=== PATIENT | female | born 1975 | race Caucasian/White ===

== ENCOUNTER 2021-06-15 07:27 | Outpatient (REF) | payer OTHER, SELFPAY ==
[2021-06-15 08:16] LABS: MANUAL DIFF FLAG NO
[2021-06-15 08:27] LABS: Basophils Absolute Auto 0.1 X10*3/uL (0.0-0.2); Basophils Percent Auto 0.6 % (0-2); Eosinophils Absolute Auto 0.2 X10*3/uL (0.0-0.4); Eosinophils Percent Auto 2.9 % (0-4); Hematocrit 38.5 % (37-47); Hemoglobin 12.9 g/dl (12.0-16.0); Imm Gran Abs Auto 0.02 X10*3/uL (0.00-0.03); Imm Gran Pct Auto 0.3 % (0.0-0.4); Lymphocytes Absolute Auto 2.4 X10*3/uL (1.2-4.9); Lymphocytes Percent Auto 30.6 % (20-40); Mean Corpuscular HGB Conc 33.5 g/dl (31.0-35.0); Mean Corpuscular Hemoglobin 29.7 pg (27.0-33.0); Mean Corpuscular Volume 88.7 fL (80-98); Mean Platelet Volume 10.9 fL (9.4-12.3); Monocytes Absolute Auto 0.7 X10*3/uL (0.1-1.2); Monocytes Percent Auto 9.2 % (2-11); Neutrophils Absolute Auto 4.3 X10*3/uL (2.0-8.3); Neutrophils Percent Auto 56.4 % (45-73); Platelet Count 218 X10*3/uL (160-400); Red Blood Count 4.34 X10*6/uL (4.20-5.50); White Blood Count 7.7 X10*3/uL (4.8-10.8)
[2021-06-15 08:37] LABS: Lithium 0.62 mmol/L (0.60-1.20)
[2021-06-15 08:49] LABS: Valproate 59.8 mcg/mL (50.0-100.0)
[2021-06-15 08:53] LABS: Alanine Aminotransferase 28 U/L (0-31); Albumin Level 4.4 g/dL (3.5-5.0); Alkaline Phosphatase 44 U/L (39-117); Anion Gap 12 (12-20); Aspartate Amino Transferase 18 U/L (5-31); Bilirubin Total 0.2 mg/dL (0.0-1.0); Blood Urea Nitrogen 10 mg/dL (9-16); Calcium 9.7 mg/dL (8.4-10.2); Carbon Dioxide 24 mmol/L (22-29); Chloride 108 mmol/L (96-108); Estimated Glomerular Filt Rate > 60; Glucose Random 95 mg/dL (60-115); Potassium 4.1 mmol/L (3.3-5.1); Sodium 140 mmol/L (135-145); Total Protein 6.7 g/dL (6.5-8.0)
[2021-06-15 09:03] LABS: Thyroid Stimulating Hormone 1.34 uIU/mL (0.32-4.0)
== END 2021-06-15 07:28 | disposition home or self-care (01) ==
LOC: HO.LAB 07:27
PROVIDERS: PCP Internal Medicine; Visit Provider Clinical Nurse Specialist Psychiatric/Mental Health, Adult
DX: Z79.899 Other long term (current) drug therapy (principal)
CPT/HCPCS: 36415; 80053; 80164; 80178; 84443; 85025

== ENCOUNTER 2021-12-21 08:43 | Outpatient (REF) | payer OTHER, SELFPAY ==
[2021-12-21 09:23] LABS: MANUAL DIFF FLAG NO
[2021-12-21 09:35] LABS: Basophils Percent Auto 0.5 % (0-2); Eosinophils Absolute Auto 0.2 X10*3/uL (0.0-0.4); Eosinophils Percent Auto 2.7 % (0-4); Hematocrit 38.8 % (37.0-47.0); Hemoglobin 12.5 g/dl (12.0-16.0); Imm Gran Abs Auto 0.07 X10*3/uL (0.00-0.03); Imm Gran Pct Auto 0.8 % (0.0-0.4); Lymphocytes Absolute Auto 2.7 X10*3/uL (1.2-4.9); Lymphocytes Percent Auto 30.5 % (20-40); Mean Corpuscular HGB Conc 32.2 g/dl (31.0-35.0); Mean Corpuscular Hemoglobin 28.9 pg (27.0-33.0); Mean Corpuscular Volume 89.6 fL (80.0-98.0); Mean Platelet Volume 10.3 fL (9.4-12.3); Monocytes Absolute Auto 0.7 X10*3/uL (0.1-1.2); Monocytes Percent Auto 8.1 % (2-11); Neutrophils Absolute Auto 5.1 x10*3/uL (2.0-8.3); Neutrophils Percent Auto 57.4 % (45-73); Platelet Count 243 X10*3/uL (160-400); Red Blood Count 4.33 X10*6/uL (4.20-5.50); Red Cell Distribution Width 12.1 % (11.0-16.0); White Blood Count 8.8 X10*3/uL (4.8-10.8)
[2021-12-21 09:46] LABS: Lithium 0.42 mmol/L (0.60-1.20)
[2021-12-21 09:56] LABS: Valproate 48.9 mcg/mL (50.0-100.0)
[2021-12-21 10:03] LABS: Alanine Aminotransferase 27 U/L (0-31); Albumin Level 4.3 g/dL (3.5-5.0); Alkaline Phosphatase 51 U/L (39-117); Anion Gap 14 (12-20); Aspartate Amino Transferase 17 U/L (5-31); Bilirubin Total 0.2 mg/dL (0.0-1.0); Blood Urea Nitrogen 8 mg/dL (9-16); Calcium 9.5 mg/dL (8.4-10.2); Carbon Dioxide 20 mmol/L (22-29); Chloride 110 mmol/L (96-108); Estimated Glomerular Filt Rate > 60; Glucose Random 98 mg/dL (60-115); Potassium 4.4 mmol/L (3.3-5.1); Sodium 140 mmol/L (135-145); Total Protein 6.8 g/dL (6.5-8.0)
== END 2021-12-21 08:44 | disposition home or self-care (01) ==
LOC: HO.LAB 08:43
PROVIDERS: PCP Internal Medicine; Visit Provider Clinical Nurse Specialist Psychiatric/Mental Health, Adult
DX: Z79.899 Other long term (current) drug therapy (principal)
CPT/HCPCS: 36415; 80053; 80164; 80178; 85025

== ENCOUNTER 2022-01-16 06:24 | Outpatient (REF) | payer OTHER, SELFPAY ==
[2022-01-16 07:56] LABS: Valproate 56.2 mcg/mL (50.0-100.0)
== END 2022-01-16 06:25 | disposition home or self-care (01) ==
LOC: HO.LAB 06:24
PROVIDERS: PCP Internal Medicine; Visit Provider Clinical Nurse Specialist Psychiatric/Mental Health, Adult
DX: Z79.899 Other long term (current) drug therapy (principal)
CPT/HCPCS: 36415; 80164

== ENCOUNTER 2022-08-29 08:22 | Outpatient (REF) | payer OTHER, SELFPAY ==
[2022-08-29 08:35] LABS: MANUAL DIFF FLAG NO
[2022-08-29 08:52] LABS: Basophils Absolute Auto 0.1 X10*3/uL (0.0-0.2); Basophils Percent Auto 0.7 % (0-2); Eosinophils Absolute Auto 0.2 X10*3/uL (0.0-0.4); Eosinophils Percent Auto 2.3 % (0-4); Hematocrit 38.8 % (37.0-47.0); Hemoglobin 12.9 g/dl (12.0-16.0); Imm Gran Abs Auto 0.02 X10*3/uL (0.00-0.03); Imm Gran Pct Auto 0.2 % (0.0-0.4); Lymphocytes Absolute Auto 2.7 X10*3/uL (1.2-4.9); Lymphocytes Percent Auto 32.9 % (20-40); Mean Corpuscular HGB Conc 33.2 g/dl (31.0-35.0); Mean Corpuscular Hemoglobin 29.2 pg (27.0-33.0); Mean Corpuscular Volume 87.8 fL (80.0-98.0); Mean Platelet Volume 10.3 fL (9.4-12.3); Monocytes Absolute Auto 0.8 X10*3/uL (0.1-1.2); Monocytes Percent Auto 9.8 % (2-11); Neutrophils Absolute Auto 4.4 x10*3/uL (2.0-8.3); Neutrophils Percent Auto 54.1 % (45-73); Platelet Count 238 X10*3/uL (160-400); Red Blood Count 4.42 X10*6/uL (4.20-5.50); Red Cell Distribution Width 11.9 % (11.0-16.0); White Blood Count 8.2 X10*3/uL (4.8-10.8)
[2022-08-29 09:20] LABS: Alanine Aminotransferase 18 U/L (0-31); Albumin Level 4.5 g/dL (3.5-5.0); Alkaline Phosphatase 49 U/L (39-117); Anion Gap 15 (12-20); Aspartate Amino Transferase 14 U/L (5-31); Bilirubin Total 0.4 mg/dL (0.0-1.0); Blood Urea Nitrogen 10 mg/dL (9-16); Calcium 9.7 mg/dL (8.4-10.2); Carbon Dioxide 22 mmol/L (22-29); Chloride 107 mmol/L (96-108); Estimated Glomerular Filt Rate > 60; Glucose Random 96 mg/dL (60-115); Potassium 4.3 mmol/L (3.3-5.1); Sodium 140 mmol/L (135-145); Total Protein 6.9 g/dL (6.5-8.0)
[2022-08-29 09:21] LABS: Valproate 67.7 mcg/mL (50.0-100.0)
== END 2022-08-29 08:23 | disposition home or self-care (01) ==
LOC: HO.LAB 08:22
PROVIDERS: PCP Internal Medicine; Visit Provider Clinical Nurse Specialist Psychiatric/Mental Health, Adult
DX: Z79.899 Other long term (current) drug therapy (principal)
CPT/HCPCS: 36415; 80053; 80164; 85025

== ENCOUNTER 2022-11-13 14:18 | Outpatient (REF) | payer OTHER, SELFPAY ==
--- NOTE | ~2022-11-13 | US_ITS ---
EXAMINATION: US SOFT TISSUE HEAD/NECK CLINICAL INFORMATION: Localized swelling, mass and lump, neck. Patient reports right submandibular lump which has since resolved at the time of examination. Patient is currently on antibiotics. COMPARISON: None TECHNIQUE: Linear transducer grayscale and color Doppler examination of the right submandibular area. FINDINGS: Multiple mildly prominent lymph nodes are seen in the right submandibular region, measuring 1.9 x 1.4 x 3.0 cm, 1.5 x 0.7 x 1.0 cm, and 1.1 x 0.6 x 1.0 cm. All are normal in morphology with fatty hilum visualized. These are likely reactive. US/US soft tiss head and/or neck IMPRESSION: Multiple mildly prominent lymph nodes are seen in the right submandibular region, likely reactive. Recommend short interval follow-up to assess for resolution.
== END 2022-11-13 14:19 | disposition home or self-care (01) ==
LOC: HO.HMGCX 14:18
PROVIDERS: PCP Internal Medicine; Visit Provider Nurse Practitioner Family
DX: R22.1 Localized swelling, mass and lump, neck (principal)
CPT/HCPCS: 76536

== ENCOUNTER 2024-01-29 15:19 | Emergency (ER) | payer OTHER, SELFPAY ==
--- NOTE | ~2024-01-29 | XR_ITS ---
EXAMINATION: XR HAND, RIGHT CLINICAL INFORMATION: Pain. Injury. COMPARISON: None available. TECHNIQUE: PA, lateral, and oblique views of the right hand. FINDINGS: Bone alignment is normal. No fracture or dislocation. Normal joint spaces. Soft tissue swelling adjacent to the fifth MCP joint. XR/XR hand RT min 3V IMPRESSION: No fracture or dislocation. Soft tissue swelling adjacent to the fifth MCP joint.
[2024-01-29 15:22] VITALS: BP 132/92; PULSE 64; O2SAT 99
--- NOTE | 2024-01-29 15:22 | ED.GENADULT ---
HPI - General Adult General Chief complaint: Extremity Injury, Upper Stated complaint: [facility], punched a wall Time Seen by Provider: 01/29/24 15:22 Source: patient and EMS Mode of arrival: EMS Limitations: no limitations History of Present Illness HPI narrative: Patient is a 48 year old assigned female at with a history of self harm, and suicidal ideation presenting to the emergency department today with right hand pain after striking a wall. Patient states that 4 days ago, she voluntarily signed in to [facility] for self-harm behavior and suicidal ideation. Patient states that the [facility] staff is rude, leaves her in her room, takes away her lunch if she doesn't eat it right away, and she doesn't feel like she is getting proper treatment there. Patient states that she is so frustrated with the care that she punched a wall today. Patient states that before punching the wall, she asked multiple times to be transferred to the psychiatric unit here. Patient denies any dizziness, lightheadedness, abdominal pain, nausea, vomiting, fever, chills, blurry vision, double vision, loss of vision, chest pain, difficulty breathing, shortness of breath, back pain, night sweats, pain with urination, increased urinary frequency, increased urinary urgency, blood in her urine or stool, syncope or a near syncopal episode, bowel incontinence, bladder incontinence, bowel retention, bladder retention, or any other complaints at this time. Relieving factors: none Exacerbating factors: none Associated symptoms: denies other symptoms Treatments prior to arrival: none Related Data Home Medications ?Medication ?Instructions ?Recorded ?Confirmed aripiprazole 10 mg tablet 10 mg PO QAM 11/06/22 11/06/22 dextroamphetamine-amphetamine 10 1 tab PO BID 11/06/22 11/06/22 mg tablet dextroamphetamine-amphetamine 15 1 tab PO BID 11/06/22 11/06/22 mg tablet lithium carbonate 300 mg 600 mg PO BEDTIME 11/06/22 11/06/22 tablet,extended release lorazepam 1 mg tablet 1 mg PO BID PRN anxiety 11/06/22 11/06/22 quetiapine 100 mg tablet 100 mg PO BEDTIME 11/06/22 11/06/22 Previous Rx's ?Medication ?Instructions ?Recorded cephalexin 500 mg capsule 500 mg PO Q12H 10 days #20 caps 11/06/22 Allergies Allergy/AdvReac Type Severity Reaction Status Date / Time lamotrigine [From LAMICTAL] Allergy Severe RASH Verified 01/29/24 16:05 acetaminophen [From PERCOCET] Allergy Mild NAUSEA Verified 01/29/24 16:05 oxycodone [From PERCOCET] Allergy Mild NAUSEA Verified 01/29/24 16:05 Review of Systems Constitutional: Constitutional: Reports no additional constitutional complaints, Denies chills, Denies fever(s) and Denies night sweats Eyes: Eyes: Reports no additional eye complaints, Denies blurry vision, Denies change in vision, Denies diplopia, Denies eye discharge, Denies loss of vision and Denies eye pain ENT: Denies dizziness Cardiovascular: Cardiovascular: Reports no additional cardiovascular complaints, Denies chest pain, Denies lightheadedness, Denies Loss of Consciousness and Denies dyspnea Respiratory: Respiratory: Reports no additional respiratory complaints and Denies dyspnea Gastrointestinal: Gastrointestinal: Reports no additional gastrointestinal complaints, Denies abdominal pain, Denies melena, Denies hematochezia, Denies change in bowel habits and Denies change in stool character Genitourinary: Genitourinary: Denies hematuria, Denies urinary frequency, Denies dysuria, Denies urinary incontinence, Denies urinary hesitancy and Denies urinary urgency Musculoskeletal: Musculoskeletal: Reports no additional musculoskeletal complaints, Denies numbness and Denies tingling Comments: right hand pain Neurologic: Denies dizziness, Denies loss of vision, Denies numbness and Denies tingling Psychiatric: Psychiatric: Denies homicidal ideation and Reports suicidal ideation Endocrine: Endocrine: Reports no additional endocrine complaints Hematologic/Lymphatic: Hematologic/Lymphatic: Reports no additional hematologic/lymphatic complaints Allergic/Immunologic: Allergic/Immunologic: Reports no additional allergic/immunologic complaints [facility] Past Medical History Attestation statement: The following information was validated with the patient. Source: old records reviewed and nursing notes reviewed Social History Social History Advance Directives: No Advance Directives Information Provided: Yes Do you have a plan to hurt others: Clear Physical Exam ED Vital Signs: Vital Signs - 24 hr 01/29/24 18:17 01/29/24 19:49 Temperature 98.4 F 98.4 F Pulse Rate 72 72 Respiratory Rate 16 16 Blood Pressure 150/85 H 150/85 H Pulse Oximetry 98 98 Oxygen Delivery Method Room Air Room Air BMI result Body Mass Index 29.4 Const General: cooperative, no acute distress, alert and awake Nutritional Appearance: well nourished Orientation/consciousness: patient oriented x3 Limitations: no limitations HENMT Head: Yes normal to inspection and Yes atraumatic Ears: hearing grossly normal bilaterally and external ears normal General nose exam: Normal external nose present, no nasal discharge noted and no epistaxis Face and sinus: Yes normal facial exam, No abrasion and No laceration Mouth: Normal oral and palatal mucosa present, no drooling and no muffled voice Eyes General: appearance normal, both eyes and all related structures Periorbital: periorbital findings normal Eyelids: Yes eyelids normal Conjunctivae: conjunctivae normal Pupils: Equal, round and reactive pupils present EOM: EOMs intact bilaterally Neck Neck: Yes normal visual inspection, Yes full ROM and Yes no lymphadenopathy Chest Chest palpation & inspection: normal inspection of the chest Resp Effort & Inspection: normal respiratory effort and able to speak in complete sentences GI Inspection: Yes normal to inspection Neuro General: patient oriented x3 and moves all extremities Cranial nerves: Yes Equal, round and reactive pupils present Cognition (Neuro): normal cognition Motor exam (neuro): 5/5 motor strength present throughout Sensory Exam: Normal double simultaneous stimulation for sensation Coordination: [id number] test normal Extrem Other: minimal swelling to the dorsal aspect of the right hand General: Yes full ROM and Yes capillary refill normal Psych Appearance: grossly normal Mental Status: mental status grossly normal Affect: normal affect Attitude: cooperative Thought process: Normal thought process present Thought content: Normal thought content present Insight: Good insight present (Psych) Medical Decision Making Medical Decision Making MDM Narrative: Patient is a 48 year old assigned female at with a history of self-harm and suicidal ideation presenting to the emergency department today with right hand pain. Patient's physical exam was as noted in the physical exam portion of this note. Patient's right hand x-ray showed no acute process. I explained my physical exam findings as well as all test results to the patient. I answered all questions asked by the patient. Myself and the CARE team attempted to arrange a transfer of the patient's inpatient psychiatric care from [facility] to [facility] however, [facility] declined, stating they would like the patient to return. The patient stated repeatedly that she did not want to return there. I explained to the patient that due to her section 21, we had to return her to [facility]. I stressed the importance of the patient taking her medication as prescribed. I stressed the importance of the patient following up with her primary care provider. I stressed the importance of the patient returning to the emergency department immediately if her symptoms were to worsen or if [he/she/they] were to develop any dizziness, shortness of breath, difficulty breathing, chest pain, blurry vision, loss of vision, nausea, vomiting, abdominal pain, fever, chills, back pain, or any other complaints. Patient verbalized agreement and understanding with this treatment plan and transfer back to [facility]. Differential Diagnosis Differential Diagnoses: The differential diagnosis associated with the presentation includes Right hand pain Right hand contusion Right hand fracture Suicidal ideation Admission/Observation Consideration of admission/observation: Escalation of care including admission/observation considered Patient would have been admitted to the hospital had her work up had any findings where hospital admission was appropriate and her clinical presentation warranted hospital admission. Independent Interpretation I performed an independent interpretation of an: Plain X-Ray Interpretation: My interpretation is in agreement with the radiologist's impression of this imaging study. EXAMINATION: XR HAND, RIGHT CLINICAL INFORMATION: Pain. Injury. COMPARISON: None available. TECHNIQUE: PA, lateral, and oblique views of the right hand. FINDINGS: Bone alignment is normal. No fracture or dislocation. Normal joint spaces. Soft tissue swelling adjacent to the fifth MCP joint. XR/XR hand RT min 3V IMPRESSION: No fracture or dislocation. Soft tissue swelling adjacent to the fifth MCP joint. Dictated By: Syeda Vazquez MD Signed By: Electronically signed by Syeda Vazquez MD 01/29/24 [id number] Independent Historian Clinical information obtained from an independent historian. History obtained from or confirmed by: EMS (EMS provided additional history and confirmed the history provided by the patient) Critical Care Time Critical Care Time Critical Care Time: Yes Total Critical Care Time: 88 Attestation: I spent 88 minutes of Critical Care Time with this patient. This does not include time spent on separately reported billable procedures. Discharge Plan Discharge Clinical Impression: Contusion of hand Patient Disposition: Home, Self-Care Instructions: Contusion in Adults (ED) Additional Instructions: Follow up with your primary care provider. Return to the emergency department immediately if your symptoms worsen or if you develop any dizziness, shortness of breath, difficulty breathing, chest pain, blurry vision, loss of vision, nausea, vomiting, abdominal pain, fever, chills, back pain, or any other complaints. Prescriptions: No Action lorazepam 1 mg tablet 1 mg PO BID PRN (Reason: anxiety) quetiapine 100 mg tablet 100 mg PO BEDTIME lithium carbonate 300 mg tablet extended release 600 mg PO BEDTIME aripiprazole 10 mg tablet 10 mg PO QAM dextroamphetamine-amphetamine 15 mg tablet 1 tab PO BID dextroamphetamine-amphetamine 10 mg tablet 1 tab PO BID cephalexin 500 mg capsule 500 mg PO Q12H 10 Days Qty: 20 0RF Referrals: Clarissa Matias MD [Primary Care Provider] - Interventions: ED Discharge Assessment Last Done: 01/29/24 19:49 Discharge Date/Time: 01/29/24 19:50 Print Language: Danish
[2024-01-29 16:03] VITALS: BMI 29.4
--- NOTE | 2024-01-29 16:15 | MHC.EDTECH ---
PATIENT WAS BIBA FROM [facility] ,PATIENT WAS RECEIVING ASSOCIATE INTO 0([facility] ) ALL PATIENT BELONINGS ARE LOCKED UP IN POD LOCKER # 11,PATIENT OBSERVOR AT BED SIDE .
--- NOTE | 2024-01-29 17:46 | PC.NURSE ---
Patient to be transported back to [facility] at 7:30pm via ems
[2024-01-29 18:17] VITALS: BP 150/85; PULSE 72; RESP 16; TEMP 36.9; O2SAT 98
--- NOTE | 2024-01-29 19:20 | PC.NURSE ---
this rn assumed report of pt, pt resting in stretcherno acute distress noted. 1:1 sitter at bedside. attempted to give report to [facility], unable to give report at this time.
--- NOTE | 2024-01-29 19:46 | PC.NURSE ---
ems at bedside for transport to [facility].
[2024-01-29 19:49] VITALS: BP 150/85; PULSE 72; RESP 16; TEMP 36.9; O2SAT 98
== END 2024-01-29 19:50 | disposition home or self-care (01) ==
PROVIDERS: Emergency Provider Student in an Organized Health Care Education/Training Program; PCP Internal Medicine
DX: S60.221A Contusion of right hand, initial encounter (principal); W22.09XA Striking against other stationary object, initial encounter; Y93.9 Activity, unspecified; Y92.199 Unspecified place in other specified residential institution as the place of occurrence of the external cause; Y99.9 Unspecified external cause status
CPT/HCPCS: 73130; 99283; 99284

== ENCOUNTER 2024-02-03 11:21 | Inpatient (IN) | payer OTHER, SELFPAY ==
--- NOTE | ~2024-02-03 | XR_ITS ---
EXAMINATION: XR HAND, RIGHT CLINICAL INFORMATION: Pain after punching a wall COMPARISON: 01/29/2024 TECHNIQUE: PA, lateral, and oblique views of the right hand. FINDINGS: No fracture, dislocation or destructive process. Dorsal soft tissue swelling noted. XR/XR hand RT 2V IMPRESSION: No fracture seen.
[2024-02-03 11:48] VITALS: BP 146/90; PULSE 93; RESP 19; TEMP 36.7; O2SAT 97; BMI 31.5
[2024-02-03 12:29] VITALS: RESP 14
--- NOTE | 2024-02-03 12:31 | ED_ITS ---
HPI - Psych General Chief Complaint: Psychiatric Symptoms Stated Complaint: Psych eval Time Seen by Provider: 02/03/24 12:10 Source: patient Mode of arrival: ambulatory Limitations: no limitations History of Present Illness HPI Narrative: 48-year-old female with history of bipolar disorder presented for evaluation depression, and suicidal thoughts. 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 Patient been thinking to hurt herself by cutting her arms had few superficial right and left arm laceration self induced yesterday, patient also punched the wall with her right hand complaining of right hand pain. Related Data Home Medications ?Medication ?Instructions ?Recorded ?Confirmed aripiprazole 10 mg tablet 10 mg PO QAM 11/06/22 11/06/22 dextroamphetamine-amphetamine 10 1 tab PO BID 11/06/22 11/06/22 mg tablet dextroamphetamine-amphetamine 15 1 tab PO BID 11/06/22 11/06/22 mg tablet lithium carbonate 300 mg 600 mg PO BEDTIME 11/06/22 11/06/22 tablet,extended release lorazepam 1 mg tablet 1 mg PO BID PRN anxiety 11/06/22 11/06/22 quetiapine 100 mg tablet 100 mg PO BEDTIME 11/06/22 11/06/22 Previous Rx's ?Medication ?Instructions ?Recorded cephalexin 500 mg capsule 500 mg PO Q12H 10 days #20 caps 11/06/22 Allergies Allergy/AdvReac Type Severity Reaction Status Date / Time lamotrigine [From LAMICTAL] Allergy Severe RASH Verified 02/03/24 11:49 acetaminophen [From PERCOCET] Allergy Mild NAUSEA Verified 02/03/24 11:49 oxycodone [From PERCOCET] Allergy Mild NAUSEA Verified 02/03/24 11:49 Review of Systems 2 Review of Systems: All other systems are reviewed and are negative Constitutional: Reports as per HPI and Reports no additional constitutional complaints Eyes: Reports as per HPI and Reports no additional eye complaints Reports system reviewed and no additional complaints, except as documented Cardiovascular: Reports as per HPI and Reports no additional cardiovascular complaints Respiratory: Reports as per HPI and Reports no additional respiratory complaints Gastrointestinal: Reports as per HPI and Reports no additional gastrointestinal complaints Genitourinary: Reports no additional female genitourinary complaints Musculoskeletal: Reports no additional musculoskeletal complaints Skin/Breast: Reports system reviewed and no additional complaints, except as docu Psychiatric: Reports no additional psychiatric complaints Endocrine: Reports no additional endocrine complaints Hematologic/Lymphatic: Reports no additional hematologic/lymphatic complaints Allergic/Immunologic: Reports no additional allergic/immunologic complaints Reports system reviewed and no additional complaints, except as documented and Reports Abnormal speech present [facility] Social History Social History Smoked in Last 30 Days: No Use of substances other than those prescribed or required for medical reasons: Yes Substance Use Type: Crack/Cocaine and Marijuana Substance Use Frequency: Occasionally Advance Directives: No Advance Directives Information Provided: No Do you have a plan to hurt others: No Plan Patient : No Physical Exam 2 Vital Signs: Vital Signs: Last Vital Signs Temp 98.1 F 02/03/24 11:48 Pulse 93 02/03/24 11:48 Resp 14 02/03/24 12:29 BP 146/90 H 02/03/24 11:48 Pulse Ox 97 02/03/24 11:48 O2 Del Method Nasal Cannula 02/03/24 11:48 BMI result Body Mass Index 31.5 Vital signs have been reviewed and appear to be correct. Blood pressure elevated. Heart rate normal. Respiratory rate normal. Temperature normal. Oxygen saturation normal. Appearance: Alert. Oriented X3. No acute distress. Head: Normal external exam. Normocephalic. Atraumatic. No Gold signs noted. No raccoon eyes noted Eyes: PERRLA. EOMI. Conjunctiva and sclera normal. Eyelids normal. ENT: TM's Normal. Pharynx normal. Uvula midline. Moist mucous membranes. No trismus noted. No drooling noted. No muffled voice noted. Neck: Normal inspection. Neck supple. FROM. No adenopathy. Thyroid Normal. No meningeal signs. No neck mass noted. CVS: Normal heart rate and rhythm. Heart sound normal. No murmurs noted. Pulses normal throughout. Respiratory: No respiratory distress. Painless inspiration. Breath sounds normal. No wheezes/rales/rhonchi noted. Chest nontender. No accessory muscle usage noted or decreased air movement noted. Abdomen: Soft and nontender. Bowel sounds normal in all 4 quadrants. No distention noted. No organomegaly noted. No visible injury noted. Back: No CVA tenderness. Full range of motion noted. Skin: Skin warm and dry. Normal skin color. Normal skin turgor. No rashes/lesions/lacerations noted. Extremities: No lower extremity edema. Extremities exhibit normal range of motion. Extremities nontender. Neuro: Oriented X 3. Cranial nerve exam: II-XII are grossly intact No motor deficit. No sensory deficit. Reflexes normal. Patient Orientation: Person, Place, Time and Situation, Tearful during the interview, okay hygiene and grooming. Fair eye contact, attentive, no tics or tremors. Level of Consciousness: Awake, Appropriate and Alert Patient Behavior: Appropriate, Guarded, Cooperative and Anxious Mood Description: Constricted, Blunted and Apprehensive Affect Description: Constricted, Blunted and Apprehensive Patient Cognition Impaired: No Ability to Follow Directions: Excellent Speech Pattern: Clear, Appropriate and Spontaneous Speech, nonpressured, spontaneous with regular rate and rhythm, normal volume and prosody. No dysarthria. Memory Description: Intact, Immediate Intact and Short Term Intact Hallucinations: None Delusions: Not Present Thought Process: Intact Thought Content: positive for Intact, positive for Logical, positive suicidal thoughts,denies Homicidal Ideation. Depressive Symptoms: Not present. Judgement and Insight: Limited but adequate. Course Reevaluation(s) Reevaluation #1: 48-year-old female here for evaluation of depression and SI, medically cleared, await for care team evaluation. Will start physician observation for final disposition by care team. Time: 13:32 Reevaluation #2: was called to the room because patient is agitated, throwing her glasses, slamming doors, digging in her arm wounds, keeps saying I want to get out of here kill myself and ended. Patient will be given Benadryl and Ativan orally patient agreed into oral medication. Time: 14:11 Medical Decision Making Differential Diagnosis Differential Diagnoses: The differential diagnosis associated with the presentation includes ( Medical clearance, right hand fracture, acute psychosis, risk of self induce harm, electrolyte derangement, UTI, severe anemia.) Admission/Observation Consideration of admission/observation: Escalation of care including admission/observation considered Lab Data MDM Lab Attestation statement: I reviewed the patient's lab results. 02/03/24 12:31 02/03/24 12:31 Labs: Lab Results 02/03/24 02/03/24 Range/Units 12:22 12:31 WBC 8.2 (4.8-10.8) X10*3/uL RBC 4.64 (4.20-5.50) X10*6/uL Hgb 13.6 (12.0-16.0) g/dl Hct 38.8 (37.0-47.0) % MCV 83.6 (80.0-98.0) fL MCH 29.3 (27.0-33.0) pg MCHC 35.1 H (31.0-35.0) g/dl RDW 12.0 (11.0-16.0) % Plt Count 271 (160-400) X10*3/uL MPV 10.4 (9.4-12.3) fL Immature Gran % (Auto) 0.1 (0.0-0.4) % Neut % (Auto) 60.1 (45-73) % Lymph % (Auto) 25.2 (20-40) % [place] % (Auto) 11.5 H (2-11) % Eos % (Auto) 2.7 (0-4) % Baso % (Auto) 0.4 (0-2) % Lymph # (Auto) 2.1 (1.2-4.9) X10*3/uL [place] # (Auto) 0.9 (0.1-1.2) X10*3/uL Eos # (Auto) 0.2 (0.0-0.4) X10*3/uL Baso # (Auto) 0.0 (0.0-0.2) X10*3/uL Abs Immat Gran (auto) 0.01 (0.00-0.03) X10*3/uL Absolute Neuts (auto) 4.9 (2.0-8.3) x10*3/uL Absolute Nucleated RBC 0.000 (0.0-0.012) X10*3/uL Nucleated RBC % (auto) 0.0 (0.0-0.2) /100WBC Sodium 134 L (135-145) mmol/L Potassium 3.9 (3.3-5.1) mmol/L Chloride 102 (96-108) mmol/L Carbon Dioxide 23 (22-29) mmol/L Anion Gap 13 (12-20) BUN 8 L (9-16) mg/dL Creatinine 0.88 (0.5-1.4) mg/dL Estim Creat Clear Calc 95.7 Estimated GFR > 60 Random Glucose 94 (60-115) mg/dL Calcium 10.4 H D (8.4-10.2) mg/dL Total Bilirubin 0.3 (0.0-1.0) mg/dL AST 27 (5-31) U/L ALT 32 H (0-31) U/L Alkaline Phosphatase 43 (39-117) U/L Total Protein 8.0 (6.5-8.0) g/dL Albumin 4.9 (3.5-5.0) g/dL Urine Color Yellow Urine Appearance Turbid Urine pH 6.5 (5.0-9.0) Ur Specific [place] 1.010 (1.005-1.025) Urine Protein Trace (Neg-Trace) mg/dL Urine Glucose (UA) Negative (Negative) mg/dL Urine Ketones Trace (Negative) mg/dL Urine Blood Negative (Negative) Urine Nitrite Negative (Negative) Ur Leukocyte Esterase Trace H (Negative) Urine RBC 0-2 (0-2) /HPF Urine WBC 6-10 H (0-5) /HPF Ur Squamous Epith Cells >20 (0-2) /HPF Urine Bacteria 4+ (None Seen) Hyaline Casts 0-2 (0-2) /LPF Urine Opiates Screen Not Detected (Not Detect) Ur Buprenorphine Scrn Not Detected (Not Detect) ng/mL Ur Oxycodone Screen Not Detected (Not Detect) ng/mL Urine Methadone Screen Not Detected (Not Detect) ng/mL Urine Fentanyl Screen Not Detected (Not Detect) Ur Barbiturates Screen Not Detected (Not Detect) Ur Phencyclidine Scrn Not Detected (Not Detect) Ur Amphetamines Screen POSITIVE H (Not Detect) U Benzodiazepines Scrn Not Detected (Not Detect) Urine Cocaine Screen Not Detected (Not Detect) U Marijuana (THC) Screen POSITIVE H (Not Detect) Ethyl Alcohol < 10 mg/dL Independent Interpretation I performed an independent interpretation of an: Plain X-Ray ( Right hand: No acute fracture or dislocation) Radiology Impression Discussion of test interpretation with radiology: I have reviewed the radiologist's reading. Discharge Plan Discharge Clinical Impression: Depression, Suicidal ideation, Contusion of hand, right, Superficial laceration of upper extremity Patient Disposition: Still a Patient Prescriptions: No Action lorazepam 1 mg tablet 1 mg PO BID PRN (Reason: anxiety) quetiapine 100 mg tablet 100 mg PO BEDTIME lithium carbonate 300 mg tablet extended release 600 mg PO BEDTIME aripiprazole 10 mg tablet 10 mg PO QAM dextroamphetamine-amphetamine 15 mg tablet 1 tab PO BID dextroamphetamine-amphetamine 10 mg tablet 1 tab PO BID cephalexin 500 mg capsule 500 mg PO Q12H 10 Days Qty: 20 0RF Interventions: [place]-Suicide Risk Severity Scale Last Done: 02/03/24 12:29 Print Language: Ukrainian
[2024-02-03 12:35] LABS: MANUAL DIFF FLAG NO
[2024-02-03 12:38] LABS: Basophils Percent Auto 0.4 % (0-2); Eosinophils Absolute Auto 0.2 X10*3/uL (0.0-0.4); Eosinophils Percent Auto 2.7 % (0-4); Hematocrit 38.8 % (37.0-47.0); Hemoglobin 13.6 g/dl (12.0-16.0); Imm Gran Abs Auto 0.01 X10*3/uL (0.00-0.03); Imm Gran Pct Auto 0.1 % (0.0-0.4); Lymphocytes Absolute Auto 2.1 X10*3/uL (1.2-4.9); Lymphocytes Percent Auto 25.2 % (20-40); Mean Corpuscular HGB Conc 35.1 g/dl (31.0-35.0); Mean Corpuscular Hemoglobin 29.3 pg (27.0-33.0); Mean Corpuscular Volume 83.6 fL (80.0-98.0); Mean Platelet Volume 10.4 fL (9.4-12.3); Monocytes Absolute Auto 0.9 X10*3/uL (0.1-1.2); Monocytes Percent Auto 11.5 % (2-11); Neutrophils Absolute Auto 4.9 x10*3/uL (2.0-8.3); Neutrophils Percent Auto 60.1 % (45-73); Platelet Count 271 X10*3/uL (160-400); Red Blood Count 4.64 X10*6/uL (4.20-5.50); White Blood Count 8.2 X10*3/uL (4.8-10.8)
[2024-02-03 12:41] LABS: Appearance Urine Turbid; Color Urine Yellow; Glucose Urine UA Negative (Negative); Leukocyte Esterase Urine Trace (Negative); Nitrite Urine Negative (Negative); PH 6.5 (5.0-9.0); UMIC TRIGGER UA YES; Urine Blood Negative (Negative); Urine Ketones Trace mg/dL (Negative); Urine Protein Trace mg/dL (Neg-Trace)
[2024-02-03 12:46] LABS: Amphetamine Screen Urine POSITIVE (Not Detect); Bacteria Urine 4+ (None Seen); Barbiturates, Urine Not Detected (Not Detect); Benzodiazepines Screen Urine Not Detected (Not Detect); Buprenorphine Scr Not Detected (Not Detect); Cannabinoid Screen Urine POSITIVE (Not Detect); Cocaine Screen Urine Not Detected (Not Detect); Fentanyl, urine Not Detected (Not Detect); Hyaline Casts Urine 0-2 /LPF (0-2); Methadone Screen, Urine Not Detected (Not Detect); Opiate Screen Urine Not Detected (Not Detect); Oxycodone Screen Urine Not Detected (Not Detect); Phencyclidine Screen Urine Not Detected (Not Detect); RBC Urine 0-2 /HPF (0-2); Squamous Epithelial Cell Urine >20 /HPF (0-2)
[2024-02-03 12:53] LABS: Alanine Aminotransferase 32 U/L (0-31); Albumin Level 4.9 g/dL (3.5-5.0); Alkaline Phosphatase 43 U/L (39-117); Anion Gap 13 (12-20); Aspartate Amino Transferase 27 U/L (5-31); Bilirubin Total 0.3 mg/dL (0.0-1.0); Blood Urea Nitrogen 8 mg/dL (9-16); Calcium 10.4 mg/dL (8.4-10.2); Carbon Dioxide 23 mmol/L (22-29); Chloride 102 mmol/L (96-108); Creatinine Clr Calc Pharmacy 95.7; Estimated Glomerular Filt Rate > 60; Ethanol < 10 mg/dL; Glucose Random 94 mg/dL (60-115); Potassium 3.9 mmol/L (3.3-5.1); Sodium 134 mmol/L (135-145)
--- NOTE | 2024-02-03 14:31 | MHC.EDTECH ---
Mother would like to be called by care team, if possible, to talk better about pt. says that the patient cant really advocate for herself.
--- NOTE | 2024-02-03 20:00 | PC.NURSE ---
patient readily and easily cooperated in completion of med rec w t/w patient appears in no distress.
[2024-02-03 20:47] VITALS: BP 143/99; PULSE 86; RESP 16; TEMP 36.1; O2SAT 98
[2024-02-03] MEDS: QUEtiapine Fumarate 100 MG TABLET PO (21:59)
[2024-02-03] MEDS: Lithium Carbonate ER 300 MG TABLET.ER 600 MG PO (22:00)
--- NOTE | 2024-02-03 22:05 | PC.NURSE ---
patient believe she is supposed to be on short acting depakote, not ER.
[2024-02-03] MEDS: LORazepam 1 MG TABLET PO (23:23)
[2024-02-03 23:31] VITALS: BP 137/90; PULSE 91; RESP 18; TEMP 36.8; O2SAT 97
--- NOTE | 2024-02-04 02:50 | PC.NURSE ---
patient came out to use restroom, expressively conveyed her dismay using some vulgarity and initially requests ativan 2nd dose and then declines after using restroom. adjourned to room after using loud expletives.
[2024-02-04] MEDS: OLANZapine ODT 10 MG TAB.RAPDIS TRANSLINGU (03:08)
--- NOTE | 2024-02-04 07:20 | PC.NURSE ---
PT IS SLEEPING RESP EVEN AND UNLABORED. WILL CONTINUE TO MONITOR.
--- NOTE | 2024-02-04 08:15 | PC.NURSE ---
PT'S MOTHER (FROILAN, ) CALLED. PT REFUSED THE CALL AT THIS TIME BECAUSE SHE STATES THAT SHE IS SLEEPING.
--- NOTE | 2024-02-04 08:17 | ECG_ITS ---
Test Reason : QRS PROLONGATION Blood Pressure : / mmHG Vent. Rate : 071 BPM Atrial Rate : 071 BPM P-R Int : 178 ms QRS Dur : 086 ms QT Int : 404 ms P-R-T Axes : 048 042 045 degrees QTc Int : 439 ms Normal sinus rhythm Nonspecific T wave abnormality Abnormal ECG No previous ECGs available Referred By: Erin Montilla Electronically Signed By:CIPRIANO ORDAZ
[2024-02-04] MEDS: Dextroamphetamine/Amphetamine XR 10 MG CAP.ER.24H 30 MG PO (09:33)
[2024-02-04 09:40] VITALS: BP 160/101; PULSE 86; TEMP 36.3; O2SAT 100
--- NOTE | 2024-02-04 09:49 | PC.NURSE ---
PT REFUSED HER DEPAKOTE MED STATING THAT SHE DOES NOT TAKE THE EXTENDED RELEASE, BUT TAKES THE IMMEDIATE RELEASE. WILL FOLLOW-UP WITH VERIFICATION OF RELEASE MED. PT WAS TEARFUL AND RETURNED TO HER ROOM.
--- NOTE | 2024-02-04 10:38 | PC.NURSE ---
PT SEEN BY CARE TEAM, AWARE OF PLAN OF PLAN OF CARE.
[2024-02-04 12:45] VITALS: BP 126/65; PULSE 86; RESP 16; TEMP 36.7; O2SAT 99
--- NOTE | 2024-02-04 13:00 | PC.NURSE ---
RN TO RN REPORT GIVEN. PT TO BE TRANSFERRED TO M5. PT AWARE OF PLAN OF CARE.
[2024-02-04 14:06] VITALS: BP 187/102; PULSE 111; RESP 16; TEMP 37.7; O2SAT 99
[2024-02-04 15:10] VITALS: BP 122/67
[2024-02-04] MEDS: cloNIDine HCL 0.1 MG TABLET PO (15:10)
--- NOTE | 2024-02-04 16:17 | PC.NURSE ---
approached pt in her room to recheck BP and was screamed at and told get out, I;m not doing anything or leaving my room until I get a sweatshirt. Pt was previosly instructed that the hooded sweatshirt she brought in was considered contraband and that a family or friend could drop one off to her if they agreed to. Pt rolled over and refused to continue conversation. Pt is currently resting in room, staring at the wall.
--- NOTE | 2024-02-04 17:34 | PC.NURSE ---
PT REFUSED TO PARTICIPATE IN SAFETY TOOL.
--- NOTE | 2024-02-04 17:35 | PC.ADMIT ---
Pt arrived to the unit on a CV @ 14;06. Pt is pleasant, calm, cooperative but guarded. Skin/safety check performed and revealed several self inflicted cuts to bilateral upper arms. Also noted, pt's right hand is swollen and bruised. Pt reports she punched a wall a few days ago . I had an xray and it's not broken Pt also had a BP reading of 187/102 (rechecked 3 times). Provider notified and one time dose of clonidine ordered. Pt reports living with a friend and the friends mother fir the past 10 years and was being asked to move out due to her worsening mental health a a precipitating facto to her increased depressed and SI. Pt reports worsening thoughts of SI and self harm over the past few days and self presented to the ED after showering her therapist self inflicted wounds to both upper arms. Pt reports she is med adherent but started a new medication (:Latuda) which she feels has also added to her increase thoughts of self harm and depression. pt has a hx of IPLOC, most recently last week at [facility]. Pt currently has therapist and med prescriber and participates in the [facility] program for stimulant abuse. Pt toxic screen positive for amphetamine and marijuana. PT placed on 15min checks for safety, oriented to unit and menus completed. Pt became irate and yelling after she was told by staff the hooded sweatshirts are not allowed and considered contraband. She then threatened to self harm by reopening the previosly inflicted wounds on her arms. Provider notified and pt placed on 5 min checks for safety,
[2024-02-04 21:20] VITALS: BP 108/62; PULSE 78; TEMP 36.8
[2024-02-04] MEDS: Lithium Carbonate ER 300 MG TABLET.ER 600 MG PO (21:25)
[2024-02-04] MEDS: QUEtiapine Fumarate 100 MG TABLET PO (21:26)
[2024-02-04] MEDS: Divalproex Sodium ER 250 MG TAB.ER.24H PO (21:26)
[2024-02-04] MEDS: Divalproex Sodium ER 500 MG TAB.ER.24H PO (21:26)
[2024-02-04] MEDS: LORazepam 1 MG TABLET PO (22:00)
[2024-02-04] MEDS: QUEtiapine Fumarate 50 MG TABLET PO (23:34)
[2024-02-05 08:00] VITALS: BP 128/66; PULSE 87; RESP 16; TEMP 37.4; O2SAT 97
[2024-02-05 10:01] LABS: Lithium 1.78 mmol/L (0.60-1.20)
[2024-02-05 10:02] LABS: Valproate 24.4 mcg/mL (50.0-100.0)
[2024-02-05 10:13] LABS: Alanine Aminotransferase 29 U/L (0-31); Albumin Level 4.7 g/dL (3.5-5.0); Alkaline Phosphatase 46 U/L (39-117); Anion Gap 12 (12-20); Aspartate Amino Transferase 22 U/L (5-31); Bilirubin Total 0.4 mg/dL (0.0-1.0); Blood Urea Nitrogen 7 mg/dL (9-16); Carbon Dioxide 26 mmol/L (22-29); Chloride 102 mmol/L (96-108); Cholesterol 131 mg/dL (<200); Creatinine Clr Calc Pharmacy 99.1; Estimated Glomerular Filt Rate > 60; Glucose Fasting 93 mg/dL (60-99); HDL Cholesterol 31 mg/dL (>40); LDL Cholesterol Calculated 82 mg/dL (<100); Potassium 3.4 mmol/L (3.3-5.1); Sodium 137 mmol/L (135-145); Total Protein 7.6 g/dL (6.5-8.0); Triglycerides 93 mg/dL (<150)
[2024-02-05 10:30] LABS: Thyroid Stimulating Hormone 1.45 uIU/mL (0.32-4.0)
[2024-02-05] MEDS: Dextroamphetamine/Amphetamine XR 10 MG CAP.ER.24H 30 MG PO (10:39)
[2024-02-05] MEDS: Divalproex Sodium ER 500 MG TAB.ER.24H PO ×2 (10:42→20:06)
[2024-02-05] MEDS: Divalproex Sodium ER 250 MG TAB.ER.24H PO ×2 (10:42→20:06)
--- NOTE | 2024-02-05 15:04 | P.HPPS_ITS ---
HPI Date of Service: 02/05/24 Chief Complaint: SI severe agitation Sources of Information: patient interviewed, chart reviewed and crisis/core team assessment reviewed HPI Subjective Notes: [place] Warning and Conditional Voluntary Healthcare Proxy: No Guardianship: No Medical Problems Affecting Mental Status: No Narrative: 48 yo female, hx of bipolar mood disorder sx, ADHD, since age 18, presents after discharge from [facility] for substance use tx for sx of increased depression. Reports an increase in mood sx since a med change 3-4 weeks ago, initiated Latuda. Since initiation reports increase in irritability, rages, crying, anger and no appetite or intake since Thursday. I cannot eat, I feel so full . Denies sx of constipation. Pt also reports an issue with cocaine, last used 3-4 weeks ago. She is in the [facility] program at [facility]. Past Psychiatric History: IP 5 total, the most recent 10 years ago and recent DC from [facility] for addictions treatment. OP [facility] Hx [address] [facility]. Therapist left after 10 years-pt cries, and she left me an email. Pt is in [facility] Program for stimulant abuse Diagnosed with mood disorder age 18- went to [place], BETO was pt's first sx of illness Medical Evaluation Reviewed: Yes [facility] Medical History (Updated 02/05/24 @ 17:[address], GOOD) Polysubstance use disorder Bipolar disorder Narrative: Pt is in the process of a workup to rule out M[place]amoya Disease. This was diagnosed by Dr. Duran 10 years ago during a seizure. She had been to [facility] with Dr. Sanchez who said he questioned this, however she is in process of an eval (missed appt recently due to hospitalization) Narrative: Cholecystectomy Fistula Social History: Born in [place]. Moved to [place] at age 12. One sister, 10 years younger. 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 No current relationship One son, born a girl, Alexandre, age 28 who lives in [place] with a room-mate Parents still live in [place]. Pt is able to live with them. Substance History: Cocaine Cannabis [id number] heavy a [place] on occasion In the summer, when pt attends festivals she uses mollies, mushrooms, acid Trauma History: Affirms Diagnostics Vital Signs (24Hr): Vital Signs - 24 hr 02/04/24 15:10 02/04/24 21:20 02/05/24 08:00 Temperature 98.2 F 99.4 F Pulse Rate 78 87 Respiratory Rate 16 Blood Pressure 122/67 108/62 128/66 Pulse Oximetry 97 Oxygen Delivery Method Room Air BMI result Body Mass Index 31.5 Labs 02/03/24 12:31 02/05/24 09:20 Labs: Laboratory Results - last 48 hr 02/05/24 09:20 Sodium 137 Potassium 3.4 Chloride 102 Carbon Dioxide 26 Anion Gap 12 BUN 7 L Creatinine 0.85 Estim Creat Clear Calc 99.1 Estimated GFR > 60 Fasting Glucose 93 Calcium 11.0 H Total Bilirubin 0.4 AST 22 ALT 29 Alkaline Phosphatase 46 Total Protein 7.6 Albumin 4.7 Triglycerides 93 Cholesterol 131 LDL Cholesterol, Calc 82 HDL Cholesterol 31 L TSH 1.45 Valproic Acid 24.4 L [place] 1.78 H* Imaging Radiology Impressions: ITS Impressions Hand X-Ray 02/03/24 13:13 IMPRESSION: No fracture seen. Meds/Allergies Meds Home Medications ?Medication ?Instructions ?Recorded ?Confirmed ?Type lithium carbonate 300 mg 600 mg PO BEDTIME 11/06/22 02/03/24 History tablet,extended release lorazepam 1 mg tablet 1 mg PO BID PRN anxiety 11/06/22 02/03/24 History quetiapine 100 mg tablet 100 mg PO BEDTIME 11/06/22 02/03/24 History cholecalciferol (vitamin D3) 1,250 1,250 mcg PO QWEEK 02/03/24 02/03/24 History mcg (50,000 unit) capsule dextroamphetamine-amphetamine ER 1 cap PO DAILY 02/03/24 02/03/24 History 20 mg 24hr capsule,extend release (Adderall XR) dextroamphetamine-amphetamine ER 1 cap PO QAM 02/03/24 02/03/24 History 30 mg 24hr capsule,extend release (Adderall XR) divalproex 250 mg tablet,extended 250 mg PO BID 02/03/24 02/03/24 History release 24 hr divalproex 500 mg tablet,extended 500 mg PO BID 02/03/24 02/03/24 History release 24 hr lurasidone 40 mg tablet 40 mg PO QPM 02/03/24 02/03/24 History Allergies Allergies Allergy/AdvReac Type Severity Reaction Status Date / Time lamotrigine [From LAMICTAL] Allergy Severe RASH Verified 02/03/24 11:49 acetaminophen [From PERCOCET] Allergy Mild NAUSEA Verified 02/03/24 11:49 oxycodone [From PERCOCET] Allergy Mild NAUSEA Verified 02/03/24 11:49 Mental Status Exam Mental Status Exam Patient Appearance: Fatigued Patient Orientation: Person, Place, Time and Situation Level of Consciousness: Alert Patient Behavior: Appropriate, Talkative, Cooperative and Good Eye Contact Mood Description: Labile Affect Description: Labile Ability to Follow Directions: Good Speech Pattern: Spontaneous Speech Memory Description: Intact Hallucinations: None Delusions: Not Present Perceptual Disturbances: Depersonalization and Derealization Thought Process: Rumination Thought Content: positive for Suicidal Ideation Depressive Symptoms: Increased Irritability, Changes in Appetite, Thoughts of /Suicide, Low Self Esteem, Loss of Energy and Difficulty Concentrating Judgement: Fair Assessment & Plan Assessment & Plan (1) Bipolar disorder: Status: Acute Code(s): F31.9 - Bipolar disorder, unspecified (2) Polysubstance use disorder: Status: Acute Code(s): F19.90 - Other psychoactive substance use, unspecified, uncomplicated Plan 48 yo female with bipolar disorder, ADHD, cocaine use disorder presents with increase mood sx for ~3-4 weeks-irritabilty, rage, lability, crying. She believes this to be from Latuda. Plan: Discontinue Latuda Hold [place] Repeat level 5/4 to consider re-start Continue remainder of the regime Olanzapine 10 mg bid Discussed Vraylar possibility Patient educated on: medication risk/benefits Informed Consent: understands Reason for continued inpatient stay Substantial Risk for: rapid decompensation Statement Statement: I have reviewed the history and physical and performed a pertinent examination on my patient. No changes have occurred unless specified. If the History and Physical was not performed prior to admission, the Hospitalist's service will be consulted for completing the admission physical. Time Spent With Patient Time: Total time managing care of this patient today ____ minutes.
[2024-02-05] MEDS: Dextroamphetamine/Amphetamine XR 10 MG CAP.ER.24H 20 MG PO (15:28)
[2024-02-05] MEDS: LORazepam 1 MG TABLET PO (16:06)
[2024-02-05 20:00] VITALS: BP 141/101; PULSE 93; RESP 16; TEMP 37; O2SAT 98
[2024-02-05] MEDS: QUEtiapine Fumarate 100 MG TABLET PO (20:06)
--- NOTE | 2024-02-05 20:08 | PC.NURSE ---
PT REFUSED BEDTIME SCHEDULED ZYPREXA. PT WAS UNAWARE OF THIS MEDICATION ADDITION. REQUESTING TO SPEAK TO THE PROVIDER.
[2024-02-06 07:50] LABS: Lithium 1.46 mmol/L (0.60-1.20)
[2024-02-06 08:00] VITALS: BP 129/79; PULSE 77; RESP 18; TEMP 36.5; O2SAT 99
[2024-02-06] MEDS: Dextroamphetamine/Amphetamine XR 10 MG CAP.ER.24H 30 MG PO (08:27)
[2024-02-06] MEDS: Divalproex Sodium ER 250 MG TAB.ER.24H PO ×2 (08:28→19:56)
[2024-02-06] MEDS: Divalproex Sodium ER 500 MG TAB.ER.24H PO ×2 (08:28→19:56)
[2024-02-06] MEDS: LORazepam 1 MG TABLET PO ×2 (08:28→15:00)
[2024-02-06] MEDS: OLANZapine 10 MG TABLET PO ×2 (08:28→19:56)
[2024-02-06] MEDS: Dextroamphetamine/Amphetamine XR 10 MG CAP.ER.24H 20 MG PO (15:26)
--- NOTE | 2024-02-06 15:30 | HO.PSYCHPN ---
Subjective Subjective Date of Service: 02/06/24 Reason For Visit: SI severe agitation Interim History: met with patient. Discussed with Nursing. [place] level today 1.46. Yesterday was 1.7. Patient reports overall feeling depressed. Is irritable. intermittent thoughts of suicide. No plans or intent. Reports feeling nauseous with very poor appetite. Also reports this may be correlating with lithium levels being elevated. Educated we will continue to track lithium level daily and hopefully physical symptoms will also improve as lithium level decreases Medication Compliance: Yes Attending Groups: No Review of Systems Acute medical concerns: No Review of Systems Review of Systems some nausea Mental Status Exam Mental Status Exam Patient Appearance: Fatigued Patient Orientation: Person, Place, Time and Situation Level of Consciousness: Alert Patient Behavior: Appropriate, Talkative, Cooperative and Good Eye Contact Mood Description: Labile Affect Description: Labile Ability to Follow Directions: Good Speech Pattern: Spontaneous Speech Memory Description: Intact Hallucinations: None Delusions: Not Present Thought Process: Rumination Thought Content: positive for Suicidal Ideation Depressive Symptoms: Increased Irritability, Changes in Appetite, Thoughts of /Suicide, Low Self Esteem, Loss of Energy and Difficulty Concentrating Judgement: Fair Diagnostics Vital Signs (24Hr): Vital Signs - 24 hr 02/05/24 20:00 02/06/24 08:00 Temperature 98.6 F 97.7 F Pulse Rate 93 77 Respiratory Rate 16 18 Blood Pressure 141/101 H 129/79 Pulse Oximetry 98 99 Oxygen Delivery Method Room Air Room Air BMI result Body Mass Index 31.5 Labs 02/03/24 12:31 02/05/24 09:20 Labs: Laboratory Results - last 48 hr 02/05/24 02/06/24 09:20 07:27 Sodium 137 Potassium 3.4 Chloride 102 Carbon Dioxide 26 Anion Gap 12 BUN 7 L Creatinine 0.85 Estim Creat Clear Calc 99.1 Estimated GFR > 60 Fasting Glucose 93 Calcium 11.0 H Total Bilirubin 0.4 AST 22 ALT 29 Alkaline Phosphatase 46 Total Protein 7.6 Albumin 4.7 Triglycerides 93 Cholesterol 131 LDL Cholesterol, Calc 82 HDL Cholesterol 31 L TSH 1.45 Valproic Acid 24.4 L [place] 1.78 H* 1.46 H Imaging Radiology Impressions: ITS Impressions Hand X-Ray 02/03/24 13:13 IMPRESSION: No fracture seen. Medications Medications Current Medications Al Hydroxide/Mg Hydroxide (Magnesium Hydrox/Alum Hydrox 30 Ml Oral.Susp) 30 ml PO Q6H PRN PRN Reason: Heartburn/Nausea Amphetamine/Dextroamphetamine (Dextroamphetamine/Amphetamine Xr 10 Mg Cap.Er.24h) 30 mg PO DAILY [facility] Last Admin: 02/06/24 08:27 Dose: 30 mg Amphetamine/Dextroamphetamine (Dextroamphetamine/Amphetamine Xr 10 Mg Cap.Er.24h) 20 mg PO 1400 [facility] Last Admin: 02/06/24 15:26 Dose: 20 mg Diphenhydramine HCl (Diphenhydramine Hcl 25 Mg Capsule) 50 mg PO DAILY PRN PRN Reason: self harm urges Divalproex Sodium (Divalproex Sodium Er 250 Mg Tab.Er.24h) 250 mg PO BID [facility] Last Admin: 02/06/24 08:28 Dose: 250 mg Divalproex Sodium (Divalproex Sodium Er 500 Mg Tab.Er.24h) 500 mg PO BID [facility] Last Admin: 02/06/24 08:28 Dose: 500 mg Fluticasone Propionate (Fluticasone Propionate Nasal 16 Gm [place]) 1 spray NOSTRIL-B BID [facility] Last Admin: 02/06/24 15:28 Dose: Not Given Hydroxyzine HCl (Hydroxyzine Hcl 25 Mg Tablet) 25 mg PO Q6H PRN PRN Reason: Anxiety Ibuprofen (Ibuprofen 600 Mg Tablet) 600 mg PO Q6H PRN PRN Reason: headaches [place] Carbonate ([place] Carbonate Er 300 Mg Tablet.Er) 600 mg PO BEDTIME [facility] Last Admin: 02/04/24 21:25 Dose: 600 mg Loratadine (Loratadine 10 Mg Tablet) 10 mg PO DAILY [facility] Last Admin: 02/06/24 15:28 Dose: Not Given Lorazepam (Lorazepam 1 Mg Tablet) 1 mg PO BID PRN PRN Reason: anxiety Last Admin: 02/06/24 15:00 Dose: 1 mg Magnesium Hydroxide (Milk Of Magnesia 30 Ml Oral.Susp) 30 ml PO DAILY PRN PRN Reason: Constipation Non-Formulary Medication (Cholecalciferol (Vitamin D3)) 1,250 mcg PO QWEEK [facility] Olanzapine (Olanzapine 10 Mg Tablet) 10 mg PO BID [facility] Last Admin: 02/06/24 08:28 Dose: 10 mg Quetiapine Fumarate (Quetiapine Fumarate 100 Mg Tablet) 100 mg PO BEDTIME [facility] Last Admin: 02/05/24 20:06 Dose: 100 mg Quetiapine Fumarate (Quetiapine Fumarate 50 Mg Tablet) 50 mg PO Q6H PRN PRN Reason: agitation Last Admin: 02/04/24 23:34 Dose: 50 mg Allergies Allergies Allergy/AdvReac Type Severity Reaction Status Date / Time lamotrigine [From LAMICTAL] Allergy Severe RASH Verified 02/03/24 11:49 acetaminophen [From PERCOCET] Allergy Mild NAUSEA Verified 02/03/24 11:49 oxycodone [From PERCOCET] Allergy Mild NAUSEA Verified 02/03/24 11:49 Assessment & Plan Assessment & Plan (1) Bipolar disorder: Status: Acute Code(s): F31.9 - Bipolar disorder, unspecified (2) Polysubstance use disorder: Status: Acute Code(s): F19.90 - Other psychoactive substance use, unspecified, uncomplicated Plan 48 yo female with bipolar disorder, ADHD, cocaine use disorder presents with increase mood sx for ~3-4 weeks-irritabilty, rage, lability, crying. She believes this to be from Latuda. Plan: Discontinue Latuda Hold [place] Repeat level 02/05 to consider re-start Continue remainder of the regime Olanzapine 10 mg bid Discussed Lucas possibility\ 02/06/2024: [place] level 1.46 today. Will continue to hold lithium. Will repeat lithium levels on 02/07/2024 and 02/08/2024. Reason for continued inpatient stay Substantial Risk for: harm to self and inability to function Time Spent With Patient Time: Total time managing care of this patient today ____ minutes.
[2024-02-06] MEDS: QUEtiapine Fumarate 100 MG TABLET PO (19:56)
[2024-02-06] MEDS: Magnesium Hydrox/Alum Hydrox 30 ML ORAL.SUSP PO (19:56)
[2024-02-06 20:00] VITALS: BP 141/107; PULSE 106; RESP 16; TEMP 36.8; O2SAT 99
[2024-02-06] MEDS: QUEtiapine Fumarate 50 MG TABLET PO (22:02)
[2024-02-07 07:04] LABS: Lithium 1.14 mmol/L (0.60-1.20)
[2024-02-07 08:00] VITALS: BP 141/97; PULSE 82; RESP 18; TEMP 37.1; O2SAT 98
[2024-02-07] MEDS: Divalproex Sodium ER 500 MG TAB.ER.24H PO ×2 (08:48→19:59)
[2024-02-07] MEDS: Dextroamphetamine/Amphetamine XR 10 MG CAP.ER.24H 30 MG PO (08:48)
[2024-02-07] MEDS: Divalproex Sodium ER 250 MG TAB.ER.24H PO ×2 (08:49→19:59)
[2024-02-07] MEDS: OLANZapine 10 MG TABLET PO ×2 (08:49→19:59)
--- NOTE | 2024-02-07 10:40 | HO.PSYCHPN ---
Subjective Subjective Date of Service: 02/07/24 Reason For Visit: SI severe agitation Interim History: Met with patient. Discussed with Nursing. [place] level today 1.14- will unhold lithium. Still feels depressed, irritable, tearful, labile. Intermittent thoughts of suicide. No plans or intent. Discussed olanzapine and rationale. Also discussed increasing prn dose of olanzapine. Review of Systems Review of Systems some nausea Mental Status Exam Mental Status Exam Patient Appearance: Fatigued Patient Orientation: Person, Place, Time and Situation Level of Consciousness: Alert Patient Behavior: Appropriate, Talkative, Cooperative and Good Eye Contact Mood Description: Depressed, Labile and Angry Affect Description: Labile Ability to Follow Directions: Good Speech Pattern: Spontaneous Speech Memory Description: Intact Diagnostics Vital Signs (24Hr): Vital Signs - 24 hr 02/06/24 20:00 02/07/24 08:00 Temperature 98.3 F 98.7 F Pulse Rate 106 H 82 Respiratory Rate 16 18 Blood Pressure 141/107 H 141/97 H Pulse Oximetry 99 98 Oxygen Delivery Method Room Air Room Air BMI result Body Mass Index 31.5 Labs 02/03/24 12:31 02/05/24 09:20 Labs: Laboratory Results - last 48 hr 02/06/24 02/07/24 07:27 06:51 [place] 1.46 H 1.14 Imaging Radiology Impressions: ITS Impressions Hand X-Ray 02/03/24 13:13 IMPRESSION: No fracture seen. Medications Medications Current Medications Al Hydroxide/Mg Hydroxide (Magnesium Hydrox/Alum Hydrox 30 Ml Oral.Susp) 30 ml PO Q6H PRN PRN Reason: Heartburn/Nausea Last Admin: 02/06/24 19:56 Dose: 30 ml Amphetamine/Dextroamphetamine (Dextroamphetamine/Amphetamine Xr 10 Mg Cap.Er.24h) 30 mg PO DAILY [facility] Last Admin: 02/07/24 08:48 Dose: 30 mg Amphetamine/Dextroamphetamine (Dextroamphetamine/Amphetamine Xr 10 Mg Cap.Er.24h) 20 mg PO 1400 [facility] Last Admin: 02/06/24 15:26 Dose: 20 mg Diphenhydramine HCl (Diphenhydramine Hcl 25 Mg Capsule) 50 mg PO DAILY PRN PRN Reason: self harm urges Divalproex Sodium (Divalproex Sodium Er 250 Mg Tab.Er.24h) 250 mg PO BID [facility] Last Admin: 02/07/24 08:49 Dose: 250 mg Divalproex Sodium (Divalproex Sodium Er 500 Mg Tab.Er.24h) 500 mg PO BID [facility] Last Admin: 02/07/24 08:48 Dose: 500 mg Hydroxyzine HCl (Hydroxyzine Hcl 25 Mg Tablet) 25 mg PO Q6H PRN PRN Reason: Anxiety Ibuprofen (Ibuprofen 600 Mg Tablet) 600 mg PO Q6H PRN PRN Reason: headaches [place] Carbonate ([place] Carbonate Er 300 Mg Tablet.Er) 600 mg PO BEDTIME [facility] Last Admin: 02/04/24 21:25 Dose: 600 mg Lorazepam (Lorazepam 1 Mg Tablet) 1 mg PO BID PRN PRN Reason: anxiety Last Admin: 02/06/24 15:00 Dose: 1 mg Magnesium Hydroxide (Milk Of Magnesia 30 Ml Oral.Susp) 30 ml PO DAILY PRN PRN Reason: Constipation Non-Formulary Medication (Cholecalciferol (Vitamin D3)) 1,250 mcg PO QWEEK [facility] Olanzapine (Olanzapine 10 Mg Tablet) 10 mg PO BID [facility] Last Admin: 02/07/24 08:49 Dose: 10 mg Quetiapine Fumarate (Quetiapine Fumarate 100 Mg Tablet) 100 mg PO BEDTIME [facility] Last Admin: 02/06/24 19:56 Dose: 100 mg Quetiapine Fumarate (Quetiapine Fumarate 50 Mg Tablet) 50 mg PO Q6H PRN PRN Reason: agitation Last Admin: 02/06/24 22:02 Dose: 50 mg Allergies Allergies Allergy/AdvReac Type Severity Reaction Status Date / Time lamotrigine [From LAMICTAL] Allergy Severe RASH Verified 02/03/24 11:49 acetaminophen [From PERCOCET] Allergy Mild NAUSEA Verified 02/03/24 11:49 oxycodone [From PERCOCET] Allergy Mild NAUSEA Verified 02/03/24 11:49 Assessment & Plan Assessment & Plan (1) Bipolar disorder: Status: Acute Code(s): F31.9 - Bipolar disorder, unspecified (2) Polysubstance use disorder: Status: Acute Code(s): F19.90 - Other psychoactive substance use, unspecified, uncomplicated Plan 48 yo female with bipolar disorder, ADHD, cocaine use disorder presents with increase mood sx for ~3-4 weeks-irritabilty, rage, lability, crying. She believes this to be from Latuda. Plan: Discontinue Latuda Hold [place] Repeat level 02/05 to consider re-start Continue remainder of the regime Olanzapine 10 mg bid Discussed Lucas possibility\ 02/06/2024: [place] level 1.46 today. Will continue to hold lithium. Will repeat lithium levels on 02/07/2024 and 02/08/2024. 02/06: lithium level 1.14- restart lithium 600 hs. Also increase prn olanzapine dosing Reason for continued inpatient stay Substantial Risk for: harm to self Time Spent With Patient Time: Total time managing care of this patient today ____ minutes.
[2024-02-07] MEDS: Acetaminophen 325 MG TABLET 650 MG PO ×2 (12:49→19:59)
[2024-02-07] MEDS: Dextroamphetamine/Amphetamine XR 10 MG CAP.ER.24H 20 MG PO (14:02)
[2024-02-07] MEDS: LORazepam 1 MG TABLET PO (16:20)
[2024-02-07] MEDS: Ibuprofen 600 MG TABLET PO (17:28)
[2024-02-07] MEDS: Lithium Carbonate ER 300 MG TABLET.ER 600 MG PO (19:58)
[2024-02-07] MEDS: QUEtiapine Fumarate 100 MG TABLET PO (19:59)
[2024-02-07 20:00] VITALS: BP 146/92; PULSE 94; RESP 20; TEMP 37.1; O2SAT 99
[2024-02-08 08:00] VITALS: RESP 18
[2024-02-08 08:35] LABS: Lithium 1.18 mmol/L (0.60-1.20)
[2024-02-08] MEDS: Dextroamphetamine/Amphetamine XR 10 MG CAP.ER.24H 30 MG PO (08:51)
[2024-02-08] MEDS: Divalproex Sodium ER 250 MG TAB.ER.24H PO (08:51)
[2024-02-08] MEDS: OLANZapine 10 MG TABLET PO (08:51)
[2024-02-08] MEDS: Divalproex Sodium ER 500 MG TAB.ER.24H PO (08:51)
[2024-02-08] MEDS: Acetaminophen 325 MG TABLET 650 MG PO (09:56)
--- NOTE | 2024-02-08 10:15 | P.PNPSI_ITS ---
Subjective Subjective Date of Service: 02/08/24 Reason For Visit: SI severe agitation Subjective Notes: Conditional Voluntary Healthcare Proxy: No Guardianship: No Medical Problems Affecting Mental Status: No Interim History: I cannot stop crying, raging. Reports R Hand pain from punching the wall x 2. No fracture. Discussed rest,ice,compression,elevation. Pt interested in compression. Cold compression dressing ordered bid. Review of medications, will increase Valproate, Olanzapine. Pt reminded by her mother that she has biologic medication resistance and usually does not respond well to dosing. Pt reports poor sleep, decrease in appetite, frustration, irritability. Medication Compliance: Yes Side effects from medications: No Attending Groups: Intermittent Review of Systems Acute medical concerns: No Medical Review of Systems: unchanged Review of Systems Review of Systems R Hand pain-no fracture, s/p punching the wall. Mental Status Exam Mental Status Exam Patient Appearance: Fatigued Patient Orientation: Person, Place, Time and Situation Level of Consciousness: Alert Patient Behavior: Appropriate, Talkative, Cooperative and Good Eye Contact Mood Description: Depressed, Labile and Angry Affect Description: Labile Ability to Follow Directions: Good Speech Pattern: Spontaneous Speech Memory Description: Intact Diagnostics Vital Signs (24Hr): Vital Signs - 24 hr 02/07/24 20:00 Temperature 98.8 F Pulse Rate 94 Respiratory Rate 20 Blood Pressure 146/92 H Pulse Oximetry 99 Oxygen Delivery Method Room Air BMI result Body Mass Index 31.5 Labs 02/03/24 12:31 02/05/24 09:20 Labs: Laboratory Results - last 48 hr 02/07/24 02/08/24 06:51 08:15 [place] 1.14 1.18 Imaging Radiology Impressions: ITS Impressions Hand X-Ray 02/03/24 13:13 IMPRESSION: No fracture seen. Medications Medications Current Medications Acetaminophen (Acetaminophen 325 Mg Tablet) 650 mg PO Q6H PRN PRN Reason: hand pain Last Admin: 02/08/24 09:56 Dose: 650 mg Al Hydroxide/Mg Hydroxide (Magnesium Hydrox/Alum Hydrox 30 Ml Oral.Susp) 30 ml PO Q6H PRN PRN Reason: Heartburn/Nausea Last Admin: 02/06/24 19:56 Dose: 30 ml Amphetamine/Dextroamphetamine (Dextroamphetamine/Amphetamine Xr 10 Mg Cap.Er.24h) 30 mg PO DAILY EDY Last Admin: 02/08/24 08:51 Dose: 30 mg Amphetamine/Dextroamphetamine (Dextroamphetamine/Amphetamine Xr 10 Mg Cap.Er.24h) 20 mg PO 1400 [facility] Last Admin: 02/07/24 14:02 Dose: 20 mg Diphenhydramine HCl (Diphenhydramine Hcl 25 Mg Capsule) 50 mg PO DAILY PRN PRN Reason: self harm urges Divalproex Sodium (Divalproex Sodium Er 250 Mg Tab.Er.24h) 250 mg PO BID [facility] Last Admin: 02/08/24 08:51 Dose: 250 mg Divalproex Sodium (Divalproex Sodium Er 500 Mg Tab.Er.24h) 500 mg PO BID [facility] Last Admin: 02/08/24 08:51 Dose: 500 mg Hydroxyzine HCl (Hydroxyzine Hcl 25 Mg Tablet) 25 mg PO Q6H PRN PRN Reason: Anxiety Ibuprofen (Ibuprofen 600 Mg Tablet) 600 mg PO Q6H PRN PRN Reason: headaches Last Admin: 02/07/24 17:28 Dose: 600 mg [place] Carbonate ([place] Carbonate Er 300 Mg Tablet.Er) 600 mg PO BEDTIME [facility] Last Admin: 02/07/24 19:58 Dose: 600 mg Lorazepam (Lorazepam 1 Mg Tablet) 1 mg PO BID PRN PRN Reason: anxiety Last Admin: 02/07/24 16:20 Dose: 1 mg Magnesium Hydroxide (Milk Of Magnesia 30 Ml Oral.Susp) 30 ml PO DAILY PRN PRN Reason: Constipation Non-Formulary Medication (Cholecalciferol (Vitamin D3)) 1,250 mcg PO QWEEK [facility] Olanzapine (Olanzapine 10 Mg Tablet) 10 mg PO BID [facility] Last Admin: 02/08/24 08:51 Dose: 10 mg Quetiapine Fumarate (Quetiapine Fumarate 100 Mg Tablet) 100 mg PO BEDTIME [facility] Last Admin: 02/07/24 19:59 Dose: 100 mg Quetiapine Fumarate (Quetiapine Fumarate 50 Mg Tablet) 50 mg PO Q6H PRN PRN Reason: agitation Last Admin: 02/06/24 22:02 Dose: 50 mg Allergies Allergies Allergy/AdvReac Type Severity Reaction Status Date / Time lamotrigine [From LAMICTAL] Allergy Severe RASH Verified 02/03/24 11:49 oxycodone [From PERCOCET] Allergy Mild NAUSEA Verified 02/03/24 11:49 Assessment & Plan Assessment & Plan (1) Bipolar disorder: Status: Acute Code(s): F31.9 - Bipolar disorder, unspecified (2) Polysubstance use disorder: Status: Acute Code(s): F19.90 - Other psychoactive substance use, unspecified, uncomplicated Plan 48 yo female with bipolar disorder, ADHD, cocaine use disorder presents with increase mood sx for ~3-4 weeks-irritabilty, rage, lability, crying. She believes this to be from Latuda. Plan: Discontinue Latuda Hold [place] Repeat level 02/05 to consider re-start Continue remainder of the regime Olanzapine 10 mg bid Discussed Lucas possibility\ 02/06/2024: [place] level 1.46 today. Will continue to hold lithium. Will repeat lithium levels on 02/07/2024 and 02/08/2024. 02/06: lithium level 1.14- restart lithium 600 hs. Also increase prn olanzapine dosing 02/08/24: Cold compression dressing for R Hand-pt experiencing pain. Increase Depakote to 1000 mg bid Increase Olanzapine to 15 mg bid Patient educated on: medication risk/benefits Informed Consent: understands and further education needed Reason for continued inpatient stay Substantial Risk for: rapid decompensation Time Spent With Patient Time: Total time managing care of this patient today ____ minutes.
[2024-02-08] MEDS: Dextroamphetamine/Amphetamine XR 10 MG CAP.ER.24H 20 MG PO (14:26)
[2024-02-08] MEDS: Ibuprofen 800 MG TABLET PO (18:05)
[2024-02-08 20:00] VITALS: BP 134/84; PULSE 90; TEMP 37.4
[2024-02-08] MEDS: OLANZapine 7.5 MG TABLET 15 MG PO (20:37)
[2024-02-08] MEDS: Divalproex Sodium ER 500 MG TAB.ER.24H 1000 MG PO (20:37)
[2024-02-08] MEDS: Lithium Carbonate ER 300 MG TABLET.ER 600 MG PO (20:38)
[2024-02-08] MEDS: QUEtiapine Fumarate 100 MG TABLET PO (20:38)
[2024-02-08] MEDS: QUEtiapine Fumarate 50 MG TABLET PO (21:44)
[2024-02-08] MEDS: LORazepam 1 MG TABLET PO (22:59)
[2024-02-09 08:00] VITALS: BP 137/78; PULSE 82; RESP 17; TEMP 36.8; O2SAT 98
[2024-02-09] MEDS: Divalproex Sodium ER 500 MG TAB.ER.24H 1000 MG PO ×2 (08:50→20:20)
[2024-02-09] MEDS: Dextroamphetamine/Amphetamine XR 10 MG CAP.ER.24H 30 MG PO (08:53)
[2024-02-09] MEDS: OLANZapine 7.5 MG TABLET 15 MG PO ×2 (08:54→20:20)
[2024-02-09] MEDS: Ibuprofen 800 MG TABLET PO ×2 (09:01→17:09)
--- NOTE | 2024-02-09 10:26 | P.PNPSI_ITS ---
Subjective Subjective Date of Service: 02/09/24 Reason For Visit: SI severe agitation Subjective Notes: Conditional Voluntary Healthcare Proxy: No Guardianship: No Medical Problems Affecting Mental Status: No Interim History: Team reports some mood improvement. Attempted to meet with Shanique bernard 2. She is in bed, irritable, upset that her compression sleeve did not arrive-occupational therapy was able to provide this for her. She is eating small amounts and per team is more visable today in the milieu. Medication Compliance: Yes Side effects from medications: No Attending Groups: No Review of Systems Acute medical concerns: No Pain, Edema Right Hand-encouraging rest, ice, compression, elevation. Compression sleeve given to pt by occupational therapy. Mental Status Exam Mental Status Exam Patient Appearance: Fatigued Patient Orientation: Person, Place, Time and Situation Level of Consciousness: Alert Patient Behavior: Appropriate, Talkative, Cooperative and Good Eye Contact Mood Description: Depressed, Labile and Angry Affect Description: Labile Ability to Follow Directions: Good Speech Pattern: Spontaneous Speech Memory Description: Intact Diagnostics Vital Signs (24Hr): Vital Signs - 24 hr 02/08/24 20:00 02/09/24 08:00 Temperature 99.3 F 98.3 F Pulse Rate 90 82 Respiratory Rate 17 Blood Pressure 134/84 137/78 Pulse Oximetry 98 Oxygen Delivery Method Room Air BMI result Body Mass Index 31.5 Labs 02/03/24 12:31 02/05/24 09:20 Labs: Laboratory Results - last 48 hr 02/08/24 08:15 [place] 1.18 Imaging Radiology Impressions: ITS Impressions Hand X-Ray 02/03/24 13:13 IMPRESSION: No fracture seen. Medications Medications Current Medications Acetaminophen (Acetaminophen 325 Mg Tablet) 650 mg PO Q6H PRN PRN Reason: hand pain Last Admin: 02/08/24 09:56 Dose: 650 mg Al Hydroxide/Mg Hydroxide (Magnesium Hydrox/Alum Hydrox 30 Ml Oral.Susp) 30 ml PO Q6H PRN PRN Reason: Heartburn/Nausea Last Admin: 02/06/24 19:56 Dose: 30 ml Amphetamine/Dextroamphetamine (Dextroamphetamine/Amphetamine Xr 10 Mg Cap.Er.24h) 30 mg PO DAILY EDY Last Admin: 02/09/24 08:53 Dose: 30 mg Amphetamine/Dextroamphetamine (Dextroamphetamine/Amphetamine Xr 10 Mg Cap.Er.24h) 20 mg PO 1400 [facility] Last Admin: 02/08/24 14:26 Dose: 20 mg Diphenhydramine HCl (Diphenhydramine Hcl 25 Mg Capsule) 50 mg PO DAILY PRN PRN Reason: self harm urges Divalproex Sodium (Divalproex Sodium Er 500 Mg Tab.Er.24h) 1,000 mg PO BID [facility] Last Admin: 02/09/24 08:50 Dose: 1,000 mg Hydroxyzine HCl (Hydroxyzine Hcl 25 Mg Tablet) 25 mg PO Q6H PRN PRN Reason: Anxiety Ibuprofen (Ibuprofen 800 Mg Tablet) 800 mg PO Q6H PRN PRN Reason: headaches, hand pain Last Admin: 02/09/24 09:01 Dose: 800 mg [place] Carbonate ([place] Carbonate Er 300 Mg Tablet.Er) 600 mg PO BEDTIME [facility] Last Admin: 02/08/24 20:38 Dose: 600 mg Lorazepam (Lorazepam 1 Mg Tablet) 1 mg PO BID PRN PRN Reason: anxiety Last Admin: 02/08/24 22:59 Dose: 1 mg Magnesium Hydroxide (Milk Of Magnesia 30 Ml Oral.Susp) 30 ml PO DAILY PRN PRN Reason: Constipation Non-Formulary Medication (Cholecalciferol (Vitamin D3)) 1,250 mcg PO QWEEK [facility] Olanzapine (Olanzapine 7.5 Mg Tablet) 15 mg PO BID [facility] Last Admin: 02/09/24 08:54 Dose: 15 mg Quetiapine Fumarate (Quetiapine Fumarate 100 Mg Tablet) 100 mg PO BEDTIME [facility] Last Admin: 02/08/24 20:38 Dose: 100 mg Quetiapine Fumarate (Quetiapine Fumarate 50 Mg Tablet) 50 mg PO Q6H PRN PRN Reason: agitation Last Admin: 02/08/24 21:44 Dose: 50 mg Allergies Allergies Allergy/AdvReac Type Severity Reaction Status Date / Time lamotrigine [From LAMICTAL] Allergy Severe RASH Verified 02/03/24 11:49 oxycodone [From PERCOCET] Allergy Mild NAUSEA Verified 02/03/24 11:49 Assessment & Plan Assessment & Plan (1) Bipolar disorder: Status: Acute Code(s): F31.9 - Bipolar disorder, unspecified (2) Polysubstance use disorder: Status: Acute Code(s): F19.90 - Other psychoactive substance use, unspecified, uncomplicated Plan 48 yo female with bipolar disorder, ADHD, cocaine use disorder presents with increase mood sx for ~3-4 weeks-irritabilty, rage, lability, crying. She believes this to be from Latuda. Plan: Discontinue Latuda Hold [place] Repeat level 02/05 to consider re-start Continue remainder of the regime Olanzapine 10 mg bid Discussed Lucas possibility\ 02/06/2024: [place] level 1.46 today. Will continue to hold lithium. Will repeat lithium levels on 02/07/2024 and 02/08/2024. 02/06: lithium level 1.14- restart lithium 600 hs. Also increase prn olanzapine dosing 02/08/24: Cold compression dressing for R Hand-pt experiencing pain. Increase Depakote to 1000 mg bid Increase Olanzapine to 15 mg bid 02/09/24: Continue current regime/plan. Reason for continued inpatient stay Substantial Risk for: rapid decompensation Time Spent With Patient Time: Total time managing care of this patient today ____ minutes.
[2024-02-09] MEDS: Dextroamphetamine/Amphetamine XR 10 MG CAP.ER.24H 20 MG PO (14:43)
[2024-02-09] MEDS: LORazepam 1 MG TABLET PO ×2 (17:09→20:20)
[2024-02-09] MEDS: hydrOXYzine HCL 25 MG TABLET PO (17:09)
[2024-02-09 20:00] VITALS: BP 142/74; PULSE 99; RESP 17; TEMP 36.6; O2SAT 97
[2024-02-09] MEDS: QUEtiapine Fumarate 100 MG TABLET PO (20:20)
[2024-02-09] MEDS: Lithium Carbonate ER 300 MG TABLET.ER 600 MG PO (20:20)
[2024-02-09] MEDS: Ergocalciferol (Vitamin D2) 1,250 MCG CAPSULE 1250 MCG PO (23:30)
[2024-02-10 08:00] VITALS: BP 141/94; PULSE 82; RESP 18; TEMP 36.5; O2SAT 99
[2024-02-10] MEDS: Ibuprofen 800 MG TABLET PO ×2 (08:18→14:47)
[2024-02-10] MEDS: OLANZapine 7.5 MG TABLET 15 MG PO ×2 (08:18→20:19)
[2024-02-10] MEDS: Divalproex Sodium ER 500 MG TAB.ER.24H 1000 MG PO ×2 (08:18→20:19)
[2024-02-10] MEDS: Dextroamphetamine/Amphetamine XR 10 MG CAP.ER.24H 30 MG PO (08:18)
[2024-02-10 12:23] LABS: Vitamin D 25-OH, D2 <4 ng/mL; Vitamin D 25-OH, D3 51 ng/mL; Vitamin D 25-OH, Total 51 ng/mL (30-100)
--- NOTE | 2024-02-10 13:02 | HO.PSYCHPN ---
Subjective Subjective Date of Service: 02/10/24 Reason For Visit: SI severe agitation Subjective Notes: Conditional Voluntary Healthcare Proxy: No Guardianship: No Medical Problems Affecting Mental Status: No Interim History: Reports some improvement in sx. Slept well, continues with periods of sadness, crying. Discussed grief work and losses prior to admission. Medication Compliance: Yes Side effects from medications: No Attending Groups: Yes (increasing daily) Review of Systems Acute medical concerns: No Medical Review of Systems: unchanged Review of Systems Review of Systems Yes all other systems are reviewed and are negative Mental Status Exam Mental Status Exam Patient Appearance: Fatigued Patient Orientation: Person, Place, Time and Situation Level of Consciousness: Alert Patient Behavior: Appropriate, Talkative, Cooperative and Good Eye Contact Mood Description: Depressed, Labile and Angry Affect Description: Labile Ability to Follow Directions: Good Speech Pattern: Spontaneous Speech Memory Description: Intact Diagnostics Vital Signs (24Hr): Vital Signs - 24 hr 02/09/24 20:00 02/10/24 08:00 Temperature 97.9 F 97.7 F Pulse Rate 99 82 Respiratory Rate 17 18 Blood Pressure 142/74 H 141/94 H Pulse Oximetry 97 99 Oxygen Delivery Method Room Air Room Air BMI result Body Mass Index 31.5 Labs 02/03/24 12:31 02/05/24 09:20 Labs: Laboratory Results - last 48 hr 02/05/24 09:20 25-OH Vitamin D Total 51 25-Hydroxy Vitamin D2 <4 25-Hydroxy Vitamin D3 51 Imaging Radiology Impressions: ITS Impressions Hand X-Ray 02/03/24 13:13 IMPRESSION: No fracture seen. Medications Medications Current Medications Acetaminophen (Acetaminophen 325 Mg Tablet) 650 mg PO Q6H PRN PRN Reason: hand pain Last Admin: 02/08/24 09:56 Dose: 650 mg Al Hydroxide/Mg Hydroxide (Magnesium Hydrox/Alum Hydrox 30 Ml Oral.Susp) 30 ml PO Q6H PRN PRN Reason: Heartburn/Nausea Last Admin: 02/06/24 19:56 Dose: 30 ml Amphetamine/Dextroamphetamine (Dextroamphetamine/Amphetamine Xr 10 Mg Cap.Er.24h) 30 mg PO DAILY EDY Last Admin: 02/10/24 08:18 Dose: 30 mg Amphetamine/Dextroamphetamine (Dextroamphetamine/Amphetamine Xr 10 Mg Cap.Er.24h) 20 mg PO 1400 [facility]Y Last Admin: 02/09/24 14:43 Dose: 20 mg Diphenhydramine HCl (Diphenhydramine Hcl 25 Mg Capsule) 50 mg PO DAILY PRN PRN Reason: self harm urges Divalproex Sodium (Divalproex Sodium Er 500 Mg Tab.Er.24h) 1,000 mg PO BID [facility]PL[facility] Last Admin: 02/10/24 08:18 Dose: 1,000 mg Ergocalciferol (Ergocalciferol (Vitamin D2) 1,250 Mcg Capsule) 1,250 mcg PO Q7D REPLACED BY [facility] Last Admin: 02/09/24 23:30 Dose: 1,250 mcg Hydroxyzine HCl (Hydroxyzine Hcl 25 Mg Tablet) 25 mg PO Q6H PRN PRN Reason: Anxiety Last Admin: 02/09/24 17:09 Dose: 25 mg Ibuprofen (Ibuprofen 800 Mg Tablet) 800 mg PO Q6H PRN PRN Reason: headaches, hand pain Last Admin: 02/10/24 08:18 Dose: 800 mg [place] Carbonate ([place] Carbonate Er 300 Mg Tablet.Er) 600 mg PO BEDTIME REPLACED BY [facility] Last Admin: 02/09/24 20:20 Dose: 600 mg Lorazepam (Lorazepam 1 Mg Tablet) 1 mg PO BID PRN PRN Reason: anxiety Last Admin: 02/09/24 20:20 Dose: 1 mg Magnesium Hydroxide (Milk Of Magnesia 30 Ml Oral.Susp) 30 ml PO DAILY PRN PRN Reason: Constipation Olanzapine (Olanzapine 7.5 Mg Tablet) 15 mg PO BID REPLACED BY [facility] Last Admin: 02/10/24 08:18 Dose: 15 mg Quetiapine Fumarate (Quetiapine Fumarate 100 Mg Tablet) 100 mg PO BEDTIME REPLACED BY [facility] Last Admin: 02/09/24 20:20 Dose: 100 mg Quetiapine Fumarate (Quetiapine Fumarate 50 Mg Tablet) 50 mg PO Q6H PRN PRN Reason: agitation Last Admin: 02/08/24 21:44 Dose: 50 mg Allergies Allergies Allergy/AdvReac Type Severity Reaction Status Date / Time lamotrigine [From LAMICTAL] Allergy Severe RASH Verified 02/03/24 11:49 oxycodone [From PERCOCET] Allergy Mild NAUSEA Verified 02/03/24 11:49 Assessment & Plan Assessment & Plan (1) Bipolar disorder: Status: Acute Code(s): F31.9 - Bipolar disorder, unspecified (2) Polysubstance use disorder: Status: Acute Code(s): F19.90 - Other psychoactive substance use, unspecified, uncomplicated Plan 48 yo female with bipolar disorder, ADHD, cocaine use disorder presents with increase mood sx for ~3-4 weeks-irritabilty, rage, lability, crying. She believes this to be from Latuda. Plan: Discontinue Latuda Hold [place] Repeat level 02/05 to consider re-start Continue remainder of the regime Olanzapine 10 mg bid Discussed Lucas possibility\ 02/06/2024: [place] level 1.46 today. Will continue to hold lithium. Will repeat lithium levels on 02/07/2024 and 02/08/2024. 02/06: lithium level 1.14- restart lithium 600 hs. Also increase prn olanzapine dosing 02/08/24: Cold compression dressing for R Hand-pt experiencing pain. Increase Depakote to 1000 mg bid Increase Olanzapine to 15 mg bid 02/09/24: Continue current regime/plan. 02/10/24: Continue current regime/plan. Patient educated on: medication risk/benefits and therapeutic strategies Informed Consent: understands Reason for continued inpatient stay Substantial Risk for: rapid decompensation Time Spent With Patient Time: Total time managing care of this patient today ____ minutes.
[2024-02-10] MEDS: Dextroamphetamine/Amphetamine XR 10 MG CAP.ER.24H 20 MG PO (14:07)
[2024-02-10] MEDS: LORazepam 1 MG TABLET PO (19:21)
[2024-02-10 20:00] VITALS: BP 137/98; PULSE 18; RESP 18; TEMP 36.6; O2SAT 99
[2024-02-10] MEDS: hydrOXYzine HCL 25 MG TABLET PO (20:19)
[2024-02-10] MEDS: QUEtiapine Fumarate 100 MG TABLET PO (20:20)
[2024-02-10] MEDS: Lithium Carbonate ER 300 MG TABLET.ER 600 MG PO (20:20)
[2024-02-11 07:00] VITALS: BMI 31.8
[2024-02-11 08:00] VITALS: BP 135/84; PULSE 86; RESP 16; TEMP 36.5; O2SAT 98
[2024-02-11] MEDS: Divalproex Sodium ER 500 MG TAB.ER.24H 1000 MG PO ×2 (08:06→20:16)
[2024-02-11] MEDS: OLANZapine 7.5 MG TABLET 15 MG PO ×2 (08:06→20:16)
[2024-02-11] MEDS: Dextroamphetamine/Amphetamine XR 10 MG CAP.ER.24H 30 MG PO (08:06)
[2024-02-11] MEDS: Ibuprofen 800 MG TABLET PO ×2 (08:11→13:53)
[2024-02-11] MEDS: Acetaminophen 325 MG TABLET 650 MG PO (11:51)
[2024-02-11] MEDS: Dextroamphetamine/Amphetamine XR 10 MG CAP.ER.24H 20 MG PO (13:53)
--- NOTE | 2024-02-11 18:16 | HO.PSYCHPN ---
Subjective Subjective Date of Service: 02/11/24 Reason For Visit: SI severe agitation Subjective Notes: Conditional Voluntary Healthcare Proxy: No Guardianship: No Medical Problems Affecting Mental Status: No Interim History: Today is good. Discussed one episode of lability last night-poor interaction with team. Is beginning to feel overmedicated. Discussed decreasing Seroquel from 100 to 75 mg HS I am trying to stay in groups, but I am crying a lot. Discussed losses [employer] and her grief where she cried and expressed her sadness and anger. Medication Compliance: Yes Side effects from medications: Yes (feeling overmedicated) Attending Groups: Intermittent Review of Systems Acute medical concerns: No Medical Review of Systems: unchanged Review of Systems Review of Systems Yes all other systems are reviewed and are negative Mental Status Exam Mental Status Exam Patient Appearance: Fatigued Patient Orientation: Person, Place, Time and Situation Level of Consciousness: Alert Patient Behavior: Appropriate, Talkative, Cooperative and Good Eye Contact Mood Description: Depressed, Labile and Angry Affect Description: Labile Ability to Follow Directions: Good Speech Pattern: Spontaneous Speech Memory Description: Intact Diagnostics Vital Signs (24Hr): Vital Signs - 24 hr 02/10/24 20:00 02/11/24 08:00 Temperature 97.9 F 97.7 F Pulse Rate 18 L 86 Respiratory Rate 18 16 Blood Pressure 137/98 H 135/84 Pulse Oximetry 99 98 Oxygen Delivery Method Room Air Room Air BMI result Body Mass Index 31.8 Labs 02/03/24 12:31 02/05/24 09:20 Labs: Laboratory Results - last 48 hr 02/05/24 09:20 25-OH Vitamin D Total 51 25-Hydroxy Vitamin D2 <4 25-Hydroxy Vitamin D3 51 Imaging Radiology Impressions: ITS Impressions Hand X-Ray 02/03/24 13:13 IMPRESSION: No fracture seen. Medications Medications Current Medications Acetaminophen (Acetaminophen 325 Mg Tablet) 650 mg PO Q6H PRN PRN Reason: hand pain Last Admin: 02/11/24 11:51 Dose: 650 mg Al Hydroxide/Mg Hydroxide (Magnesium Hydrox/Alum Hydrox 30 Ml Oral.Susp) 30 ml PO Q6H PRN PRN Reason: Heartburn/Nausea Last Admin: 02/06/24 19:56 Dose: 30 ml Amphetamine/Dextroamphetamine (Dextroamphetamine/Amphetamine Xr 10 Mg Cap.Er.24h) 30 mg PO DAILY EDY Last Admin: 02/11/24 08:06 Dose: 30 mg Amphetamine/Dextroamphetamine (Dextroamphetamine/Amphetamine Xr 10 Mg Cap.Er.24h) 20 mg PO 1400 [facility] Last Admin: 02/11/24 13:53 Dose: 20 mg Diphenhydramine HCl (Diphenhydramine Hcl 25 Mg Capsule) 50 mg PO DAILY PRN PRN Reason: self harm urges Divalproex Sodium (Divalproex Sodium Er 500 Mg Tab.Er.24h) 1,000 mg PO BID [facility] Last Admin: 02/11/24 08:06 Dose: 1,000 mg Ergocalciferol (Ergocalciferol (Vitamin D2) 1,250 Mcg Capsule) 1,250 mcg PO Q7D [facility] Last Admin: 02/09/24 23:30 Dose: 1,250 mcg Hydroxyzine HCl (Hydroxyzine Hcl 25 Mg Tablet) 25 mg PO Q6H PRN PRN Reason: Anxiety Last Admin: 02/10/24 20:19 Dose: 25 mg Ibuprofen (Ibuprofen 800 Mg Tablet) 800 mg PO Q6H PRN PRN Reason: headaches, hand pain Last Admin: 02/11/24 13:53 Dose: 800 mg [place] Carbonate ([place] Carbonate Er 300 Mg Tablet.Er) 600 mg PO BEDTIME [facility] Last Admin: 02/10/24 20:20 Dose: 600 mg Lorazepam (Lorazepam 1 Mg Tablet) 1 mg PO BID PRN PRN Reason: anxiety Last Admin: 02/10/24 19:21 Dose: 1 mg Magnesium Hydroxide (Milk Of Magnesia 30 Ml Oral.Susp) 30 ml PO DAILY PRN PRN Reason: Constipation Olanzapine (Olanzapine 7.5 Mg Tablet) 15 mg PO BID [facility] Last Admin: 02/11/24 08:06 Dose: 15 mg Quetiapine Fumarate (Quetiapine Fumarate 50 Mg Tablet) 50 mg PO Q6H PRN PRN Reason: agitation Last Admin: 02/08/24 21:44 Dose: 50 mg Quetiapine Fumarate (Quetiapine Fumarate 25 Mg Tablet) 75 mg PO BEDTIME [facility] Allergies Allergies Allergy/AdvReac Type Severity Reaction Status Date / Time lamotrigine [From LAMICTAL] Allergy Severe RASH Verified 02/03/24 11:49 oxycodone [From PERCOCET] Allergy Mild NAUSEA Verified 02/03/24 11:49 Assessment & Plan Assessment & Plan (1) Bipolar disorder: Status: Acute Code(s): F31.9 - Bipolar disorder, unspecified (2) Polysubstance use disorder: Status: Acute Code(s): F19.90 - Other psychoactive substance use, unspecified, uncomplicated Plan 48 yo female with bipolar disorder, ADHD, cocaine use disorder presents with increase mood sx for ~3-4 weeks-irritabilty, rage, lability, crying. She believes this to be from Latuda. Plan: Discontinue Latuda Hold [place] Repeat level 02/05 to consider re-start Continue remainder of the regime Olanzapine 10 mg bid Discussed Lucas possibility\ 02/06/2024: [place] level 1.46 today. Will continue to hold lithium. Will repeat lithium levels on 02/07/2024 and 02/08/2024. 02/06: lithium level 1.14- restart lithium 600 hs. Also increase prn olanzapine dosing 02/08/24: Cold compression dressing for R Hand-pt experiencing pain. Increase Depakote to 1000 mg bid Increase Olanzapine to 15 mg bid 02/09/24: Continue current regime/plan. 02/11/24: Decrease Seroquel to 75 mg HS Informed Consent: understands Reason for continued inpatient stay Substantial Risk for: rapid decompensation Time Spent With Patient Time: Total time managing care of this patient today ____ minutes.
[2024-02-11] MEDS: LORazepam 1 MG TABLET PO (18:35)
[2024-02-11 19:45] VITALS: BP 154/77; PULSE 101; TEMP 36.8; O2SAT 98
[2024-02-11] MEDS: Lithium Carbonate ER 300 MG TABLET.ER 600 MG PO (20:15)
[2024-02-11] MEDS: QUEtiapine Fumarate 25 MG TABLET 75 MG PO (20:16)
[2024-02-12] MEDS: QUEtiapine Fumarate 50 MG TABLET PO (02:41)
[2024-02-12 08:00] VITALS: BP 137/83; PULSE 76; RESP 18; TEMP 36.6; O2SAT 100
[2024-02-12] MEDS: Dextroamphetamine/Amphetamine XR 10 MG CAP.ER.24H 30 MG PO (08:24)
[2024-02-12] MEDS: Divalproex Sodium ER 500 MG TAB.ER.24H 1000 MG PO ×2 (08:24→21:03)
[2024-02-12] MEDS: OLANZapine 7.5 MG TABLET 15 MG PO ×2 (08:24→21:02)
[2024-02-12] MEDS: Dextroamphetamine/Amphetamine XR 10 MG CAP.ER.24H 20 MG PO (13:11)
[2024-02-12] MEDS: Ibuprofen 800 MG TABLET PO (13:11)
[2024-02-12] MEDS: LORazepam 1 MG TABLET PO (15:25)
--- NOTE | 2024-02-12 16:33 | HO.PSYCHPN ---
Subjective Subjective Date of Service: 02/12/24 Reason For Visit: SI severe agitation Subjective Notes: Conditional Voluntary Healthcare Proxy: No Guardianship: No Medical Problems Affecting Mental Status: No Interim History: Reports adequate sleep, team concurs. Feeling muddled, foggy during the day. Olanzapine decreased to 5 am a.m. 15 mg HS from 15 mg bid. States she is still irritable, however not full of rage, weepy, it has been a really good day today. Parents visited, they have begun to move her things from friends home, a relief so she will not have to face friend and her mother on discharge. Precipitous irritability observed-she received a phone call, asked that someone take a message, then could not locate that person, became angry, verbally caustic, yelled, slammed her door. Friend called back and she calmed immediately. Discussed grieving losses-loss of housing with her friend-will live with parents, in [place], a long way from friends which will need to promote job change, change in social habits. Loss of her friend is her main issue- she did not even tell me I was kicked out, she called my mom. Medication Compliance: Yes Side effects from medications: No Attending Groups: Yes Review of Systems Acute medical concerns: No Medical Review of Systems: unchanged Review of Systems Review of Systems hand pain is decreasing, however mobility is still limited. Yes all other systems are reviewed and are negative Mental Status Exam Mental Status Exam Patient Appearance: Appropriate Patient Orientation: Person, Place, Time and Situation Level of Consciousness: Alert Patient Behavior: Talkative and Good Eye Contact Mood Description: Labile Affect Description: Labile Patient Cognition Impaired: No Ability to Follow Directions: Good Speech Pattern: Spontaneous Speech Memory Description: Intact Hallucinations: None Delusions: Not Present Perceptual Disturbances: Depersonalization and Derealization Thought Process: Rumination and Goal Oriented Thought Content: positive for Circumstantial and positive for Goal Oriented Depressive Symptoms: Increased Irritability and Low Self Esteem Judgement: Good Diagnostics Vital Signs (24Hr): Vital Signs - 24 hr 02/11/24 19:45 02/12/24 08:00 Temperature 98.2 F 98 F Pulse Rate 101 H 76 Respiratory Rate 18 Blood Pressure 154/77 H 137/83 Pulse Oximetry 98 100 Oxygen Delivery Method Room Air Room Air BMI result Body Mass Index 31.8 Labs 02/03/24 12:31 02/05/24 09:20 Imaging Radiology Impressions: ITS Impressions Hand X-Ray 02/03/24 13:13 IMPRESSION: No fracture seen. Medications Medications Current Medications Acetaminophen (Acetaminophen 325 Mg Tablet) 650 mg PO Q6H PRN PRN Reason: hand pain Last Admin: 02/11/24 11:51 Dose: 650 mg Al Hydroxide/Mg Hydroxide (Magnesium Hydrox/Alum Hydrox 30 Ml Oral.Susp) 30 ml PO Q6H PRN PRN Reason: Heartburn/Nausea Last Admin: 02/06/24 19:56 Dose: 30 ml Amphetamine/Dextroamphetamine (Dextroamphetamine/Amphetamine Xr 10 Mg Cap.Er.24h) 30 mg PO DAILY [facility] Last Admin: 02/12/24 08:24 Dose: 30 mg Amphetamine/Dextroamphetamine (Dextroamphetamine/Amphetamine Xr 10 Mg Cap.Er.24h) 20 mg PO 1400 [facility] Last Admin: 02/12/24 13:11 Dose: 20 mg Diphenhydramine HCl (Diphenhydramine Hcl 25 Mg Capsule) 50 mg PO DAILY PRN PRN Reason: self harm urges Divalproex Sodium (Divalproex Sodium Er 500 Mg Tab.Er.24h) 1,000 mg PO BID [facility] Last Admin: 02/12/24 08:24 Dose: 1,000 mg Ergocalciferol (Ergocalciferol (Vitamin D2) 1,250 Mcg Capsule) 1,250 mcg PO Q7D [facility] Last Admin: 02/09/24 23:30 Dose: 1,250 mcg Hydroxyzine HCl (Hydroxyzine Hcl 25 Mg Tablet) 25 mg PO Q6H PRN PRN Reason: Anxiety Last Admin: 02/10/24 20:19 Dose: 25 mg Ibuprofen (Ibuprofen 800 Mg Tablet) 800 mg PO Q6H PRN PRN Reason: headaches, hand pain Last Admin: 02/12/24 13:11 Dose: 800 mg [place] Carbonate ([place] Carbonate Er 300 Mg Tablet.Er) 600 mg PO BEDTIME [facility] Last Admin: 02/11/24 20:15 Dose: 600 mg Lorazepam (Lorazepam 1 Mg Tablet) 1 mg PO BID PRN PRN Reason: anxiety Last Admin: 02/12/24 15:25 Dose: 1 mg Magnesium Hydroxide (Milk Of Magnesia 30 Ml Oral.Susp) 30 ml PO DAILY PRN PRN Reason: Constipation Olanzapine (Olanzapine 7.5 Mg Tablet) 15 mg PO BID [facility] Last Admin: 02/12/24 08:24 Dose: 15 mg Quetiapine Fumarate (Quetiapine Fumarate 50 Mg Tablet) 50 mg PO Q6H PRN PRN Reason: agitation Last Admin: 02/12/24 02:41 Dose: 50 mg Quetiapine Fumarate (Quetiapine Fumarate 25 Mg Tablet) 75 mg PO BEDTIME [facility] Last Admin: 02/11/24 20:16 Dose: 75 mg Allergies Allergies Allergy/AdvReac Type Severity Reaction Status Date / Time lamotrigine [From LAMICTAL] Allergy Severe RASH Verified 02/03/24 11:49 oxycodone [From PERCOCET] Allergy Mild NAUSEA Verified 02/03/24 11:49 Assessment & Plan Assessment & Plan (1) Bipolar disorder: Status: Acute Code(s): F31.9 - Bipolar disorder, unspecified (2) Polysubstance use disorder: Status: Acute Code(s): F19.90 - Other psychoactive substance use, unspecified, uncomplicated Plan 48 yo female with bipolar disorder, ADHD, cocaine use disorder presents with increase mood sx for ~3-4 weeks-irritabilty, rage, lability, crying. She believes this to be from Latuda. Plan: Discontinue Latuda Hold [place] Repeat level 02/05 to consider re-start Continue remainder of the regime Olanzapine 10 mg bid Discussed Lucas possibility\ 02/06/2024: [place] level 1.46 today. Will continue to hold lithium. Will repeat lithium levels on 02/07/2024 and 02/08/2024. 02/06: lithium level 1.14- restart lithium 600 hs. Also increase prn olanzapine dosing 02/08/24: Cold compression dressing for R Hand-pt experiencing pain. Increase Depakote to 1000 mg bid Increase Olanzapine to 15 mg bid 02/09/24: Continue current regime/plan. 02/11/24: Decrease Seroquel to 75 mg HS 02/12/24: Increase Seroquel to 150 mg HS Decrease Olanzapine to 5 mg a.m, 15 mg HS Labs for 02/14- A1c, Valproate, [place] Patient educated on: medication risk/benefits and therapeutic strategies Informed Consent: understands Reason for continued inpatient stay Substantial Risk for: rapid decompensation Time Spent With Patient Time: Total time managing care of this patient today ____ minutes.
[2024-02-12] MEDS: Acetaminophen 325 MG TABLET 650 MG PO (16:54)
[2024-02-12 20:00] VITALS: BP 161/86; PULSE 94; RESP 18; TEMP 36.8; O2SAT 100
[2024-02-12] MEDS: QUEtiapine Fumarate 50 MG TABLET 150 MG PO (21:02)
[2024-02-12] MEDS: Lithium Carbonate ER 300 MG TABLET.ER 600 MG PO (21:02)
[2024-02-13 08:00] VITALS: BP 148/83; PULSE 92; RESP 17; TEMP 36.7; O2SAT 100
[2024-02-13] MEDS: OLANZapine 5 MG TABLET PO (08:38)
[2024-02-13] MEDS: Dextroamphetamine/Amphetamine XR 10 MG CAP.ER.24H 30 MG PO (08:39)
[2024-02-13] MEDS: Divalproex Sodium ER 500 MG TAB.ER.24H 1000 MG PO ×2 (08:39→20:24)
--- NOTE | 2024-02-13 08:46 | P.PNPSI_ITS ---
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- very tearful Says latuda was not helpful and now on depakote - says she has never been as rageful as she was on latuda- but also sounds like her life fell apart having being asked to leave [facility] house where she had been living- Also pt says can't stop crying Currently on depkoate , lithium, seroquel and olanzapine- Medication Compliance: Yes Side effects from medications: No Attending Groups: No Review of Systems Acute medical concerns: No Medical Review of Systems: unchanged Mental Status Exam Mental Status Exam Narrative: crying Patient Appearance: Appropriate Patient Orientation: Person, Place, Time and Situation Level of Consciousness: Awake Patient Behavior: Cooperative and Crying Mood Description: Sad Affect Description: Labile Patient Cognition Impaired: No Ability to Follow Directions: Fair Speech Pattern: Clear Thought Process: Distracted Thought Content: positive for Circumstantial Depressive Symptoms: Increased Anxiety, Increased Irritability, Hopelessness, Unhappiness and Thoughts of /Suicide Judgement: Fair Diagnostics Vital Signs (24Hr): Vital Signs - 24 hr 02/12/24 20:00 02/13/24 08:00 Temperature 98.2 F 98.1 F Pulse Rate 94 92 Respiratory Rate 18 17 Blood Pressure 161/86 H 148/83 H Pulse Oximetry 100 100 Oxygen Delivery Method Room Air Room Air BMI result Body Mass Index 31.8 Labs 02/03/24 12:31 02/05/24 09:20 Imaging Radiology Impressions: ITS Impressions Hand X-Ray 02/03/24 13:13 IMPRESSION: No fracture seen. Medications Medications Current Medications Acetaminophen (Acetaminophen 325 Mg Tablet) 650 mg PO Q6H PRN PRN Reason: hand pain Last Admin: 02/12/24 16:54 Dose: 650 mg Al Hydroxide/Mg Hydroxide (Magnesium Hydrox/Alum Hydrox 30 Ml Oral.Susp) 30 ml PO Q6H PRN PRN Reason: Heartburn/Nausea Last Admin: 02/06/24 19:56 Dose: 30 ml Amphetamine/Dextroamphetamine (Dextroamphetamine/Amphetamine Xr 10 Mg Cap.Er.24h) 30 mg PO DAILY [facility] Last Admin: 02/13/24 08:39 Dose: 30 mg Amphetamine/Dextroamphetamine (Dextroamphetamine/Amphetamine Xr 10 Mg Cap.Er.24h) 20 mg PO 1400 [facility] Last Admin: 02/12/24 13:11 Dose: 20 mg Diphenhydramine HCl (Diphenhydramine Hcl 25 Mg Capsule) 50 mg PO DAILY PRN PRN Reason: self harm urges Divalproex Sodium (Divalproex Sodium Er 500 Mg Tab.Er.24h) 1,000 mg PO BID [facility] Last Admin: 02/13/24 08:39 Dose: 1,000 mg Ergocalciferol (Ergocalciferol (Vitamin D2) 1,250 Mcg Capsule) 1,250 mcg PO Q7D [facility] Last Admin: 02/09/24 23:30 Dose: 1,250 mcg Hydroxyzine HCl (Hydroxyzine Hcl 25 Mg Tablet) 25 mg PO Q6H PRN PRN Reason: Anxiety Last Admin: 02/10/24 20:19 Dose: 25 mg Ibuprofen (Ibuprofen 800 Mg Tablet) 800 mg PO Q6H PRN PRN Reason: headaches, hand pain Last Admin: 02/12/24 13:11 Dose: 800 mg [place] Carbonate ([place] Carbonate Er 300 Mg Tablet.Er) 600 mg PO BEDTIME [facility] Last Admin: 02/12/24 21:02 Dose: 600 mg Lorazepam (Lorazepam 1 Mg Tablet) 1 mg PO BID PRN PRN Reason: anxiety Last Admin: 02/12/24 15:25 Dose: 1 mg Magnesium Hydroxide (Milk Of Magnesia 30 Ml Oral.Susp) 30 ml PO DAILY PRN PRN Reason: Constipation Olanzapine (Olanzapine 5 Mg Tablet) 5 mg PO DAILY [facility] Last Admin: 02/13/24 08:38 Dose: 5 mg Olanzapine (Olanzapine 7.5 Mg Tablet) 15 mg PO BEDTIME [facility] Last Admin: 02/12/24 21:02 Dose: 15 mg Quetiapine Fumarate (Quetiapine Fumarate 50 Mg Tablet) 50 mg PO Q6H PRN PRN Reason: agitation Last Admin: 02/12/24 02:41 Dose: 50 mg Quetiapine Fumarate (Quetiapine Fumarate 50 Mg Tablet) 150 mg PO BEDTIME [facility] Last Admin: 02/12/24 21:02 Dose: 150 mg Allergies Allergies Allergy/AdvReac Type Severity Reaction Status Date / Time lamotrigine [From LAMICTAL] Allergy Severe RASH Verified 02/03/24 11:49 oxycodone [From PERCOCET] Allergy Mild NAUSEA Verified 02/03/24 11:49 Assessment & Plan Assessment & Plan (1) Bipolar disorder: Status: Acute Code(s): F31.9 - Bipolar disorder, unspecified (2) Polysubstance use disorder: Status: Acute Code(s): F19.90 - Other psychoactive substance use, unspecified, uncomplicated Plan 48 yo female with bipolar disorder, ADHD, cocaine use disorder presents with increase mood sx for ~3-4 weeks-irritabilty, rage, lability, crying. She believes this to be from Latuda. Plan: Discontinue Latuda Hold [place] Repeat level 02/05 to consider re-start Continue remainder of the regime Olanzapine 10 mg bid Discussed Lucas possibility\ 02/06/2024: [place] level 1.46 today. Will continue to hold lithium. Will repeat lithium levels on 02/07/2024 and 02/08/2024. 02/06: lithium level 1.14- restart lithium 600 hs. Also increase prn olanzapine dosing 02/08/24: Cold compression dressing for R Hand-pt experiencing pain. Increase Depakote to 1000 mg bid Increase Olanzapine to 15 mg bid 02/09/24: Continue current regime/plan. 02/11/24: Decrease Seroquel to 75 mg HS 02/12/24: Increase Seroquel to 150 mg HS Decrease Olanzapine to 5 mg a.m, 15 mg HS Labs for 02/14- A1c, Valproate, [place] 02/13/24- transitioning from olanzapine to quetiapine- on depakote and lithium- Patient educated on: medication risk/benefits Informed Consent: further education needed Reason for continued inpatient stay Substantial Risk for: harm to self and rapid decompensation Time Spent With Patient Time: Total time managing care of this patient today ____ minutes.
[2024-02-13] MEDS: LORazepam 1 MG TABLET PO ×2 (09:57→19:13)
[2024-02-13] MEDS: Dextroamphetamine/Amphetamine XR 10 MG CAP.ER.24H 20 MG PO (13:11)
[2024-02-13] MEDS: hydrOXYzine HCL 25 MG TABLET PO ×2 (13:11→19:13)
[2024-02-13] MEDS: Ibuprofen 800 MG TABLET PO (14:47)
[2024-02-13 20:00] VITALS: BP 150/82; PULSE 90; RESP 16; TEMP 36.7; O2SAT 99
[2024-02-13] MEDS: QUEtiapine Fumarate 50 MG TABLET 150 MG PO (20:25)
[2024-02-13] MEDS: Lithium Carbonate ER 300 MG TABLET.ER 600 MG PO (20:25)
[2024-02-13] MEDS: OLANZapine 7.5 MG TABLET 15 MG PO (20:25)
[2024-02-14 08:00] VITALS: BP 127/79; PULSE 102; RESP 17; TEMP 36.1; O2SAT 99
[2024-02-14] MEDS: OLANZapine 5 MG TABLET PO (08:30)
[2024-02-14] MEDS: Divalproex Sodium ER 500 MG TAB.ER.24H 1000 MG PO ×2 (08:31→21:31)
[2024-02-14] MEDS: Ibuprofen 800 MG TABLET PO (08:31)
[2024-02-14] MEDS: hydrOXYzine HCL 25 MG TABLET PO (08:32)
[2024-02-14] MEDS: Dextroamphetamine/Amphetamine XR 10 MG CAP.ER.24H 30 MG PO (09:12)
--- NOTE | 2024-02-14 10:39 | HO.PSYCHPN ---
Subjective Subjective Date of Service: 02/14/24 Reason For Visit: SI severe agitation Subjective Notes: Conditional Voluntary Interim History: 48 yo with Bipolar I depression complicated by substance use (cocaine and other...) reports sedation from medication or crying willing to try vraylar as alternative to quetiapine which just leaves her sedated, though I lowered olanzapine - for tomorrow- Can't go to groups or just breaks down crying Medication Compliance: Yes Side effects from medications: Yes (sedation) Attending Groups: Intermittent Review of Systems Acute medical concerns: No Medical Review of Systems: unchanged Mental Status Exam Mental Status Exam Narrative: Less tearful on talking with provider today- but we kept it brief and didn't go into hx as we did yesterday about 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 So maybe pt is more contained today Patient Appearance: Appropriate Patient Orientation: Person, Place, Time and Situation Level of Consciousness: Awake and Alert Patient Behavior: Appropriate, Cooperative and Crying (but less) Mood Description: Sad Affect Description: Labile Patient Cognition Impaired: No Ability to Follow Directions: Fair Speech Pattern: Clear Thought Process: Intact Thought Content: positive for Goal Oriented Depressive Symptoms: Diff. Making Decisions, Crying Spells and Sleeping More Than Usual Diagnostics Vital Signs (24Hr): Vital Signs - 24 hr 02/13/24 20:00 02/14/24 08:00 Temperature 98.0 F 97 F Pulse Rate 90 102 H Respiratory Rate 16 17 Blood Pressure 150/82 H 127/79 Pulse Oximetry 99 99 Oxygen Delivery Method Room Air Room Air BMI result Body Mass Index 31.8 Labs 02/03/24 12:31 02/05/24 09:20 Imaging Radiology Impressions: ITS Impressions Hand X-Ray 02/03/24 13:13 IMPRESSION: No fracture seen. Medications Medications Current Medications Acetaminophen (Acetaminophen 325 Mg Tablet) 650 mg PO Q6H PRN PRN Reason: hand pain Last Admin: 02/12/24 16:54 Dose: 650 mg Al Hydroxide/Mg Hydroxide (Magnesium Hydrox/Alum Hydrox 30 Ml Oral.Susp) 30 ml PO Q6H PRN PRN Reason: Heartburn/Nausea Last Admin: 02/06/24 19:56 Dose: 30 ml Amphetamine/Dextroamphetamine (Dextroamphetamine/Amphetamine Xr 10 Mg Cap.Er.24h) 30 mg PO DAILY [facility] Last Admin: 02/14/24 09:12 Dose: 30 mg Amphetamine/Dextroamphetamine (Dextroamphetamine/Amphetamine Xr 10 Mg Cap.Er.24h) 20 mg PO 1400 [facility] Last Admin: 02/13/24 13:11 Dose: 20 mg Diphenhydramine HCl (Diphenhydramine Hcl 25 Mg Capsule) 50 mg PO DAILY PRN PRN Reason: self harm urges Divalproex Sodium (Divalproex Sodium Er 500 Mg Tab.Er.24h) 1,000 mg PO BID [facility] Last Admin: 02/14/24 08:31 Dose: 1,000 mg Ergocalciferol (Ergocalciferol (Vitamin D2) 1,250 Mcg Capsule) 1,250 mcg PO Q7D [facility] Last Admin: 02/09/24 23:30 Dose: 1,250 mcg Hydroxyzine HCl (Hydroxyzine Hcl 25 Mg Tablet) 25 mg PO Q6H PRN PRN Reason: Anxiety Last Admin: 02/14/24 08:32 Dose: 25 mg Ibuprofen (Ibuprofen 800 Mg Tablet) 800 mg PO Q6H PRN PRN Reason: headaches, hand pain Last Admin: 02/14/24 08:31 Dose: 800 mg [place] Carbonate ([place] Carbonate Er 300 Mg Tablet.Er) 600 mg PO BEDTIME [facility] Last Admin: 02/13/24 20:25 Dose: 600 mg Lorazepam (Lorazepam 1 Mg Tablet) 1 mg PO BID PRN PRN Reason: anxiety Last Admin: 02/13/24 19:13 Dose: 1 mg Magnesium Hydroxide (Milk Of Magnesia 30 Ml Oral.Susp) 30 ml PO DAILY PRN PRN Reason: Constipation Olanzapine (Olanzapine 5 Mg Tablet) 5 mg PO DAILY [facility] Last Admin: 02/14/24 08:30 Dose: 5 mg Olanzapine (Olanzapine 7.5 Mg Tablet) 15 mg PO BEDTIME [facility] Last Admin: 02/13/24 20:25 Dose: 15 mg Quetiapine Fumarate (Quetiapine Fumarate 50 Mg Tablet) 50 mg PO Q6H PRN PRN Reason: agitation Last Admin: 02/12/24 02:41 Dose: 50 mg Quetiapine Fumarate (Quetiapine Fumarate 50 Mg Tablet) 150 mg PO BEDTIME [facility] Last Admin: 02/13/24 20:25 Dose: 150 mg Allergies Allergies Allergy/AdvReac Type Severity Reaction Status Date / Time lamotrigine [From LAMICTAL] Allergy Severe RASH Verified 02/03/24 11:49 oxycodone [From PERCOCET] Allergy Mild NAUSEA Verified 02/03/24 11:49 Assessment & Plan Assessment & Plan (1) Bipolar disorder: Status: Acute Code(s): F31.9 - Bipolar disorder, unspecified (2) Polysubstance use disorder: Status: Acute Code(s): F19.90 - Other psychoactive substance use, unspecified, uncomplicated Plan 48 yo female with bipolar disorder, ADHD, cocaine use disorder presents with increase mood sx for ~3-4 weeks-irritabilty, rage, lability, crying. She believes this to be from Latuda. Plan: Discontinue Latuda Hold [place] Repeat level 02/05 to consider re-start Continue remainder of the regime Olanzapine 10 mg bid Discussed Lucas possibility\ 02/06/2024: [place] level 1.46 today. Will continue to hold lithium. Will repeat lithium levels on 02/07/2024 and 02/08/2024. 02/06: lithium level 1.14- restart lithium 600 hs. Also increase prn olanzapine dosing 02/08/24: Cold compression dressing for R Hand-pt experiencing pain. Increase Depakote to 1000 mg bid Increase Olanzapine to 15 mg bid 02/09/24: Continue current regime/plan. 02/11/24: Decrease Seroquel to 75 mg HS 02/12/24: Increase Seroquel to 150 mg HS Decrease Olanzapine to 5 mg a.m, 15 mg HS Labs for 02/14- A1c, Valproate, [place] 02/13/24- transitioning from olanzapine to quetiapine- on depakote and lithium- Reason for continued inpatient stay Substantial Risk for: harm to self and rapid decompensation Time Spent With Patient Time: Total time managing care of this patient today ____ minutes.
[2024-02-14] MEDS: Cariprazine HCl 1.5 MG CAPSULE PO (12:18)
[2024-02-14] MEDS: LORazepam 1 MG TABLET PO (12:33)
[2024-02-14] MEDS: Dextroamphetamine/Amphetamine XR 10 MG CAP.ER.24H 20 MG PO (14:13)
--- NOTE | 2024-02-14 18:11 | PC.NURSE ---
Pt reports she was able to sit through psych group without becoming tearful this afternoon. She reports she is feeling tired and overmedicated, not being able to stay awake. Pt encouraged to avoid Ativan unless she is having severe anxiety as it's sedating. She affect is sad and depressed and she is hopeful that the Vraylar started will help with depressive symptoms.
[2024-02-14 20:00] VITALS: BP 140/90; PULSE 100; RESP 18; TEMP 36.8; O2SAT 99
[2024-02-14] MEDS: Lithium Carbonate ER 300 MG TABLET.ER 600 MG PO (21:31)
[2024-02-14] MEDS: QUEtiapine Fumarate 50 MG TABLET PO (21:32)
[2024-02-14] MEDS: OLANZapine 7.5 MG TABLET 15 MG PO (21:32)
[2024-02-15 08:13] LABS: Estimated Average Glucose 100 mg/dL; Hemoglobin A1c % 5.1 % (<6.0)
[2024-02-15 08:14] LABS: Lithium 0.35 mmol/L (0.60-1.20)
[2024-02-15 08:19] LABS: Valproate 87.8 mcg/mL (50.0-100.0)
[2024-02-15] MEDS: Dextroamphetamine/Amphetamine XR 10 MG CAP.ER.24H 30 MG PO (08:59)
[2024-02-15] MEDS: Divalproex Sodium ER 500 MG TAB.ER.24H 1000 MG PO (08:59)
[2024-02-15] MEDS: Cariprazine HCl 1.5 MG CAPSULE PO (08:59)
--- NOTE | 2024-02-15 10:19 | HO.PSYCHPN ---
Subjective Subjective Date of Service: 02/15/24 Reason For Visit: SI severe agitation Subjective Notes: Conditional Voluntary Healthcare Proxy: No Guardianship: No Medical Problems Affecting Mental Status: No Interim History: Full med review. Pt asks to stop Olanzapine, decrease Seroquel. Review of low [place] level. 300 mg a.m. added Depakote decreased to 750 mg bid. Review of Vraylar which was just started over the weekend- will provide handout of interaction potentials. Discussed discharge, pt believes she will be prepared this week. Medication Compliance: Yes Side effects from medications: Yes (sedation) Attending Groups: Intermittent Review of Systems Acute medical concerns: No Medical Review of Systems: unchanged Review of Systems Review of Systems Sedation with lability Mental Status Exam Mental Status Exam Patient Appearance: Appropriate Patient Orientation: Person, Place, Time and Situation Level of Consciousness: Alert Patient Behavior: Appropriate, Talkative, Cooperative, Good Eye Contact and Crying Mood Description: Labile Affect Description: Labile Patient Cognition Impaired: No Ability to Follow Directions: Good Speech Pattern: Spontaneous Speech Memory Description: Intact Hallucinations: None Delusions: Not Present Thought Process: Rumination Thought Content: positive for Circumstantial, positive for Perseveration and positive for Suicidal Ideation (denies) Depressive Symptoms: Increased Anxiety Judgement: Fair Diagnostics Vital Signs (24Hr): Vital Signs - 24 hr 02/14/24 20:00 Temperature 98.2 F Pulse Rate 100 Respiratory Rate 18 Blood Pressure 140/90 H Pulse Oximetry 99 Oxygen Delivery Method Room Air BMI result Body Mass Index 31.8 Labs 02/03/24 12:31 02/05/24 09:20 Labs: Laboratory Results - last 48 hr 02/15/24 07:53 Estimat Average Glucose 100 Hemoglobin A1c % 5.1 Valproic Acid 87.8 [place] 0.35 L Imaging Radiology Impressions: ITS Impressions Hand X-Ray 02/03/24 13:13 IMPRESSION: No fracture seen. Medications Medications Current Medications Acetaminophen (Acetaminophen 325 Mg Tablet) 650 mg PO Q6H PRN PRN Reason: hand pain Last Admin: 02/12/24 16:54 Dose: 650 mg Al Hydroxide/Mg Hydroxide (Magnesium Hydrox/Alum Hydrox 30 Ml Oral.Susp) 30 ml PO Q6H PRN PRN Reason: Heartburn/Nausea Last Admin: 02/06/24 19:56 Dose: 30 ml Amphetamine/Dextroamphetamine (Dextroamphetamine/Amphetamine Xr 10 Mg Cap.Er.24h) 30 mg PO DAILY [facility] Last Admin: 02/15/24 08:59 Dose: 30 mg Amphetamine/Dextroamphetamine (Dextroamphetamine/Amphetamine Xr 10 Mg Cap.Er.24h) 20 mg PO 1400 [facility] Last Admin: 02/14/24 14:13 Dose: 20 mg Cariprazine (Cariprazine Hcl 1.5 Mg Capsule) 1.5 mg PO DAILY [facility] Last Admin: 02/15/24 08:59 Dose: 1.5 mg Diphenhydramine HCl (Diphenhydramine Hcl 25 Mg Capsule) 50 mg PO DAILY PRN PRN Reason: self harm urges Divalproex Sodium (Divalproex Sodium Er 500 Mg Tab.Er.24h) 1,000 mg PO BID [facility] Last Admin: 02/15/24 08:59 Dose: 1,000 mg Ergocalciferol (Ergocalciferol (Vitamin D2) 1,250 Mcg Capsule) 1,250 mcg PO Q7D [facility] Last Admin: 02/09/24 23:30 Dose: 1,250 mcg Hydroxyzine HCl (Hydroxyzine Hcl 25 Mg Tablet) 25 mg PO Q6H PRN PRN Reason: Anxiety Last Admin: 02/14/24 08:32 Dose: 25 mg Ibuprofen (Ibuprofen 800 Mg Tablet) 800 mg PO Q6H PRN PRN Reason: headaches, hand pain Last Admin: 02/14/24 08:31 Dose: 800 mg [place] Carbonate ([place] Carbonate Er 300 Mg Tablet.Er) 600 mg PO BEDTIME [facility] Last Admin: 02/14/24 21:31 Dose: 600 mg Lorazepam (Lorazepam 1 Mg Tablet) 1 mg PO BID PRN PRN Reason: anxiety Last Admin: 02/14/24 12:33 Dose: 1 mg Magnesium Hydroxide (Milk Of Magnesia 30 Ml Oral.Susp) 30 ml PO DAILY PRN PRN Reason: Constipation Olanzapine (Olanzapine 7.5 Mg Tablet) 15 mg PO BEDTIME [facility] Last Admin: 02/14/24 21:32 Dose: 15 mg Quetiapine Fumarate (Quetiapine Fumarate 50 Mg Tablet) 50 mg PO Q6H PRN PRN Reason: agitation Last Admin: 02/14/24 21:32 Dose: 50 mg Quetiapine Fumarate (Quetiapine Fumarate 50 Mg Tablet) 150 mg PO BEDTIME [facility] Last Admin: 02/14/24 21:58 Dose: Not Given Allergies Allergies Allergy/AdvReac Type Severity Reaction Status Date / Time lamotrigine [From LAMICTAL] Allergy Severe RASH Verified 02/03/24 11:49 oxycodone [From PERCOCET] Allergy Mild NAUSEA Verified 02/03/24 11:49 Assessment & Plan Assessment & Plan (1) Bipolar disorder: Status: Acute Code(s): F31.9 - Bipolar disorder, unspecified (2) Polysubstance use disorder: Status: Acute Code(s): F19.90 - Other psychoactive substance use, unspecified, uncomplicated Plan 48 yo female with bipolar disorder, ADHD, cocaine use disorder presents with increase mood sx for ~3-4 weeks-irritabilty, rage, lability, crying. She believes this to be from Latuda. Plan: Discontinue Latuda Hold [place] Repeat level 02/05 to consider re-start Continue remainder of the regime Olanzapine 10 mg bid Discussed Vraylar possibility\ 02/06/2024: [place] level 1.46 today. Will continue to hold lithium. Will repeat lithium levels on 02/07/2024 and 02/08/2024. 02/06: lithium level 1.14- restart lithium 600 hs. Also increase prn olanzapine dosing 02/08/24: Cold compression dressing for R Hand-pt experiencing pain. Increase Depakote to 1000 mg bid Increase Olanzapine to 15 mg bid 02/09/24: Continue current regime/plan. 02/11/24: Decrease Seroquel to 75 mg HS 02/12/24: Increase Seroquel to 150 mg HS Decrease Olanzapine to 5 mg a.m, 15 mg HS Labs for 02/14- A1c, Valproate, [place] 02/13/24- transitioning from olanzapine to quetiapine- on depakote and lithium- 02/15/24: DC Olanzapine Decrease Seroquel to 75 mg HS Continue Vraylar Decrease Valproate to 750 mg bid Increase [place] to 300 mg XR a.m. 600 mg XR p.m. Discharge this week Pt request information on interactions between Vraylar and other agents. Informed Consent: understands Reason for continued inpatient stay Substantial Risk for: rapid decompensation Time Spent With Patient Time: Total time managing care of this patient today ____ minutes.
[2024-02-15] MEDS: Ibuprofen 800 MG TABLET PO (13:50)
[2024-02-15] MEDS: Dextroamphetamine/Amphetamine XR 10 MG CAP.ER.24H 20 MG PO (14:41)
[2024-02-15] MEDS: Milk of Magnesia 30 ML ORAL.SUSP PO (19:59)
[2024-02-15] MEDS: Divalproex Sodium ER 250 MG TAB.ER.24H 750 MG PO (19:59)
[2024-02-15] MEDS: QUEtiapine Fumarate 25 MG TABLET 75 MG PO (19:59)
[2024-02-15] MEDS: Lithium Carbonate ER 300 MG TABLET.ER 600 MG PO (19:59)
[2024-02-15 20:00] VITALS: BP 155/80; PULSE 109; RESP 17; TEMP 36.1; O2SAT 98
[2024-02-15] MEDS: LORazepam 1 MG TABLET PO (23:03)
[2024-02-16 08:00] VITALS: BP 129/79; PULSE 84; RESP 18; TEMP 36.3; O2SAT 100
[2024-02-16] MEDS: Dextroamphetamine/Amphetamine XR 10 MG CAP.ER.24H 30 MG PO (09:10)
[2024-02-16] MEDS: Cariprazine HCl 1.5 MG CAPSULE PO (09:11)
[2024-02-16] MEDS: Divalproex Sodium ER 250 MG TAB.ER.24H 750 MG PO ×2 (09:11→19:40)
[2024-02-16] MEDS: Lithium Carbonate ER 300 MG TABLET.ER PO (09:12)
--- NOTE | 2024-02-16 09:53 | P.PNPSI_ITS ---
Subjective Subjective Date of Service: 02/16/24 Reason For Visit: SI severe agitation Subjective Notes: Conditional Voluntary Healthcare Proxy: No Guardianship: No Medical Problems Affecting Mental Status: No Interim History: Pt feeling prepared for discharge. Discussed return to work and how much time to allow for her to settle into her new home. Review of meds, changes, will increase Vraylar to 3 mg daily and have out patient team work with titration from that point. Medication Compliance: Yes Side effects from medications: No Attending Groups: Intermittent Review of Systems Acute medical concerns: No Medical Review of Systems: unchanged Review of Systems Review of Systems Yes all other systems are reviewed and are negative Mental Status Exam Mental Status Exam Patient Appearance: Appropriate Patient Orientation: Person, Place, Time and Situation Level of Consciousness: Alert Patient Behavior: Appropriate, Talkative, Cooperative and Good Eye Contact Mood Description: Appropriate Affect Description: Appropriate Patient Cognition Impaired: No Ability to Follow Directions: Good Speech Pattern: Spontaneous Speech Memory Description: Intact Hallucinations: None Delusions: Not Present Thought Process: Distracted and Goal Oriented Thought Content: positive for Circumstantial and positive for Suicidal Ideation (denies) Depressive Symptoms: Increased Anxiety Judgement: Good Diagnostics Vital Signs (24Hr): Vital Signs - 24 hr 02/15/24 20:00 02/16/24 08:00 Temperature 97.0 F 97.4 F Pulse Rate 109 H 84 Respiratory Rate 17 18 Blood Pressure 155/80 H 129/79 Pulse Oximetry 98 100 Oxygen Delivery Method Room Air Room Air BMI result Body Mass Index 31.8 Labs 02/03/24 12:31 02/05/24 09:20 Labs: Laboratory Results - last 48 hr 02/15/24 07:53 Estimat Average Glucose 100 Hemoglobin A1c % 5.1 Valproic Acid 87.8 [place] 0.35 L Imaging Radiology Impressions: ITS Impressions Hand X-Ray 02/03/24 13:13 IMPRESSION: No fracture seen. Medications Medications Current Medications Acetaminophen (Acetaminophen 325 Mg Tablet) 650 mg PO Q6H PRN PRN Reason: hand pain Last Admin: 02/12/24 16:54 Dose: 650 mg Al Hydroxide/Mg Hydroxide (Magnesium Hydrox/Alum Hydrox 30 Ml Oral.Susp) 30 ml PO Q6H PRN PRN Reason: Heartburn/Nausea Last Admin: 02/06/24 19:56 Dose: 30 ml Amphetamine/Dextroamphetamine (Dextroamphetamine/Amphetamine Xr 10 Mg Cap.Er.24h) 30 mg PO DAILY [facility] Last Admin: 02/16/24 09:10 Dose: 30 mg Amphetamine/Dextroamphetamine (Dextroamphetamine/Amphetamine Xr 10 Mg Cap.Er.24h) 20 mg PO 1400 [facility] Last Admin: 02/15/24 14:41 Dose: 20 mg Cariprazine (Cariprazine Hcl 1.5 Mg Capsule) 1.5 mg PO DAILY [facility] Last Admin: 02/16/24 09:11 Dose: 1.5 mg Diphenhydramine HCl (Diphenhydramine Hcl 25 Mg Capsule) 50 mg PO DAILY PRN PRN Reason: self harm urges Divalproex Sodium (Divalproex Sodium Er 250 Mg Tab.Er.24h) 750 mg PO BID [facility] Last Admin: 02/16/24 09:11 Dose: 750 mg Ergocalciferol (Ergocalciferol (Vitamin D2) 1,250 Mcg Capsule) 1,250 mcg PO Q7D [facility] Last Admin: 02/09/24 23:30 Dose: 1,250 mcg Hydroxyzine HCl (Hydroxyzine Hcl 25 Mg Tablet) 25 mg PO Q6H PRN PRN Reason: Anxiety Last Admin: 02/14/24 08:32 Dose: 25 mg Ibuprofen (Ibuprofen 800 Mg Tablet) 800 mg PO Q6H PRN PRN Reason: headaches, hand pain Last Admin: 02/15/24 13:50 Dose: 800 mg [place] Carbonate ([place] Carbonate Er 300 Mg Tablet.Er) 600 mg PO BEDTIME [facility] Last Admin: 02/15/24 19:59 Dose: 600 mg [place] Carbonate ([place] Carbonate Er 300 Mg Tablet.Er) 300 mg PO DAILY [facility] Last Admin: 02/16/24 09:12 Dose: 300 mg Lorazepam (Lorazepam 1 Mg Tablet) 1 mg PO BID PRN PRN Reason: anxiety Last Admin: 02/15/24 23:03 Dose: 1 mg Magnesium Hydroxide (Milk Of Magnesia 30 Ml Oral.Susp) 30 ml PO DAILY PRN PRN Reason: Constipation Last Admin: 02/15/24 19:59 Dose: 30 ml Quetiapine Fumarate (Quetiapine Fumarate 50 Mg Tablet) 50 mg PO Q6H PRN PRN Reason: agitation Last Admin: 02/14/24 21:32 Dose: 50 mg Quetiapine Fumarate (Quetiapine Fumarate 25 Mg Tablet) 75 mg PO BEDTIME [facility] Last Admin: 02/15/24 19:59 Dose: 75 mg Allergies Allergies Allergy/AdvReac Type Severity Reaction Status Date / Time lamotrigine [From LAMICTAL] Allergy Severe RASH Verified 02/03/24 11:49 oxycodone [From PERCOCET] Allergy Mild NAUSEA Verified 02/03/24 11:49 Assessment & Plan Assessment & Plan (1) Bipolar disorder: Status: Acute Code(s): F31.9 - Bipolar disorder, unspecified (2) Polysubstance use disorder: Status: Acute Code(s): F19.90 - Other psychoactive substance use, unspecified, uncomplicated Plan 48 yo female with bipolar disorder, ADHD, cocaine use disorder presents with increase mood sx for ~3-4 weeks-irritabilty, rage, lability, crying. She believes this to be from Latuda. Plan: Discontinue Latuda Hold [place] Repeat level 02/05 to consider re-start Continue remainder of the regime Olanzapine 10 mg bid Discussed Vraylar possibility\ 02/06/2024: [place] level 1.46 today. Will continue to hold lithium. Will repeat lithium levels on 02/07/2024 and 02/08/2024. 02/06: lithium level 1.14- restart lithium 600 hs. Also increase prn olanzapine dosing 02/08/24: Cold compression dressing for R Hand-pt experiencing pain. Increase Depakote to 1000 mg bid Increase Olanzapine to 15 mg bid 02/09/24: Continue current regime/plan. 02/11/24: Decrease Seroquel to 75 mg HS 02/12/24: Increase Seroquel to 150 mg HS Decrease Olanzapine to 5 mg a.m, 15 mg HS Labs for 02/14- A1c, Valproate, [place] 02/13/24- transitioning from olanzapine to quetiapine- on depakote and lithium- 02/15/24: DC Olanzapine Decrease Seroquel to 75 mg HS Continue Vraylar Decrease Valproate to 750 mg bid Increase [place] to 300 mg XR a.m. 600 mg XR p.m. Discharge this week Pt request information on interactions between Vraylar and other agents. 02/16/24: Discharge 02/17/24. Informed Consent: understands Reason for continued inpatient stay Substantial Risk for: stable for discharge Time Spent With Patient Time: Total time managing care of this patient today ____ minutes.
[2024-02-16] MEDS: Ibuprofen 800 MG TABLET PO (11:56)
[2024-02-16] MEDS: Dextroamphetamine/Amphetamine XR 10 MG CAP.ER.24H 20 MG PO (15:16)
[2024-02-16] MEDS: Milk of Magnesia 30 ML ORAL.SUSP PO (16:47)
[2024-02-16] MEDS: Lithium Carbonate ER 300 MG TABLET.ER 600 MG PO (19:40)
[2024-02-16] MEDS: QUEtiapine Fumarate 25 MG TABLET 75 MG PO (19:40)
[2024-02-16 20:00] VITALS: BP 168/82; PULSE 110; TEMP 36.4; O2SAT 98
[2024-02-16] MEDS: Ergocalciferol (Vitamin D2) 1,250 MCG CAPSULE 1250 MCG PO (21:08)
[2024-02-17] MEDS: Magnesium Hydrox/Alum Hydrox 30 ML ORAL.SUSP PO (00:14)
[2024-02-17] MEDS: QUEtiapine Fumarate 50 MG TABLET PO (00:51)
[2024-02-17 08:30] VITALS: BP 136/72; PULSE 88; RESP 16; TEMP 36.1; O2SAT 100
[2024-02-17] MEDS: Divalproex Sodium ER 250 MG TAB.ER.24H 750 MG PO (08:54)
[2024-02-17] MEDS: Dextroamphetamine/Amphetamine XR 10 MG CAP.ER.24H 30 MG PO (08:55)
[2024-02-17] MEDS: Lithium Carbonate ER 300 MG TABLET.ER PO (08:55)
[2024-02-17] MEDS: Cariprazine HCl 1.5 MG CAPSULE PO (08:55)
--- NOTE | 2024-02-17 11:55 | P.DS_ITS ---
DS: Providers Provider Date of Service: 02/17/24 Date of admission: 02/04/24 10:37 Date of discharge: 02/17/24 Primary care physician: Clarissa Matias MD Admitting clinician: Chrissy Way Attending physician on admission: Danny Tyson Attending physician on discharge: Danny Tyson Discharging clinician: Chrissy Way DS: Diagnosis Discharge Diagnosis (1) Bipolar disorder: Status: Acute (2) Polysubstance use disorder: Status: Acute DS: Medications Discharge Medications Home Medications: Previous Rx's ?Medication ?Instructions ?Recorded cholecalciferol (vitamin D3) 1,250 1,250 mcg PO QWEEK #4 caps 02/16/24 mcg (50,000 unit) capsule dextroamphetamine-amphetamine ER 20 mg PO DAILY #30 caps 02/16/24 20 mg 24hr capsule,extend release (Adderall XR) dextroamphetamine-amphetamine ER 30 mg PO DAILY #30 caps 02/16/24 30 mg 24hr capsule,extend release (Adderall XR) divalproex 250 mg tablet,extended 250 mg PO BID #60 tabs 02/16/24 release 24 hr divalproex 500 mg tablet,extended 500 mg PO BID #60 tabs 02/16/24 release 24 hr lithium carbonate 300 mg 300 mg PO DAILY #30 tabs 02/16/24 tablet,extended release lithium carbonate 300 mg 600 mg (2 x 300 mg) PO BEDTIME #30 02/16/24 tablet,extended release tabs lorazepam 1 mg tablet 1 mg PO BID PRN anxiety #14 tabs 02/16/24 quetiapine 100 mg tablet 100 mg PO BEDTIME #30 tabs 02/16/24 quetiapine 25 mg tablet (Seroquel) 75 mg (3 x 25 mg) PO BEDTIME #90 02/16/24 tabs cariprazine 3 mg capsule (Vraylar) 3 mg PO DAILY #30 caps 02/17/24 Mental Status Exam Mental Status Exam Patient Appearance: Appropriate Patient Orientation: Person, Place, Time and Situation Level of Consciousness: Alert Patient Behavior: Appropriate, Talkative, Cooperative and Good Eye Contact Mood Description: Appropriate Affect Description: Appropriate Patient Cognition Impaired: No Ability to Follow Directions: Good Speech Pattern: Spontaneous Speech Memory Description: Intact Hallucinations: None Delusions: Not Present Thought Process: Distracted and Goal Oriented Thought Content: positive for Circumstantial and positive for Suicidal Ideation (denies) Depressive Symptoms: Increased Anxiety Judgement: Good Data Data Completed and Pending Completed studies during hospitalization [Text1]: 02/05/24 02/15/24 09:20 07:53 Estimat Average Glucose 100 Hemoglobin A1c % 5.1 25-OH Vitamin D Total 51 25-Hydroxy Vitamin D2 <4 25-Hydroxy Vitamin D3 51 Valproic Acid 87.8 [place] 0.35 L Imaging Diagnostic Imaging Impressions Hand X-Ray 02/03/24 13:13 IMPRESSION: No fracture seen. DS: Summary Hospital Course Hospital Course: Admission to adult psychiatry for exacerbation of symptoms of Bipolar Disorder, possibly related to initiation of a Latuda trial. History of ADHD, Polysubstance use disorder, last use 3-4 weeks ago (cocaine). Reports a recent discharge from [facility] for substance focused care. Reported an increase in mood cycling, rages, irritability. Medications were evaluated and adjusted. Milieu therapy was made available to pt for utilization. Pt will return to [facility] for out patient services. She plans to move from her current living situation and return to her parents home, who are supportive of her. Time spent discussing smoking cessation with patient: 3 to 10 minutes Status at Discharge Functional status at discharge: independent ambulation Overall status at discharge: patient is progressing back to baseline Time Spent with Patient Time attestation: Total time managing care of this patient today ____ minutes. Time spent: Less than 30 minutes Discharge Plan Discharge Anticipated Discharge Date/Time: 02/17/24 12:00 Patient Disposition: Home, Self-Care Discharge Diagnosis: Bipolar Disorder Polysubstance use disorder Referrals: Geno Alvarado: [place] [facility] [employer] [Other] - 03/14/24 2:00 pm (Hospital Discharge appointment with psychiatric provider Appointment in clinic at [facility] in [place].) Clarissa Matias MD [Primary Care Provider] - 1 Week Discharge Medications: New lithium carbonate 300 mg Tablet Extended Release 300 mg PO DAILY Qty: 30 0RF dextroamphetamine-amphetamine [Adderall XR] 30 mg capsule,extended release 24hr 30 mg PO DAILY Qty: 30 0RF Rx Instructions: Partial Fill upon patient request. dextroamphetamine-amphetamine [Adderall XR] 20 mg capsule,extended release 24hr 20 mg PO DAILY Qty: 30 0RF Rx Instructions: Partial Fill upon patient request. quetiapine [Seroquel] 25 mg tablet 75 mg PO BEDTIME Qty: 90 0RF Vraylar 3 mg capsule 3 mg PO DAILY Qty: 30 0RF Continued lithium carbonate 300 mg tablet extended release 600 mg PO BEDTIME Qty: 30 0RF quetiapine 100 mg tablet 100 mg PO BEDTIME Qty: 30 0RF divalproex 500 mg tablet extended release 24 hr 500 mg PO BID Qty: 60 0RF lorazepam 1 mg tablet 1 mg PO BID PRN (Reason: anxiety) Qty: 14 4RF divalproex 250 mg tablet extended release 24 hr 250 mg PO BID Qty: 60 0RF cholecalciferol (vitamin D3) 1,250 mcg (50,000 unit) capsule 1,250 mcg PO QWEEK Qty: 4 0RF Discontinued dextroamphetamine-amphetamine [Adderall XR] 20 mg capsule,extended release 24hr 1 cap PO DAILY dextroamphetamine-amphetamine [Adderall XR] 30 mg capsule,extended release 24hr 1 cap PO QAM lurasidone 40 mg tablet 40 mg PO QPM Discharge Orders: Discharge Order (Routine); Ordered 02/16/24 Ordered By: Chrissy Way Diet: Regular diet Activity on Discharge: As tolerated Stand Alone Forms: Patient Portal Discharge page, Community Support Print Language: Romanian Care Plan Goals: Mood and Behavioral Stabilization Sobriety Health Concerns: Mood and Behavioral Stabilization Sobriety Plan of Treatment: Attend scheduled appointments Take medications as directed Assessment: Shanique discharges today to her parents home. Pt interviewed prior to discharge and found to be fully oriented and without SI/HI. Pt has insight and demonstrates good judgment in terms of wanting to pursue treatment. Pt is not in imminent risk of harm to self or others and has a safety plan that includes presenting to the closest ER or calling 911 if feeling unsafe Pt has been observed closely by nursing and unit staff throughout admission. Pt has not engaged in any behaviors that suggest dangerousness to self or others and had demonstrated appropriate behaviors and impulse control. Discharge Date/Time: 02/17/24 10:50
== END 2024-02-17 10:50 | disposition home or self-care (01) | DRG 753 ==
LOC: HO.ED 13:26 → HO.PM5 02-04 13:06
PROVIDERS: Psychiatry & Neurology Psychiatry; Admitting Provider Psychiatry & Neurology Psychiatry; Emergency Provider Emergency Medicine; PCP Internal Medicine; Visit Provider Clinical Nurse Specialist Psychiatric/Mental Health, Adult
DX: F31.9 Bipolar disorder, unspecified (principal); R45.851 Suicidal ideations; F19.90 Other psychoactive substance use, unspecified, uncomplicated; Z79.899 Other long term (current) drug therapy; Z87.891 Personal history of nicotine dependence
CPT/HCPCS: 36415; 73120; 80053; 80061; 80164; 80178; 80307; 81001; 82306; 83036; 84443; 85025; 93005; 99285; S9485

== ENCOUNTER → 2024-02-04 08:17 | Outpatient (BNV) | payer OTHER, SELFPAY | PROVIDERS: Admitting Provider Psychiatry & Neurology Psychiatry; Emergency Provider Emergency Medicine; PCP Internal Medicine; Visit Provider Internal Medicine | DX: R94.31 Abnormal electrocardiogram [ECG] [EKG] (principal) | CPT/HCPCS: 93010 ==

== ENCOUNTER → 2024-02-04 10:37 | Outpatient (BNV) | payer OTHER, SELFPAY | PROVIDERS: Admitting Provider Psychiatry & Neurology Psychiatry; Emergency Provider Emergency Medicine; PCP Internal Medicine; Visit Provider Clinical Nurse Specialist Psychiatric/Mental Health, Adult | DX: F31.9 Bipolar disorder, unspecified (principal); F19.90 Other psychoactive substance use, unspecified, uncomplicated | CPT/HCPCS: 90792; 99231; 99232; 99238 ==

== ENCOUNTER 2024-05-24 14:16 | Inpatient (IN) | payer OTHER, SELFPAY ==
--- NOTE | ~2024-05-24 | XR_ITS ---
EXAMINATION: XR ABDOMEN KUB CLINICAL INDICATION: Assess stool burden COMPARISON: None available. TECHNIQUE: AP view of the abdomen. FINDINGS: [id number] stool burden. The bowel gas pattern is normal with no evidence of ileus or obstruction. No unusual soft tissue calcifications are noted. The bones are unremarkable. XR/XR KUB IMPRESSION: Mild to moderate stool burden. Electronically signed by: Efrain Keys DO 06/04/2024 12:33 AM EDT
--- NOTE | ~2024-05-24 | XR_ITS ---
EXAMINATION: XR HAND, RIGHT CLINICAL INFORMATION: Finger pain and swelling COMPARISON: None available. TECHNIQUE: PA, lateral, and oblique views of the right hand. FINDINGS: The bones and soft tissues are normal. No fracture. Alignment is anatomic. Joint spaces are maintained. No erosions or soft tissue calcifications. XR/XR hand RT min 3V IMPRESSION: Normal right hand. Electronically signed by: Magdaleno Key MD 06/02/2024 09:11 PM EDT
[2024-05-24 14:31] VITALS: BP 152/104; PULSE 99; RESP 19; TEMP 36.1; O2SAT 97; BMI 35.0
--- NOTE | 2024-05-24 14:51 | ED.GENADULT ---
HPI - General Adult General Chief complaint: Psychiatric Symptoms Stated complaint: SI Time Seen by Provider: 05/24/24 14:49 Source: patient Mode of arrival: ambulatory Limitations: no limitations History of Present Illness ED Provider: Milena COFFMAN HPI narrative: 48 year old female hx of bipolar do and polysubstance abuse presents w/ si w/ vague plan to drive car into something also a/c anxiety, depression. Patient cut right upper arm to cope with this. No bleeding. No HI. No hallucinations. + drugs, No alcohol. tobacco. No medical complaints. Related Data Home Medications ?Medication ?Instructions ?Recorded ?Confirmed cariprazine 3 mg capsule (Vraylar) 6 mg PO DAILY 05/24/24 05/24/24 dextroamphetamine-amphetamine ER 1 cap PO DIRECTED 05/24/24 05/24/24 10 mg 24hr capsule,extend release (Adderall XR) dextroamphetamine-amphetamine ER 1 cap PO DIRECTED 05/24/24 05/24/24 20 mg 24hr capsule,extend release (Adderall XR) quetiapine 25 mg tablet (Seroquel) 25 mg PO NEEDED PRN severe 05/24/24 05/24/24 anxiety Previous Rx's ?Medication ?Instructions ?Recorded cholecalciferol (vitamin D3) 1,250 1,250 mcg PO QWEEK #4 caps 02/16/24 mcg (50,000 unit) capsule dextroamphetamine-amphetamine ER 20 mg PO DAILY #30 caps 02/16/24 20 mg 24hr capsule,extend release (Adderall XR) dextroamphetamine-amphetamine ER 30 mg PO DAILY #30 caps 02/16/24 30 mg 24hr capsule,extend release (Adderall XR) divalproex 250 mg tablet,extended 250 mg PO BID #60 tabs 02/16/24 release 24 hr divalproex 500 mg tablet,extended 500 mg PO BID #60 tabs 02/16/24 release 24 hr lithium carbonate 300 mg 300 mg PO DAILY #30 tabs 02/16/24 tablet,extended release lithium carbonate 300 mg 600 mg (2 x 300 mg) PO BEDTIME #30 02/16/24 tablet,extended release tabs quetiapine 100 mg tablet 100 mg PO BEDTIME #30 tabs 02/16/24 Allergies Allergy/AdvReac Type Severity Reaction Status Date / Time lamotrigine [From LAMICTAL] Allergy Severe RASH Verified 05/24/24 14:31 oxycodone [From PERCOCET] Allergy Mild NAUSEA Verified 02/03/24 11:49 Review of Systems Review of Systems: Yes all other systems are reviewed and are negative [facility] Past Medical History Attestation statement: The following information was validated with the patient. Source: old records reviewed and nursing notes reviewed Medical History Polysubstance use disorder Bipolar disorder Social History Social History Household Members: Other Household Members Other:: previousl lived w/ friend, but was kicked out and will be living w/ parents Housing: Apartment Do you presently have visiting nurse or other home services: No Patient Tobacco Use Status: Former Tobacco user Tobacco use type: Cigarette Smoked in Last 30 Days: No e-Cigarette/Vaping Use: Never Used Second Hand Smoke Exposure: No Substance Use Type: Crack/Cocaine, Hallucinogens, Marijuana and Methamphetamine Substance Use Frequency: Recent Binge Substance Use Frequency Other:: cocaine more often. last event with friends used mushrooms/ann/acid Last Used Substance: Days (ago) Advance Directives: No Advance Directives Information Provided: No Patient : No service: No Physical Exam ED Vital Signs: Vital Signs - 24 hr 05/24/24 14:31 05/24/24 15:07 Temperature 97.0 F 98.8 F Pulse Rate 99 89 Respiratory Rate 19 18 Blood Pressure 152/104 H 135/83 Pulse Oximetry 97 99 Oxygen Delivery Method Room Air Room Air BMI result Body Mass Index 35.0 vss Appearance: Alert.? Oriented X3.? No acute distress.? Head: Normocephalic, atraumatic, no step-offs or deformities Eyes: Pupils equal, round and reactive to light.? CVS: Normal heart rate and rhythm.? Pulses normal.? Respiratory: No respiratory distress.? Breath sounds normal.? Abdomen: Soft and nontender.? Skin: Skin warm and dry.? Normal skin color.? Normal skin turgor.?+ lacerations to right upper extremity lateral aspect of arm, old healing scars noted underlying throughout the entire upper xtremities bilateral. Extremities: No lower extremity edema.? No calf ttp. 5/5 strength to bilateral upper and lower extremities Back: No midline tenderness, no C-spine tenderness, full range of motion, no CVA tenderness bilaterally Neuro: Oriented X 3.? No motor deficit.? No sensory deficit. CN 2-12 intact Course Reevaluation(s) Reevaluation #1: CBC unremarkable. Chemistry with no acute findings needing intervention. Patient's urine with trace leukocyte esterases and 1+ bacteria negative . Will treat with Ceftin. Patient is noted to be positive for amphetamines, marijuana, low lithium level normal dose of lithium to be continued. Negative ethanol. At this time patient to be placed into observation to allow more time to be evaluated by behavioral health team. At time observation was started patient common cooperative no acute distress will continue to monitor. Time: 16:24 Medical Decision Making Medical Decision Making [facility] Narrative: 48 year old female presents w/ 3 self inflicted wounds on RUE and SI w/ vague plan PE - 3 superficial linear lacs to lateral aspect of right upper arm Hx and pe concerning for depression w/ si vs bipolar do. Kevin tx, metabolic derangments Plan- labs, care team Differential Diagnosis Differential Diagnoses: The differential diagnosis associated with the presentation includes Hx and pe concerning for depression w/ si vs bipolar do. Kevin tx, metabolic derjigar Admission/Observation Consideration of admission/observation: Escalation of care including admission/observation considered possible Lab Data [facility] Lab Attestation statement: I reviewed the patient's lab results. 05/24/24 15:48 05/24/24 15:48 Labs: Lab Results 05/24/24 05/24/24 Range/Units 15:48 16:01 WBC 8.2 (4.8-10.8) X10*3/uL RBC 4.56 (4.20-5.50) X10*6/uL Hgb 13.3 (12.0-16.0) g/dl Hct 39.8 (37.0-47.0) % MCV 87.3 (80.0-98.0) fL MCH 29.2 (27.0-33.0) pg MCHC 33.4 (31.0-35.0) g/dl RDW 12.2 (11.0-16.0) % Plt Count 261 (160-400) X10*3/uL MPV 9.7 (9.4-12.3) fL Immature Gran % (Auto) 0.4 (0.0-0.4) % Neut % (Auto) 64.7 (45-73) % Lymph % (Auto) 25.0 (20-40) % [place] % (Auto) 7.0 (2-11) % Eos % (Auto) 2.2 (0-4) % Baso % (Auto) 0.7 (0-2) % Lymph # (Auto) 2.1 (1.2-4.9) X10*3/uL [place] # (Auto) 0.6 (0.1-1.2) X10*3/uL Eos # (Auto) 0.2 (0.0-0.4) X10*3/uL Baso # (Auto) 0.1 (0.0-0.2) X10*3/uL Abs Immat Gran (auto) 0.03 (0.00-0.03) X10*3/uL Absolute Neuts (auto) 5.3 (2.0-8.3) x10*3/uL Absolute Nucleated RBC 0.000 (0.0-0.012) X10*3/uL Nucleated RBC % (auto) 0.0 (0.0-0.2) /100WBC Sodium 142 (135-145) mmol/L Potassium 3.9 (3.3-5.1) mmol/L Chloride 110 H (96-108) mmol/L Carbon Dioxide 23 (22-29) mmol/L Anion Gap 13 (12-20) BUN 6 L (9-16) mg/dL Creatinine 0.79 (0.5-1.4) mg/dL Estim Creat Clear Calc 112.5 Estimated GFR > 60 Random Glucose 150 H (60-115) mg/dL Calcium 10.3 H D (8.4-10.2) mg/dL Total Bilirubin 0.1 (0.0-1.0) mg/dL AST 19 (5-31) U/L ALT 35 H (0-31) U/L Alkaline Phosphatase 46 (39-117) U/L Total Protein 7.5 (6.5-8.0) g/dL Albumin 4.7 (3.5-5.0) g/dL Urine Color Yellow Urine Appearance Clear Urine pH 7.0 (5.0-9.0) Ur Specific [place] 1.010 (1.005-1.025) Urine Protein Trace (Neg-Trace) mg/dL Urine Glucose (UA) Negative (Negative) mg/dL Urine Ketones Negative (Negative) mg/dL Urine Blood Negative (Negative) Urine Nitrite Negative (Negative) Ur Leukocyte Esterase Trace H (Negative) Urine RBC 0-2 (0-2) /HPF Urine WBC 0-5 (0-5) /HPF Ur Squamous Epith Cells 6-10 (0-2) /HPF Urine Bacteria 1+ (None Seen) Hyaline Casts 3-5 (0-2) /LPF Urine Test NEGATIVE (NEGATIVE) Urine Opiates Screen Not Detected (Not Detect) Ur Buprenorphine Scrn Not Detected (Not Detect) ng/mL Ur Oxycodone Screen Not Detected (Not Detect) ng/mL Urine Methadone Screen Not Detected (Not Detect) ng/mL Urine Fentanyl Screen Not Detected (Not Detect) Ur Barbiturates Screen Not Detected (Not Detect) Ur Phencyclidine Scrn Not Detected (Not Detect) Ur Amphetamines Screen POSITIVE H (Not Detect) U Benzodiazepines Scrn Not Detected (Not Detect) [place] 0.44 L (0.60-1.20) mmol/L Urine Cocaine Screen Not Detected (Not Detect) U Marijuana (THC) Screen POSITIVE H (Not Detect) Ethyl Alcohol < 10 mg/dL COVID-19 ([facility]) Negative (Negative) COVID-19 Clin Com See Note Independent Interpretation I performed an independent interpretation of an: Plain X-Ray Radiology Impression Discussion of test interpretation with radiology: I have reviewed the radiologist's reading. External Record Review External record reviewed: Inpatient record, Office record, Outpatient record, Prior outpatient labs and Prior outpatient radiology Chronic Conditions Patient?s care impacted by: Other (bipolar do, polysubstance abuse ) Critical Care Time Critical Care Time Critical Care Time: No Discharge Plan Discharge Clinical Impression: UTI (urinary tract infection), Depression Patient Disposition: Still a Patient Prescriptions: No Action lithium carbonate 300 mg Tablet Extended Release 300 mg PO DAILY Qty: 30 0RF lithium carbonate 300 mg tablet extended release 600 mg PO BEDTIME Qty: 30 0RF quetiapine 100 mg tablet 100 mg PO BEDTIME Qty: 30 0RF divalproex 500 mg tablet extended release 24 hr 500 mg PO BID Qty: 60 0RF divalproex 250 mg tablet extended release 24 hr 250 mg PO BID Qty: 60 0RF cholecalciferol (vitamin D3) 1,250 mcg (50,000 unit) capsule 1,250 mcg PO QWEEK Qty: 4 0RF dextroamphetamine-amphetamine [Adderall XR] 30 mg capsule,extended release 24hr 30 mg PO DAILY Qty: 30 0RF Rx Instructions: Partial Fill upon patient request. dextroamphetamine-amphetamine [Adderall XR] 20 mg capsule,extended release 24hr 20 mg PO DAILY Qty: 30 0RF Rx Instructions: Partial Fill upon patient request. quetiapine [Seroquel] 25 mg tablet 25 mg PO NEEDED PRN (Reason: severe anxiety) Vraylar 3 mg capsule 6 mg PO DAILY dextroamphetamine-amphetamine [Adderall XR] 20 mg capsule,extended release 24hr 1 cap PO DIRECTED Rx Instructions: given at 1500 daily with a 10mg tablet. dextroamphetamine-amphetamine [Adderall XR] 10 mg capsule,extended release 24hr 1 cap PO DIRECTED Rx Instructions: to be given at 1500 daily with 20mg tablet Interventions: [place]-Suicide Risk Severity Scale Last Done: 05/24/24 14:46 Print Language: Portuguese
[2024-05-24 15:07] VITALS: BP 135/83; PULSE 89; RESP 18; TEMP 37.1; O2SAT 99
[2024-05-24 15:53] LABS: MANUAL DIFF FLAG NO
[2024-05-24 15:54] LABS: Basophils Absolute Auto 0.1 X10*3/uL (0.0-0.2); Basophils Percent Auto 0.7 % (0-2); Eosinophils Absolute Auto 0.2 X10*3/uL (0.0-0.4); Eosinophils Percent Auto 2.2 % (0-4); Hematocrit 39.8 % (37.0-47.0); Hemoglobin 13.3 g/dl (12.0-16.0); Imm Gran Abs Auto 0.03 X10*3/uL (0.00-0.03); Imm Gran Pct Auto 0.4 % (0.0-0.4); Lymphocytes Absolute Auto 2.1 X10*3/uL (1.2-4.9); Mean Corpuscular HGB Conc 33.4 g/dl (31.0-35.0); Mean Corpuscular Hemoglobin 29.2 pg (27.0-33.0); Mean Corpuscular Volume 87.3 fL (80.0-98.0); Mean Platelet Volume 9.7 fL (9.4-12.3); Monocytes Absolute Auto 0.6 X10*3/uL (0.1-1.2); Neutrophils Absolute Auto 5.3 x10*3/uL (2.0-8.3); Neutrophils Percent Auto 64.7 % (45-73); Platelet Count 261 X10*3/uL (160-400); Red Blood Count 4.56 X10*6/uL (4.20-5.50); Red Cell Distribution Width 12.2 % (11.0-16.0); White Blood Count 8.2 X10*3/uL (4.8-10.8)
[2024-05-24 16:04] LABS: Lithium 0.44 mmol/L (0.60-1.20)
[2024-05-24 16:06] LABS: COVID-19 Test Negative (Negative); IDNOW Serial# 08D9AD1C
[2024-05-24 16:14] LABS: UPreg QC Valid YES; Urine Pregnancy NEGATIVE (NEGATIVE)
[2024-05-24 16:15] LABS: Appearance Urine Clear; Color Urine Yellow; Glucose Urine UA Negative (Negative); Leukocyte Esterase Urine Trace (Negative); Nitrite Urine Negative (Negative); UMIC TRIGGER UA YES; Urine Blood Negative (Negative); Urine Ketones Negative (Negative); Urine Protein Trace mg/dL (Neg-Trace)
[2024-05-24 16:18] LABS: Bacteria Urine 1+ (None Seen); RBC Urine 0-2 /HPF (0-2); WBC Urine 0-5 /HPF (0-5)
[2024-05-24 16:18] LABS: Alanine Aminotransferase 35 U/L (0-31); Albumin Level 4.7 g/dL (3.5-5.0); Alkaline Phosphatase 46 U/L (39-117); Anion Gap 13 (12-20); Aspartate Amino Transferase 19 U/L (5-31); Bilirubin Total 0.1 mg/dL (0.0-1.0); Blood Urea Nitrogen 6 mg/dL (9-16); Calcium 10.3 mg/dL (8.4-10.2); Carbon Dioxide 23 mmol/L (22-29); Chloride 110 mmol/L (96-108); Creatinine Clr Calc Pharmacy 112.5; Estimated Glomerular Filt Rate > 60; Ethanol < 10 mg/dL; Glucose Random 150 mg/dL (60-115); Potassium 3.9 mmol/L (3.3-5.1); Sodium 142 mmol/L (135-145); Total Protein 7.5 g/dL (6.5-8.0)
[2024-05-24 16:19] LABS: Amphetamine Screen Urine POSITIVE (Not Detect); Barbiturates, Urine Not Detected (Not Detect); Benzodiazepines Screen Urine Not Detected (Not Detect); Buprenorphine Scr Not Detected (Not Detect); Cannabinoid Screen Urine POSITIVE (Not Detect); Cocaine Screen Urine Not Detected (Not Detect); Fentanyl, urine Not Detected (Not Detect); Methadone Screen, Urine Not Detected (Not Detect); Opiate Screen Urine Not Detected (Not Detect); Oxycodone Screen Urine Not Detected (Not Detect); Phencyclidine Screen Urine Not Detected (Not Detect)
[2024-05-24] MEDS: Diphth,Pertus(ACell),Tet Adult 0.5 ML SYRINGE IM (16:39)
[2024-05-24] MEDS: Bacitracin Oint 0.9 GM PACKET 1 APPL TOPICAL (16:40)
[2024-05-24 16:44] LABS: Acetaminophen LAB < 3 mcg/mL (<30); Salicylate < 5.0 mg/dL (15-30)
[2024-05-24] MEDS: Acetaminophen 325 MG TABLET 650 MG PO (20:20)
[2024-05-24] MEDS: cefuroxime axetiL 250 MG TABLET PO (20:20)
[2024-05-24 20:30] VITALS: BP 154/98; PULSE 73; RESP 20; TEMP 36.1; O2SAT 97
[2024-05-24] MEDS: Divalproex Sodium ER 250 MG TAB.ER.24H PO (20:56)
[2024-05-24] MEDS: Lithium Carbonate ER 300 MG TABLET.ER 600 MG PO (20:56)
[2024-05-24] MEDS: Divalproex Sodium ER 500 MG TAB.ER.24H PO (20:56)
[2024-05-24] MEDS: QUEtiapine Fumarate 100 MG TABLET PO (20:56)
--- NOTE | 2024-05-24 21:03 | PC.NURSE ---
Shanique is currently resting on bed in 3, offering no complaints to this RN other than right shoulder pain due to self inflicted lacerations. This RN cleaned wounds (three horizontal self inflicted lacs measuring about 3 inches each), bacitracin and bandages applied. Patient continues to endorse vague SI without a plan. Patient aware of plan of care for inpatient bedsearch at this time
--- NOTE | 2024-05-25 | ECG_ITS ---
Test Reason : CHECK QTC Blood Pressure : / mmHG Vent. Rate : 070 BPM Atrial Rate : 070 BPM P-R Int : 194 ms QRS Dur : 092 ms QT Int : 406 ms P-R-T Axes : 032 043 048 degrees QTc Int : 438 ms Normal sinus rhythm with sinus arrhythmia Normal ECG When compared with ECG of 04-FEB-2024 10:05, Nonspecific T wave abnormality no longer evident in Inferior leads Nonspecific T wave abnormality no longer evident in Anterior leads Referred By: Edgard Law Electronically Signed By:NICK PERDUE
[2024-05-25 01:05] VITALS: BP 138/86; PULSE 82; RESP 16; TEMP 36.2; O2SAT 97
--- NOTE | 2024-05-25 07:19 | PC.NURSE ---
Pt. refused breakfast tray.
[2024-05-25] MEDS: Cariprazine HCl 3 MG CAPSULE 6 MG PO (09:02)
[2024-05-25] MEDS: Divalproex Sodium ER 500 MG TAB.ER.24H PO ×2 (09:02→20:39)
[2024-05-25] MEDS: Dextroamphetamine/Amphetamine XR 10 MG CAP.ER.24H 50 MG PO (09:02)
[2024-05-25] MEDS: Divalproex Sodium ER 250 MG TAB.ER.24H PO ×2 (09:02→20:39)
[2024-05-25] MEDS: Lithium Carbonate ER 300 MG TABLET.ER PO (09:02)
[2024-05-25] MEDS: cefuroxime axetiL 250 MG TABLET PO ×2 (09:29→20:38)
[2024-05-25] MEDS: Escitalopram Oxalate 5 MG TABLET PO (10:24)
[2024-05-25 12:33] VITALS: BP 165/90; PULSE 79; RESP 18; TEMP 36.7; O2SAT 100
[2024-05-25 13:38] VITALS: BMI 33.8
[2024-05-25] MEDS: Acetaminophen 325 MG TABLET 650 MG PO (13:56)
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
[2024-05-25] MEDS: Dextroamphetamine/Amphetamine XR 10 MG CAP.ER.24H 30 MG PO (15:46)
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
[2024-05-25 17:35] LABS: Ammonia 31 umol/L (13-55)
[2024-05-25 17:37] LABS: Lithium 0.62 mmol/L (0.60-1.20)
[2024-05-25 17:42] LABS: Valproate 54.4 mcg/mL (50.0-100.0)
[2024-05-25 17:46] LABS: Alanine Aminotransferase 38 U/L (0-31); Albumin Level 4.9 g/dL (3.5-5.0); Alkaline Phosphatase 50 U/L (39-117); Anion Gap 11 (12-20); Aspartate Amino Transferase 22 U/L (5-31); Bilirubin Direct 0.2 mg/dL (0.0-0.5); Bilirubin Total 0.5 mg/dL (0.0-1.0); Blood Urea Nitrogen 7 mg/dL (9-16); Calcium 10.3 mg/dL (8.4-10.2); Carbon Dioxide 26 mmol/L (22-29); Chloride 104 mmol/L (96-108); Creatinine Clr Calc Pharmacy 111.9; Estimated Glomerular Filt Rate > 60; Glucose Random 91 mg/dL (60-115); Sodium 137 mmol/L (135-145)
[2024-05-25] MEDS: Loperamide HCl 2 MG CAPSULE 4 MG PO (18:26)
--- NOTE | 2024-05-25 18:52 | PC.NURSE ---
Patients Inge verified with patients pharmacy, [facility], at this time.
[2024-05-25 20:00] VITALS: BP 167/78; PULSE 82; RESP 16; TEMP 37.2; O2SAT 98
[2024-05-25] MEDS: Lithium Carbonate ER 300 MG TABLET.ER 600 MG PO (20:38)
[2024-05-25] MEDS: QUEtiapine Fumarate 100 MG TABLET PO (20:39)
[2024-05-26 02:29] LABS: CT PCR NOT DETECTED (Not Detect.); NG PCR NOT DETECTED (Not Detect.)
[2024-05-26] MEDS: Acetaminophen 325 MG TABLET 650 MG PO ×3 (03:02→15:05)
[2024-05-26] MEDS: QUEtiapine Fumarate 25 MG TABLET PO ×2 (03:18→15:46)
[2024-05-26 08:15] LABS: HBS Num1 0.85 mIU/mL (0-7.99); HBc Num1 0.14 S/CO (0.00-0.79); HBsAGNum1 0.23 S/CO (0.00-0.99); HIV AB/AG Nonreactive (Nonreactive); HIV Num 1 0.06 S/CO (0.00-0.99); Hepatitis A Antibody IgM 0.16 Index (0-0.79); Hepatitis B Core Antibody Nonreactive (Nonreactive); Hepatitis B Surface Antigen Negative (Negative); ~HepC Num1 0.11 S/CO (0.00-0.79); ~Hepatitis A Antibody IgM Nonreactive (Nonreactive); ~Hepatitis B Surface Antibody NONREACTIVE (Nonreactive); ~Hepatitis C Antibody Nonreactive (Nonreactive)
[2024-05-26 08:22] LABS: Syphilis Screen Nonreactive (Nonreactive)
[2024-05-26 08:47] VITALS: BP 156/80; PULSE 78; RESP 16; TEMP 36.4; O2SAT 99
[2024-05-26] MEDS: Cariprazine HCl 3 MG CAPSULE 6 MG PO (08:48)
[2024-05-26] MEDS: Dextroamphetamine/Amphetamine XR 10 MG CAP.ER.24H 50 MG PO (08:49)
[2024-05-26] MEDS: Lithium Carbonate ER 300 MG TABLET.ER PO (08:51)
[2024-05-26] MEDS: Escitalopram Oxalate 5 MG TABLET PO (08:51)
[2024-05-26] MEDS: Divalproex Sodium ER 500 MG TAB.ER.24H PO ×2 (08:51→20:31)
[2024-05-26] MEDS: cefuroxime axetiL 250 MG TABLET PO ×2 (08:51→20:31)
[2024-05-26] MEDS: Divalproex Sodium ER 250 MG TAB.ER.24H PO ×2 (08:51→20:31)
[2024-05-26] MEDS: Bacitracin Oint 14 GM TUBE 1 APPL TOPICAL ×2 (10:54→20:30)
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
[2024-05-26] MEDS: Dextroamphetamine/Amphetamine XR 10 MG CAP.ER.24H 30 MG PO (15:06)
[2024-05-26 15:08] VITALS: BMI 34.1
--- NOTE | 2024-05-26 19:34 | MHC.RECOVSUP ---
? Reason for consult Recovery Support o Current location: [facility] o Identified substance use concern: Cocaine - Support ? Intervention: o Community resources provided o Harm reduction discussion ? Plan: o Patient to follow up with [facility] after discharge ? Additional information: Met with Patient and we talked about recovery and the different Pathway.. Patient stated that he wants a senior living recovery house aways from [facility]. Patient also stated that he would like a payment analyst.
--- NOTE | 2024-05-26 19:35 | MHC.RECOVSUP ---
? Reason for consult Recovery Support o Current location: [facility] o Identified substance use concern: Cocaine - Support ? Intervention: o Community resources provided o Harm reduction discussion ? Plan: o Patient to follow up with [facility] after discharge ? Additional information: Met with Patient and we talked about recovery and the different Pathway.. Patient stated that he wants a long-term recovery house away from [facility]. Patient also stated that he would like a recovery coordinator.
[2024-05-26 20:00] VITALS: BP 152/85; PULSE 88; RESP 16; TEMP 36.8; O2SAT 100
[2024-05-26] MEDS: Lithium Carbonate ER 300 MG TABLET.ER 600 MG PO (20:30)
[2024-05-26] MEDS: QUEtiapine Fumarate 100 MG TABLET PO (20:30)
--- NOTE | 2024-05-26 22:41 | HO.PSYEVENT2 ---
Documented by User: Chrissy Way APRN 05/26/24 22:43 Event Note Date of Service: 05/26/24 Psych On-Call Event Note: Team report consistent HTN without relief. Hospitalist consult ordered. Time Spent With Patient Time: Total time managing care of this patient today ____ minutes. Documented by User: Danny Tyson MD 05/26/24 22:51 Event Note Date of Service: 05/26/24
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
[2024-05-27] MEDS: QUEtiapine Fumarate 25 MG TABLET PO (04:20)
[2024-05-27 07:15] VITALS: BP 149/75; PULSE 82; RESP 16; TEMP 36.8; O2SAT 100
[2024-05-27] MEDS: Dextroamphetamine/Amphetamine XR 10 MG CAP.ER.24H 50 MG PO (09:01)
[2024-05-27] MEDS: cefuroxime axetiL 250 MG TABLET PO (09:02)
[2024-05-27] MEDS: Divalproex Sodium ER 500 MG TAB.ER.24H PO (09:02)
[2024-05-27] MEDS: Cariprazine HCl 3 MG CAPSULE 6 MG PO (09:02)
[2024-05-27 09:03] VITALS: BP 148/76
[2024-05-27] MEDS: amLODIPine Besylate 5 MG TABLET PO (09:03)
[2024-05-27] MEDS: Lithium Carbonate ER 300 MG TABLET.ER PO (09:03)
[2024-05-27] MEDS: Escitalopram Oxalate 5 MG TABLET PO (09:03)
[2024-05-27] MEDS: Divalproex Sodium ER 250 MG TAB.ER.24H PO (09:03)
[2024-05-27] MEDS: Bacitracin Oint 14 GM TUBE 1 APPL TOPICAL (09:04)
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
[2024-05-27] MEDS: Acetaminophen 325 MG TABLET 650 MG PO (10:54)
[2024-05-27] MEDS: QUEtiapine Fumarate 50 MG TABLET PO (13:49)
[2024-05-27 20:00] VITALS: RESP 16
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
[2024-05-28] MEDS: Dextroamphetamine/Amphetamine XR 10 MG CAP.ER.24H 20 MG PO ×2 (09:24→13:25)
[2024-05-28] MEDS: QUEtiapine Fumarate 50 MG TABLET PO (13:41)
[2024-05-28 20:00] VITALS: RESP 16
[2024-05-28] MEDS: QUEtiapine Fumarate 200 MG TABLET PO (23:55)
[2024-05-29] MEDS: Dextroamphetamine/Amphetamine XR 10 MG CAP.ER.24H 20 MG PO ×2 (08:45→12:38)
[2024-05-29] MEDS: QUEtiapine Fumarate 50 MG TABLET PO (12:35)
[2024-05-29] MEDS: hydrOXYzine HCL 25 MG TABLET PO (14:10)
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
[2024-05-29 20:00] VITALS: RESP 18
[2024-05-29] MEDS: QUEtiapine Fumarate 200 MG TABLET PO (20:11)
[2024-05-29] MEDS: hydrOXYzine HCL 50 MG TABLET PO (21:41)
[2024-05-30 07:41] VITALS: BP 144/89; PULSE 78; RESP 18; TEMP 36.3; O2SAT 99
[2024-05-30] MEDS: cefuroxime axetiL 250 MG TABLET PO ×2 (08:53→20:56)
[2024-05-30] MEDS: Dextroamphetamine/Amphetamine XR 10 MG CAP.ER.24H 20 MG PO ×2 (08:53→12:58)
[2024-05-30] MEDS: QUEtiapine Fumarate 50 MG TABLET PO ×2 (08:58→14:45)
--- NOTE | 2024-05-30 09:57 | HO.PSYCHPN ---
Subjective Subjective Date of Service: 05/30/24 Reason For Visit: Crisis Subjective Notes: 3 Day Interim History: Reviewed with Dr. Tyson. Active on unit. Attending groups. Has been refusing medications other than Adderall for the past 2 days. Patient presents labile during 1:1. Patient upset with decrease in Adderall. Patient stated, I'm not taking the mood stabilizer until you increased my Adderall! . Patient was unable to explain this reasoning. Patient reports suicidal ideation; patient stated, I want to kill myself! Everything sucks. I hate life. Just let me leave on Thursday so I can go kill myself . Patient then stormed out of unit office. 3 day up on 06/01/2024. Per nursing, pt has been crying, slamming doors. Patient agreed to take medications this morning after encouragement. T/W spoke to patient's outpatient provider, Geno. Outpatient provider reported patient presents this way every few months after attending concerts . Geno stated patient generally does well but then she relapses during concerts becomes hypersexual, uses various substances and becomes depressed . Patient is in the [facility] for stimulant abuse; per outpatient provider the high dose of Adderall has been managing her ADHD and cocaine use. She reports patient has a history of suicide attempts and would take her seriously if she is reporting wanting to kill herself . denies any suicide attempts in the last year. Medication Compliance: Intermittent Side effects from medications: No Attending Groups: Yes Review of Systems Constitutional: Reports as per HPI Eyes: Reports as per HPI Reports as per HPI Cardiovascular: Reports as per HPI Respiratory: Reports as per HPI Gastrointestinal: Reports as per HPI Musculoskeletal: Reports as per HPI Skin/Breast: Reports as per HPI Reports as per HPI Psychiatric: Reports as per HPI Endocrine: Reports as per HPI Hematologic/Lymphatic: Reports as per HPI Allergic/Immunologic: Reports as per HPI Mental Status Exam Mental Status Exam Narrative: Pt is alert and oriented; behavior is tearful, labile; dressed in casual attire; mood is described as depressed , labile; eye contact appropriate; Speech is normal rate, loud volume; thought process is organized; focused on Adderall; denies HI/VH/AH. Patient reports suicidal ideation; requesting to be discharged to kill myself . poor insight and judgement. Diagnostics Vital Signs (24Hr): Vital Signs - 24 hr 05/29/24 20:00 05/30/24 07:41 Temperature 97.4 F Pulse Rate 78 Respiratory Rate 18 18 Blood Pressure 144/89 H Pulse Oximetry 99 Oxygen Delivery Method Room Air BMI result Body Mass Index 34.1 Labs 05/24/24 15:48 05/25/24 17:21 Medications Medications Current Medications Acetaminophen (Acetaminophen 325 Mg Tablet) 650 mg PO Q6H PRN PRN Reason: Headache/Pain Mild Scale (1-3) Last Admin: 05/27/24 10:54 Dose: 650 mg Al Hydroxide/Mg Hydroxide (Magnesium Hydrox/Alum Hydrox 30 Ml Oral.Susp) 30 ml PO Q6H PRN PRN Reason: Heartburn/Nausea Amlodipine Besylate (Amlodipine Besylate 5 Mg Tablet) 5 mg PO DAILY [facility]; Protocol Last Admin: 05/30/24 08:55 Dose: Not Given Amphetamine/Dextroamphetamine (Dextroamphetamine/Amphetamine Xr 10 Mg Cap.Er.24h) 20 mg PO BID@0700,1300 [facility] Last Admin: 05/30/24 08:53 Dose: 20 mg Bacitracin (Bacitracin Oint 14 Gm Tube) 1 appl TOPICAL BID [facility]; Protocol Last Admin: 05/30/24 08:56 Dose: Not Given Cariprazine (Cariprazine Hcl 3 Mg Capsule) 6 mg PO DAILY [facility] Last Admin: 05/30/24 08:58 Dose: Not Given Cefuroxime Axetil (Cefuroxime Axetil 250 Mg Tablet) 250 mg PO BID [facility] Stop: 05/31/24 20:59 Last Admin: 05/30/24 08:53 Dose: 250 mg Divalproex Sodium (Divalproex Sodium Er 250 Mg Tab.Er.24h) 250 mg PO BID [facility] Last Admin: 05/30/24 08:58 Dose: Not Given Divalproex Sodium (Divalproex Sodium Er 500 Mg Tab.Er.24h) 500 mg PO BID [facility] Last Admin: 05/30/24 08:58 Dose: Not Given Hydroxyzine HCl (Hydroxyzine Hcl 50 Mg Tablet) 50 mg PO Q4H PRN PRN Reason: Anxiety Last Admin: 05/29/24 21:41 Dose: 50 mg Ibuprofen (Ibuprofen 600 Mg Tablet) 600 mg PO Q8H PRN PRN Reason: Pain, Moderate(Pain Scale 4-6) [place] Carbonate ([place] Carbonate Er 300 Mg Tablet.Er) 1,200 mg PO BEDTIME [facility] Last Admin: 05/29/24 21:19 Dose: Not Given Loperamide HCl (Loperamide Hcl 2 Mg Capsule) 4 mg PO Q4H PRN PRN Reason: diarrhea Last Admin: 05/25/24 18:26 Dose: 4 mg Magnesium Hydroxide (Milk Of Magnesia 30 Ml Oral.Susp) 30 ml PO DAILY PRN PRN Reason: Constipation Quetiapine Fumarate (Quetiapine Fumarate 50 Mg Tablet) 50 mg PO TID PRN PRN Reason: severe anxiety Last Admin: 05/30/24 08:58 Dose: 50 mg Quetiapine Fumarate (Quetiapine Fumarate 200 Mg Tablet) 200 mg PO BEDTIME [facility] Last Admin: 05/29/24 20:11 Dose: 200 mg Allergies Allergies Allergy/AdvReac Type Severity Reaction Status Date / Time lamotrigine [From LAMICTAL] Allergy Severe RASH Verified 05/24/24 14:31 oxycodone [From PERCOCET] Allergy Mild NAUSEA Verified 02/03/24 11:49 Assessment & Plan Assessment & Plan (1) Bipolar disorder: Status: Acute Code(s): F31.9 - Bipolar disorder, unspecified Assessment and Plan: 05/29 not taking her mood stabilizers barely slept, hostile around adderall limit (2) Cocaine use disorder: Status: Acute Code(s): F14.10 - Cocaine abuse, uncomplicated (3) Polysubstance use disorder: Status: Acute Code(s): F19.90 - Other psychoactive substance use, unspecified, uncomplicated Plan Patient is a 48-year-old female with history bipolar disorder, cocaine abuse, and polysubstance abuse who presented to [facility] ER due to suicidal ideation with plan to drive her car into a tree secondary to increased depression. 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 attending groups. Pt continues to report feeling depressed and anxious; pt stated, I still have a lot of angry towards my friend for kicking me out of my apartment in February. Now I live with my parents . T/W and patient discussed substance use and effects on mood/brain. Pt reports she would like to stop using substances. She is considering attending meetings when discharged. Valproic acid level: 54.4 on 05/25/24 [place] level: 0.62 on 05/25/24 Increase: Seroquel to 25mg PO TID PRN Start: Bacitracin for superficial cuts on right shoulder. 05/27: Tearful during 1:1. Pt continues to report feeling depressed and anxious, labile, reports she feels agitated at times; patient stated, I keep thinking of all the bad things that happened the past few months and now I don't really have any friends . Per nursing report, patient slept 2 hours last night. Reviewed medications with patient; patient agreed to increasing lithium and Seroquel and decreasing Adderall. Increase: Seroquel to 200mg PO bedtime Seroquel 50mg PO TID PRN [place] 1,200mg PO bedtime DC Lexapro DC Adderall XR 30mg PO daily at 1500 Decrease Adderall XR to 20mg PO daily@0700,1300 05/28 patient unhappy with adderall change didn't want it d- and now upset I didn't agree to taper by only 10mg (so from 80-70mg, though I had been willing to compromise at 50mg) reports she will not eat/drink or take any other meds- in protest 05/29 much of the same as yesterday- not able to engage around limit re adderall - I think hoping to solomon it out till Thursday when she can get back to her prescriber who has a plan 05/30: Active on unit. Attending groups. Has been refusing medications other than Adderall for the past 2 days. Patient presents labile during 1:1. Patient upset with decrease in Adderall. Patient stated, I'm not taking the mood stabilizer until you increased my Adderall! . Patient was unable to explain this reasoning. Patient reports suicidal ideation; patient stated, I want to kill myself! Everything sucks. I hate life. Just let me leave on Thursday so I can go kill myself . Patient then stormed out of unit office. 3 day up on 06/01/2024. Per nursing, pt has been crying, slamming doors. Patient agreed to take medications this morning after encouragement. T/W spoke to patient's outpatient provider, Geno. Outpatient provider reported patient presents this way every few months after attending concerts . Geno stated patient generally does well but then she relapses during concerts becomes hypersexual, uses various substances and becomes depressed . Patient is in the [facility] for stimulant abuse; per outpatient provider the high dose of Adderall has been managing her ADHD and cocaine use. She reports patient has a history of suicide attempts and would take her seriously if she is reporting wanting to kill herself . denies any suicide attempts in the last year. Patient educated on: diagnosis, medication risk/benefits and substance abuse Reason for continued inpatient stay Substantial Risk for: harm to self and med/psych decompensation Time Spent With Patient Time: Total time managing care of this patient today _20___ minutes.
[2024-05-30] MEDS: Divalproex Sodium ER 250 MG TAB.ER.24H PO ×2 (12:04→20:56)
[2024-05-30] MEDS: Divalproex Sodium ER 500 MG TAB.ER.24H PO ×2 (12:05→20:56)
[2024-05-30] MEDS: Cariprazine HCl 3 MG CAPSULE 6 MG PO (12:05)
[2024-05-30 12:09] VITALS: BP 166/97; PULSE 77
[2024-05-30 19:15] VITALS: BP 148/93; PULSE 95; RESP 16; TEMP 36.5; O2SAT 100
[2024-05-30 19:26] VITALS: BP 148/93; PULSE 95; RESP 16; TEMP 36.5; O2SAT 100
[2024-05-30] MEDS: amLODIPine Besylate 5 MG TABLET PO (19:27)
[2024-05-30] MEDS: QUEtiapine Fumarate 200 MG TABLET PO (20:56)
[2024-05-30] MEDS: Lithium Carbonate ER 300 MG TABLET.ER 1200 MG PO (20:56)
[2024-05-31] MEDS: QUEtiapine Fumarate 50 MG TABLET PO ×2 (00:31→11:34)
[2024-05-31] MEDS: hydrOXYzine HCL 50 MG TABLET PO (00:31)
[2024-05-31] MEDS: Bacitracin Oint 14 GM TUBE 1 APPL TOPICAL (05:42)
[2024-05-31] MEDS: Dextroamphetamine/Amphetamine XR 10 MG CAP.ER.24H 20 MG PO ×2 (07:00→13:18)
[2024-05-31 07:29] VITALS: BP 138/82; PULSE 86; RESP 18; TEMP 37; O2SAT 99
--- NOTE | 2024-05-31 09:07 | HO.PSYCHPN ---
Subjective Subjective Date of Service: 05/31/24 Reason For Visit: Crisis Subjective Notes: Conditional Voluntary Interim History: Reviewed with Dr. Tyson. Active on unit. Attending groups. Retracted 3 day notice. Labile. Observed crying in room. Medication compliant. Patient reports feeling overwhelmed . Patient stated, I'm not mad at you. I just want to feel better. I know I should stay here and get better . Patient reports having a good dream last night because I at the end. I'm tired of everything. I'm lonely, sad and angry all the time. If I left here I would kill myself. I don't want to say how, because people would stop me. I just want to . Patient denies HI/VH/AH. Medication Compliance: Yes Side effects from medications: No Attending Groups: Yes Review of Systems Constitutional: Reports as per HPI Eyes: Reports as per HPI Reports as per HPI Cardiovascular: Reports as per HPI Respiratory: Reports as per HPI Gastrointestinal: Reports as per HPI Musculoskeletal: Reports as per HPI Skin/Breast: Reports as per HPI Reports as per HPI Psychiatric: Reports as per HPI Endocrine: Reports as per HPI Hematologic/Lymphatic: Reports as per HPI Allergic/Immunologic: Reports as per HPI Mental Status Exam Mental Status Exam Narrative: Pt is alert and oriented; behavior is tearful, labile; dressed in casual attire; mood is described as depressed , labile; eye contact appropriate; Speech is normal rate, loud volume; thought process is organized; focused on Adderall; denies HI/VH/AH. Patient reports suicidal ideation; will not disclose plan. poor insight and judgment. Diagnostics Vital Signs (24Hr): Vital Signs - 24 hr 05/30/24 12:09 05/30/24 19:15 05/30/24 19:26 Temperature 97.7 F 97.7 F Pulse Rate 77 95 95 Respiratory Rate 16 16 Blood Pressure 166/97 H 148/93 H 148/93 H Pulse Oximetry 100 100 Oxygen Delivery Method Room Air Room Air 05/31/24 07:29 Temperature 98.6 F Pulse Rate 86 Respiratory Rate 18 Blood Pressure 138/82 Pulse Oximetry 99 Oxygen Delivery Method Room Air BMI result Body Mass Index 34.1 Labs 05/24/24 15:48 05/25/24 17:21 Medications Medications Current Medications Acetaminophen (Acetaminophen 325 Mg Tablet) 650 mg PO Q6H PRN PRN Reason: Headache/Pain Mild Scale (1-3) Last Admin: 05/27/24 10:54 Dose: 650 mg Al Hydroxide/Mg Hydroxide (Magnesium Hydrox/Alum Hydrox 30 Ml Oral.Susp) 30 ml PO Q6H PRN PRN Reason: Heartburn/Nausea Amlodipine Besylate (Amlodipine Besylate 5 Mg Tablet) 5 mg PO DAILY [facility]; Protocol Last Admin: 05/30/24 19:27 Dose: 5 mg Amphetamine/Dextroamphetamine (Dextroamphetamine/Amphetamine Xr 10 Mg Cap.Er.24h) 20 mg PO BID@0700,1300 [facility] Last Admin: 05/31/24 07:00 Dose: 20 mg Bacitracin (Bacitracin Oint 14 Gm Tube) 1 appl TOPICAL BID [facility]; Protocol Last Admin: 05/31/24 05:42 Dose: 1 appl Cariprazine (Cariprazine Hcl 3 Mg Capsule) 6 mg PO DAILY [facility] Last Admin: 05/30/24 12:05 Dose: 6 mg Cefuroxime Axetil (Cefuroxime Axetil 250 Mg Tablet) 250 mg PO BID [facility] Stop: 05/31/24 20:59 Last Admin: 05/30/24 20:56 Dose: 250 mg Divalproex Sodium (Divalproex Sodium Er 250 Mg Tab.Er.24h) 250 mg PO BID [facility] Last Admin: 05/30/24 20:56 Dose: 250 mg Divalproex Sodium (Divalproex Sodium Er 500 Mg Tab.Er.24h) 500 mg PO BID [facility] Last Admin: 05/30/24 20:56 Dose: 500 mg Hydroxyzine HCl (Hydroxyzine Hcl 50 Mg Tablet) 50 mg PO Q4H PRN PRN Reason: Anxiety Last Admin: 05/31/24 00:31 Dose: 50 mg Ibuprofen (Ibuprofen 600 Mg Tablet) 600 mg PO Q8H PRN PRN Reason: Pain, Moderate(Pain Scale 4-6) [place] Carbonate ([place] Carbonate Er 300 Mg Tablet.Er) 1,200 mg PO BEDTIME [facility] Last Admin: 05/30/24 20:56 Dose: 1,200 mg Loperamide HCl (Loperamide Hcl 2 Mg Capsule) 4 mg PO Q4H PRN PRN Reason: diarrhea Last Admin: 05/25/24 18:26 Dose: 4 mg Magnesium Hydroxide (Milk Of Magnesia 30 Ml Oral.Susp) 30 ml PO DAILY PRN PRN Reason: Constipation Quetiapine Fumarate (Quetiapine Fumarate 50 Mg Tablet) 50 mg PO TID PRN PRN Reason: severe anxiety Last Admin: 05/31/24 00:31 Dose: 50 mg Quetiapine Fumarate (Quetiapine Fumarate 200 Mg Tablet) 200 mg PO BEDTIME [facility] Last Admin: 05/30/24 20:56 Dose: 200 mg Allergies Allergies Allergy/AdvReac Type Severity Reaction Status Date / Time lamotrigine [From LAMICTAL] Allergy Severe RASH Verified 05/24/24 14:31 oxycodone [From PERCOCET] Allergy Mild NAUSEA Verified 02/03/24 11:49 Assessment & Plan Assessment & Plan (1) Bipolar disorder: Status: Acute Code(s): F31.9 - Bipolar disorder, unspecified Assessment and Plan: 05/29 not taking her mood stabilizers barely slept, hostile around adderall limit (2) Cocaine use disorder: Status: Acute Code(s): F14.10 - Cocaine abuse, uncomplicated (3) Polysubstance use disorder: Status: Acute Code(s): F19.90 - Other psychoactive substance use, unspecified, uncomplicated Plan Patient is a 48-year-old female with history bipolar disorder, cocaine abuse, and polysubstance abuse who presented to [facility] due to suicidal ideation with plan to drive her car into a tree secondary to increased depression. 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 attending groups. Pt continues to report feeling depressed and anxious; pt stated, I still have a lot of angry towards my friend for kicking me out of my apartment in February. Now I live with my parents . T/W and patient discussed substance use and effects on mood/brain. Pt reports she would like to stop using substances. She is considering attending meetings when discharged. Valproic acid level: 54.4 on 05/25/24 [place] level: 0.62 on 05/25/24 Increase: Seroquel to 25mg PO TID PRN Start: Bacitracin for superficial cuts on right shoulder. 05/27: Tearful during 1:1. Pt continues to report feeling depressed and anxious, labile, reports she feels agitated at times; patient stated, I keep thinking of all the bad things that happened the past few months and now I don't really have any friends . Per nursing report, patient slept 2 hours last night. Reviewed medications with patient; patient agreed to increasing lithium and Seroquel and decreasing Adderall. Increase: Seroquel to 200mg PO bedtime Seroquel 50mg PO TID PRN [place] 1,200mg PO bedtime DC Lexapro DC Adderall XR 30mg PO daily at 1500 Decrease Adderall XR to 20mg PO daily@0700,1300 05/28 patient unhappy with adderall change didn't want it - and now upset I didn't agree to taper by only 10mg (so from 80-70mg, though I had been willing to compromise at 50mg) reports she will not eat/drink or take any other meds- in protest 05/29 much of the same as yesterday- not able to engage around limit re adderall - I think hoping to [place] it out till Thursday when she can get back to her prescriber who has a plan 05/30: Active on unit. Attending groups. Has been refusing medications other than Adderall for the past 2 days. Patient presents labile during 1:1. Patient upset with decrease in Adderall. Patient stated, I'm not taking the mood stabilizer until you increased my Adderall! . Patient was unable to explain this reasoning. Patient reports suicidal ideation; patient stated, I want to kill myself! Everything sucks. I hate life. Just let me leave on Thursday so I can go kill myself . Patient then stormed out of unit office. 3 day up on 06/01/2024. Per nursing, pt has been crying, slamming doors. Patient agreed to take medications this morning after encouragement. T/W spoke to patient's outpatient provider, Geno. Outpatient provider reported patient presents this way every few months after attending concerts . Geno stated patient generally does well but then she relapses during concerts becomes hypersexual, uses various substances and becomes depressed . Patient is in the [facility] for stimulant abuse; per outpatient provider the high dose of Adderall has been managing her ADHD and cocaine use. She reports patient has a history of suicide attempts and would take her seriously if she is reporting wanting to kill herself . denies any suicide attempts in the last year. 05/31: Active on unit. Attending groups. Retracted 3 day notice. Labile. Observed crying in room. Medication compliant. Patient reports feeling overwhelmed . Patient stated, I'm not mad at you. I just want to feel better. I know I should stay here and get better . Patient reports having a good dream last night because I at the end. I'm tired of everything. I'm lonely, sad and angry all the time. If I left here I would kill myself. I don't want to say how, because people would stop me. I just want to . Patient denies HI/VH/AH. Continue current treatment plan. Patient educated on: diagnosis, medication risk/benefits and therapeutic strategies Reason for continued inpatient stay Substantial Risk for: harm to self and med/psych decompensation Time Spent With Patient Time: Total time managing care of this patient today _20___ minutes.
[2024-05-31 09:16] VITALS: BP 136/80
[2024-05-31] MEDS: Cariprazine HCl 3 MG CAPSULE 6 MG PO (09:16)
[2024-05-31] MEDS: Divalproex Sodium ER 250 MG TAB.ER.24H PO ×2 (09:16→20:24)
[2024-05-31] MEDS: amLODIPine Besylate 5 MG TABLET PO (09:16)
[2024-05-31] MEDS: Divalproex Sodium ER 500 MG TAB.ER.24H PO ×2 (09:16→20:24)
[2024-05-31] MEDS: cefuroxime axetiL 250 MG TABLET PO (09:16)
[2024-05-31] MEDS: Acetaminophen 325 MG TABLET 650 MG PO (15:39)
[2024-05-31 18:58] LABS: Hematocrit 40.3 % (37.0-47.0); Hemoglobin 13.6 g/dl (12.0-16.0); Mean Corpuscular HGB Conc 33.7 g/dl (31.0-35.0); Mean Corpuscular Hemoglobin 29.7 pg (27.0-33.0); Platelet Count 253 X10*3/uL (160-400); Red Blood Count 4.58 X10*6/uL (4.20-5.50); Red Cell Distribution Width 11.9 % (11.0-16.0); White Blood Count 7.8 X10*3/uL (4.8-10.8)
[2024-05-31 19:14] LABS: Anion Gap 16 (12-20); Blood Urea Nitrogen 12 mg/dL (9-16); Calcium 10.4 mg/dL (8.4-10.2); Carbon Dioxide 21 mmol/L (22-29); Chloride 108 mmol/L (96-108); Creatinine Clr Calc Pharmacy 105.6; Estimated Glomerular Filt Rate > 60; Glucose Random 126 mg/dL (60-115); Potassium 4.2 mmol/L (3.3-5.1); Sodium 141 mmol/L (135-145); Uric Acid 5.3 mg/dL (2.4-5.7)
[2024-05-31 20:00] VITALS: BP 136/86; PULSE 92; RESP 16; TEMP 36.7; O2SAT 100
[2024-05-31] MEDS: QUEtiapine Fumarate 200 MG TABLET PO (20:24)
[2024-05-31] MEDS: Lithium Carbonate ER 300 MG TABLET.ER 1200 MG PO (20:25)
[2024-05-31] MEDS: Milk of Magnesia 30 ML ORAL.SUSP PO (20:49)
[2024-06-01] MEDS: QUEtiapine Fumarate 50 MG TABLET PO ×3 (03:29→18:25)
[2024-06-01] MEDS: Dextroamphetamine/Amphetamine XR 10 MG CAP.ER.24H 20 MG PO ×2 (07:01→12:48)
[2024-06-01 07:30] VITALS: BP 160/92; PULSE 91; RESP 16; TEMP 36.4; O2SAT 100
[2024-06-01 07:38] LABS: Estimated Average Glucose 94 mg/dL; Hemoglobin A1c % 4.9 % (<6.0)
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
[2024-06-01] MEDS: amLODIPine Besylate 5 MG TABLET PO (08:18)
[2024-06-01] MEDS: Divalproex Sodium ER 250 MG TAB.ER.24H PO ×2 (08:18→20:38)
[2024-06-01] MEDS: Cariprazine HCl 3 MG CAPSULE 6 MG PO (08:18)
[2024-06-01] MEDS: Divalproex Sodium ER 500 MG TAB.ER.24H PO ×2 (08:18→20:39)
[2024-06-01] MEDS: Acetaminophen 325 MG TABLET 650 MG PO (10:28)
[2024-06-01] MEDS: Aspirin 81 MG TAB.CHEW PO (10:28)
[2024-06-01] MEDS: Cholecalciferol (Vitamin D3) 10 MCG TABLET PO (12:19)
[2024-06-01] MEDS: Bacitracin Oint 14 GM TUBE 1 APPL TOPICAL (12:26)
[2024-06-01 20:00] VITALS: BP 135/76; PULSE 104; RESP 16; TEMP 36.4; O2SAT 99
[2024-06-01] MEDS: Prazosin HCL 1 MG CAPSULE PO (20:38)
[2024-06-01] MEDS: Lithium Carbonate ER 300 MG TABLET.ER 1200 MG PO (20:38)
[2024-06-01] MEDS: QUEtiapine Fumarate 200 MG TABLET PO (20:39)
[2024-06-01] MEDS: hydrOXYzine HCL 50 MG TABLET PO (20:39)
[2024-06-01] MEDS: Magnesium Hydrox/Alum Hydrox 30 ML ORAL.SUSP PO (20:43)
[2024-06-01] MEDS: Milk of Magnesia 30 ML ORAL.SUSP PO (20:43)
[2024-06-02] MEDS: polyethylene glycoL 3350 17 GM POWD.PACK PO (01:09)
[2024-06-02 07:00] VITALS: BMI 34.8
[2024-06-02] MEDS: Dextroamphetamine/Amphetamine XR 10 MG CAP.ER.24H 20 MG PO ×2 (07:45→12:33)
[2024-06-02 08:00] VITALS: BP 139/88; PULSE 90; RESP 16; TEMP 36.7; O2SAT 100
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
[2024-06-02 08:53] VITALS: BP 139/88
[2024-06-02] MEDS: Cholecalciferol (Vitamin D3) 10 MCG TABLET PO (08:53)
[2024-06-02] MEDS: Cariprazine HCl 3 MG CAPSULE 6 MG PO (08:53)
[2024-06-02] MEDS: Aspirin 81 MG TAB.CHEW PO (08:53)
[2024-06-02] MEDS: amLODIPine Besylate 5 MG TABLET PO (08:53)
[2024-06-02] MEDS: Divalproex Sodium ER 500 MG TAB.ER.24H PO ×2 (08:53→20:53)
[2024-06-02] MEDS: Divalproex Sodium ER 250 MG TAB.ER.24H PO ×2 (09:00→20:53)
[2024-06-02] MEDS: Milk of Magnesia 30 ML ORAL.SUSP PO (09:45)
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
[2024-06-02] MEDS: Lactulose 20 GM/30 ML SOLUTION PO (12:34)
[2024-06-02 20:35] VITALS: BP 160/94; PULSE 103; RESP 16; TEMP 36.8; O2SAT 100
[2024-06-02] MEDS: hydrOXYzine HCL 50 MG TABLET PO (20:53)
[2024-06-02] MEDS: QUEtiapine Fumarate 200 MG TABLET PO (20:53)
[2024-06-02] MEDS: Prazosin HCL 1 MG CAPSULE PO (20:53)
[2024-06-02] MEDS: Lithium Carbonate ER 300 MG TABLET.ER 1200 MG PO (20:53)
[2024-06-03] MEDS: Sennosides/Docusate Sodium TABLET 1 TAB PO ×2 (00:50→08:19)
[2024-06-03] MEDS: hydrOXYzine HCL 50 MG TABLET PO (04:41)
[2024-06-03] MEDS: Dextroamphetamine/Amphetamine XR 10 MG CAP.ER.24H 20 MG PO ×2 (07:21→13:02)
[2024-06-03] MEDS: QUEtiapine Fumarate 50 MG TABLET PO ×2 (07:22→17:51)
[2024-06-03 07:25] VITALS: BP 150/71; PULSE 95; RESP 18; TEMP 37; O2SAT 100
[2024-06-03] MEDS: Aspirin 81 MG TAB.CHEW PO (08:19)
[2024-06-03] MEDS: Cholecalciferol (Vitamin D3) 10 MCG TABLET PO (08:19)
[2024-06-03] MEDS: Divalproex Sodium ER 250 MG TAB.ER.24H PO ×2 (08:19→22:03)
[2024-06-03] MEDS: Cariprazine HCl 3 MG CAPSULE 6 MG PO (08:19)
[2024-06-03] MEDS: Divalproex Sodium ER 500 MG TAB.ER.24H PO ×2 (08:20→22:04)
[2024-06-03] MEDS: amLODIPine Besylate 5 MG TABLET PO (08:20)
--- NOTE | 2024-06-03 08:33 | P.PNPSI_ITS ---
Subjective Subjective Date of Service: 06/03/24 Reason For Visit: Crisis Subjective Notes: Conditional Voluntary Interim History: Reviewed with Dr. Tyson. Active on unit. Attending groups. pt presents labile today; crying on and off. Pt stated, I'm feeling florez today. It's the opposite of yesterday. I'm easily irritated . She reports not sleeping well last night. c/o constipation; received lactulose, senna and miralax. refusing enema or suppository. Labs to be drawn tomorrow morning for lithium and depakote levels. Medication Compliance: Yes Side effects from medications: No Attending Groups: Yes Review of Systems Constitutional: Reports as per HPI Eyes: Reports as per HPI Reports as per HPI Cardiovascular: Reports as per HPI Respiratory: Reports as per HPI Gastrointestinal: Reports as per HPI Musculoskeletal: Reports as per HPI Skin/Breast: Reports as per HPI Reports as per HPI Psychiatric: Reports as per HPI Endocrine: Reports as per HPI Hematologic/Lymphatic: Reports as per HPI Allergic/Immunologic: Reports as per HPI Mental Status Exam Mental Status Exam Narrative: Pt is alert and oriented; behavior is tearful, labile; dressed in casual attire; mood is described as depressed , labile; eye contact appropriate; Speech is normal rate, volume; thought process is organizedl; denies HI/VH/AH. Patient reports suicidal ideation; insight and judgment are improving. Diagnostics Vital Signs (24Hr): Vital Signs - 24 hr 06/02/24 08:53 06/02/24 20:35 06/03/24 07:25 Temperature 98.3 F 98.6 F Pulse Rate 103 H 95 Respiratory Rate 16 18 Blood Pressure 139/88 160/94 H 150/71 H Pulse Oximetry 100 100 Oxygen Delivery Method Room Air Room Air BMI result Body Mass Index 34.8 Labs 05/31/24 18:49 05/31/24 18:49 Imaging Radiology Impressions: ITS Impressions Hand X-Ray 06/02/24 15:00 IMPRESSION: Normal right hand. Electronically signed by: Magdaleno Key MD 06/02/2024 09:11 PM EDT Medications Medications Current Medications Acetaminophen (Acetaminophen 325 Mg Tablet) 650 mg PO Q6H PRN PRN Reason: Headache/Pain Mild Scale (1-3) Last Admin: 08/28/24 10:28 Dose: 650 mg Al Hydroxide/Mg Hydroxide (Magnesium Hydrox/Alum Hydrox 30 Ml Oral.Susp) 30 ml PO Q6H PRN PRN Reason: Heartburn/Nausea Last Admin: 06/01/24 20:43 Dose: 30 ml Amlodipine Besylate (Amlodipine Besylate 5 Mg Tablet) 5 mg PO DAILY [facility]; Protocol Last Admin: 06/03/24 08:20 Dose: 5 mg Amphetamine/Dextroamphetamine (Dextroamphetamine/Amphetamine Xr 10 Mg Cap.Er.24h) 20 mg PO BID@0700,1300 [facility] Last Admin: 06/03/24 07:21 Dose: 20 mg Aspirin (Aspirin 81 Mg Tab.Chew) 81 mg PO DAILY [facility] Last Admin: 06/03/24 08:19 Dose: 81 mg Cariprazine (Cariprazine Hcl 3 Mg Capsule) 6 mg PO DAILY [facility] Last Admin: 06/03/24 08:19 Dose: 6 mg Divalproex Sodium (Divalproex Sodium Er 250 Mg Tab.Er.24h) 250 mg PO BID [facility] Last Admin: 06/03/24 08:19 Dose: 250 mg Divalproex Sodium (Divalproex Sodium Er 500 Mg Tab.Er.24h) 500 mg PO BID [facility] Last Admin: 06/03/24 08:20 Dose: 500 mg Hydroxyzine HCl (Hydroxyzine Hcl 50 Mg Tablet) 50 mg PO Q4H PRN PRN Reason: Anxiety Last Admin: 06/03/24 04:41 Dose: 50 mg Ibuprofen (Ibuprofen 600 Mg Tablet) 600 mg PO Q8H PRN PRN Reason: Pain, Moderate(Pain Scale 4-6) Lactulose (Lactulose 20 Gm/30 Ml Solution) 20 gm PO DAILY PRN PRN Reason: Constipation Last Admin: 06/02/24 12:34 Dose: 20 gm [place] Carbonate ([place] Carbonate Er 300 Mg Tablet.Er) 1,200 mg PO BEDTIME [facility] Last Admin: 06/02/24 20:53 Dose: 1,200 mg Loperamide HCl (Loperamide Hcl 2 Mg Capsule) 4 mg PO Q4H PRN PRN Reason: diarrhea Last Admin: 05/25/24 18:26 Dose: 4 mg Magnesium Hydroxide (Milk Of Magnesia 30 Ml Oral.Susp) 30 ml PO DAILY PRN PRN Reason: Constipation Last Admin: 06/02/24 09:45 Dose: 30 ml Polyethylene Glycol (Polyethylene Glycol 3350 17 Gm Powd.Pack) 17 gm PO DAILY PRN PRN Reason: constipation Last Admin: 06/02/24 01:09 Dose: 17 gm Prazosin HCl (Prazosin Hcl 1 Mg Capsule) 1 mg PO BEDTIME [facility]; Protocol Last Admin: 06/02/24 20:53 Dose: 1 mg Quetiapine Fumarate (Quetiapine Fumarate 50 Mg Tablet) 50 mg PO TID PRN PRN Reason: severe anxiety Last Admin: 06/03/24 07:22 Dose: 50 mg Quetiapine Fumarate (Quetiapine Fumarate 200 Mg Tablet) 200 mg PO BEDTIME [facility] Last Admin: 06/02/24 20:53 Dose: 200 mg Senna/Docusate Sodium (Sennosides/Docusate Sodium Tablet) 1 tab PO DAILY [facility] Last Admin: 06/03/24 08:19 Dose: 1 tab Vitamin D (Cholecalciferol (Vitamin D3) 10 Mcg Tablet) 10 mcg PO DAILY [facility] Last Admin: 06/03/24 08:19 Dose: 10 mcg Allergies Allergies Allergy/AdvReac Type Severity Reaction Status Date / Time lamotrigine [From LAMICTAL] Allergy Severe RASH Verified 05/24/24 14:31 oxycodone [From PERCOCET] Allergy Mild NAUSEA Verified 02/03/24 11:49 Assessment & Plan Assessment & Plan (1) Bipolar disorder: Status: Acute Code(s): F31.9 - Bipolar disorder, unspecified Assessment and Plan: 05/29 not taking her mood stabilizers barely slept, hostile around adderall limit (2) Cocaine use disorder: Status: Acute Code(s): F14.10 - Cocaine abuse, uncomplicated (3) Polysubstance use disorder: Status: Acute Code(s): F19.90 - Other psychoactive substance use, unspecified, uncomplicated Plan Patient is a 48-year-old female with history bipolar disorder, cocaine abuse, and polysubstance abuse who presented to [facility] due to suicidal ideation with plan to drive her car into a tree secondary to increased depression. 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 attending groups. Pt continues to report feeling depressed and anxious; pt stated, I still have a lot of angry towards my friend for kicking me out of my apartment in February. Now I live with my parents . T/W and patient discussed substance use and effects on mood/brain. Pt reports she would like to stop using substances. She is considering attending meetings when discharged. Valproic acid level: 54.4 on 05/25/24 [place] level: 0.62 on 05/25/24 Increase: Seroquel to 25mg PO TID PRN Start: Bacitracin for superficial cuts on right shoulder. 05/27: Tearful during 1:1. Pt continues to report feeling depressed and anxious, labile, reports she feels agitated at times; patient stated, I keep thinking of all the bad things that happened the past few months and now I don't really have any friends . Per nursing report, patient slept 2 hours last night. Reviewed medications with patient; patient agreed to increasing lithium and Seroquel and decreasing Adderall. Increase: Seroquel to 200mg PO bedtime Seroquel 50mg PO TID PRN [place] 1,200mg PO bedtime DC Lexapro DC Adderall XR 30mg PO daily at 1500 Decrease Adderall XR to 20mg PO daily@0700,1300 05/28 patient unhappy with adderall change didn't want it 2ed- and now upset I didn't agree to taper by only 10mg (so from 80-70mg, though I had been willing to compromise at 50mg) reports she will not eat/drink or take any other meds- in protest 05/29 much of the same as yesterday- not able to engage around limit re adderall - I think hoping to campo it out till Thursday when she can get back to her prescriber who has a plan 05/30: Active on unit. Attending groups. Has been refusing medications other than Adderall for the past 2 days. Patient presents labile during 1:1. Patient upset with decrease in Adderall. Patient stated, I'm not taking the mood stabilizer until you increased my Adderall! . Patient was unable to explain this reasoning. Patient reports suicidal ideation; patient stated, I want to kill myself! Everything sucks. I hate life. Just let me leave on Thursday so I can go kill myself . Patient then stormed out of unit office. 3 day up on 06/01/2024. Per nursing, pt has been crying, slamming doors. Patient agreed to take medications this morning after encouragement. T/W spoke to patient's outpatient provider, Geno. Outpatient provider reported patient presents this way every few months after attending concerts . Geno stated patient generally does well but then she relapses during concerts becomes hypersexual, uses various substances and becomes depressed . Patient is in the [facility] for stimulant abuse; per outpatient provider the high dose of Adderall has been managing her ADHD and cocaine use. She reports patient has a history of suicide attempts and would take her seriously if she is reporting wanting to kill herself . denies any suicide attempts in the last year. 05/31: Active on unit. Attending groups. Retracted 3 day notice. Labile. Observed crying in room. Medication compliant. Patient reports feeling overwhelmed . Patient stated, I'm not mad at you. I just want to feel better. I know I should stay here and get better . Patient reports having a good dream last night because I at the end. I'm tired of everything. I'm lonely, sad and angry all the time. If I left here I would kill myself. I don't want to say how, because people would stop me. I just want to . Patient denies HI/VH/AH. Continue current treatment plan. 06/01: Active on unit. Attending groups. Continues with labile mood. Medication compliant. Patient reports feeling irritable and on edge today. She continues to be focused on dying. Patient stated, I still don't want to live. I feel like I self sabotage a lot. Every time I relapse, I feel like a failure. I feel like a failure when I come to the hospital. I don't have a job. It would be so much easier if I just . Patient reports sleeping 4-5 hours last night c/o strange dreams . Patient denies HI/VH/AH. Start: prazosin 1 mg PO bedtime. 06/02: Patient reports feeling better today than yesterday . Patient stated, I cried a lot yesterday. Today, I'm trying to think of jobs I would like. I'm not having as much suicidal thoughts; I feel like that's improving but, they are still there . Patient reports not having nightmares last night and prazosin being helpful. Patient denies HI/VH/AH. Continue current treatment plan. 05/24: pt presents labile today; crying on and off. Pt stated, I'm feeling florez today. It's the opposite of yesterday. I'm easily irritated . She reports not sleeping well last night. c/o constipation; received lactulose, senna and miralax. refusing enema or suppository. Labs to be drawn tomorrow morning for lithium and depakote levels. Patient educated on: diagnosis, medication risk/benefits and therapeutic strategies Reason for continued inpatient stay Substantial Risk for: harm to self and med/psych decompensation Time Spent With Patient Time: Total time managing care of this patient today _20___ minutes.
[2024-06-03] MEDS: Lactulose 20 GM/30 ML SOLUTION PO (10:36)
[2024-06-03] MEDS: Sodium Phosphate,Mono-Dibasic 133 ML ENEMA PR (14:45)
[2024-06-03] MEDS: Acetaminophen 325 MG TABLET 650 MG PO (19:43)
[2024-06-03 21:50] VITALS: BP 132/73; PULSE 92; RESP 18; TEMP 36.9; O2SAT 97
[2024-06-03] MEDS: Lithium Carbonate ER 300 MG TABLET.ER 1200 MG PO (22:03)
[2024-06-03] MEDS: QUEtiapine Fumarate 200 MG TABLET PO (22:04)
[2024-06-03] MEDS: Prazosin HCL 1 MG CAPSULE PO (22:04)
[2024-06-04] MEDS: Lactulose 20 GM/30 ML SOLUTION PO ×2 (00:11→13:38)
[2024-06-04] MEDS: Dextroamphetamine/Amphetamine XR 10 MG CAP.ER.24H 20 MG PO ×2 (06:45→13:38)
[2024-06-04 07:42] VITALS: BP 124/77; PULSE 89; RESP 16; TEMP 36.5; O2SAT 98
[2024-06-04 08:27] LABS: Ammonia 29 umol/L (13-55)
[2024-06-04 08:31] LABS: Lithium 0.82 mmol/L (0.60-1.20)
[2024-06-04 08:36] LABS: Valproate 71.8 mcg/mL (50.0-100.0)
[2024-06-04 08:46] LABS: Alanine Aminotransferase 42 U/L (0-31); Albumin Level 4.4 g/dL (3.5-5.0); Alkaline Phosphatase 46 U/L (39-117); Anion Gap 11 (12-20); Aspartate Amino Transferase 23 U/L (5-31); Bilirubin Direct < 0.2 mg/dL (0.0-0.5); Bilirubin Total 0.2 mg/dL (0.0-1.0); Blood Urea Nitrogen 8 mg/dL (9-16); Carbon Dioxide 27 mmol/L (22-29); Chloride 108 mmol/L (96-108); Creatinine Clr Calc Pharmacy 113.6; Estimated Glomerular Filt Rate > 60; Potassium 3.6 mmol/L (3.3-5.1); Sodium 142 mmol/L (135-145); Total Protein 6.9 g/dL (6.5-8.0)
[2024-06-04] MEDS: Divalproex Sodium ER 250 MG TAB.ER.24H PO ×2 (09:00→22:44)
[2024-06-04] MEDS: Sennosides/Docusate Sodium TABLET 1 TAB PO (09:00)
[2024-06-04] MEDS: Cariprazine HCl 3 MG CAPSULE 6 MG PO (09:00)
[2024-06-04] MEDS: Divalproex Sodium ER 500 MG TAB.ER.24H PO ×2 (09:00→22:44)
[2024-06-04] MEDS: Cholecalciferol (Vitamin D3) 10 MCG TABLET PO (09:00)
[2024-06-04] MEDS: Aspirin 81 MG TAB.CHEW PO (09:00)
[2024-06-04] MEDS: amLODIPine Besylate 5 MG TABLET PO (09:00)
[2024-06-04 09:01] LABS: TSH reflex Free T4 1.67 uIU/mL (0.32-4.0)
--- NOTE | 2024-06-04 09:04 | HO.PSYCHPN ---
Subjective Subjective Date of Service: 06/04/24 Reason For Visit: Crisis Interim History: Patient seen. Anxious, labile, tearful. Reports she is in discomfort because she has not had a BM in a few days. KUB showed moderate stool burden. Tearful because she has leakage and some soiling after receiving the enema yesterday and it didn't work. Continues to report she is upset about her Adderall dose being decreased. Li level 0.82. Depakote level 71.8. No active SI but helpless and hopeless. Review of Systems Review of Systems Yes all other systems are reviewed and are negative Constitutional: Reports as per HPI Eyes: Reports as per HPI Reports as per HPI Cardiovascular: Reports as per HPI Respiratory: Reports as per HPI Gastrointestinal: Reports as per HPI Musculoskeletal: Reports as per HPI Skin/Breast: Reports as per HPI Reports as per HPI Psychiatric: Reports as per HPI Endocrine: Reports as per HPI Hematologic/Lymphatic: Reports as per HPI Allergic/Immunologic: Reports as per HPI Mental Status Exam Mental Status Exam Narrative: Pt is alert and oriented; behavior is tearful, labile; dressed in casual attire; mood is described as depressed , labile; eye contact appropriate; Speech is normal rate, volume; thought process is organizedl; denies HI/VH/AH. Patient reports suicidal ideation; insight and judgment are improving. Patient Appearance: Well Grooomed and Appropriate (until stormed off) Patient Orientation: Person, Place, Time and Situation Level of Consciousness: Awake Patient Behavior: Cooperative (until angry), Swearing and Resistive to Care (or objecting to medication changes) Mood Description: Angry Affect Description: Labile Patient Cognition Impaired: No Ability to Follow Directions: Fair Speech Pattern: Clear Diagnostics Vital Signs (24Hr): Vital Signs - 24 hr 06/03/24 21:50 06/04/24 07:42 Temperature 98.5 F 97.7 F Pulse Rate 92 89 Respiratory Rate 18 16 Blood Pressure 132/73 124/77 Pulse Oximetry 97 98 Oxygen Delivery Method Room Air Room Air BMI result Body Mass Index 34.8 Labs 05/31/24 18:49 06/04/24 08:05 Labs: Laboratory Results - last 48 hr 06/04/24 08:05 Sodium 142 Potassium 3.6 Chloride 108 Carbon Dioxide 27 Anion Gap 11 L BUN 8 L Creatinine 0.78 Estim Creat Clear Calc 113.6 Estimated GFR > 60 Total Bilirubin 0.2 Direct Bilirubin < 0.2 AST 23 ALT 42 H Alkaline Phosphatase 46 Ammonia 29 Total Protein 6.9 Albumin 4.4 TSH 1.67 Valproic Acid 71.8 [place] 0.82 Imaging Radiology Impressions: ITS Impressions Hand X-Ray 06/02/24 15:00 IMPRESSION: Normal right hand. Electronically signed by: Magdaleno Key MD 06/02/2024 09:11 PM EDT RP KUB X-Ray 06/03/24 16:28 IMPRESSION: Mild to moderate stool burden. Electronically signed by: Efrain Keys DO 06/04/2024 12:33 AM EDT RP Medications Medications Current Medications Acetaminophen (Acetaminophen 325 Mg Tablet) 650 mg PO Q6H PRN PRN Reason: Headache/Pain Mild Scale (1-3) Last Admin: 06/03/24 19:43 Dose: 650 mg Al Hydroxide/Mg Hydroxide (Magnesium Hydrox/Alum Hydrox 30 Ml Oral.Susp) 30 ml PO Q6H PRN PRN Reason: Heartburn/Nausea Last Admin: 06/01/24 20:43 Dose: 30 ml Amlodipine Besylate (Amlodipine Besylate 5 Mg Tablet) 5 mg PO DAILY [facility]; Protocol Last Admin: 06/04/24 09:00 Dose: 5 mg Amphetamine/Dextroamphetamine (Dextroamphetamine/Amphetamine Xr 10 Mg Cap.Er.24h) 20 mg PO BID@0700,1300 [facility] Last Admin: 06/04/24 06:45 Dose: 20 mg Aspirin (Aspirin 81 Mg Tab.Chew) 81 mg PO DAILY [facility] Last Admin: 06/04/24 09:00 Dose: 81 mg Cariprazine (Cariprazine Hcl 3 Mg Capsule) 6 mg PO DAILY [facility] Last Admin: 06/04/24 09:00 Dose: 6 mg Divalproex Sodium (Divalproex Sodium Er 250 Mg Tab.Er.24h) 250 mg PO BID [facility] Last Admin: 06/04/24 09:00 Dose: 250 mg Divalproex Sodium (Divalproex Sodium Er 500 Mg Tab.Er.24h) 500 mg PO BID [facility] Last Admin: 06/04/24 09:00 Dose: 500 mg Hydroxyzine HCl (Hydroxyzine Hcl 50 Mg Tablet) 50 mg PO Q4H PRN PRN Reason: Anxiety Last Admin: 06/03/24 04:41 Dose: 50 mg Ibuprofen (Ibuprofen 600 Mg Tablet) 600 mg PO Q8H PRN PRN Reason: Pain, Moderate(Pain Scale 4-6) Lactulose (Lactulose 20 Gm/30 Ml Solution) 20 gm PO DAILY PRN PRN Reason: Constipation Last Admin: 06/04/24 00:11 Dose: 20 gm [place] Carbonate ([place] Carbonate Er 300 Mg Tablet.Er) 1,200 mg PO BEDTIME [facility] Last Admin: 06/03/24 22:03 Dose: 1,200 mg Loperamide HCl (Loperamide Hcl 2 Mg Capsule) 4 mg PO Q4H PRN PRN Reason: diarrhea Last Admin: 05/25/24 18:26 Dose: 4 mg Magnesium Hydroxide (Milk Of Magnesia 30 Ml Oral.Susp) 30 ml PO DAILY PRN PRN Reason: Constipation Last Admin: 06/02/24 09:45 Dose: 30 ml Polyethylene Glycol (Polyethylene Glycol 3350 17 Gm Powd.Pack) 17 gm PO DAILY PRN PRN Reason: constipation Last Admin: 06/02/24 01:09 Dose: 17 gm Prazosin HCl (Prazosin Hcl 1 Mg Capsule) 1 mg PO BEDTIME [facility]; Protocol Last Admin: 06/03/24 22:04 Dose: 1 mg Quetiapine Fumarate (Quetiapine Fumarate 50 Mg Tablet) 50 mg PO TID PRN PRN Reason: severe anxiety Last Admin: 06/03/24 17:51 Dose: 50 mg Quetiapine Fumarate (Quetiapine Fumarate 200 Mg Tablet) 200 mg PO BEDTIME [facility] Last Admin: 06/03/24 22:04 Dose: 200 mg Senna/Docusate Sodium (Sennosides/Docusate Sodium Tablet) 1 tab PO DAILY [facility] Last Admin: 06/04/24 09:00 Dose: 1 tab Vitamin D (Cholecalciferol (Vitamin D3) 10 Mcg Tablet) 10 mcg PO DAILY [facility] Last Admin: 06/04/24 09:00 Dose: 10 mcg Allergies Allergies Allergy/AdvReac Type Severity Reaction Status Date / Time lamotrigine [From LAMICTAL] Allergy Severe RASH Verified 05/24/24 14:31 oxycodone [From PERCOCET] Allergy Mild NAUSEA Verified 02/03/24 11:49 Assessment & Plan Assessment & Plan (1) Bipolar disorder: Status: Acute Code(s): F31.9 - Bipolar disorder, unspecified Assessment and Plan: 05/29 not taking her mood stabilizers barely slept, hostile around adderall limit (2) Cocaine use disorder: Status: Acute Code(s): F14.10 - Cocaine abuse, uncomplicated (3) Polysubstance use disorder: Status: Acute Code(s): F19.90 - Other psychoactive substance use, unspecified, uncomplicated Plan Patient is a 48-year-old female with history bipolar disorder, cocaine abuse, and polysubstance abuse who presented [place] [facility] due to suicidal ideation with plan to drive her car into a tree secondary to increased depression. 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 attending groups. Pt continues to report feeling depressed and anxious; pt stated, I still have a lot of angry towards my friend for kicking me out of my apartment in February. Now I live with my parents . T/W and patient discussed substance use and effects on mood/brain. Pt reports she would like to stop using substances. She is considering attending meetings when discharged. Valproic acid level: 54.4 on 05/25/24 [place] level: 0.62 on 05/25/24 Increase: Seroquel to 25mg PO TID PRN Start: Bacitracin for superficial cuts on right shoulder. 05/27: Tearful during 1:1. Pt continues to report feeling depressed and anxious, labile, reports she feels agitated at times; patient stated, I keep thinking of all the bad things that happened the past few months and now I don't really have any friends . Per nursing report, patient slept 2 hours last night. Reviewed medications with patient; patient agreed to increasing lithium and Seroquel and decreasing Adderall. Increase: Seroquel to 200mg PO bedtime Seroquel 50mg PO TID PRN [place] 1,200mg PO bedtime DC Lexapro DC Adderall XR 30mg PO daily at 1500 Decrease Adderall XR to 20mg PO daily@0700,1300 05/28 patient unhappy with adderall change didn't want it 1/2ed- and now upset I didn't agree to taper by only 10mg (so from 80-70mg, though I had been willing to compromise at 50mg) reports she will not eat/drink or take any other meds- in protest 05/29 much of the same as yesterday- not able to engage around limit re adderall - I think hoping to [place] it out till Thursday when she can get back to her prescriber who has a plan 05/30: Active on unit. Attending groups. Has been refusing medications other than Adderall for the past 2 days. Patient presents labile during 1:1. Patient upset with decrease in Adderall. Patient stated, I'm not taking the mood stabilizer until you increased my Adderall! . Patient was unable to explain this reasoning. Patient reports suicidal ideation; patient stated, I want to kill myself! Everything sucks. I hate life. Just let me leave on Thursday so I can go kill myself . Patient then stormed out of unit office. 3 day up on 06/01/2024. Per nursing, pt has been crying, slamming doors. Patient agreed to take medications this morning after encouragement. T/W spoke to patient's outpatient provider, Geno. Outpatient provider reported patient presents this way every few months after attending concerts . Geno stated patient generally does well but then she relapses during concerts becomes hypersexual, uses various substances and becomes depressed . Patient is in the [facility] for stimulant abuse; per outpatient provider the high dose of Adderall has been managing her ADHD and cocaine use. She reports patient has a history of suicide attempts and would take her seriously if she is reporting wanting to kill herself . denies any suicide attempts in the last year. 05/31: Active on unit. Attending groups. Retracted 3 day notice. Labile. Observed crying in room. Medication compliant. Patient reports feeling overwhelmed . Patient stated, I'm not mad at you. I just want to feel better. I know I should stay here and get better . Patient reports having a good dream last night because I at the end. I'm tired of everything. I'm lonely, sad and angry all the time. If I left here I would kill myself. I don't want to say how, because people would stop me. I just want to . Patient denies HI/VH/AH. Continue current treatment plan. 06/01: Active on unit. Attending groups. Continues with labile mood. Medication compliant. Patient reports feeling irritable and on edge today. She continues to be focused on dying. Patient stated, I still don't want to live. I feel like I self sabotage a lot. Every time I relapse, I feel like a failure. I feel like a failure when I come to the hospital. I don't have a job. It would be so much easier if I just . Patient reports sleeping 4-5 hours last night c/o strange dreams . Patient denies HI/VH/AH. Start: prazosin 1 mg PO bedtime. 06/02: Patient reports feeling better today than yesterday . Patient stated, I cried a lot yesterday. Today, I'm trying to think of jobs I would like. I'm not having as much suicidal thoughts; I feel like that's improving but, they are still there . Patient reports not having nightmares last night and prazosin being helpful. Patient denies HI/VH/AH. Continue current treatment plan. 05/24: pt presents labile today; crying on and off. Pt stated, I'm feeling florez today. It's the opposite of yesterday. I'm easily irritated . She reports not sleeping well last night. c/o constipation; received lactulose, senna and miralax. refusing enema or suppository. Labs to be drawn tomorrow morning for lithium and depakote levels. 06/04: continue current management and treatment plan. Lactulose today. If ineffective consider medicine consult. Reason for continued inpatient stay Substantial Risk for: harm to self, inability to function and rapid decompensation Time Spent With Patient Time: Total time managing care of this patient today ____ minutes.
[2024-06-04] MEDS: QUEtiapine Fumarate 50 MG TABLET PO ×3 (09:06→23:54)
[2024-06-04] MEDS: Ibuprofen 600 MG TABLET PO (09:59)
[2024-06-04] MEDS: hydrOXYzine HCL 50 MG TABLET PO ×2 (15:57→23:54)
[2024-06-04] MEDS: polyethylene glycoL 3350 17 GM POWD.PACK PO (18:16)
[2024-06-04] MEDS: Milk of Magnesia 30 ML ORAL.SUSP PO (18:16)
[2024-06-04] MEDS: bisacodyL 10 MG SUPP.RECT PR (20:57)
[2024-06-04] MEDS: Sodium Phosphate,Mono-Dibasic 133 ML ENEMA PR (21:58)
[2024-06-04 22:40] VITALS: BP 144/78; PULSE 91; RESP 18; TEMP 36.9; O2SAT 100
[2024-06-04] MEDS: Prazosin HCL 1 MG CAPSULE PO (22:44)
[2024-06-04] MEDS: Lithium Carbonate ER 300 MG TABLET.ER 1200 MG PO (22:44)
[2024-06-04] MEDS: QUEtiapine Fumarate 200 MG TABLET PO (22:44)
[2024-06-05] MEDS: Dextroamphetamine/Amphetamine XR 10 MG CAP.ER.24H 20 MG PO ×2 (06:35→12:25)
[2024-06-05 07:53] VITALS: BP 137/85; PULSE 95; RESP 16; TEMP 36.9; O2SAT 100
[2024-06-05] MEDS: Cariprazine HCl 3 MG CAPSULE 6 MG PO (09:07)
[2024-06-05] MEDS: Divalproex Sodium ER 500 MG TAB.ER.24H PO ×2 (09:07→20:22)
[2024-06-05] MEDS: Divalproex Sodium ER 250 MG TAB.ER.24H PO ×2 (09:08→20:23)
[2024-06-05] MEDS: Sennosides/Docusate Sodium TABLET 1 TAB PO (09:08)
[2024-06-05] MEDS: Aspirin 81 MG TAB.CHEW PO (09:08)
[2024-06-05] MEDS: amLODIPine Besylate 5 MG TABLET PO (09:08)
[2024-06-05] MEDS: Cholecalciferol (Vitamin D3) 10 MCG TABLET PO (09:08)
--- NOTE | 2024-06-05 11:37 | P.PNPSI_ITS ---
Subjective Subjective Date of Service: 06/05/24 Reason For Visit: Crisis Interim History: Patient seen. Much relieved after having BM last night. Mood improved. I am not as suicidal as before. The thoughts are not as intense Denies AVH. Tolerating medications well. Had a visit with her father and it went well. Educated about levels of Li and Depakote being more therapeutic at this time. Li level 0.82. Depakote level 71.8. Review of Systems Review of Systems Yes all other systems are reviewed and are negative Constitutional: Reports as per HPI Eyes: Reports as per HPI Reports as per HPI Cardiovascular: Reports as per HPI Respiratory: Reports as per HPI Gastrointestinal: Reports as per HPI Musculoskeletal: Reports as per HPI Skin/Breast: Reports as per HPI Reports as per HPI Psychiatric: Reports as per HPI Endocrine: Reports as per HPI Hematologic/Lymphatic: Reports as per HPI Allergic/Immunologic: Reports as per HPI Mental Status Exam Mental Status Exam Narrative: Pt is alert and oriented; behavior is tearful, labile; dressed in casual attire; mood is described as depressed , labile; eye contact appropriate; Speech is normal rate, volume; thought process is organizedl; denies HI/VH/AH. Patient reports suicidal ideation; insight and judgment are improving. Patient Appearance: Well Grooomed and Appropriate (until stormed off) Patient Orientation: Person, Place, Time and Situation Level of Consciousness: Awake Patient Behavior: Cooperative (until angry), Swearing and Resistive to Care (or objecting to medication changes) Mood Description: Angry Affect Description: Labile Patient Cognition Impaired: No Ability to Follow Directions: Fair Speech Pattern: Clear Diagnostics Vital Signs (24Hr): Vital Signs - 24 hr 06/04/24 22:40 06/05/24 07:53 Temperature 98.4 F 98.4 F Pulse Rate 91 95 Respiratory Rate 18 16 Blood Pressure 144/78 H 137/85 Pulse Oximetry 100 100 Oxygen Delivery Method Room Air Room Air BMI result Body Mass Index 34.8 Labs 05/31/24 18:49 06/04/24 08:05 Labs: Laboratory Results - last 48 hr 06/04/24 08:05 Sodium 142 Potassium 3.6 Chloride 108 Carbon Dioxide 27 Anion Gap 11 L BUN 8 L Creatinine 0.78 Estim Creat Clear Calc 113.6 Estimated GFR > 60 Total Bilirubin 0.2 Direct Bilirubin < 0.2 AST 23 ALT 42 H Alkaline Phosphatase 46 Ammonia 29 Total Protein 6.9 Albumin 4.4 TSH 1.67 Valproic Acid 71.8 [place] 0.82 Imaging Radiology Impressions: ITS Impressions Hand X-Ray 06/02/24 15:00 IMPRESSION: Normal right hand. Electronically signed by: Magdaleno Key MD 06/02/2024 09:11 PM EDT RP KUB X-Ray 06/03/24 16:28 IMPRESSION: Mild to moderate stool burden. Electronically signed by: Efrain Keys DO 06/04/2024 12:33 AM EDT RP Medications Medications Current Medications Acetaminophen (Acetaminophen 325 Mg Tablet) 650 mg PO Q6H PRN PRN Reason: Headache/Pain Mild Scale (1-3) Last Admin: 06/03/24 19:43 Dose: 650 mg Al Hydroxide/Mg Hydroxide (Magnesium Hydrox/Alum Hydrox 30 Ml Oral.Susp) 30 ml PO Q6H PRN PRN Reason: Heartburn/Nausea Last Admin: 06/01/24 20:43 Dose: 30 ml Amlodipine Besylate (Amlodipine Besylate 5 Mg Tablet) 5 mg PO DAILY [facility]; Protocol Last Admin: 06/05/24 09:08 Dose: 5 mg Amphetamine/Dextroamphetamine (Dextroamphetamine/Amphetamine Xr 10 Mg Cap.Er.24h) 20 mg PO BID@0700,1300 [facility] Last Admin: 06/05/24 06:35 Dose: 20 mg Aspirin (Aspirin 81 Mg Tab.Chew) 81 mg PO DAILY [facility] Last Admin: 06/05/24 09:08 Dose: 81 mg Cariprazine (Cariprazine Hcl 3 Mg Capsule) 6 mg PO DAILY [facility] Last Admin: 06/05/24 09:07 Dose: 6 mg Divalproex Sodium (Divalproex Sodium Er 250 Mg Tab.Er.24h) 250 mg PO BID [facility] Last Admin: 06/05/24 09:08 Dose: 250 mg Divalproex Sodium (Divalproex Sodium Er 500 Mg Tab.Er.24h) 500 mg PO BID [facility] Last Admin: 06/05/24 09:07 Dose: 500 mg Hydroxyzine HCl (Hydroxyzine Hcl 50 Mg Tablet) 50 mg PO Q4H PRN PRN Reason: Anxiety Last Admin: 06/04/24 23:54 Dose: 50 mg Ibuprofen (Ibuprofen 600 Mg Tablet) 600 mg PO Q8H PRN PRN Reason: Pain, Moderate(Pain Scale 4-6) Last Admin: 06/04/24 09:59 Dose: 600 mg Lactulose (Lactulose 20 Gm/30 Ml Solution) 20 gm PO DAILY PRN PRN Reason: Constipation Last Admin: 06/04/24 13:38 Dose: 20 gm [place] Carbonate ([place] Carbonate Er 300 Mg Tablet.Er) 1,200 mg PO BEDTIME [facility] Last Admin: 06/04/24 22:44 Dose: 1,200 mg Loperamide HCl (Loperamide Hcl 2 Mg Capsule) 4 mg PO Q4H PRN PRN Reason: diarrhea Last Admin: 05/25/24 18:26 Dose: 4 mg Magnesium Hydroxide (Milk Of Magnesia 30 Ml Oral.Susp) 30 ml PO DAILY PRN PRN Reason: Constipation Last Admin: 06/04/24 18:16 Dose: 30 ml Polyethylene Glycol (Polyethylene Glycol 3350 17 Gm Powd.Pack) 17 gm PO DAILY PRN PRN Reason: constipation Last Admin: 06/04/24 18:16 Dose: 17 gm Prazosin HCl (Prazosin Hcl 1 Mg Capsule) 1 mg PO BEDTIME [facility]; Protocol Last Admin: 06/04/24 22:44 Dose: 1 mg Quetiapine Fumarate (Quetiapine Fumarate 50 Mg Tablet) 50 mg PO TID PRN PRN Reason: severe anxiety Last Admin: 06/04/24 23:54 Dose: 50 mg Quetiapine Fumarate (Quetiapine Fumarate 200 Mg Tablet) 200 mg PO BEDTIME [facility] Last Admin: 06/04/24 22:44 Dose: 200 mg Senna/Docusate Sodium (Sennosides/Docusate Sodium Tablet) 1 tab PO DAILY [facility] Last Admin: 06/05/24 09:08 Dose: 1 tab Vitamin D (Cholecalciferol (Vitamin D3) 10 Mcg Tablet) 10 mcg PO DAILY [facility] Last Admin: 06/05/24 09:08 Dose: 10 mcg Allergies Allergies Allergy/AdvReac Type Severity Reaction Status Date / Time lamotrigine [From LAMICTAL] Allergy Severe RASH Verified 05/24/24 14:31 oxycodone [From PERCOCET] Allergy Mild NAUSEA Verified 02/03/24 11:49 Assessment & Plan Assessment & Plan (1) Bipolar disorder: Status: Acute Code(s): F31.9 - Bipolar disorder, unspecified Assessment and Plan: 05/29 not taking her mood stabilizers barely slept, hostile around adderall limit (2) Cocaine use disorder: Status: Acute Code(s): F14.10 - Cocaine abuse, uncomplicated (3) Polysubstance use disorder: Status: Acute Code(s): F19.90 - Other psychoactive substance use, unspecified, uncomplicated Plan Patient is a 48-year-old female with history bipolar disorder, cocaine abuse, and polysubstance abuse who presented to [facility] due to suicidal ideation with plan to drive her car into a tree secondary to increased depression. 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 attending groups. Pt continues to report feeling depressed and anxious; pt stated, I still have a lot of angry towards my friend for kicking me out of my apartment in February. Now I live with my parents . T/W and patient discussed substance use and effects on mood/brain. Pt reports she would like to stop using substances. She is considering attending meetings when discharged. Valproic acid level: 54.4 on 05/25/24 [place] level: 0.62 on 05/25/24 Increase: Seroquel to 25mg PO TID PRN Start: Bacitracin for superficial cuts on right shoulder. 05/27: Tearful during 1:1. Pt continues to report feeling depressed and anxious, labile, reports she feels agitated at times; patient stated, I keep thinking of all the bad things that happened the past few months and now I don't really have any friends . Per nursing report, patient slept 2 hours last night. Reviewed medications with patient; patient agreed to increasing lithium and Seroquel and decreasing Adderall. Increase: Seroquel to 200mg PO bedtime Seroquel 50mg PO TID PRN [place] 1,200mg PO bedtime DC Lexapro DC Adderall XR 30mg PO daily at 1500 Decrease Adderall XR to 20mg PO daily@0700,1300 05/28 patient unhappy with adderall change didn't want it 1/2ed- and now upset I didn't agree to taper by only 10mg (so from 80-70mg, though I had been willing to compromise at 50mg) reports she will not eat/drink or take any other meds- in protest 05/29 much of the same as yesterday- not able to engage around limit re adderall - I think hoping to [place] it out till Thursday when she can get back to her prescriber who has a plan 05/30: Active on unit. Attending groups. Has been refusing medications other than Adderall for the past 2 days. Patient presents labile during 1:1. Patient upset with decrease in Adderall. Patient stated, I'm not taking the mood stabilizer until you increased my Adderall! . Patient was unable to explain this reasoning. Patient reports suicidal ideation; patient stated, I want to kill myself! Everything sucks. I hate life. Just let me leave on Thursday so I can go kill myself . Patient then stormed out of unit office. 3 day up on 06/01/2024. Per nursing, pt has been crying, slamming doors. Patient agreed to take medications this morning after encouragement. T/W spoke to patient's outpatient provider, Geno. Outpatient provider reported patient presents this way every few months after attending concerts . Geno stated patient generally does well but then she relapses during concerts becomes hypersexual, uses various substances and becomes depressed . Patient is in the [facility] for stimulant abuse; per outpatient provider the high dose of Adderall has been managing her ADHD and cocaine use. She reports patient has a history of suicide attempts and would take her seriously if she is reporting wanting to kill herself . denies any suicide attempts in the last year. 05/31: Active on unit. Attending groups. Retracted 3 day notice. Labile. Observed crying in room. Medication compliant. Patient reports feeling overwhelmed . Patient stated, I'm not mad at you. I just want to feel better. I know I should stay here and get better . Patient reports having a good dream last night because I at the end. I'm tired of everything. I'm lonely, sad and angry all the time. If I left here I would kill myself. I don't want to say how, because people would stop me. I just want to . Patient denies HI/VH/AH. Continue current treatment plan. 06/01: Active on unit. Attending groups. Continues with labile mood. Medication compliant. Patient reports feeling irritable and on edge today. She continues to be focused on dying. Patient stated, I still don't want to live. I feel like I self sabotage a lot. Every time I relapse, I feel like a failure. I feel like a failure when I come to the hospital. I don't have a job. It would be so much easier if I just . Patient reports sleeping 4-5 hours last night c/o strange dreams . Patient denies HI/VH/AH. Start: prazosin 1 mg PO bedtime. 06/02: Patient reports feeling better today than yesterday . Patient stated, I cried a lot yesterday. Today, I'm trying to think of jobs I would like. I'm not having as much suicidal thoughts; I feel like that's improving but, they are still there . Patient reports not having nightmares last night and prazosin being helpful. Patient denies HI/VH/AH. Continue current treatment plan. 05/24: pt presents labile today; crying on and off. Pt stated, I'm feeling florez today. It's the opposite of yesterday. I'm easily irritated . She reports not sleeping well last night. c/o constipation; received lactulose, senna and miralax. refusing enema or suppository. Labs to be drawn tomorrow morning for lithium and depakote levels. 06/04: continue current management and treatment plan. Lactulose today. If ineffective consider medicine consult. 06/05: Improved after relief of constipation. Continue current management and treatment plan. Reason for continued inpatient stay Substantial Risk for: harm to self, inability to function and rapid decompensation Time Spent With Patient Time: Total time managing care of this patient today ____ minutes.
[2024-06-05] MEDS: QUEtiapine Fumarate 50 MG TABLET PO ×2 (12:25→17:56)
[2024-06-05] MEDS: hydrOXYzine HCL 50 MG TABLET PO (17:56)
[2024-06-05 20:00] VITALS: BP 132/64; PULSE 102; RESP 16; TEMP 38.2; O2SAT 98
[2024-06-05] MEDS: QUEtiapine Fumarate 200 MG TABLET PO (20:22)
[2024-06-05] MEDS: Lithium Carbonate ER 300 MG TABLET.ER 1200 MG PO (20:23)
[2024-06-05] MEDS: Prazosin HCL 1 MG CAPSULE PO (20:23)
[2024-06-05 20:40] VITALS: TEMP 36.3
[2024-06-06] MEDS: QUEtiapine Fumarate 50 MG TABLET PO ×3 (02:34→14:04)
--- NOTE | 2024-06-06 02:38 | PC.NURSE ---
Shanique stated that the Prazosin doesn't seem to be working, I'm still having vivid dreams, I can't remember all the details but I know I was being chased and people were picking on me and being mean to me
[2024-06-06] MEDS: Dextroamphetamine/Amphetamine XR 10 MG CAP.ER.24H 20 MG PO ×2 (06:34→12:58)
[2024-06-06 08:37] VITALS: BP 131/80; PULSE 84; RESP 16; TEMP 36.3; O2SAT 100
[2024-06-06] MEDS: Divalproex Sodium ER 250 MG TAB.ER.24H PO ×2 (08:41→20:26)
[2024-06-06] MEDS: Cariprazine HCl 3 MG CAPSULE 6 MG PO (08:41)
[2024-06-06] MEDS: Divalproex Sodium ER 500 MG TAB.ER.24H PO ×2 (08:41→20:26)
[2024-06-06] MEDS: Aspirin 81 MG TAB.CHEW PO (08:41)
[2024-06-06] MEDS: amLODIPine Besylate 5 MG TABLET PO (08:42)
[2024-06-06] MEDS: Cholecalciferol (Vitamin D3) 10 MCG TABLET PO (08:42)
--- NOTE | 2024-06-06 11:17 | P.PNPSI_ITS ---
Subjective Subjective Date of Service: 06/06/24 Reason For Visit: Crisis Interim History: Patient seen. Mood labile again today. Low frustration because her food wasn't cooked well to her liking. Irritable. Easily frustrated. Upset her roommate is in the room all the time and she has no place to cry alone. Less SI. Denies AVH. Tolerating medications well. Review of Systems Review of Systems Yes all other systems are reviewed and are negative Constitutional: Reports as per HPI Eyes: Reports as per HPI Reports as per HPI Cardiovascular: Reports as per HPI Respiratory: Reports as per HPI Gastrointestinal: Reports as per HPI Musculoskeletal: Reports as per HPI Skin/Breast: Reports as per HPI Reports as per HPI Psychiatric: Reports as per HPI Endocrine: Reports as per HPI Hematologic/Lymphatic: Reports as per HPI Allergic/Immunologic: Reports as per HPI Mental Status Exam Mental Status Exam Narrative: Pt is alert and oriented; behavior is tearful, labile; dressed in casual attire; mood is described as depressed , labile; eye contact appropriate; Speech is normal rate, volume; thought process is organizedl; denies HI/VH/AH. Patient reports suicidal ideation; insight and judgment are improving. Patient Appearance: Well Grooomed and Appropriate (until stormed off) Patient Orientation: Person, Place, Time and Situation Level of Consciousness: Awake Patient Behavior: Cooperative (until angry), Swearing and Resistive to Care (or objecting to medication changes) Mood Description: Angry Affect Description: Labile Patient Cognition Impaired: No Ability to Follow Directions: Fair Speech Pattern: Clear Diagnostics Vital Signs (24Hr): Vital Signs - 24 hr 06/05/24 20:00 06/05/24 20:40 06/06/24 08:37 Temperature 100.8 F H 97.3 F 97.4 F Pulse Rate 102 H 84 Respiratory Rate 16 16 Blood Pressure 132/64 131/80 Pulse Oximetry 98 100 Oxygen Delivery Method Room Air Room Air BMI result Body Mass Index 34.8 Labs 05/31/24 18:49 06/04/24 08:05 Imaging Radiology Impressions: ITS Impressions Hand X-Ray 06/02/24 15:00 IMPRESSION: Normal right hand. Electronically signed by: Magdaleno Key MD 06/02/2024 09:11 PM EDT RP KUB X-Ray 06/03/24 16:28 IMPRESSION: Mild to moderate stool burden. Electronically signed by: Efrain Keys DO 06/04/2024 12:33 AM EDT Medications Medications Current Medications Acetaminophen (Acetaminophen 325 Mg Tablet) 650 mg PO Q6H PRN PRN Reason: Headache/Pain Mild Scale (1-3) Last Admin: 06/03/24 19:43 Dose: 650 mg Al Hydroxide/Mg Hydroxide (Magnesium Hydrox/Alum Hydrox 30 Ml Oral.Susp) 30 ml PO Q6H PRN PRN Reason: Heartburn/Nausea Last Admin: 06/01/24 20:43 Dose: 30 ml Amlodipine Besylate (Amlodipine Besylate 5 Mg Tablet) 5 mg PO DAILY [facility]; Protocol Last Admin: 06/06/24 08:42 Dose: 5 mg Amphetamine/Dextroamphetamine (Dextroamphetamine/Amphetamine Xr 10 Mg Cap.Er.24h) 20 mg PO BID@0700,1300 [facility] Last Admin: 06/06/24 06:34 Dose: 20 mg Aspirin (Aspirin 81 Mg Tab.Chew) 81 mg PO DAILY [facility] Last Admin: 06/06/24 08:41 Dose: 81 mg Cariprazine (Cariprazine Hcl 3 Mg Capsule) 6 mg PO DAILY [facility] Last Admin: 06/06/24 08:41 Dose: 6 mg Divalproex Sodium (Divalproex Sodium Er 250 Mg Tab.Er.24h) 250 mg PO BID [facility] Last Admin: 06/06/24 08:41 Dose: 250 mg Divalproex Sodium (Divalproex Sodium Er 500 Mg Tab.Er.24h) 500 mg PO BID [facility] Last Admin: 06/06/24 08:41 Dose: 500 mg Hydroxyzine HCl (Hydroxyzine Hcl 50 Mg Tablet) 50 mg PO Q4H PRN PRN Reason: Anxiety Last Admin: 06/05/24 17:56 Dose: 50 mg Ibuprofen (Ibuprofen 600 Mg Tablet) 600 mg PO Q8H PRN PRN Reason: Pain, Moderate(Pain Scale 4-6) Last Admin: 06/04/24 09:59 Dose: 600 mg Lactulose (Lactulose 20 Gm/30 Ml Solution) 20 gm PO DAILY PRN PRN Reason: Constipation Last Admin: 06/04/24 13:38 Dose: 20 gm [place] Carbonate ([place] Carbonate Er 300 Mg Tablet.Er) 1,200 mg PO BEDTIME [facility] Last Admin: 06/05/24 20:23 Dose: 1,200 mg Loperamide HCl (Loperamide Hcl 2 Mg Capsule) 4 mg PO Q4H PRN PRN Reason: diarrhea Last Admin: 05/25/24 18:26 Dose: 4 mg Magnesium Hydroxide (Milk Of Magnesia 30 Ml Oral.Susp) 30 ml PO DAILY PRN PRN Reason: Constipation Last Admin: 06/04/24 18:16 Dose: 30 ml Polyethylene Glycol (Polyethylene Glycol 3350 17 Gm Powd.Pack) 17 gm PO DAILY PRN PRN Reason: constipation Last Admin: 06/04/24 18:16 Dose: 17 gm Prazosin HCl (Prazosin Hcl 1 Mg Capsule) 2 mg PO BEDTIME [facility]; Protocol Quetiapine Fumarate (Quetiapine Fumarate 200 Mg Tablet) 200 mg PO BEDTIME [facility] Last Admin: 06/05/24 20:22 Dose: 200 mg Quetiapine Fumarate (Quetiapine Fumarate 50 Mg Tablet) 50 mg PO QID PRN PRN Reason: severe anxiety Senna/Docusate Sodium (Sennosides/Docusate Sodium Tablet) 1 tab PO DAILY [facility] Last Admin: 06/06/24 08:43 Dose: Not Given Vitamin D (Cholecalciferol (Vitamin D3) 10 Mcg Tablet) 10 mcg PO DAILY [facility] Last Admin: 06/06/24 08:42 Dose: 10 mcg Allergies Allergies Allergy/AdvReac Type Severity Reaction Status Date / Time lamotrigine [From LAMICTAL] Allergy Severe RASH Verified 05/24/24 14:31 oxycodone [From PERCOCET] Allergy Mild NAUSEA Verified 02/03/24 11:49 Assessment & Plan Assessment & Plan (1) Bipolar disorder: Status: Acute Code(s): F31.9 - Bipolar disorder, unspecified Assessment and Plan: 05/29 not taking her mood stabilizers barely slept, hostile around adderall limit (2) Cocaine use disorder: Status: Acute Code(s): F14.10 - Cocaine abuse, uncomplicated (3) Polysubstance use disorder: Status: Acute Code(s): F19.90 - Other psychoactive substance use, unspecified, uncomplicated Plan Patient is a 48-year-old female with history bipolar disorder, cocaine abuse, and polysubstance abuse who presented to [facility] ER due to suicidal ideation with plan to drive her car into a tree secondary to increased depression. 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 attending groups. Pt continues to report feeling depressed and anxious; pt stated, I still have a lot of angry towards my friend for kicking me out of my apartment in February. Now I live with my parents . T/W and patient discussed substance use and effects on mood/brain. Pt reports she would like to stop using substances. She is considering attending meetings when discharged. Valproic acid level: 54.4 on 05/25/24 [place] level: 0.62 on 05/25/24 Increase: Seroquel to 25mg PO TID PRN Start: Bacitracin for superficial cuts on right shoulder. 05/27: Tearful during 1:1. Pt continues to report feeling depressed and anxious, labile, reports she feels agitated at times; patient stated, I keep thinking of all the bad things that happened the past few months and now I don't really have any friends . Per nursing report, patient slept 2 hours last night. Reviewed medications with patient; patient agreed to increasing lithium and Seroquel and decreasing Adderall. Increase: Seroquel to 200mg PO bedtime Seroquel 50mg PO TID PRN [place] 1,200mg PO bedtime DC Lexapro DC Adderall XR 30mg PO daily at 1500 Decrease Adderall XR to 20mg PO daily@0700,1300 05/28 patient unhappy with adderall change didn't want it 2ed- and now upset I didn't agree to taper by only 10mg (so from 80-70mg, though I had been willing to compromise at 50mg) reports she will not eat/drink or take any other meds- in protest 05/29 much of the same as yesterday- not able to engage around limit re adderall - I think hoping to [place] it out till Thursday when she can get back to her prescriber who has a plan 05/30: Active on unit. Attending groups. Has been refusing medications other than Adderall for the past 2 days. Patient presents labile during 1:1. Patient upset with decrease in Adderall. Patient stated, I'm not taking the mood stabilizer until you increased my Adderall! . Patient was unable to explain this reasoning. Patient reports suicidal ideation; patient stated, I want to kill myself! Everything sucks. I hate life. Just let me leave on Thursday so I can go kill myself . Patient then stormed out of unit office. 3 day up on 06/01/2024. Per nursing, pt has been crying, slamming doors. Patient agreed to take medications this morning after encouragement. T/W spoke to patient's outpatient provider, Geno. Outpatient provider reported patient presents this way every few months after attending concerts . Geno stated patient generally does well but then she relapses during concerts becomes hypersexual, uses various substances and becomes depressed . Patient is in the [facility] for stimulant abuse; per outpatient provider the high dose of Adderall has been managing her ADHD and cocaine use. She reports patient has a history of suicide attempts and would take her seriously if she is reporting wanting to kill herself . denies any suicide attempts in the last year. 05/31: Active on unit. Attending groups. Retracted 3 day notice. Labile. Observed crying in room. Medication compliant. Patient reports feeling overwhelmed . Patient stated, I'm not mad at you. I just want to feel better. I know I should stay here and get better . Patient reports having a good dream last night because I at the end. I'm tired of everything. I'm lonely, sad and angry all the time. If I left here I would kill myself. I don't want to say how, because people would stop me. I just want to . Patient denies HI/VH/AH. Continue current treatment plan. 06/01: Active on unit. Attending groups. Continues with labile mood. Medication compliant. Patient reports feeling irritable and on edge today. She continues to be focused on dying. Patient stated, I still don't want to live. I feel like I self sabotage a lot. Every time I relapse, I feel like a failure. I feel like a failure when I come to the hospital. I don't have a job. It would be so much easier if I just . Patient reports sleeping 4-5 hours last night c/o strange dreams . Patient denies HI/VH/AH. Start: prazosin 1 mg PO bedtime. 06/02: Patient reports feeling better today than yesterday . Patient stated, I cried a lot yesterday. Today, I'm trying to think of jobs I would like. I'm not having as much suicidal thoughts; I feel like that's improving but, they are still there . Patient reports not having nightmares last night and prazosin being helpful. Patient denies HI/VH/AH. Continue current treatment plan. 05/24: pt presents labile today; crying on and off. Pt stated, I'm feeling florez today. It's the opposite of yesterday. I'm easily irritated . She reports not sleeping well last night. c/o constipation; received lactulose, senna and miralax. refusing enema or suppository. Labs to be drawn tomorrow morning for lithium and depakote levels. 06/04: continue current management and treatment plan. Lactulose today. If ineffective consider medicine consult. 06/05: Improved after relief of constipation. Continue current management and treatment plan. 06/06: Continue current management and treatment plan. Reason for continued inpatient stay Substantial Risk for: harm to self, inability to function and rapid decompensation Time Spent With Patient Time: Total time managing care of this patient today ____ minutes.
[2024-06-06] MEDS: Ibuprofen 600 MG TABLET PO (11:47)
[2024-06-06] MEDS: hydrOXYzine HCL 50 MG TABLET PO ×2 (14:04→18:39)
[2024-06-06 20:00] VITALS: BP 131/87; PULSE 94; RESP 16; TEMP 36.6; O2SAT 100
[2024-06-06] MEDS: Prazosin HCL 1 MG CAPSULE 2 MG PO (20:25)
[2024-06-06] MEDS: Lithium Carbonate ER 300 MG TABLET.ER 1200 MG PO (20:26)
[2024-06-06] MEDS: QUEtiapine Fumarate 200 MG TABLET PO (20:26)
[2024-06-07] MEDS: QUEtiapine Fumarate 50 MG TABLET PO ×4 (01:11→22:51)
[2024-06-07] MEDS: Dextroamphetamine/Amphetamine XR 10 MG CAP.ER.24H 20 MG PO ×2 (07:15→12:20)
[2024-06-07] MEDS: hydrOXYzine HCL 50 MG TABLET PO ×2 (07:43→14:20)
[2024-06-07 08:10] VITALS: BP 132/82; PULSE 99; RESP 16; TEMP 36.9; O2SAT 100
[2024-06-07] MEDS: Aspirin 81 MG TAB.CHEW PO (08:12)
[2024-06-07] MEDS: Cariprazine HCl 3 MG CAPSULE 6 MG PO (08:12)
[2024-06-07] MEDS: Divalproex Sodium ER 500 MG TAB.ER.24H PO ×2 (08:12→22:50)
[2024-06-07] MEDS: Cholecalciferol (Vitamin D3) 10 MCG TABLET PO (08:12)
[2024-06-07] MEDS: Sennosides/Docusate Sodium TABLET 1 TAB PO (08:13)
[2024-06-07] MEDS: amLODIPine Besylate 5 MG TABLET PO (08:13)
[2024-06-07] MEDS: Divalproex Sodium ER 250 MG TAB.ER.24H PO ×2 (08:13→22:50)
--- NOTE | 2024-06-07 09:29 | P.PNPSI_ITS ---
Subjective Subjective Date of Service: 06/07/24 Reason For Visit: Crisis Subjective Notes: Conditional Voluntary Interim History: Reviewed with Dr. Tyson. Pt reports feeling manic and agitated ; pt stated, I was feeling better on Thursday but then yesterday I was in bed all day. Sometimes I rapid cycle . Pt denies SI/HI/VH/AH. She is requesting increase in mood stabilizer. [place] increased to 1,500mg PO bedtime. Medication Compliance: Yes Side effects from medications: No Attending Groups: Yes Review of Systems Constitutional: Reports as per HPI Eyes: Reports as per HPI Reports as per HPI Cardiovascular: Reports as per HPI Respiratory: Reports as per HPI Gastrointestinal: Reports as per HPI Genitourinary: Reports as per HPI Musculoskeletal: Reports as per HPI Skin/Breast: Reports as per HPI Reports as per HPI Psychiatric: Reports as per HPI Endocrine: Reports as per HPI Hematologic/Lymphatic: Reports as per HPI Allergic/Immunologic: Reports as per HPI Mental Status Exam Mental Status Exam Narrative: Pt is alert and oriented; behavior is cooperative and calm; dressed in casual attire; mood is described as manic ; eye contact appropriate; Speech is normal rate, volume and not pressured; thought process is organized and goal directed; Thought content is on tx; denies SI/HI/VH/AH. Diagnostics Vital Signs (24Hr): Vital Signs - 24 hr 06/06/24 20:00 06/07/24 08:10 Temperature 97.9 F 98.4 F Pulse Rate 94 99 Respiratory Rate 16 16 Blood Pressure 131/87 132/82 Pulse Oximetry 100 100 Oxygen Delivery Method Room Air Room Air BMI result Body Mass Index 34.8 Labs 05/31/24 18:49 06/04/24 08:05 Imaging Radiology Impressions: ITS Impressions Hand X-Ray 06/02/24 15:00 IMPRESSION: Normal right hand. Electronically signed by: Magdaleno Key MD 06/02/2024 09:11 PM EDT RP KUB X-Ray 06/03/24 16:28 IMPRESSION: Mild to moderate stool burden. Electronically signed by: Efrain Keys DO 06/04/2024 12:33 AM EDT RP Medications Medications Current Medications Acetaminophen (Acetaminophen 325 Mg Tablet) 650 mg PO Q6H PRN PRN Reason: Headache/Pain Mild Scale (1-3) Last Admin: 06/03/24 19:43 Dose: 650 mg Al Hydroxide/Mg Hydroxide (Magnesium Hydrox/Alum Hydrox 30 Ml Oral.Susp) 30 ml PO Q6H PRN PRN Reason: Heartburn/Nausea Last Admin: 06/01/24 20:43 Dose: 30 ml Amlodipine Besylate (Amlodipine Besylate 5 Mg Tablet) 5 mg PO DAILY [facility]; Protocol Last Admin: 06/07/24 08:13 Dose: 5 mg Amphetamine/Dextroamphetamine (Dextroamphetamine/Amphetamine Xr 10 Mg Cap.Er.24h) 20 mg PO BID@0700,1300 [facility] Last Admin: 06/07/24 07:15 Dose: 20 mg Aspirin (Aspirin 81 Mg Tab.Chew) 81 mg PO DAILY [facility] Last Admin: 06/07/24 08:12 Dose: 81 mg Cariprazine (Cariprazine Hcl 3 Mg Capsule) 6 mg PO DAILY [facility] Last Admin: 06/07/24 08:12 Dose: 6 mg Divalproex Sodium (Divalproex Sodium Er 250 Mg Tab.Er.24h) 250 mg PO BID [facility] Last Admin: 06/07/24 08:13 Dose: 250 mg Divalproex Sodium (Divalproex Sodium Er 500 Mg Tab.Er.24h) 500 mg PO BID [facility] Last Admin: 06/07/24 08:12 Dose: 500 mg Hydroxyzine HCl (Hydroxyzine Hcl 50 Mg Tablet) 50 mg PO Q4H PRN PRN Reason: Anxiety Last Admin: 06/07/24 07:43 Dose: 50 mg Ibuprofen (Ibuprofen 600 Mg Tablet) 600 mg PO Q8H PRN PRN Reason: Pain, Moderate(Pain Scale 4-6) Last Admin: 06/06/24 11:47 Dose: 600 mg Lactulose (Lactulose 20 Gm/30 Ml Solution) 20 gm PO DAILY PRN PRN Reason: Constipation Last Admin: 06/04/24 13:38 Dose: 20 gm [place] Carbonate ([place] Carbonate Er 300 Mg Tablet.Er) 1,200 mg PO BEDTIME [facility] Last Admin: 06/06/24 20:26 Dose: 1,200 mg Loperamide HCl (Loperamide Hcl 2 Mg Capsule) 4 mg PO Q4H PRN PRN Reason: diarrhea Last Admin: 05/25/24 18:26 Dose: 4 mg Magnesium Hydroxide (Milk Of Magnesia 30 Ml Oral.Susp) 30 ml PO DAILY PRN PRN Reason: Constipation Last Admin: 06/04/24 18:16 Dose: 30 ml Polyethylene Glycol (Polyethylene Glycol 3350 17 Gm Powd.Pack) 17 gm PO DAILY PRN PRN Reason: constipation Last Admin: 06/04/24 18:16 Dose: 17 gm Prazosin HCl (Prazosin Hcl 1 Mg Capsule) 2 mg PO BEDTIME [facility]; Protocol Last Admin: 06/06/24 20:25 Dose: 2 mg Quetiapine Fumarate (Quetiapine Fumarate 200 Mg Tablet) 200 mg PO BEDTIME [facility] Last Admin: 06/06/24 20:26 Dose: 200 mg Quetiapine Fumarate (Quetiapine Fumarate 50 Mg Tablet) 50 mg PO QID PRN PRN Reason: severe anxiety Last Admin: 06/07/24 01:11 Dose: 50 mg Senna/Docusate Sodium (Sennosides/Docusate Sodium Tablet) 1 tab PO DAILY [facility] Last Admin: 06/07/24 08:13 Dose: 1 tab Vitamin D (Cholecalciferol (Vitamin D3) 10 Mcg Tablet) 10 mcg PO DAILY [facility] Last Admin: 06/07/24 08:12 Dose: 10 mcg Allergies Allergies Allergy/AdvReac Type Severity Reaction Status Date / Time lamotrigine [From LAMICTAL] Allergy Severe RASH Verified 05/24/24 14:31 oxycodone [From PERCOCET] Allergy Mild NAUSEA Verified 02/03/24 11:49 Assessment & Plan Assessment & Plan (1) Bipolar disorder: Status: Acute Code(s): F31.9 - Bipolar disorder, unspecified Assessment and Plan: 05/29 not taking her mood stabilizers barely slept, hostile around adderall limit (2) Cocaine use disorder: Status: Acute Code(s): F14.10 - Cocaine abuse, uncomplicated (3) Polysubstance use disorder: Status: Acute Code(s): F19.90 - Other psychoactive substance use, unspecified, uncomplicated Plan Patient is a 48-year-old female with history bipolar disorder, cocaine abuse, and polysubstance abuse who presented to [facility] due to suicidal ideation with plan to drive her car into a tree secondary to increased depression. 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 attending groups. Pt continues to report feeling depressed and anxious; pt stated, I still have a lot of angry towards my friend for kicking me out of my apartment in February. Now I live with my parents . T/W and patient discussed substance use and effects on mood/brain. Pt reports she would like to stop using substances. She is considering attending meetings when discharged. Valproic acid level: 54.4 on 05/25/24 [place] level: 0.62 on 05/25/24 Increase: Seroquel to 25mg PO TID PRN Start: Bacitracin for superficial cuts on right shoulder. 05/27: Tearful during 1:1. Pt continues to report feeling depressed and anxious, labile, reports she feels agitated at times; patient stated, I keep thinking of all the bad things that happened the past few months and now I don't really have any friends . Per nursing report, patient slept 2 hours last night. Reviewed medications with patient; patient agreed to increasing lithium and Seroquel and decreasing Adderall. Increase: Seroquel to 200mg PO bedtime Seroquel 50mg PO TID PRN [place] 1,200mg PO bedtime DC Lexapro DC Adderall XR 30mg PO daily at 1500 Decrease Adderall XR to 20mg PO daily@0700,1300 05/28 patient unhappy with adderall change didn't want it 1/2ed- and now upset I didn't agree to taper by only 10mg (so from 80-70mg, though I had been willing to compromise at 50mg) reports she will not eat/drink or take any other meds- in protest 05/29 much of the same as yesterday- not able to engage around limit re adderall - I think hoping to [place] it out till Thursday when she can get back to her prescriber who has a plan 05/30: Active on unit. Attending groups. Has been refusing medications other than Adderall for the past 2 days. Patient presents labile during 1:1. Patient upset with decrease in Adderall. Patient stated, I'm not taking the mood stabilizer until you increased my Adderall! . Patient was unable to explain this reasoning. Patient reports suicidal ideation; patient stated, I want to kill myself! Everything sucks. I hate life. Just let me leave on Thursday so I can go kill myself . Patient then stormed out of unit office. 3 day up on 06/01/2024. Per nursing, pt has been crying, slamming doors. Patient agreed to take medications this morning after encouragement. T/W spoke to patient's outpatient provider, Geno. Outpatient provider reported patient presents this way every few months after attending concerts . Geno stated patient generally does well but then she relapses during concerts becomes hypersexual, uses various substances and becomes depressed . Patient is in the [facility] for stimulant abuse; per outpatient provider the high dose of Adderall has been managing her ADHD and cocaine use. She reports patient has a history of suicide attempts and would take her seriously if she is reporting wanting to kill herself . denies any suicide attempts in the last year. 05/31: Active on unit. Attending groups. Retracted 3 day notice. Labile. Observed crying in room. Medication compliant. Patient reports feeling overwhelmed . Patient stated, I'm not mad at you. I just want to feel better. I know I should stay here and get better . Patient reports having a good dream last night because I at the end. I'm tired of everything. I'm lonely, sad and angry all the time. If I left here I would kill myself. I don't want to say how, because people would stop me. I just want to . Patient denies HI/VH/AH. Continue current treatment plan. 06/01: Active on unit. Attending groups. Continues with labile mood. Medication compliant. Patient reports feeling irritable and on edge today. She continues to be focused on dying. Patient stated, I still don't want to live. I feel like I self sabotage a lot. Every time I relapse, I feel like a failure. I feel like a failure when I come to the hospital. I don't have a job. It would be so much easier if I just . Patient reports sleeping 4-5 hours last night c/o strange dreams . Patient denies HI/VH/AH. Start: prazosin 1 mg PO bedtime. 06/02: Patient reports feeling better today than yesterday . Patient stated, I cried a lot yesterday. Today, I'm trying to think of jobs I would like. I'm not having as much suicidal thoughts; I feel like that's improving but, they are still there . Patient reports not having nightmares last night and prazosin being helpful. Patient denies HI/VH/AH. Continue current treatment plan. 05/24: pt presents labile today; crying on and off. Pt stated, I'm feeling florez today. It's the opposite of yesterday. I'm easily irritated . She reports not sleeping well last night. c/o constipation; received lactulose, senna and miralax. refusing enema or suppository. Labs to be drawn tomorrow morning for lithium and depakote levels. 06/04: continue current management and treatment plan. Lactulose today. If ineffective consider medicine consult. 06/05: Improved after relief of constipation. Continue current management and treatment plan. 06/06: Continue current management and treatment plan. 06/07: Pt reports feeling manic and agitated ; pt stated, I was feeling better on Thursday but then yesterday I was in bed all day. Sometimes I rapid cycle . Pt denies SI/HI/VH/AH. She is requesting increase in mood stabilizer. [place] increased to 1,500mg PO bedtime. Patient educated on: diagnosis, medication risk/benefits and therapeutic strategies Reason for continued inpatient stay Substantial Risk for: med/psych decompensation Time Spent With Patient Time: Total time managing care of this patient today _20___ minutes.
[2024-06-07] MEDS: Hydrocortisone 1 % Cream 28.35 GM TUBE 1 APPL TOPICAL (16:31)
[2024-06-07 20:00] VITALS: BP 156/86; PULSE 91; RESP 16; TEMP 36.9; O2SAT 100
[2024-06-07 22:50] VITALS: BP 144/70
[2024-06-07] MEDS: Lithium Carbonate ER 300 MG TABLET.ER 1500 MG PO (22:50)
[2024-06-07] MEDS: Prazosin HCL 1 MG CAPSULE 2 MG PO (22:50)
[2024-06-07] MEDS: QUEtiapine Fumarate 200 MG TABLET PO (22:51)
[2024-06-08] MEDS: Magnesium Hydrox/Alum Hydrox 30 ML ORAL.SUSP PO (04:13)
[2024-06-08] MEDS: polyethylene glycoL 3350 17 GM POWD.PACK PO (05:38)
[2024-06-08] MEDS: Dextroamphetamine/Amphetamine XR 10 MG CAP.ER.24H 20 MG PO ×2 (06:56→13:17)
[2024-06-08 08:00] VITALS: BP 137/80; PULSE 87; RESP 18; TEMP 36.3; O2SAT 100
[2024-06-08] MEDS: Divalproex Sodium ER 500 MG TAB.ER.24H PO ×2 (08:17→22:49)
[2024-06-08] MEDS: Divalproex Sodium ER 250 MG TAB.ER.24H PO ×2 (08:17→22:49)
[2024-06-08] MEDS: amLODIPine Besylate 5 MG TABLET PO (08:17)
[2024-06-08] MEDS: Cholecalciferol (Vitamin D3) 10 MCG TABLET PO (08:18)
[2024-06-08] MEDS: Cariprazine HCl 3 MG CAPSULE 6 MG PO (08:18)
[2024-06-08] MEDS: Sennosides/Docusate Sodium TABLET 1 TAB PO (08:18)
[2024-06-08] MEDS: Aspirin 81 MG TAB.CHEW PO (08:18)
[2024-06-08] MEDS: Hydrocortisone 1 % Cream 28.35 GM TUBE 1 APPL TOPICAL (09:17)
--- NOTE | 2024-06-08 09:54 | P.PNPSI_ITS ---
Subjective Subjective Date of Service: 06/08/24 Reason For Visit: Crisis Subjective Notes: Conditional Voluntary Interim History: Reviewed with Dr. Tyson. Tearful during 1:1. Pt stated, I feel irritated today. I'm not sure why. The Seroquel helps me. I'm also upset that the people I talk to are leaving and that my room mate never leaves the room . Pt reports she did not have nightmares last night and Prazosin seems to be helpful. Denies SI/HI/VH/AH. [place] level to be drawn again tomorrow. Medication Compliance: Yes Side effects from medications: No Attending Groups: Yes Review of Systems Constitutional: Reports as per HPI Eyes: Reports as per HPI Reports as per HPI Cardiovascular: Reports as per HPI Respiratory: Reports as per HPI Gastrointestinal: Reports as per HPI Musculoskeletal: Reports as per HPI Skin/Breast: Reports as per HPI Reports as per HPI Psychiatric: Reports as per HPI Endocrine: Reports as per HPI Hematologic/Lymphatic: Reports as per HPI Allergic/Immunologic: Reports as per HPI Mental Status Exam Mental Status Exam Narrative: Pt is alert and oriented; behavior is cooperative, tearful; dressed in casual attire; mood is described as irritated , labile; eye contact appropriate; Speech is normal rate, volume and not pressured; thought process is organized and goal directed; Thought content is on tx; denies SI/HI/VH/AH. Diagnostics Vital Signs (24Hr): Vital Signs - 24 hr 06/07/24 20:00 06/07/24 22:50 06/08/24 08:00 Temperature 98.5 F 97.3 F Pulse Rate 91 87 Respiratory Rate 16 18 Blood Pressure 156/86 H 144/70 H 137/80 Pulse Oximetry 100 100 Oxygen Delivery Method Room Air Room Air BMI result Body Mass Index 34.8 Labs 05/31/24 18:49 06/04/24 08:05 Imaging Radiology Impressions: ITS Impressions Hand X-Ray 06/02/24 15:00 IMPRESSION: Normal right hand. Electronically signed by: Magdaleno Key MD 06/02/2024 09:11 PM EDT RP KUB X-Ray 06/03/24 16:28 IMPRESSION: Mild to moderate stool burden. Electronically signed by: Efrain Keys DO 06/04/2024 12:33 AM EDT RP Medications Medications Current Medications Acetaminophen (Acetaminophen 325 Mg Tablet) 650 mg PO Q6H PRN PRN Reason: Headache/Pain Mild Scale (1-3) Last Admin: 06/03/24 19:43 Dose: 650 mg Al Hydroxide/Mg Hydroxide (Magnesium Hydrox/Alum Hydrox 30 Ml Oral.Susp) 30 ml PO Q6H PRN PRN Reason: Heartburn/Nausea Last Admin: 06/08/24 04:13 Dose: 30 ml Amlodipine Besylate (Amlodipine Besylate 5 Mg Tablet) 5 mg PO DAILY [facility]; Protocol Last Admin: 06/08/24 08:17 Dose: 5 mg Amphetamine/Dextroamphetamine (Dextroamphetamine/Amphetamine Xr 10 Mg Cap.Er.24h) 20 mg PO BID@0700,1300 [facility] Last Admin: 06/08/24 06:56 Dose: 20 mg Aspirin (Aspirin 81 Mg Tab.Chew) 81 mg PO DAILY [facility] Last Admin: 06/08/24 08:18 Dose: 81 mg Cariprazine (Cariprazine Hcl 3 Mg Capsule) 6 mg PO DAILY [facility] Last Admin: 06/08/24 08:18 Dose: 6 mg Divalproex Sodium (Divalproex Sodium Er 250 Mg Tab.Er.24h) 250 mg PO BID [facility] Last Admin: 06/08/24 08:17 Dose: 250 mg Divalproex Sodium (Divalproex Sodium Er 500 Mg Tab.Er.24h) 500 mg PO BID [facility] Last Admin: 06/08/24 08:17 Dose: 500 mg Hydrocortisone (Hydrocortisone 1 % Cream 28.35 Gm Tube) 1 appl TOPICAL DAILY PRN; Protocol PRN Reason: Itching Last Admin: 06/08/24 09:17 Dose: 1 appl Hydroxyzine HCl (Hydroxyzine Hcl 50 Mg Tablet) 50 mg PO Q4H PRN PRN Reason: Anxiety Last Admin: 06/07/24 14:20 Dose: 50 mg Ibuprofen (Ibuprofen 600 Mg Tablet) 600 mg PO Q8H PRN PRN Reason: Pain, Moderate(Pain Scale 4-6) Last Admin: 06/06/24 11:47 Dose: 600 mg Lactulose (Lactulose 20 Gm/30 Ml Solution) 20 gm PO DAILY PRN PRN Reason: Constipation Last Admin: 06/04/24 13:38 Dose: 20 gm [place] Carbonate ([place] Carbonate Er 300 Mg Tablet.Er) 1,500 mg PO BEDTIME [facility] Last Admin: 06/07/24 22:50 Dose: 1,500 mg Loperamide HCl (Loperamide Hcl 2 Mg Capsule) 4 mg PO Q4H PRN PRN Reason: diarrhea Last Admin: 05/25/24 18:26 Dose: 4 mg Magnesium Hydroxide (Milk Of Magnesia 30 Ml Oral.Susp) 30 ml PO DAILY PRN PRN Reason: Constipation Last Admin: 06/04/24 18:16 Dose: 30 ml Polyethylene Glycol (Polyethylene Glycol 3350 17 Gm Powd.Pack) 17 gm PO DAILY PRN PRN Reason: constipation Last Admin: 06/08/24 05:38 Dose: 17 gm Prazosin HCl (Prazosin Hcl 1 Mg Capsule) 2 mg PO BEDTIME [facility]; Protocol Last Admin: 06/07/24 22:50 Dose: 2 mg Quetiapine Fumarate (Quetiapine Fumarate 200 Mg Tablet) 200 mg PO BEDTIME [facility] Last Admin: 06/07/24 22:51 Dose: 200 mg Quetiapine Fumarate (Quetiapine Fumarate 50 Mg Tablet) 50 mg PO QID PRN PRN Reason: severe anxiety Last Admin: 06/07/24 22:51 Dose: 50 mg Senna/Docusate Sodium (Sennosides/Docusate Sodium Tablet) 1 tab PO DAILY [facility] Last Admin: 06/08/24 08:18 Dose: 1 tab Vitamin D (Cholecalciferol (Vitamin D3) 10 Mcg Tablet) 10 mcg PO DAILY [facility] Last Admin: 06/08/24 08:18 Dose: 10 mcg Allergies Allergies Allergy/AdvReac Type Severity Reaction Status Date / Time lamotrigine [From LAMICTAL] Allergy Severe RASH Verified 05/24/24 14:31 oxycodone [From PERCOCET] Allergy Mild NAUSEA Verified 02/03/24 11:49 Assessment & Plan Assessment & Plan (1) Bipolar disorder: Status: Acute Code(s): F31.9 - Bipolar disorder, unspecified Assessment and Plan: 05/29 not taking her mood stabilizers barely slept, hostile around adderall limit (2) Cocaine use disorder: Status: Acute Code(s): F14.10 - Cocaine abuse, uncomplicated (3) Polysubstance use disorder: Status: Acute Code(s): F19.90 - Other psychoactive substance use, unspecified, uncomplicated Plan Patient is a 48-year-old female with history bipolar disorder, cocaine abuse, and polysubstance abuse who presented to [facility] [place] [facility] due to suicidal ideation with plan to drive her car into a tree secondary to increased depression. 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 attending groups. Pt continues to report feeling depressed and anxious; pt stated, I still have a lot of angry towards my friend for kicking me out of my apartment in February. Now I live with my parents . T/W and patient discussed substance use and effects on mood/brain. Pt reports she would like to stop using substances. She is considering attending meetings when discharged. Valproic acid level: 54.4 on 05/25/24 [place] level: 0.62 on 05/25/24 Increase: Seroquel to 25mg PO TID PRN Start: Bacitracin for superficial cuts on right shoulder. 05/27: Tearful during 1:1. Pt continues to report feeling depressed and anxious, labile, reports she feels agitated at times; patient stated, I keep thinking of all the bad things that happened the past few months and now I don't really have any friends . Per nursing report, patient slept 2 hours last night. Reviewed medications with patient; patient agreed to increasing lithium and Seroquel and decreasing Adderall. Increase: Seroquel to 200mg PO bedtime Seroquel 50mg PO TID PRN [place] 1,200mg PO bedtime DC Lexapro DC Adderall XR 30mg PO daily at 1500 Decrease Adderall XR to 20mg PO daily@0700,1300 05/28 patient unhappy with adderall change didn't want it 1/2ed- and now upset I didn't agree to taper by only 10mg (so from 80-70mg, though I had been willing to compromise at 50mg) reports she will not eat/drink or take any other meds- in protest 05/29 much of the same as yesterday- not able to engage around limit re adderall - I think hoping to [place] it out till Thursday when she can get back to her prescriber who has a plan 05/30: Active on unit. Attending groups. Has been refusing medications other than Adderall for the past 2 days. Patient presents labile during 1:1. Patient upset with decrease in Adderall. Patient stated, I'm not taking the mood stabilizer until you increased my Adderall! . Patient was unable to explain this reasoning. Patient reports suicidal ideation; patient stated, I want to kill myself! Everything sucks. I hate life. Just let me leave on Thursday so I can go kill myself . Patient then stormed out of unit office. 3 day up on 06/01/2024. Per nursing, pt has been crying, slamming doors. Patient agreed to take medications this morning after encouragement. T/W spoke to patient's outpatient provider, Geno. Outpatient provider reported patient presents this way every few months after attending concerts . Geno stated patient generally does well but then she relapses during concerts becomes hypersexual, uses various substances and becomes depressed . Patient is in the [facility] for stimulant abuse; per outpatient provider the high dose of Adderall has been managing her ADHD and cocaine use. She reports patient has a history of suicide attempts and would take her seriously if she is reporting wanting to kill herself . denies any suicide attempts in the last year. 05/31: Active on unit. Attending groups. Retracted 3 day notice. Labile. Observed crying in room. Medication compliant. Patient reports feeling overwhelmed . Patient stated, I'm not mad at you. I just want to feel better. I know I should stay here and get better . Patient reports having a good dream last night because I at the end. I'm tired of everything. I'm lonely, sad and angry all the time. If I left here I would kill myself. I don't want to say how, because people would stop me. I just want to . Patient denies HI/VH/AH. Continue current treatment plan. 06/01: Active on unit. Attending groups. Continues with labile mood. Medication compliant. Patient reports feeling irritable and on edge today. She continues to be focused on dying. Patient stated, I still don't want to live. I feel like I self sabotage a lot. Every time I relapse, I feel like a failure. I feel like a failure when I come to the hospital. I don't have a job. It would be so much easier if I just . Patient reports sleeping 4-5 hours last night c/o strange dreams . Patient denies HI/VH/AH. Start: prazosin 1 mg PO bedtime. 06/02: Patient reports feeling better today than yesterday . Patient stated, I cried a lot yesterday. Today, I'm trying to think of jobs I would like. I'm not having as much suicidal thoughts; I feel like that's improving but, they are still there . Patient reports not having nightmares last night and prazosin being helpful. Patient denies HI/VH/AH. Continue current treatment plan. 05/24: pt presents labile today; crying on and off. Pt stated, I'm feeling florez today. It's the opposite of yesterday. I'm easily irritated . She reports not sleeping well last night. c/o constipation; received lactulose, senna and miralax. refusing enema or suppository. Labs to be drawn tomorrow morning for lithium and depakote levels. 06/04: continue current management and treatment plan. Lactulose today. If ineffective consider medicine consult. 06/05: Improved after relief of constipation. Continue current management and treatment plan. 06/06: Continue current management and treatment plan. 06/07: Pt reports feeling manic and agitated ; pt stated, I was feeling better on Thursday but then yesterday I was in bed all day. Sometimes I rapid cycle . Pt denies SI/HI/VH/AH. She is requesting increase in mood stabilizer. [place] increased to 1,500mg PO bedtime. 06/08: Tearful during 1:1. Pt stated, I feel irritated today. I'm not sure why. The Seroquel helps me. I'm also upset that the people I talk to are leaving and that my room mate never leaves the room . Pt reports she did not have nightmares last night and Prazosin seems to be helpful. Denies SI/HI/VH/AH. [place] level to be drawn again tomorrow. Patient educated on: diagnosis, medication risk/benefits and therapeutic strategies Reason for continued inpatient stay Substantial Risk for: med/psych decompensation Time Spent With Patient Time: Total time managing care of this patient today _20___ minutes.
[2024-06-08] MEDS: QUEtiapine Fumarate 50 MG TABLET PO ×2 (10:23→22:50)
[2024-06-08] MEDS: hydrOXYzine HCL 50 MG TABLET PO (13:04)
[2024-06-08 22:30] VITALS: BP 148/75; PULSE 73; RESP 16; TEMP 36.9; O2SAT 99
[2024-06-08] MEDS: Lactulose 20 GM/30 ML SOLUTION PO (22:48)
[2024-06-08] MEDS: Lithium Carbonate ER 300 MG TABLET.ER 1500 MG PO (22:48)
[2024-06-08] MEDS: Prazosin HCL 1 MG CAPSULE 2 MG PO (22:49)
[2024-06-08] MEDS: QUEtiapine Fumarate 200 MG TABLET PO (22:49)
[2024-06-09] MEDS: Dextroamphetamine/Amphetamine XR 10 MG CAP.ER.24H 20 MG PO ×2 (06:33→13:02)
[2024-06-09 07:00] VITALS: BMI 35.6
[2024-06-09 07:35] VITALS: BP 130/77; PULSE 95; RESP 16; TEMP 36.4; O2SAT 99
[2024-06-09] MEDS: Hydrocortisone 1 % Cream 28.35 GM TUBE 1 APPL TOPICAL (08:05)
[2024-06-09] MEDS: Divalproex Sodium ER 500 MG TAB.ER.24H PO (08:21)
[2024-06-09] MEDS: amLODIPine Besylate 5 MG TABLET PO (08:22)
[2024-06-09] MEDS: Cariprazine HCl 3 MG CAPSULE 6 MG PO (08:22)
[2024-06-09] MEDS: Divalproex Sodium ER 250 MG TAB.ER.24H PO (08:22)
[2024-06-09] MEDS: Cholecalciferol (Vitamin D3) 10 MCG TABLET PO (08:22)
[2024-06-09] MEDS: Sennosides/Docusate Sodium TABLET 1 TAB PO (08:22)
[2024-06-09] MEDS: Aspirin 81 MG TAB.CHEW PO (08:23)
[2024-06-09 08:55] LABS: Lithium 0.78 mmol/L (0.60-1.20)
[2024-06-09 09:00] LABS: Blood Urea Nitrogen 11 mg/dL (9-16); Creatinine Clr Calc Pharmacy 110.8; Estimated Glomerular Filt Rate > 60
[2024-06-09] MEDS: QUEtiapine Fumarate 50 MG TABLET PO ×2 (11:16→18:31)
[2024-06-09] MEDS: hydrOXYzine HCL 50 MG TABLET PO ×2 (11:54→20:35)
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
[2024-06-09] MEDS: Acetaminophen 325 MG TABLET 650 MG PO (14:40)
[2024-06-09] MEDS: Simethicone 80 MG TAB.CHEW PO (16:13)
[2024-06-09 18:34] LABS: Lithium 0.33 mmol/L (0.60-1.20)
[2024-06-09 18:35] LABS: Calcium 10.2 mg/dL (8.4-10.2)
[2024-06-09 18:55] LABS: TSH reflex Free T4 1.79 uIU/mL (0.32-4.0)
[2024-06-09 19:45] VITALS: BP 133/82; PULSE 98; RESP 16; TEMP 36.9; O2SAT 100
[2024-06-09] MEDS: QUEtiapine Fumarate 200 MG TABLET PO (22:27)
[2024-06-10] MEDS: Simethicone 80 MG TAB.CHEW PO ×2 (03:08→09:00)
[2024-06-10 05:47] LABS: Parathyroid Hormone Intact 95.7 pg/mL (8.7-77.1)
[2024-06-10] MEDS: Dextroamphetamine/Amphetamine XR 10 MG CAP.ER.24H 20 MG PO ×2 (06:28→12:14)
[2024-06-10 08:00] VITALS: BP 158/82; PULSE 95; RESP 16; TEMP 37.4; O2SAT 98
[2024-06-10] MEDS: QUEtiapine Fumarate 50 MG TABLET PO (08:33)
[2024-06-10] MEDS: Sennosides/Docusate Sodium TABLET 1 TAB PO (08:55)
[2024-06-10] MEDS: Divalproex Sodium ER 500 MG TAB.ER.24H PO (08:56)
[2024-06-10] MEDS: Cariprazine HCl 3 MG CAPSULE 6 MG PO (08:56)
[2024-06-10] MEDS: Cholecalciferol (Vitamin D3) 10 MCG TABLET PO (08:56)
[2024-06-10] MEDS: Divalproex Sodium ER 250 MG TAB.ER.24H PO (08:56)
[2024-06-10] MEDS: amLODIPine Besylate 5 MG TABLET PO (08:57)
[2024-06-10] MEDS: Aspirin 81 MG TAB.CHEW PO (08:58)
[2024-06-10] MEDS: hydrOXYzine HCL 50 MG TABLET PO (08:58)
--- NOTE | 2024-06-10 12:37 | P.DS_ITS ---
DS: Providers Provider Date of Service: 06/10/24 Date of admission: 05/25/24 11:31 Date of discharge: 06/10/24 Primary care physician: Bianca De La Torre NP Consults: 05/25/24 16:06 Addiction Medicine Routine Consulting Provider: Addiction Covering Reason for consultation: pt interested in disaster recovery consultant 05/26/24 21:45 Consult to Hospitalist Routine Comment: Consulting Provider: Hospitalist Reason For Exam: Hypertension 05/31/24 16:34 Consult to Hospitalist Routine Comment: Consulting Provider: Hospitalist Reason For Exam: ? gout, redness, swelling DS: Diagnosis Discharge Diagnosis (1) Bipolar disorder: Status: Acute (2) Cocaine use disorder: Status: Acute (3) Polysubstance use disorder: Status: Acute DS: Medications Discharge Medications Home Medications: Previous Rx's ?Medication ?Instructions ?Recorded cholecalciferol (vitamin D3) 1,250 1,250 mcg PO QWEEK #4 caps 02/16/24 mcg (50,000 unit) capsule dextroamphetamine-amphetamine ER 20 mg PO DAILY #30 caps 02/16/24 20 mg 24hr capsule,extend release (Adderall XR) amlodipine 5 mg tablet 5 mg PO DAILY #30 tabs 06/10/24 aspirin 81 mg chewable tablet 81 mg PO DAILY #30 tabs 06/10/24 cariprazine 3 mg capsule 3 mg PO DAILY #30 caps 06/10/24 divalproex 250 mg tablet,extended 250 mg PO BID #60 tabs 06/10/24 release 24 hr divalproex 500 mg tablet,extended 500 mg PO BID #60 tabs 06/10/24 release 24 hr lithium carbonate 300 mg capsule 300 mg PO BEDTIME #30 caps 06/10/24 lithium carbonate 600 mg capsule 1,200 mg (2 x 600 mg) PO BEDTIME 06/10/24 #30 caps prazosin 2 mg capsule 2 mg PO BEDTIME #30 caps 06/10/24 quetiapine 200 mg tablet 200 mg PO BEDTIME #30 tabs 06/10/24 quetiapine 50 mg tablet 50 mg PO QID PRN severe anxiety 06/10/24 #120 tabs sennosides 8.6 mg-docusate sodium 1 tab PO DAILY #30 tabs 06/10/24 50 mg tablet (Senna Plus) simethicone 80 mg chewable tablet 80 mg PO QIDWMHS PRN bloating #30 06/10/24 (Gas Relief (simethicone)) tabs Mental Status Exam Mental Status Exam Narrative: Pt is alert and oriented x 4; behavior is cooperative; dressed in casual attire; mood is described as anxious ; Affect is dysphoric. eye contact appropriate; Speech is normal rate, volume and not pressured; thought process is organized and goal directed; Thought content is on tx; denies SI/HI/VH/AH. No delusional content noted or reported. Data Data Completed and Pending Completed studies during hospitalization [Text1]: 06/04/24 06/09/24 06/09/24 08:05 07:57 18:05 Sodium 142 Potassium 3.6 Chloride 108 Carbon Dioxide 27 Anion Gap 11 L BUN 8 L 11 Creatinine 0.78 0.80 Estim Creat Clear Calc 113.6 110.8 Estimated GFR > 60 > 60 Calcium 10.2 Total Bilirubin 0.2 Direct Bilirubin < 0.2 AST 23 ALT 42 H Alkaline Phosphatase 46 Ammonia 29 Total Protein 6.9 Albumin 4.4 25-OH Vitamin D Total TSH 1.67 1.79 PTH Intact 95.7 H Valproic Acid 71.8 [place] 0.82 0.78 0.33 L 06/10/24 12:35 Sodium Potassium Chloride Carbon Dioxide Anion Gap BUN Creatinine Estim Creat Clear Calc Estimated GFR Calcium Total Bilirubin Direct Bilirubin AST ALT Alkaline Phosphatase Ammonia Total Protein Albumin 25-OH Vitamin D Total Pending TSH PTH Intact Valproic Acid [place] Imaging Diagnostic Imaging Impressions Hand X-Ray 06/02/24 15:00 IMPRESSION: Normal right hand. Electronically signed by: Magdaleno Key MD 06/02/2024 09:11 PM EDT RP KUB X-Ray 06/03/24 16:28 IMPRESSION: Mild to moderate stool burden. Electronically signed by: Efrain Keys DO 06/04/2024 12:33 AM EDT RP DS: Summary Hospital Course Hospital Course: Subjective Notes: [place] Warning and Conditional Voluntary Healthcare Proxy: No Guardianship: No Medical Problems Affecting Mental Status: No Narrative: 48 yo female, hx of bipolar mood disorder sx, ADHD, since age 18, presents after discharge from [facility] for substance use tx for sx of increased depression. Reports an increase in mood sx since a med change 3-4 weeks ago, initiated Latuda. Since initiation reports increase in irritability, rages, crying, anger and no appetite or intake since Thursday. I cannot eat, I feel so full . Denies sx of constipation. Pt also reports an issue with cocaine, last used 3-4 weeks ago. She is in the START program at [facility]. Past Psychiatric History: IP 5 total, the most recent 10 years ago and recent DC [facility] treatment. OP [facility]- [facility] for therapy. Hx 10 years of [facility] . Therapist left after 10 years-pt cries, and she left me an email. Pt is in Start Program for stimulant abuse Diagnosed with mood disorder age 18- went to [facility], BETO was pt's first sx of illness Medical Evaluation Reviewed: Yes HOSPITAL COURSE On the unit, pt was admitted on a CV and placed on 15 minutes checks for safety. Pt was initially assigned under the care of Rissa Lara NP, please refer to her notes for further details in terms of treatment. In brief, pt presented with mixed symptoms of christ (labile, hyperverbal, decreased need for sleep) and depressed mood. She was reporting suicidal ideation with intent/plan if dischar ge. Pt has been on combination of mood stabilizer along with high doses of adderall for medication assistance treatment for cocaine use disorder. Adderall dose was decreased due to exacerbating active symptoms of christ. Pt initially upset about it but later agreed to treatment. [place] dose was increased to 1500mg po qhs. She was continued on depakote 750mg po BID. Her affect gradually presented as less labile. no overt signs of psychosis or delusions. Pt denied any intent or plan to hurt herself. Note that pt has had chronic elevated calcium, ordered PTH and calcium. PTH elevated, vit d is normal. Consider follow up with endocrinology. It is possible that it maybe lithium induced hyperparathyroidism. Status at Discharge Cognitive/behavioral status at discharge: Pt with dysphoric, but less labile affect. Sleep is better. No overt psychosis or delusion noted. No SI/HI. Future oriented. No behavioral concerns. Functional status at discharge: independent ambulation Overall status at discharge: patient is progressing back to baseline Time Spent with Patient Time attestation: Total time managing care of this patient today _35___ minutes. Time spent: Greater than 30 minutes Discharge Plan Discharge Anticipated Discharge Date/Time: 06/10/24 12:18 Patient Disposition: Home, Self-Care Discharge Diagnosis: Bipolar 1 Disorder, mixed episode cocaine use disorder Referrals: Therapist: [facility] ([facility]) [Other] - 06/10/24 4:00 pm (Telehealth ) Psych [facility] [Other] - 06/13/24 11:40 am (In person at the office ) Bianca De La Torre NP [Primary Care Provider] - (We left a voicemail with your PCP Bianca De La Torre NP to contact you with a follow up appt within 7-10 days.) Discharge Medications: New amlodipine 5 mg Tablet 5 mg PO DAILY Qty: 30 0RF Protocol: Hold for SBP< HOLD for SBP < : 90 prazosin 2 mg capsule 2 mg PO BEDTIME Qty: 30 0RF aspirin 81 mg Tablet,Chewable 81 mg PO DAILY Qty: 30 0RF cariprazine 3 mg capsule 3 mg PO DAILY Qty: 30 0RF divalproex 500 mg Tablet Extended Release 24 Hr 500 mg PO BID Qty: 60 0RF divalproex 250 mg Tablet Extended Release 24 Hr 250 mg PO BID Qty: 60 0RF lithium carbonate 600 mg capsule 1,200 mg PO BEDTIME Qty: 30 0RF sennosides-docusate sodium [Senna Plus] 8.6-50 mg Tablet 1 tab PO DAILY Qty: 30 0RF quetiapine 200 mg Tablet 200 mg PO BEDTIME Qty: 30 0RF simethicone [Gas Relief (simethicone)] 80 mg Tablet,Chewable 80 mg PO QIDWMHS PRN (Reason: bloating) Qty: 30 0RF quetiapine 50 mg Tablet 50 mg PO QID PRN (Reason: severe anxiety) Qty: 120 0RF lithium carbonate 300 mg capsule 300 mg PO BEDTIME Qty: 30 0RF Continued cholecalciferol (vitamin D3) 1,250 mcg (50,000 unit) capsule 1,250 mcg PO QWEEK Qty: 4 0RF dextroamphetamine-amphetamine [Adderall XR] 20 mg capsule,extended release 24hr 20 mg PO DAILY Qty: 30 0RF Rx Instructions: Partial Fill upon patient request. Discontinued lithium carbonate 300 mg Tablet Extended Release 300 mg PO DAILY Qty: 30 0RF lithium carbonate 300 mg tablet extended release 600 mg PO BEDTIME Qty: 30 0RF quetiapine 100 mg tablet 100 mg PO BEDTIME Qty: 30 0RF divalproex 500 mg tablet extended release 24 hr 500 mg PO BID Qty: 60 0RF divalproex 250 mg tablet extended release 24 hr 250 mg PO BID Qty: 60 0RF dextroamphetamine-amphetamine [Adderall XR] 30 mg capsule,extended release 24hr 30 mg PO DAILY Qty: 30 0RF Rx Instructions: Partial Fill upon patient request. quetiapine [Seroquel] 25 mg tablet 25 mg PO DAILY PRN (Reason: severe anxiety) Vraylar 3 mg capsule 6 mg PO DAILY dextroamphetamine-amphetamine [Adderall XR] 20 mg capsule,extended release 24hr 1 cap PO DAILY@1500 Rx Instructions: given at 1500 daily with a 10mg tablet. dextroamphetamine-amphetamine [Adderall XR] 10 mg capsule,extended release 24hr 1 cap PO DAILY@1500 Rx Instructions: to be given at 1500 daily with 20mg tablet escitalopram oxalate 5 mg tablet 5 mg PO DAILY Discharge Orders: Discharge Order (Routine); Ordered 06/10/24 Ordered By: Yi Flynn Diet: Regular diet Activity on Discharge: As tolerated Stand Alone Forms: Patient Portal Discharge page, Community Support Print Language: Belarusian Care Plan Goals: 1. maintain mood 2. No SI/HI 3. less labile mood 4. No VH/AH/ delusions Health Concerns: Follow up with PCP for routine care Plan of Treatment: Take medications as prescribed Go to nearest ED or call 911 in event of emergency Assessment: Pt less dysphoric, less labile. No plan or intent to harm self or others. no overt psychosis or delusions. Future oriented. Sleep is fair. Discharge Date/Time: 06/10/24 13:23
[2024-06-10 13:22] LABS: Vitamin D 25-OH Total 37.9 ng/mL (>30)
== END 2024-06-10 13:23 | disposition home or self-care (01) | DRG 753 ==
LOC: HO.ED 05-25 11:51 → HO.PADLT16 05-25 12:05
PROVIDERS: Internal Medicine; Physician Assistant; Admitting Provider Registered Nurse; Emergency Provider Emergency Medicine; PCP Nurse Practitioner Family; Responsible Provider Social Worker; Visit Provider Social Worker
DX: F31.60 Bipolar disorder, current episode mixed, unspecified (principal); R45.851 Suicidal ideations; F31.9 Bipolar disorder, unspecified; F14.10 Cocaine abuse, uncomplicated; F19.10 Other psychoactive substance abuse, uncomplicated; I10 Essential (primary) hypertension; Z87.891 Personal history of nicotine dependence; Z20.822 Contact with and (suspected) exposure to COVID-19; Z79.82 Long term (current) use of aspirin; Z79.899 Other long term (current) drug therapy
CPT/HCPCS: 36415; 73130; 74018; 80048; 80051; 80053; 80076; 80143; 80164; 80178; 80179; 80307; 81001; 81025; 82140; 82306; 82310; 82565; 83036; 83970; 84443; 84520; 84550; 85025; 85027; 86704; 86706; 86709; 86780; 86803; 87340; 87389; 87491; 87591; 87635; 90715; 93005; 99285; S9485

== ENCOUNTER → 2024-05-25 11:31 | Outpatient (BNV) | payer OTHER, SELFPAY | PROVIDERS: Admitting Provider Registered Nurse; Emergency Provider Emergency Medicine; PCP Nurse Practitioner Family; Responsible Provider Registered Nurse; Visit Provider Registered Nurse | DX: F31.4 Bipolar disorder, current episode depressed, severe, without psychotic features (principal); F14.10 Cocaine abuse, uncomplicated; F19.90 Other psychoactive substance use, unspecified, uncomplicated | CPT/HCPCS: 90792; 99231; 99232; 99239; 99499 ==

== ENCOUNTER 2025-04-24 10:24 | Outpatient (AMB) | payer OTHER, SELFPAY ==
--- NOTE | 2025-04-24 10:40 | A.OFFPC_ITS ---
Vital Signs 04/24/25 10:50 Height 5 ft 8.7 in Weight 222 lb 8 oz BMI 33.1 BP 122/84 Blood Pressure Location Rt brachial Position Sitting Respiration 14 Pulse 83 Pulse Source Pulse Oximeter Temp 99 F Temp Source Oral Pulse Oximetry (%) 95 Oxygen Delivery Method Room Air Intake Visit Reasons: est care Intake Note: New patient visit Environmental Science Instructor Required: No Allergies lamotrigine (From LAMICTAL) Allergy (Severe, Verified 04/24/25 10:42) RASH oxycodone (From PERCOCET) Allergy (Mild, Verified 04/24/25 10:42) NAUSEA Tobacco use date assessed: 04/24/25 Dental Screening Dental Screen Date: 04/24/25 Did you have a dental visit in the last 12 months?: Yes Was dental information given to patient?: Patient has dentist HPI HPI Comments History of Present Illness Details The patient is a 49 year old female with a past medical history of ADHD, bipolar disorder, seizuer disorder, [place], substance abuse presenting to [facility]. Transfer from [facility] CV: on amlodipine 5mg daily. Stopped in March. Blood pressure is normal today. BH: on lithium, seroquel, depakote, adderall, cariprazine. Follows with [facility]. 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 HEENT: Denies changes in vision and hearing. RESPIRATORY: Denies SOB and cough. CV: Denies palpitations and CP GI: Denies abdominal pain, nausea, vomiting and diarrhea. : Denies dysuria and urinary frequency. MSK: Denies new myalgia and joint pain. SKIN: Denies rash and pruritus. NEUROLOGICAL: Denies headache PSYCHIATRIC: Denies recent changes in mood. PHYSICAL EXAM: GENERAL: Alert and oriented x 3. NAD EYES: EOMI. Anicteric. HENT: Moist mucous membranes. No scleral icterus. No cervical lymphadenopathy. LUNGS: Clear to auscultation bilaterally. CARDIOVASCULAR: Regular rate and rhythm. ABDOMEN: Soft, non-tender +bs EXTREMITIES: No edema. Non-tender. SKIN: No rashes or lesions. Warm. NEUROLOGIC: No focal neurological deficits. CN II-XII grossly intact PSYCHIATRIC: Cooperative. Appropriate mood and affect [facility] Medical History Polysubstance use disorder Bipolar disorder Surgical History H/O anal fistulotomy Hx of cholecystectomy Family History Mother HTN (hypertension) Diabetes Breast cancer Father HTN (hypertension) Bladder cancer Social History Household Members: Family Household Members Other:: Mother and father Housing: House Do you presently have visiting nurse or other home services: No Patient Tobacco Use Status: Former Tobacco user (quit in 2019) Tobacco use type: Cigarette Cigarette Packs Per Day: 1 Cigarettes Per Day: 20.0 Years Smoked: 9 e-Cigarette/Vaping Use: Never Used Second Hand Smoke Exposure: No Substance Use Type: Marijuana service: No Current occupational status: employed and unemployed Sexual orientation: Straight/Heterosexual Cognitive needs: No Hearing needs: No Vision needs: Yes (glasses) Questionnaire PHQ-9 Over the last 2 weeks, how often have you been bothered by any of the following problems? 1. Little interest or pleasure in doing things: more than half the days 2. Feeling down, depressed, or hopeless: nearly every day 3. Trouble falling or staying asleep, or sleeping too much: several days 4. Feeling tired or having little energy: more than half the days 5. Poor appetite or overeating: several days 6. Feeling bad about yourself - or that you are a failure or have let yourself or your family down: more than half the days 7. Trouble concentrating on things, such as reading the newspaper or watching television: not at all 8. Moving or speaking so slowly that other people could have noticed. Or the opposite - being so fidgety or restless that you have been moving around a lot more than usual: not at all 9. Thoughts that you would be better off or of hurting yourself in some way: several days Total score: 12 Depression Screening Interpretation: Positive Depression Screening Follow-up: Existing condition and Community Mental Health Worker F/U Depression Screening Done: Yes 45958 - PHQ-9 Billing: Yes Source: Developed by Drs. Salty Tate, Albert Guadarrama and colleagues, with an educational madelyn from [employer]. Thrive Questionnaire Date Thrive assessed: 04/17/25 I am a: Patient What is your living situation today?: I have a steady place to live Within the past 12 months, did the food you bought not last and you didn't have the money to get more?: Never true Within the past 12 months, did you worry whether your food would run out before you got money to buy more?: Sometimes True Do you have trouble paying for medicines?: No Do you have trouble getting transportation to medical appointments?: No Do you have trouble paying your heating and electricity bill?: No Do you have trouble taking care of your child, family member or friend?: No Do you have trouble with day-to-day activities such as bathing, preparing meals, shopping, managing finances, etc.?: I choose not to answer this question Are you currently unemployed and looking for a job?: No Are you interested in more education?: No Please select the resources that you would like help with: None Currently or been in a relationship where the following occur: No concerns reported THRIVE Score: 1 AUDIT C Alcohol Use Questionnaire (AUDIT-C) 1. How often do you have a drink containing alcohol?: Never 3. How often do you have six or more drinks on one occasion?: Never Total Score: 0 CAIO-7 AMB Questionnaire CAIO-7 Date CAIO - 7 assessed: 04/24/25 Feeling nervous, anxious, or on edge: 2 = More than half the days Not being able to stop or control worryin = More than half the days Worrying too much about different things: 3 = Nearly every day Trouble relaxin = More than half the days Being so restless that it is hard to sit still: 3 = Nearly every day Becoming easily annoyed or irritable: 2 = More than half the days Feeling afraid as if something awful might happen: 1 = Several days Total CAIO-7 score (0-4 normal; 5-9 mild; 10-14 moderate; 15-21 severe): 15 Source: Developed by Mili Edmonds Kurt Kroenke and colleagues, with an educational madelyn from [employer]. CAIO-7 Assessment Billing CAIO-7 Assessment Tool: CAIO-7 Assessment 17608 Physical exam (Primary Care) Vital Signs: Last Vital Signs Temp 99 F 04/24/25 10:50 Pulse 83 04/24/25 10:50 Resp 14 04/24/25 10:50 BP 122/84 04/24/25 10:50 Pulse Ox 95 04/24/25 10:50 Oxygen Delivery Method Room Air 04/24/25 10:50 BMI result Body Mass Index 33.1 Tobacco/Smoking Status: Tobacco use Status Tobacco use date assessed 04/24/25 04/24/25 10:52 Patient Tobacco Use Status Former Tobacco user (quit in 04/24/25 10:52 2020) Tobacco use type Cigarette 04/24/25 10:52 e-Cigarette/Vaping Use Never Used 04/24/25 10:52 PHQ-9: PHQ-9 Score PHQ-9: Total score 12 04/24/25 14:34 Depression Screening Interpretation: Positive Depression Screening Follow-up: Existing condition and Community Mental Health Worker F/U Thrive Assessment: Date of Thrive Assessment Date Thrive assessed 04/17/25 04/24/25 10:52 Currently or been in a relationship where the following occur: No concerns reported Coding Level of Care Code New Pt Level 4 (06344) Complex EM visit Add On G2211 Diagnoses Bipolar affective disorder, remission status unspecified F31.9 Active/Remission status: remission status unspecified Encounter to establish care Z76.89 Additional Codes CAIO-7 Assessment Billing - CAIO-7 Assessment Tool: CAIO-7 Assessment 03845 ([id number]) PHQ-9 - 14435 - PHQ-9 Billing: Yes ([id number]) Assessment & Plan Assessment & Plan (1) Bipolar disorder: Code(s): F31.9 - Bipolar disorder, unspecified Category: Medical Qualifiers: Active/Remission status: remission status unspecified Qualified Code(s): F31.9 - Bipolar disorder, unspecified (2) Encounter to establish care: Code(s): Z76.89 - Persons encountering health services in other specified circumstances Category: Medical Plan 49 year old to establish care Past medical, surgical, social reviewed Meds reconciled Mammo ordered. Cologuard ordered. Labs ordered seborrheic dermatitis-diprolene ordered HTN-will refill amlodipine though she is currently normotensive off the medication Orders: Orders MM screening mammo BI Today Z12.31 - Encounter for screening mammogram for malignant neoplasm of breast Lipid Panel Today F32.A - Depression, unspecified, R35.89 - Other polyuria, Z13.0 - Encounter for screening for diseases of the blood and blood-forming organs and certain disorders involving the immune mechanism, Z13.220 - Encounter for screening for lipoid disorders, Z13.228 - Encounter for screening for other metabolic disorders Complete Blood Count Auto Diff Today F32.A - Depression, unspecified, R35.89 - Other polyuria, Z13.0 - Encounter for screening for diseases of the blood and blood-forming organs and certain disorders involving the immune mechanism, Z1 3.220 - Encounter for screening for lipoid disorders, Z13.228 - Encounter for screening for other metabolic disorders Vitamin B12 and Folate Today F32.A - Depression, unspecified, R35.89 - Other polyuria, Z13.0 - Encounter for screening for diseases of the blood and blood- forming organs and certain disorders involving the immune mechanism, Z13.220 - Encounter for screening for lipoid disorders, Z13.228 - Encounter for screening for other metabolic disorders Comprehensive Met. Panel Today F32.A - Depression, unspecified, R35.89 - Other polyuria, Z13.0 - Encounter for screening for diseases of the blood and blood- forming organs and certain disorders involving the immune mechanism, Z13.220 - Encounter for screening for lipoid disorders, Z13.228 - Encounter for screening for other metabolic disorders Hemoglobin A1c Today F32.A - Depression, unspecified, R35.89 - Other polyuria, Z13.0 - Encounter for screening for diseases of the blood and blood-forming organs and certain disorders involving the immune mechanism, Z13.220 - Encounter for screening for lipoid disorders, Z13.228 - Encounter for screening for other metabolic disorders Referrals Cologuard Test Z12.11 - Encounter for screening for malignant neoplasm of colon, Z12.12 - Encounter for screening for malignant neoplasm of rectum DIRECTOR FINANCIAL ANALYSIS Referral Z30.09 - Encounter for other general counseling and advice on contraception, Z97.5 - Presence of (intrauterine) contraceptive device Medications: New betamethasone, augmented 0.05 % (Diprolene (augmented)) 1 appl topical BID PRN 45 grams 0RF skin irritation Refilled amlodipine 5 mg See Protocol PO DAILY 90 tabs 3RF
[2025-04-24 10:50] VITALS: BP 122/84; PULSE 83; RESP 14; TEMP 37.2; O2SAT 95; BMI 33.1
--- OUTSIDE RECORDS SUMMARY | 2025-04-24 11:25 | XMS_ITS | Clinical Summary ---
Author Organization [employer] [facility] [employer] Address [address] [facility] [address] [place] [address] Care Team Providers Care Milieu Therapist Name Role Phone No, Pcp BARREL RIFLER Primary Care Provider Unavailabl e Allergies Active Allergy Reactions Criticality Noted Date Comments Lamotrigine Rash Low 03/05/2016 Medications AMPHETAMINE-DEXTRO AMPHETAMINE 5 MG tablet 0 01/28/2016 Active divalproex (DEPAKOTE) 250 MG EC tablet 2 02/21/2016 Active lithium (LITHOBID) 300 MG CR tablet 2 02/18/2016 Ac tive lorazepam (ATIVAN) 1 MG tablet 2 01/28/2016 Active aripiprazole (ABILIFY) 20 MG tablet 0 02/21/2016 Active aripiprazole (ABILIFY) 5 MG tablet 0 02/21/2016 Active ketoconazole (NIZORAL) 2 % cream 3 12/07/2015 Active Immunizations Name Administration Dates Next Due PPD Test 03/05/2016 Social History Tobacco Use Types Packs/Day Years Used Date Smoking Tobacco: Every Day Tobacco Cessation:Ready to Q uit: No; Counseling Given: Yes Comments No Sex and Gender Information Value Date Recorded Sex Assigned at Not on file Legal Sex Female 9:22 AM EDT Gender Identity Not on file Sexual Orientation Not on file Last Filed Vital Signs Vital Sign Reading Time Taken Comments Blood Pressure - - Pulse - - Temperature 37.3 C (99.2 F) 03/05/2016 12:35 PM EDT Respiratory Rate - - Oxygen Saturation - - Inhaled Oxygen Concentration - - Weight 93 kg (205 lb) 03/05/2016 12:35 PM EDT Height - - Body Mass Index - - Plan of Treatment Health Maintenance Due Date Last Done Comments Colorectal Cancer: COLONOSCO PY Screening every 10 yrs (or Modifier) 1977 Depression: Screening Annual ly using PHQ-2/9 in Adults 18 yrs or above (or HM Modifier)([facility]) 1995 Hepatitis C Virus Infection in Adolescents and Adults: Screening (or Modifier) ([facility]) 1995 SDOH Screening Reminder: Gricelda massey for all adults ([facility]) 1995 Tobacco Smoking Cessation: i n Adults excluding Women: Behavioral and Pharmacotherapy Interventions ([facility]) 1995 DTaP/Tdap/Td Vaccines ([facility]) (1 - Tdap) 1996 Cervical Cancer Screenin 1-65 yrs of age (or Modifier) 1998 Cervical Cancer Screening: P ap every 3 yrs pts age 21-65 1998 Cervical Cancer: Pap Screeni ng with Modifier timing ([facility]) 1998 Cervical Cancer: hrHPV alone or with cotesting Pap for Pts 30-65yrs screening every 5yrs ([facility]) 1998 Colorectal Cancer Screening 45 -75 Yrs (or HM Modifier) 2022 Colorectal Cancer: FLEXIBLE SIGMOIDOSCOPY Screening every 5 yrs 2022 Colorectal Cancer: Fecal Immunochemical Test (FIT) Annually [facility] 2022 Colorectal Cancer: High-sens itivity gFOBT Screening Annually [facility] 2022 Colorectal Cancer: Stool Col oguard Screening every 3 yrs 2022 Colorectal Cancer:CT Colonog inga Screening every 5 yrs 2022 COVID-19 Vaccine Screening: Initial Series and Booster Status ([facility]) (2023- season) 2024 Flu Vaccination: Yearly for ages 18mos through 64 years (or Modifier)([facility]) 05/05/2025 Zoster/Shingles Vaccine Seri es Screening: Adults aged 18+ yrs (or HM Modifiers)([facility]) (1 of 2) 2027 Pneumococcal Vaccination Scr eening: Pts 0-19 & 19-49 yrs of age ([facility]) Aged Out No longer eligible based on patient's age to complete this topic Medical Devices Not on file Care Teams Milieu Therapist Relationship Specialty Start Date End Date No, Pcp, BARREL RIFLER N/A Do not use PCP - General 03/05/16
--- OUTSIDE RECORDS SUMMARY | 2025-04-24 11:25 | XMS_ITS | Clinical Summary ---
Author Organization [employer] [facility] Address [address] [place] [address] Care Team Providers Care Fuel Yard Operator Name Role Phone Clarissa Matias MD Primary Care Provider [phone] Allergies Active Allergy Reactions Criticality Noted Date Comments Lamotrigine 09/17/2015 Medications bisacodyL (DULCOLAX) 5 mg EC tablet Take 2 tablets by mouth right before beginning bowel prep 4 Active bisacodyL (DULCOLAX) 5 mg EC tablet Take 2 tabs at 6pm as directed. 4 Active cholecalciferol (VITAMIN D-3) 50 mcg (2,000 unit) tablet Take 1 tablet (2,000 Units total) by mouth 1 (one) time each day. 4 Active amphetamine-dextr oamphetamine XR (Adderall XR) 20 mg 24 hr capsule TAKE 1 CAPSULE BY MOUTH EVERY AFTERNOON. 4 Active amphetamine-dextr oamphetamine XR (Adderall XR) 30 mg 24 hr capsule Take 1 capsule (30 mg total) by mouth 1 (one) time each day in the morning. Max Daily Amount: 30 mg 4 Active divalproex (DEPAKOTE ER) 250 mg 24 hr tablet TAKE 1 TABLET BY MOUTH TWO TIMES A DAY, TAKE WITH 500 MG TABLET 4 Active divalproex (DEPAKOTE ER) 500 mg 24 hr tablet Take 1 tablet (500 mg total) by mouth 2 (two) times a day. 4 Active etonogestrel-elut ing contraceptive device (Nexplanon) 68 mg implant subdermal implant Inject 68 mg into the skin Once. 3 Active hydrocortisone (ANUSOL-HC) 2.5 % rectal cream Apply 1 g topically 3 times daily. 3 Active lithium (LITHOBID) 300 mg CR tablet TAKE TWO 2) TABLETS BY MOUTH AT BEDTIME. 4 Active ketoconazole (NIZORAL) 2 % shampoo Apply 1 Film topically daily as needed for Itching for up to 30 days. Apply to affected area(s) of damp skin, lather, leave on 5 minutes, and rinse. Once-daily application for 3 consecutive days. 4 Active loperamide (IMODIUM A-D) 2 mg tablet Take 1 Tablet by mouth 4 times daily as needed for Diarrhea for up to 10 days. 3 Active LORazepam (ATIVAN) 1 mg tablet Take 1 tablet (1 mg total) by mouth 1 (one) time each day if needed. Max Daily Amount: 1 mg Active lurasidone (LATUDA) 40 mg tablet 4 Active polyethylene glycol (GoLYTELY) 236-22.74-6.74 -5.86 gram solution Take 4 L by mouth once for 1 dose. (May substitute any PEG) Mix prep according to directions. Drink one 8oz glass at your own pace until half the gallon is completed. Rest and then finish the second half, one 8oz glass at your own pace until gallon is complete. Follow directions given by office for timing. 4 Active QUEtiapine (SEROquel) 50 mg tablet Take 1 tablet (50 mg total) by mouth 2 (two) times a day. Active Active Problems Problem Noted Date Diagnosed Date Vitamin D deficiency 04/13/2024 History of cocaine use 12/30/2022 Marijuana use 12/30/2022 ADHD 04/17/2021 COVID-19 virus infection 11/08/2020 Overview (09/20/2024): +11/07/20 Bipolar disorder ([facility] V24, [facility] V28) 09/04 Seizure ([facility] V24, [facility] V28) 09/17/2015 Overview (09/20/2024): Last seizure 2014 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 Encounters Date Type Department Care Team Description 03/15/2025 Telephone Adult Medicine [address] [id number] Clarissa Matias MD Hospital Follow-up ([facility]) from Last 3 Months Immunizations Name Administration Dates Next Due COVID-19 (Moderna/Spikevax) 12yo and older 09/02/2023 Influenza Quadravalent, MDCK , 0.5ml, preservative free (Flucelvax) 6mo and older 12/30/2022 Influenza trivalent, 0.5mL, preservative free (Fluarix; FluLaval; Fluzone) ages 6mo and older (Afluria) 3 years and older 09/02/2023,11/11/2021,08/31/2017,2014 Moderna (age 6mo & older) Bi valent, COVID-19, 0.5 mL or 0.25 mL dosage 06/20/2022 Td Tetanus diptheria (Tdvax) 7yo and older 07/24/2020 Tdap Tetanus diptheria acell ular pertussis (Boostrix; Adacel) 7yo and older 08/02/2020,04/06/2012 Varicella live (Varivax) 12m o and older 06/05/2012,05/03/2012 Surgical History Surgery Date Site/Laterality Comments CHOLECYSTECTOMY PROCEDURE: [place] CHOLECYSTECTOMY OTHER SURGICAL HISTORY PROCEDURE: HISTORY OTHER; COMMENT: fistulotoma colorectal Medical History Medical History Date Comments Bipolar disorder ([facility] V2 4, [facility] V28) DX:Bipolar disorder (HCC) Marijuana abuse DX:Marijuana abu se Seizure (CMS/HCC V24, [facility] V28) 09/17/2015 DX:Seizure ([facility]) COVID-19 virus infection 11/08/2020 DX:COVI D-19 virus infection; COMMENT: +11/07/20 Adhd 04/17/2021 DX:ADHD Tobacco abuse DX:Tobacco abuse Family History Medical History Relation Name Comments Bladder Cancer Father prediabetes; charcot jackie tooth Other: skin cancer Father Diabetes Maternal Grandmother Breast cancer Mother 71 diabetes Diabetes Mother 71 Breast cancer Other M 2nd cousin mothers first cousin Colon cancer Neg Hx Ovarian cancer Neg Hx Uterine cancer Neg Hx Relation Name Status Comments Father Alive Maternal Grandfather Maternal Grandmother Mother 71 Alive Other M 2nd cousin Alive Paternal Grandfather Paternal Grandmother Sister Alive Social History Tobacco Use Types Packs/Day Years Used Date Smoking Tobacco: Former Cigarettes Q uit: 10/17/2021 Smokeless Tobacco: Never Alcohol Use Standard Drinks/Week Comments Yes 0 (1 standard drink = 0.6 oz pur e alcohol) Comments Unknown Sex and Gender Information Value Date Recorded Sex Assigned at Not on file Legal Sex Female 4:17 PM EDT Gender Identity Not on file Sexual Orientation Not on file Obstetrics History Last Filed Vital Signs Vital Sign Reading Time Taken Comments Blood Pressure 138/85 01/18/2024 3:22 PM EDT Pulse 100 08/06/2023 3:37 PM EDT Temperature - - Respiratory Rate - - Oxygen Saturation - - Inhaled Oxygen Concentration - - Weight 97.1 kg (214 lb) 01/18/2024 3:22 PM EDT Height 172.7 cm (5' 8 ) 01/18/2024 3:22 PM EDT Body Mass Index 32.54 01/18/2024 3:22 PM EDT Plan of Treatment Health Maintenance Due Date Last Done Comments Hepatitis B Vaccines (1 of 3 - 19+ 3-dose series) 1996 Colorectal Cancer Screening: Colonoscopy 04/15/2021 Social Influencers of Health Screening 04/15/2021 Cervical Cancer Screening: HPV 04/04/2024 04/04/2019 COVID-19 Vaccine ( season) 2024 09/02/2023, 06/20/2022, 08/16/2021, Additional history exists Depression Screening 10/05/2024 01/18/2024 Breast Cancer Screening 01/22/2025 01/23/20 23, 12/30/2022, 08/11/2021, Additional history exists Influenza Vaccine (#1) 2025 3, 12/30/2022, 11/11/2021, Additional history exists Cholesterol Screening (Lipid Panel) 12/31/2027 12/30/2022 DTaP,Tdap,and Td Vaccines (5 - Td or Tdap) 05/24/2034 05/24/2024, 08/02/2020, 07/24/2020, Additional history exists Varicella Vaccines Aged Out 06/05/2012, 05/03/2012 No longer eligible based on patient's age to complete this topic HIV Screening Completed 06/20/2022 Hepatitis C Screening Completed 06/20/2022 HIB Vaccines Aged Out No longer eligi ble based on patient's age to complete this topic HPV Vaccines Aged Out No longer eligi ble based on patient's age to complete this topic Hepatitis A Vaccines Aged Out No long er eligible based on patient's age to complete this topic IPV Vaccines Aged Out No longer eligi ble based on patient's age to complete this topic MMR Vaccines Aged Out No longer eligi ble based on patient's age to complete this topic Meningococcal ACWY Vaccine Aged Out N o longer eligible based on patient's age to complete this topic Meningococcal B Vaccine Aged Out No l onger eligible based on patient's age to complete this topic Pneumococcal Vaccine: Pediatrics (0 to 5 Years) and At-Risk Patients (6 to 49 Years) Aged Out No longer eligible based on patient's age to complete this topic RSV Immunization Patients Under 20 months Aged Out No longer eligible based on patient's age to complete this topic Procedures Procedure Name Priority Date/Time Associated Diagnosis Comments DEPRESSION SCREENING Routine 01/18/2024 DIAGNOSTIC MAMMOGRAPHY WITH CAD UNILATERAL Routine 01/22/2023 9:34 AM EDT Other abnormal and inconclusive findings on diagnostic imaging of breast LIPID PANEL Routine 12/30/2022 HEPATITIS C SCREENING Routine 06/20/2022 HIV SCREENING Routine 06/20/2022 HPV Routine 04/04/2019 from Last 3 Months or Most Recently Relevant to Health Maintenance Results * Depression Screening (01/18/2024) Depression Screening abstracted us Historical Provider HEALTH MAINTENANCE Final Result * DIAGNOSTIC MAMMOGRAPHY WITH CAD UNILATERAL (01/22/2023 9:34 AM EDT) Anatomical Region Laterality Modality Mammography 12/31/2022 8:15 AM EDT Narrative 01/22/2023 9:39 AM EDT This is a summary report. The complete report is available in the patient's medical record. If you cannot access the medical record, please contact the sending organization for a detailed fax or copy. Diagnostic right mammography: A true lateral view and compression MLO view of the right breast were performed using tomosynthesis. There is no appreciable residual focal density on either of the diagnostic views. There are no suspicious findings. There are no targetable abnormalities for ultrasound correlation. Impression: Negative diagnostic right mammography. BI-RADS Category 1, negative. Procedure Note Manuel Waller MD - 11/09/2023 This is a summary report. The complete report is available in thepatient's medical record. If you cannot access the medical record, pleasecontact the sending organization for a detailed fax or copy. Diagnostic right mammography: A true lateral view and compression MLO viewof the right breast were performed using tomosynthesis. There is noappreciable residual focal density on either of the diagnostic views.There are no suspicious findings. There are no targetable abnormalitiesfor ultrasound correlation. Impression: Negative diagnostic right mammography. BI-RADS Category 1, negative. Ina Walden [facility] IMG BI PROCEDURES Final Result * Lipid panel (12/30/2022) [facility] LDL/HDL Ratio 3 0 - 4 Triglycerides 117 0 - 150 mg/dL Cholesterol 168 0 - 200 mg/dL HDL 53 >=40 mg/dL LDL Cholesterol 92 0 - 100 mg/dL Blood Venous blood specimen / Unknown Historical Provider LAB BLOOD ORDERABLES Fe l Result * HIV Screening (06/20/2022) [facility] HIV Screening abstracted Historical Provider HEALTH MAINTENANCE Final Result * Hepatitis C Screening (06/20/2022) [facility] Hepatitis C Screening abstracted us Historical Provider HEALTH MAINTENANCE Final Result * Cervical Cancer Screening: HPV (04/04/2019) Cervical Cancer Screening: HPV negative, abstracted Historical Provider HEALTH MAINTENANCE Final Result from Last 3 Months or Most Recently Relevant to Health Maintenance Insurance MEDICAID - [place] Care Teams Fuel Yard Operator Relationship Specialty Start Date End Date Clarissa Matias MD [address] [place] [address] PCP - General Internal Medicine 11/30/20
--- OUTSIDE RECORDS SUMMARY | 2025-04-24 11:25 | XMS_ITS | Patient Health Record ---
Author Organization [facility] Address [address] [place] [id number] Care Team Providers Care Performance Improvement Director Name Role Phone JLUIS JARVIS Unavailable [phone] Allergies Allergen (clinical drug ingredient) Drug/Non Drug Allergy documented on EMR Reaction Allergy Type Onset Date Status lamotrigine LaMICtal Unknown Drug Allergy Activ e Results Component Value Reference Range Notes HBsAg Screen-[id number] Reviewed date:12/29/2024 12:30:25 PM Interpretation:Negative Performing Lab:[facility], [address], [address], [email or web address], Phone - [phone], Director - [facility] Notes/Report: Clinical Information:SRC:urine HBsAg Screen Negative Negative Hepatitis B Surf Ab Quant-[id number] Reviewed date:12/30/2024 02:55:36 PM Interpretation:Not Immune Performing Lab:[facility], [address], [address], [email or web address], Phone - [phone], Director - [facility] Notes/Report: Clinical Information:SRC:urine Hepatitis B Surf Ab Quant <3.5 Immunity>10 mIU /mL Status of Immunity Anti-HBs Level Inconsistent with Immunity 0.0 - 10.0 Consistent with Immunity >10.0 T pallidum Screening Longs -[id number] Reviewed date:12/29/2024 10:21:01 AM Interpretation:Negative Performing Lab:[facility], [address], [address], [email or web address], Phone - [phone], Director - [facility] Notes/Report: Clinical Information:SRC:urine T pallidum Antibodies Non Reactive Non Reactive HIV Ab/p24 Ag with Reflex-[id number] Reviewed date:12/29/2024 10:22:13 AM Interpretation:Negative Performing Lab:[facility] [place], [address], [address], [place], Phone - [phone], Director - [facility] Notes/Report: Clinical Information:SRC:urine HIV Ab/p24 Ag Screen Non Reactive Non Reactive HIV-1/HIV-2 antibodies and HIV-1 p24 antigen were NOT detected. There is no laboratory evidence of HIV infection. HIV Negative HCV Antibody RFX to Quant PC [id number] Reviewed date:12/29/2024 12:30:46 PM Interpretation:Negative Performing Lab:[facility] [place], [address], [address], [email or web address], Phone - [phone], Director - [facility] Notes/Report: Clinical Information:SRC:urine Clinical Information:SRC:urine HCV Ab Non Reactive Non Reactive Interpretation: Not infected with HCV unless early or acute infection is suspected (which may be delayed in an immunocompromised individual), or other evidence exists to indicate HCV infection. Ct, Ng, Trich vag by MISBAH-[id number] Reviewed date:12/30/2024 02:55:44 PM Interpretation:Negative Performing Lab:[facility] [place], [address], [address], [place], Phone - [phone], Director - [facility] Notes/Report: Clinical Information:SRC:urine Chlamydia by MISBAH Negative Negative Gonococcus by MISBAH Negative Negative Trich vag by MISBAH Negative Negative Ultrasound : Pelvic Non/OB Reviewed date:01/16/2025 12:48:40 PM Interpretation:Abnormal Performing Lab: Notes/Report: Abnormal Reason For Referral Reason New onset irregular bleeding Diagnosis 1 Irregular menstruati on, unspecified (N92.6) Referral Organization [facility] Referring Provider First Name JLUIS Referring Provider Last Name STACEYI Referring Provider Speciality Nurse Prac titioner Referred Provider Specialty Software Applications Specialist General Notes 49 year old AFAB clt with new onset irregular and heavy bleeding. Nexplanon inserted with outside provider 2022, had amenorrhea until recently. Would advise further eval with EMB. Pelvic ultrasound ordered, appt pending. Thank you Clinical Notes Judy Austin 2024 03:35:28 PM > referral printed and to be faxed Referral Priority Routine Medications Medication SIG (Take, Route, Fr equency, Duration) Notes Start Date End Date Status SEROquel Active Baby Aspirin Active Orlovista Active Depakote Active Abilify Active Concerta Active Tranexamic Acid 650 MG as directed Orall y twice a day for 5 days 01/16/2025 Active Nexplanon Active Social History Sex Assigned At : Social History Observation Description Sex Assigned At Female Problems Problem Type SNOMED Code ICD Code Onset Dates Problem Status W/U Status Risk Notes Problem Irregular menstruation, unspecified (N92.6) Active confirmed Vital Signs Blood pressure diastolic 80 mm Hg 12/28/2024 Height 5ft 8in in 12/28/2024 Blood pressure systolic 120 mm Hg 12/28/2024 Weight 219.9 lbs 12/28/2024 BMI 33.43 kg/m2 12/28/2024 Encounters Encounter Location Date Provider Diagnosis [facility] [address] [place] [address] [phone] 12/28/2024 JLUIS JARVIS Encounter for surveillance of implantable subdermal contraceptive Z30.46 ; Encounter for screening for infections with a predominantly sexual mode of transmission Z11.3 ; Encounter for screening for other viral diseases Z11.59 and HIV Screening Z11.4 [facility] [address] [place] [address] [phone] 12/28/2024 JLUISLOUIE JARVIS [facility] [address] [place] [address] [phone] 01/16/2025 JLUIS JARVIS Assessments Encounter Date Diagnosis (ICD Code) Assessment Notes Treatment Notes Treatment Clinical Notes Section Notes 12/28/2024 Encounter for surveillance of implantable subdermal contraceptive (ICD-10 - Z30.46) Reassured clt of Nexplanon site. Implant is palpable and non-tender. No scarring or cutting close to the insertion site. Discussed that Nexplanon is effective for up to 5 years, but could replace after 3 if bleeding profile changes. Reviewed possible cause of new onset change in bleeding. Offered rx for management vs watching and waiting. Clt prefers to monitor bleeding change. Will RTC in 1-2 months to discuss additional eval if bleeding persists. Clt agreeable to plan. Reviewed signs that would warrant prompt follow up sooner than that Need 2 out of 3 Sections from A-C Section A) Problems (only need one from below) Two or more self-limited or minor programs Section B) Data (at least one of the following categories in this section) Category 1: (Choose 2 of the following): Order unique tests Review test results (each unique test counts as one) Category 2: Assessment requiring an independent historian Section C) Risk Document low risk of morbidity/mort ality 12/28/2024 Encounter for screening for infections with a predominantly sexual mode of transmission (ICD-10 - Z11.3) Reviewed routine screening, safe sex and consistent barrier protection. Aware of window period for testing and testing options. Discussed symptoms that would warrant further evaluation and follow-up care Need 2 out of 3 Sections from A-C Section A) Problems (only need one from below) Two or more self-limited or minor programs Section B) Data (at least one of the following categories in this section) Category 1: (Choose 2 of the following): Order unique tests Review test results (each unique test counts as one) Category 2: Assessment requiring an independent historian Section C) Risk Document low risk of morbidity/mort ality 12/28/2024 Encounter for screening for other viral diseases (ICD-10 - Z11.59) Need 2 out of 3 Sections from A-C Section A) Problems (only need one from below) Two or more self-limited or minor programs Section B) Data (at least one of the following categories in this section) Category 1: (Choose 2 of the following): Order unique tests Review test results (each unique test counts as one) Category 2: Assessment requiring an independent historian Section C) Risk Document low risk of morbidity/mort ality 12/28/2024 HIV Screening (ICD-10 - Z11.4) Need 2 out of 3 Sections from A-C Section A) Problems (only need one from below) Two or more self-limited or minor programs Section B) Data (at least one of the following categories in this section) Category 1: (Choose 2 of the following): Order unique tests Review test results (each unique test counts as one) Category 2: Assessment requiring an independent historian Section C) Risk Document low risk of morbidity/mort ality 12/28/2024 Other Discussed STI risks, screening, and safe sex Need 2 out of 3 Sections from A-C Section A) Problems (only need one from below) Two or more self-limited or minor programs Section B) Data (at least one of the following categories in this section) Category 1: (Choose 2 of the following): Order unique tests Review test results (each unique test counts as one) Category 2: Assessment requiring an independent historian Section C) Risk Document low risk of morbidity/mort ality Plan Of Treatment No Information Insurance Providers Payer Name Payer Address Payer Phone Subscriber Number Group Number Insured Name Patient Relationship to Insured Coverage Start Date Coverage End Date [place] ATT [place]S [address] [place] [id number] Shanique Norton Self - patient is the insured Medical (General) History Medical History History ICD Code bipolar ADHD anxiety Hep B, not immune Subserosal fibroid Hospitalization History Reason Date(Month/Year) 08/28 mental health concerns
--- OUTSIDE RECORDS SUMMARY | 2025-04-24 11:25 | XMS_ITS | Referral Summary ---
Author Organization [facility] Address [address] [place] [address] Care Team Providers Care Home Office Claims Examiner Name Role Phone Clarissa Matias Primary Care Provider [phone] Encounters Date Type Department Care Team Description 02/14/2025 Results Follow-Up [facility] [address] [place] [address] Hunter Newton MD 02/04/2025 myChart Message [facility] [address] [place] [address] 8[address] Hunter Newton MD Low Depakote level from Last 3 Months Allergies Active Allergy Reactions Criticality Noted Date Comments Lamotrigine Rash Low 03/05/2016 Medications Depakote ER 500 mg tablet Take 500 mg by mouth 2 (two) times a day. Active Depakote ER 250 mg tablet Take 250 mg by mouth 2 times a day. Active lithium ER (LITHOBID) 300 mg tablet 300 mg 2 times a day. Takes an extra 300mg in the am, 900mg total 4 Active SeroqueL 100 mg tablet Take 300 mg by mouth nightly. Per pt take 100 mg at night ,and 25 mg as needed Active acetaminophen (TylenoL) 325 mg tablet Tylenol 325 MG Oral Tablet TAKE 1 TO 2 TABLETS EVERY 6 HOURS NEEDED. Refills: 0 Active Active etonogestreL (Nexplanon) 68 mg implant 68 mg by subdermal route once. 3 Active loperamide (IMODIUM A-D) 2 mg tablet Take 2 mg by mouth as needed. 3 Active amLODIPine (NORVASC) 5 mg tablet 4 Active Abilify 15 mg tablet 4 Active aspirin chewable tablet 81 mg 4 Active ketoconazole (NIZORAL) 2% shampoo Apply 1 Film topically to the affected area. prn 4 Active cholecalciferol (VITAMIN D3) 2,000 unit tablet Take 1 tablet by mouth once a day. 4 Active ARIPiprazole (ABILIFY) 20 mg tablet 5 Active ARIPiprazole (ABILIFY) 5 mg tablet 5 Active lithium ER (ESKALITH) 450 mg tablet 2 tablets by mouth once daily. 5 Active QUEtiapine (SEROquel) 50 mg tablet Take 50 mg by mouth 2 times daily. 3 tablets by mouth nightly. Active QUEtiapine (SEROquel) 25 mg tablet Take 25 mg by mouth nightly. 4 tablets by mouth daily as needed. Active Concerta 36 mg tablet 2 tablets by mouth in the morning. 5 Active Concerta 54 mg tablet 1 tablet by mouth every afternoon. 5 Active Active Problems Problem Noted Date Diagnosed Date History of COVID-19 11/25/2023 Overview (11/25/2023): Phone screen from PCP visit indicates patient contacted PCP 10/27/23 for covid + on home test with cough and hemoptysis. She reports full resolution of symptoms with supportive care at home, denies shortness of breath or recurrent hemoptysis. History of cocaine use 12/30/2022 Seizure 09/17/2015 Overview (11/25/2023): Last seizure 2014 Depression 03/08/2013 Bipolar I Disorder, Most Recent Episode, Depress ed 03/08/2013 Nicotine Dependence 03/08/2013 Fatigue 03/08/2013 Immunizations Immunization Administration Dates Next Due Tetanus Toxoid, Reduced Diph theria Toxoid, and Acellular Pertussis Vaccine, Adsorbed 04/06/2012 Tuberculin Skin Test; Purifi ed Protein Derivative Solution, Intradermal 04/06/2012 Varicella Virus Vaccine 06/05/2012,05/03/2012 Social History Tobacco Use Types Packs/Day Years Used Date Smoking Tobacco: Former Cigarettes 1 28 1 4 - 2021 Smokeless Tobacco: Never Tobacco Cessation:Counseling Given: Not Answered Comments:Started smoking at age 18 on and off Alcohol Use Standard Drinks/Week Comments Yes 3 (1 standard drink = 0.6 oz pur e alcohol) Comments No Sex and Gender Information Value Date Recorded Sex Assigned at Female 10/06/2023 4:35 PM EST Legal Sex Female 12:16 AM EDT Gender Identity Female 10/06/2023 4:35 PM EST Sexual Orientation Choose not to disclose 2023 4:35 PM EST Last Filed Vital Signs Vital Sign Reading Time Taken Comments Blood Pressure 143/81 01/20/2025 12:56 PM EDT Pulse 78 01/20/2025 12:56 PM EDT Temperature 36.9 C (98.5 F) 01/20/2025 12:56 PM EDT Respiratory Rate 18 01/20/2025 12:56 PM EDT Oxygen Saturation 98% 04/22/2024 12:00 PM EDT Inhaled Oxygen Concentration - - Weight 102.1 kg (225 lb) 01/20/2025 12:56 PM EDT Height 172.7 cm (5' 8 ) 04/22/2024 7:25 AM EDT Body Mass Index 34.21 04/22/2024 7:25 AM EDT Plan of Treatment Upcoming Encounters Date Type Department Care Team (Late st Contact Info) Description 08/04/2025 1:30 PM EDT Office Visit [facility] [address] [place] [address] Hunter Newton MD [address] [place] [phone] Medical Devices Implanted Type Area Synchronizer Device Identifier Shelf Expiration Date Model / Serial / Lot Device Closure Vascular Plug 6fr Angio-Seal Vip - [id number] Implanted:Qty: 1 on 04/22/2024 at [facility] Implant [id number] / / Procedures * Due to [place] state law, this organization might not be sharing negative HIV tests. Procedure Name Priority Date/Time Associated Diagnosis Comments MRI CERVICAL SPINE W WO CONTRAST Routine 02/10/2025 1:35 PM EDT Cervical myelopathy (HCC) PAP W/REFLEX HPV, CONVERSION Routine 04/06/2012 4:48 PM EDT HM MAMMOGRAPHY Routine 12/26/2011 3:41 PM EDT from Last 3 Months or Most Recently Relevant to Health Maintenance Results * Due to [place] state law, this organization might not be sharing negative HIV tests. * MRI cervical spine with and without contrast (02/10/2025 1:35 PM EDT) Anatomical Region Laterality Modality Spine, C-spine Magnetic Resonan ce 02/10/2025 1:00 PM EDT Narrative 02/14/2025 11:53 AM EDT [facility] Accession Number: [id number] Patient Name: Shanique Norton Date of : 1975 Date of Exam: 02-10-2025 Referring Physician: Hunter Newton [facility] [place] [address] Exam: MR Cervical Spine (C-/C+) CPT 45558 Room Description: [facility] 3.0T HISTORY: Numbness of both arms and hands. Bilateral arm paresthesias. Myelopathy. TECHNIQUE: Multiplanar multisequence MRI of the cervical spine was obtained before and after the administration of numbness in both arms and hands. cc of Dotarem. COMPARISON: MRI of the brain 12/25/2023 FINDINGS: There is mild reversal of the cervical lordosis without subluxation. The cervical vertebral bodies are normal in height. Mild loss of height of C6-C7. The visualized posterior cranial fossa structures and cervicomedullary junction are normal. The cervical cord is normal in signal. No cord compression, cord enhancement, or abnormal leptomeningeal enhancement. C2-C3: No central canal or foraminal stenosis. C3-C4: No central canal or foraminal stenosis. C4-C5: No central canal or foraminal stenosis. C5-C6: Tiny central disc protrusion. No significant central canal or foraminal narrowing. C6-C7: Concentric disc-osteophyte complex asymmetric to the left posteriorly. Minimal central canal narrowing. No right and moderate to moderate-severe left foraminal narrowing. Crowding of the exiting left C7 nerve roots. C7-T1: Mild left facet arthrosis. No central canal or right foraminal stenosis. Minimal left foraminal narrowing. IMPRESSION: Degenerative changes of the cervical spine without cord compression or cord signal abnormality. Foraminal narrowing is most pronounced on the left at C6-C7, which can be correlated with any left-sided C7 symptomatology. Electronically Signed By: Fritz Bell MD Procedure Note Provider, Lambert - 02/14/2025 [facility] Accession Number: [id number] Patient Name: Shanique Norton Date of : 1975 Date of Exam: 02-10-2025 Referring Physician: Hunter Newton [place] [address] Exam: MR Cervical Spine (C-/C+) CPT 81289 Room Description: [facility] 3.0T HISTORY: Numbness of both arms and hands. Bilateral arm paresthesias. Myelopathy. TECHNIQUE: Multiplanar multisequence MRI of the cervical spine was obtained before and after the administration of numbness in both arms and hands. cc of Dotarem. COMPARISON: MRI of the brain 12/25/2023 FINDINGS: There is mild reversal of the cervical lordosis without subluxation. The cervical vertebral bodies are normal in height. Mild loss of height of C6-C7. The visualized posterior cranial fossa structures and cervicomedullary junction are normal. The cervical cord is normal in signal. No cord compression, cord enhancement, or abnormal leptomeningeal enhancement. C2-C3: No central canal or foraminal stenosis. C3-C4: No central canal or foraminal stenosis. C4-C5: No central canal or foraminal stenosis. C5-C6: Tiny central disc protrusion. No significant central canal or foraminal narrowing. C6-C7: Concentric disc-osteophyte complex asymmetric to the left posteriorly. Minimal central canal narrowing. No right and moderate to moderate-severe left foraminal narrowing. Crowding of the exiting left C7 nerve roots. C7-T1: Mild left facet arthrosis. No central canal or right foraminal stenosis. Minimal left foraminal narrowing. IMPRESSION: Degenerative changes of the cervical spine without cord compression or cord signal abnormality. Foraminal narrowing is most pronounced on the left at C6-C7, which can be correlated with any left-sided C7 symptomatology. Electronically Signed By: Fritz Bell MD us Hunter Newton MD IM MRI PROCEDURES Final Resul t * Pap w/Reflex HPV (04/06/2012 4:48 PM EDT) Path Procedure TPGAS ([id number]) 1 Edited by: [id number] ANIKA [facility] ANATOMIC PATHOLOGY - BIOTECH THREE Specimen Labeled As: 1 CERVICAL/ENDOCERVI LESLEY CYTO MATERIAL - Edited by: [id number] FRANCIA [facility] ANATOMIC PATHOLOGY - BIOTECH THREE Diagnosis ThinPrep Pap Test Adequacy: Satisfactory for evaluation Interpretation: Negative for Intraepithelial Lesion or Malignancy Shift in catarino suggestive of bacterial vaginosis Remarks/Recommenda tions: This is the result of a morphological screening test with an inherent probability of a false negative interpretation. HPV testing in combination with a morphological Pap test reduces the probability of a serious cervical epithelial abnormality in patients over age 30 and is cost-effective. HPV testing can be useful in other clinical applications. See [place] Journal of Obstetrics and Gynecology 197(4):346-355, 2007. This Pap test was examined in accordance with the [facility] Cytopathology Laboratory written policy. This Pap test was examined by the ThinPrep Imaging System, [employer], [place], [place]. Edited by: [id number] - 1012 [facility] ANATOMIC PATHOLOGY - BIOTECH THREE Gynecologic Clinical Data Specimen source:, THINPREP (CERVICAL AND ENDOCERVICAL) [facility] ANATOMIC PATHOLOGY - BIOTECH THREE Gynecologic Clinical Data First date of LMP:, 03/27/12 [facility] ANATOMIC PATHOLOGY - BIOTECH THREE Gynecologic Clinical Data LPS:, 04/17/10 [facility] ANATOMIC PATHOLOGY - BIOTECH THREE Pathology Codes Client Order Code:, TPHAS3 [facility] ANATOMIC PATHOLOGY - BIOTECH THREE Pathology Codes Bill Type:, CLIENT [facility] ANATOMIC PATHOLOGY - BIOTECH THREE Marker 1 Ladi BARRIOS [facility] ANATOMIC PATHOLOGY - BIOTECH THREE Marker 2 NILM,NILM [facility] ANATOMIC PATHOLOGY - BIOTECH THREE Cc Results To LINNETTE RODRIGUEZ REF [id number] [facility] ANATOMIC PATHOLOGY - BIOTECH THREE Signature REPORT SIGNED: KIARRA EASLEY 04/15/12 [facility] ANATOMIC PATHOLOGY - BIOTECH THREE Sign Out Audit KIARRA EASLEY [id number] FINAL [facility] [id number] [facility] ANATOMIC PATHOLOGY - BIOTECH THREE Cytology / Unknown 2 4:48 PM EDT 04/08/2012 4:48 PM EDT us [facility] LAB HISTORICAL RESULTS Final Re sult [facility] ANATOMIC PATHOLOGY - BIOTECH THREE [address] [place] [address], * HM MAMMOGRAPHY (12/26/2011 3:41 PM EDT) Mammogram [facility] Anatomical Region Laterality Modality Other 12/26/2011 3:41 PM EDT us Historical Conversion Provider HEALTH MAINTENANC E Final Result from Last 3 Months or Most Recently Relevant to Health Maintenance Insurance [facility] MEDICAID Advance Directives * Presumed Full Code (Latest Code Status on File) Date Activated Date Inactivated Comments 04/22/2024 9:05 AM 04/27/2024 2:39 AM Care Teams Home Office Claims Examiner Relationship Specialty Start Date End Date Clarissa Matias PCP - General Internal Medicine 10/06/23
--- OUTSIDE RECORDS SUMMARY | 2025-04-24 11:25 | XMS_ITS | Clinical Summary ---
Author Organization [facility] Address [address] [place] [address] Phone Care Team Providers Care Formula Checker Name Role Phone Symone Elam MD Primary Care Provider [phone] Allergies Active Allergy Reactions Criticality Noted Date Comments Lamotrigine Rash Low 03/05/2016 Medications No known medications Active Problems Problem Noted Date Diagnosed Date Uncoded Problem 03/09/2014 Overview (11/25/2014): Nevus Pityriasis versicolor 03/09/2014 Overview (11/25/2014): Tinea versicolor Immunizations Immunization Administration Dates Next Due Tdap 08/02/2020 Social History Tobacco Use Types Packs/Day Years Used Date Smoking Tobacco: Never Education Answer Date Recorded Are you interested in more education? Not on suzy e 01/29/2023 Are you concerned about learning? Not on file 01/29/2023 No 01/29/2023 No 01/29/2023 Digital Access Answer Date Recorded No 03/02/2023 No 03/02/2023 No 03/02/2023 Reliable internet access at home? Not on file 03/02/2023 Device with a working camera? Not on file Comments Unknown Sex and Gender Information Value Date Recorded Sex Assigned at Not on file Legal Sex Female 7:58 PM EST Gender Identity Not on file Sexual Orientation Not on file Last Filed Vital Signs Vital Sign Reading Time Taken Comments Blood Pressure 138/76 08/02/2020 10:54 AM EDT Pulse 86 08/02/2020 10:54 AM EDT Temperature 36.9 C (98.5 F) 08/02/2020 10:54 AM EDT Respiratory Rate - - Oxygen Saturation 98% 08/02/2020 10:54 AM EDT Inhaled Oxygen Concentration - - Weight - - Height - - Body Mass Index - - Plan of Treatment Health Maintenance Due Date Last Done Comments LIPID PANEL 1975 DEPRESSION SCREENING 1989 HEPATITIS C SCREENING 1995 HIV ONE-TIME SCREENING (18-6 5 YEARS) 1995 PAP SMEAR 1998 SMOKING STATUS SCREENING (On ce After 26 Yrs) 2003 MAMMOGRAM 2017 COLOGUARD 2022 COLONOSCOPY 2022 COLORECTAL CANCER SCREENING 2022 FIT TEST 2022 FOBT 2022 SIGMOIDOSCOPY 2022 VIRTUAL COLONOSCOPY 2022 COVID-19 VACCINE (3 - 2023-2 5 season) 2024 01/14/2021, 12/16/2020 Adult Td,Tdap Booster 08/02/2030 08/02/2020 HEPATITIS A VACCINES Aged Out No long er eligible based on patient's age to complete this topic HIB VACCINES Aged Out No longer eligi ble based on patient's age to complete this topic MENINGOCOCCAL VACCINES (ACWY) Aged Out No longer eligible based on patient's age to complete this topic MENINGOCOCCAL VACCINES (B) Aged Out N o longer eligible based on patient's age to complete this topic PNEUMOCOCCAL VACCINES (0-49 years) Aged Out No longer eligible b ased on patient's age to complete this topic Medical Devices Not on file Insurance [facility] NON [facility]SPG PCP YULY GABRIEL CONNECTORCARE [facility] NON NSPG PCP SILVER CLARITY CONNECTORCARE [facility] NON NSPG PCP SILVER CLARITY CONNECTORCARE [facility] NON NSPG PCP SILVER CLARITY CONNECTORCARE [employer] NON NSPG PCP SILVER CLARITY CONNE[employer]CARE [employer] NON NSPG PCP SILVER CLARITY CONNECTORCARE [employer] NON NSPG PCP SILVER CLARITY CONNECTORCARE [facility] NON NSPG PCP SILVER CLARITY CONNECTORCARE [facility] NON NSPG PCP SILVER CLARITY CONNECTORCARE [facility] Care Teams Formula Checker Relationship Specialty Start Date End Date Symone Elam MD PCP - General Internal Medicine 08/02/20 Additional Source Comments The information contained in this document represents components of the legal health record. It is not the complete legal health record.[facility]
== END 2025-04-24 11:16 | disposition home or self-care (01) ==
LOC: HO.HMCFM 10:25
PROVIDERS: PCP Internal Medicine; Visit Provider Internal Medicine
DX: F31.9 Bipolar disorder, unspecified (principal); Z76.89 Persons encountering health services in other specified circumstances

== ENCOUNTER → 2025-04-24 10:24 | Outpatient (BNVA) | payer OTHER, SELFPAY | PROVIDERS: PCP Internal Medicine; Visit Provider Internal Medicine | DX: Z76.89 Persons encountering health services in other specified circumstances (principal); F31.9 Bipolar disorder, unspecified; F90.9 Attention-deficit hyperactivity disorder, unspecified type; I10 Essential (primary) hypertension; G40.909 Epilepsy, unspecified, not intractable, without status epilepticus; Z79.899 Other long term (current) drug therapy; Z13.31 Encounter for screening for depression; Z13.39 Encounter for screening examination for other mental health and behavioral disorders | CPT/HCPCS: 96127; 99202 ==

== ENCOUNTER 2025-04-24 11:33 | Outpatient (REF) | payer OTHER, SELFPAY ==
[2025-04-24 14:04] LABS: MANUAL DIFF FLAG NO
[2025-04-24 14:15] LABS: Hematocrit 36.3 % (37.0-47.0); Hemoglobin 11.9 g/dl (12.0-16.0); Imm Gran Abs Auto 0.02 X10*3/uL (0.00-0.03); Imm Gran Pct Auto 0.3 % (0.0-0.4); Lymphocytes Absolute Auto 2.1 X10*3/uL (1.2-4.9); Mean Corpuscular HGB Conc 32.8 g/dl (31.0-35.0); Mean Corpuscular Hemoglobin 28.7 pg (27.0-33.0); Mean Corpuscular Volume 87.5 fL (80.0-98.0); NRBC Abs Auto 0.000 X10*3/uL (0.0-0.012); NRBC Pct Auto 0.0 /100WBC (0.0-0.2); Platelet Count 278 X10*3/uL (160-400); Red Blood Count 4.15 X10*6/uL (4.20-5.50); White Blood Count 7.5 X10*3/uL (4.8-10.8)
[2025-04-24 14:35] LABS: Alanine Aminotransferase 47 U/L (0-31); Albumin Level 5.0 g/dL (3.5-5.0); Alkaline Phosphatase 45 U/L (39-117); Anion Gap 13 (12-20); Aspartate Amino Transferase 34 U/L (5-31); Blood Urea Nitrogen 9 mg/dL (9-16); Calcium 10.0 mg/dL (8.4-10.2); Carbon Dioxide 24 mmol/L (22-29); Chloride 110 mmol/L (96-108); Cholesterol 165 mg/dL (<200); Estimated Glomerular Filt Rate > 60; HDL Cholesterol 50 mg/dL (>40); Potassium 3.7 mmol/L (3.3-5.1); Sodium 143 mmol/L (135-145); Total Protein 7.3 g/dL (6.5-8.0); Triglycerides 148 mg/dL (<150)
[2025-04-24 14:42] LABS: Hemoglobin A1C 104.7280 umol/L; Total Hemoglobin (HGBA1C) 3382.9942 umol/L
[2025-04-24 15:06] LABS: Folate 10.4 ng/mL (> or = 4.0); Vitamin B12 654 pg/mL (200-900)
== END 2025-04-24 11:34 | disposition home or self-care (01) ==
LOC: HO.WFDLDS 11:33
PROVIDERS: Visit Provider Internal Medicine
DX: Z12.31 Encounter for screening mammogram for malignant neoplasm of breast (principal); Z13.0 Encounter for screening for diseases of the blood and blood-forming organs and certain disorders involving the immune mechanism; Z13.228 Encounter for screening for other metabolic disorders; Z13.220 Encounter for screening for lipoid disorders; R35.89 Other polyuria; F32.A Depression, unspecified
CPT/HCPCS: 36415; 80053; 80061; 82607; 82746; 83036; 85025

== ENCOUNTER 2025-05-10 15:13 | Outpatient (REF) | payer OTHER, SELFPAY ==
--- NOTE | ~2025-05-10 | MM_ITS ---
EXAMINATION: MM SCREENING DIGITAL BREAST TOMOSYNTHESIS, BILATERAL CLINICAL INFORMATION: Screening. Asymptomatic. COMPARISON: Mammography: Comparison is made with available priors TECHNIQUE: Digital breast mammography with tomosynthesis is performed in both the craniocaudal and mediolateral oblique views along with computer-aided detection (CAD). FINDINGS: There are scattered areas of fibroglandular density (ACR BI-RADS breast composition Category b). There are no significant masses, abnormal calcifications, or other abnormalities. MM/MM tomosynthesis screening BI IMPRESSION: No mammographic evidence of malignancy. ASSESSMENT: BI-RADS BI-RADS 1 - Negative RECOMMENDATION: Routine annual mammography screening. 1 year F/U This examination should not preclude the clinical evaluation of a suspicious palpable abnormality. This patient's information was entered into a reminder system with a target due date for their next mammogram. Electronically signed by: Ann Morillo DO 05/29/2025 08:57 AM EDT
--- OUTSIDE RECORDS SUMMARY | 2025-05-10 15:43 | XMS_ITS | Referral Summary ---
Author Organization [facility] Address [address] [place] [address] Care Team Providers Care Database Security Expert Name Role Phone Florencio Clarissa Jade Primary Care Provider [phone] Encounters Date Type Department Care Team Description 02/14/2025 Results Follow-Up [facility] [address] [place] [address] Hunter Newton MD from Last 3 Months Allergies Active Allergy [...] Smoking Tobacco: Former Cigarettes 1 28 1 99 - 2021 Smokeless Tobacco: Never Tobacco Cessation:Counseling [...] Description 08/04/2025 1:30 PM EDT Office Visit [facility] [address] [place] [address] Hunter Newton MD [address] [place] [address] Medical Devices Implanted Type Area Pickle Processor Device Identifier Shelf Expiration Date Model / Serial / Lot Device Closure Vascular Plug 6fr Angio-Seal Vip - [id number] Implanted:Qty: 1 on 04/22/2024 at [facility] Implant [id number] / / Procedures * Due to [place] state law, this organization might not be sharing negative HIV tests. Procedure Name Priority Date/Time Associated Diagnosis Comments MRI CERVICAL SPINE W WO CONTRAST Routine 02/10/2025 1:35 PM EDT Cervical myelopathy (HCC) PAP W/REFLEX HPV, CONVERSION Routine 04/06/2012 4:48 PM EDT HM MAMMOGRAPHY Routine 12/26/2011 3:41 PM EDT from Last 3 Months or Most Recently Relevant to Health Maintenance Results * Due to [place] state law, this organization might not be sharing negative HIV tests. * MRI cervical spine with and without contrast (02/10/2025 1:35 PM EDT) Anatomical Region Laterality Modality Spine, C-spine Magnetic Resonan ce 02/10/2025 1:00 PM EDT Narrative 02/14/2025 11:53 AM EDT [facility] Accession Number: [id number] Patient Name: Shanique Norton Date of : 1975 Date of Exam: 02-10-2025 Referring Physician: Hunter Newton [place] [address] Exam: MR Cervical Spine (C-/C+) CPT 53913 Room Description: [facility] 3.0T HISTORY: Numbness of both arms and [...] MD Procedure Note Provider, Lambert - 02/14/2025 [facility] Accession Number: [id number] Patient Name: Shanique Norton Date of : 1975 Date of Exam: 02-10-2025 Referring Physician: Hunter Newton [place] [address] Exam: MR Cervical Spine (C-/C+) CPT 05043 Room Description: [facility] 3.0T HISTORY: Numbness of both [...] (04/06/2012 4:48 PM EDT) Path Procedure TPGAS ([id number]) 1 Edited by: [id number] [facility] ANATOMIC PATHOLOGY - BIOTECH THREE Specimen Labeled As: 1 CERVICAL/ENDOCERVI LESLEY CYTO MATERIAL - Edited by: [id number] GARVED [facility] ANATOMIC PATHOLOGY - BIOTECH THREE Diagnosis [...] be useful in other clinical applications. See [place] Journal of Obstetrics and Gynecology 197(4):346-355, 2007. This Pap test was examined in accordance with the [facility] Cytopathology Laboratory written policy. This Pap test was examined by the ThinPrep Imaging System, [employer], [place], [place]. Edited by: [id number] - 1012 [facility] ANATOMIC PATHOLOGY - BIOTECH THREE Gynecologic Clinical Data Specimen source:, THINPREP (CERVICAL AND ENDOCERVICAL) [facility] ANATOMIC PATHOLOGY - BIOTECH THREE Gynecologic Clinical Data First date of LMP:, 03/27/12 [facility] ANATOMIC PATHOLOGY - BIOTECH THREE Gynecologic Clinical Data LPS:, 04/17/10 [facility] ANATOMIC PATHOLOGY - BIOTECH THREE Pathology Codes Client Order Code:, TPHAS3 [facility] ANATOMIC PATHOLOGY - BIOTECH THREE Pathology Codes Bill Type:, CLIENT [facility] ANATOMIC PATHOLOGY - BIOTECH THREE Marker 1 Ladi BARRIOS [facility] ANATOMIC PATHOLOGY - BIOTECH THREE Marker 2 NILM,NILM [facility] ANATOMIC PATHOLOGY - BIOTECH THREE Cc Results To LEONEL RODRIGUEZ REF [id number] [facility] ANATOMIC PATHOLOGY - BIOTECH THREE Signature REPORT SIGNED: KIARRA EASLEY 04/15/12 [facility] ANATOMIC PATHOLOGY - BIOTECH THREE Sign Out Audit KIARRA EASLEY [id number] FINAL [facility] [id number] [facility] ANATOMIC PATHOLOGY - BIOTECH THREE Cytology / Unknown 2 4:48 PM EDT 04/08/2012 4:48 PM EDT us Jenny Leonel LAB HISTORICAL RESULTS Final Re sult [facility] ANATOMIC PATHOLOGY - BIOTECH THREE [address] [place] [address], * HM MAMMOGRAPHY (12/26/2011 3:41 PM EDT) HM Mammogram [facility] Anatomical Region Laterality Modality Other 12/26/2011 3:41 PM EDT us Historical Conversion Provider HEALTH MAINTENANC E Final Result from Last 3 Months or Most Recently Relevant to Health Maintenance Insurance [employer] Advance Directives * Presumed Full Code (Latest Code Status on File) Date Activated Date Inactivated Comments 04/22/2024 9:05 AM 04/27/2024 2:39 AM Care Teams Database Security Expert Relationship Specialty Start Date End Date Clarissa Matias PCP - General Internal Medicine 10/06/23
--- OUTSIDE RECORDS SUMMARY | 2025-05-10 15:43 | XMS_ITS | Patient Health Record ---
Author Organization [facility] Address [address] [place] [id number] Care Team Providers Care Header Operator Name Role Phone JLUIS JARVIS Unavailable [phone] Allergies Allergen (clinical drug ingredient) Drug/Non Drug Allergy documented on EMR Reaction Allergy Type Onset Date Status lamotrigine LaMICtal Unknown Drug Allergy Activ e Results Component Value Reference Range Notes Ultrasound : Pelvic Non/OB Reviewed date:01/16/2025 12:48:40 PM Interpretation:Abnormal Performing Lab: Notes/Report: Abnormal T pallidum Screening Tabor -[id number] Reviewed date:12/29/2024 10:21:01 AM Interpretation:Negative Performing Lab:[facility], [address], [address], [place], Phone - [phone], Director [facility] Notes/Report: Clinical Information:SRC:urine T pallidum Antibodies Non Reactive Non Reactive Ct, Ng, Trich vag by MISBAH-[id number] Reviewed date:12/30/2024 02:55:44 PM Interpretation:Negative Performing Lab:[facility], [address], [address], [place], Phone - [phone], Director [facility] Notes/Report: Clinical Information:SRC:urine Chlamydia by MISBAH Negative Negative Gonococcus by MISBAH Negative Negative Trich vag by MISBAH Negative Negative HCV Antibody RFX to Quant PC [id number] Reviewed date:12/29/2024 12:30:46 PM Interpretation:Negative Performing Lab:[facility], [address], [address], [place], Phone - [phone], [facility] Notes/Report: Clinical Information:SRC:urine Clinical Information:SRC:urine HCV Ab Non Reactive Non Reactive Interpretation: Not infected with HCV unless early or acute infection is suspected (which may be delayed in an immunocompromised individual), or other evidence exists to indicate HCV infection. HIV Ab/p24 Ag with Reflex-[id number] Reviewed date:12/29/2024 10:22:13 AM Interpretation:Negative Performing Lab:[facility] [place], [address], [address], [place], Phone - [phone], Director - [facility] Notes/Report: Clinical Information:SRC:urine HIV Ab/p24 Ag Screen Non Reactive Non Reactive HIV-1/HIV-2 antibodies and HIV-1 p24 antigen were NOT detected. There is no laboratory evidence of HIV infection. HIV Negative Hepatitis B Surf Ab Quant-[id number] Reviewed date:12/30/2024 02:55:36 PM Interpretation:Not Immune Performing Lab:[facility] [place], [address], [place], Phone - [phone], Director - [facility] Notes/Report: Clinical Information:SRC:urine Hepatitis B Surf Ab Quant <3.5 Immunity>10 mIU /mL Status of Immunity Anti-HBs Level Inconsistent with Immunity 0.0 - 10.0 Consistent with Immunity >10.0 HBsAg Screen-[id number] Reviewed date:12/29/2024 12:30:25 PM Interpretation:Negative Performing Lab:[facility] [place], [address], [place], Phone - [phone], Director - [facility] Notes/Report: Clinical Information:SRC:urine HBsAg Screen Negative Negative Reason For Referral Reason New onset irregular bleeding Diagnosis 1 Irregular menstruati on, unspecified (N92.6) Referral Organization [facility] Referring Provider First Name JLUIS Referring Provider Last Name STACEYI Referring Provider Speciality Nurse Prac titioner Referred Provider Specialty Quality Control Lead General Notes 49 year old AFAB clt [...] Date Status SEROquel Active Baby Aspirin Active [place] Active Depakote Active Abilify Active Concerta Active Tranexamic Acid 650 MG as directed Orall y twice a day; Duration: 5 days 01/16/2025 Active Nexplanon Active Social [...] 12/28/2024 Encounters Encounter Location Date Provider Diagnosis [facility] [address] [place] [address] [id number] 12/28/2024 JLUIS JARVIS Encounter for surveillance of implantable subdermal contraceptive Z30.46 ; Encounter for screening for infections with a predominantly sexual mode of transmission Z11.3 ; Encounter for screening for other viral diseases Z11.59 and HIV Screening Z11.4 [facility] [address] [place] [address] [id number] 12/28/2024 JLUIS GABAI [facility] [address] [place] [address] [id number] 01/16/2025 JLUIS JARVIS Assessments Encounter Date Diagnosis [...] Insured Coverage Start Date Coverage End Date [place] ATT CLAIMS [address] [place] [id number] Shanique Norton Self - patient is the insured Medical (General) History Medical History History ICD Code bipolar ADHD anxiety Hep B, not immune Subserosal fibroid Hospitalization History Reason Date(Month/Year) 08/28 mental health concerns
--- OUTSIDE RECORDS SUMMARY | 2025-05-10 15:43 | XMS_ITS | Clinical Summary ---
Author Organization [facility] Address [address] [place] [address] Care Team Providers Care Fish Hatchery Assistant Name Role Phone Clarissa Matias MD Primary Care Provider [phone] Allergies Active Allergy Reactions Criticality Noted Date [...] infection 11/08/2020 Overview (09/20/2024): +11/07/20 Bipolar disorder ([facility] V24, [facility] V28) 09/04 Seizure ([facility] V24, [facility] V28) 09/17/2015 Overview (09/20/2024): Last seizure 2014 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 Encounters Date Type Department Care Team Description 03/15/2025 Telephone Adult Medicine [address] [id number] Clarissa Matias MD Hospital Follow-up ([facility]) from Last 3 Months Immunizations Name [...] History Surgery Date Site/Laterality Comments CHOLECYSTECTOMY PROCEDURE: [place] CHOLECYSTECTOMY OTHER SURGICAL HISTORY PROCEDURE: HISTORY OTHER; COMMENT: fistulotoma colorectal Medical History Medical History Date Comments Bipolar disorder ([facility] V2 4, [facility] V28) DX:Bipolar disorder (HCC) Marijuana abuse DX:Marijuana abu se Seizure (CMS/HCC V24, CMS/[facility] V28) 09/17/2015 DX:Seizure ([facility]) COVID-19 virus infection 11/08/2020 DX:COVI D-19 virus [...] of Health Screening 04/15/2021 Cervical Cancer Screening: Pap Smear 04/04/2022 04/04/2019, 04/04/2019, 04/04/2019 COVID-19 Vaccine ( season) 2024 09/02/2023, [...] SCREENING Routine 06/20/2022 HIV SCREENING Routine 06/20/2022 PAP SMEAR Routine 04/04/2019 from Last 3 Months or Most Recently Relevant to Health Maintenance Results * Depression Screening (01/18/2024) Depression Screening abstracted Historical Provider MD HEALTH MAINTENANCE Final Result * DIAGNOSTIC MAMMOGRAPHY [...] mammography. BI-RADS Category 1, negative. Ina Walden CN IMG BI PROCEDURES Final Result * Lipid panel (12/30/2022) Pathologist [facility] LDL/HDL Ratio 3 0 - 4 Triglycerides 117 0 - 150 mg/dL Cholesterol 168 0 - 200 mg/dL HDL 53 >=40 mg/dL LDL Cholesterol 92 0 - 100 mg/dL Blood Venous blood specimen / Unknown Result [facility] Historical Provider LAB BLOOD ORDERABLES Fe l Result * HIV Screening (06/20/2022) Pathologist [facility] HIV Screening abstracted Historical Provider HEALTH MAINTENANCE Final Result * Hepatitis C Screening (06/20/2022) Hepatitis C Screening abstracted Historical Provider HEALTH MAINTENANCE Final Result * Pap smear (04/04/2019) 04/04/2019 Narrative HISTORICAL TESTING LAB RESULTING AGENCY - 04/08/2019 4:05 PM EDT [id number] THINPREP PAP, IMAGED: NEGATIVE FOR SQUAMOUS INTRAEPITHELIAL LESION AND MALIGNANCY . ELIZABET DARLING(ASCP) (CASE ELECTRONICALLY SIGNED 04 08 2019) RESULT OF APTIMA HIGH RISK HPV ASSAY: HIGH RISK HPV: NEGATIVE (SEROTYPES 16,18,31,33,35,39,45,51,52,56,58,59,66,68) COMPLETED ON 2019-04-08 ADEQUACY: SATISFACTORY ENDOCERVICAL/TRANSFORMATION ZONE COMPONENT PRESENT. SOURCE: THINPREP PAP HPV ANY DX: REFLEX 16 AND 18, CERVICAL, IMAGED CLINICAL INFORMATION: HPV ANY DIAGNOSIS. LMP 03/2019, PAP HX NEG [Z12.4, Z01.419] Roya Riggs [facility] LAB CYTOLOGY ORDERA BLES Final Result HISTORICAL TESTING LAB RESULTING AGENCY from Last 3 Months or Most Recently Relevant to Health Maintenance Insurance MEDICAID - [place] Care Teams Fish Hatchery Assistant Relationship Specialty Start Date End Date Clarissa Matias MD [address] [place] [address] PCP - General Internal Medicine 11/30/20
--- OUTSIDE RECORDS SUMMARY | 2025-05-10 15:43 | XMS_ITS | Clinical Summary ---
Author Organization [facility] Address [address] [address] Phone Care Team Providers Care Datacap Developer Name Role Phone Unavailable Primary Care Provider Unavailabl e Encounters Date Type Department Care Team Description 03/22/2025 Telephone [place] [facility] [address] [place] [address] Lyn Augustine LMHC from Last 3 Months Social History Tobacco Use Types Packs/Day Years Used Date Smoking Tobacco: Never Assessed Comments Unknown Sex and Gender Information Value Date Recorded Sex Assigned at Not on file Legal Sex Female 10:16 AM EDT Gender Identity Not on file Sexual Orientation Not on file Plan of Treatment Health Maintenance Due Date Last Done Comments Diabetes Screening 1977 HIV Lifetime Screening 1977 Hepatitis B Lifetime Screening 1977 Hepatitis C Antibody Lifetime Screening 1977 LIPID PANEL 1977 THRIVE SCREENING 1977 Oral Health Screen 03/24/1978 HEIP Disability Screen 1982 BEHAVIORAL HEALTH SCREEN 1989 Psych Substance Use Screen 1989 Relationship Safety Screening 1992 DTAP/TDAP VACCINE (1 - Tdap) 1996 Cervical Cancer Screening 1998 Colposcopy 1998 PAP SMEAR 1998 Pap + HPV 1998 MAMMOGRAM 2017 Colonoscopy FOBT- Positive 2022 Colonoscopy 2022 Colorectal Cancer Screening 2022 FOBT 2022 Sigmoidoscopy 2022 COVID-19 Vaccine ( season) 2024 09/02/2023, 08/16/2021, 01/14/2021, Additional history exists INFLUENZA VACCINE (#1) 2025 , 12/30/2022, 11/11/2021, Additional history exists Zoster Vaccine (1 of 2) 2027 HPV VACCINES Aged Out No longer eligi ble based on patient's age to complete this topic IPV VACCINES Aged Out No longer eligi ble based on patient's age to complete this topic MENINGOCOCCAL B Aged Out No longer el igible based on patient's age to complete this topic Pneumonia Vaccine 0-49 Years Aged Out No longer eligible based on patient's age to complete this topic ROTAVIRUS VACCINES Aged Out No longer eligible based on patient's age to complete this topic
--- OUTSIDE RECORDS SUMMARY | 2025-05-10 15:43 | XMS_ITS | Clinical Summary ---
Author Organization [facility] Address [address] [place] [address] Phone Care Team Providers Care Jv Baseball Coach Name Role Phone Symone Bailon MD Primary Care Provider Allergies Active Allergy Reactions Criticality Noted Date [...] topic Medical Devices Not on file Insurance [facility] NON NSPG PCP YULY GABRIEL CONNECTORCARE [facility] NON [facility]SPG PCP SILVER CLARITY CONNECTORCARE [facility] NON NSPG PCP SILVER CLARITY CONNECTORCARE [facility] NON NSPG PCP SILVER CLARITY CONNECTORCARE WELLSENSE NON NSPG PCP SILVER CLARITY CONNECTORCARE WELLSENSE NON NSPG PCP SILVER CLARITY CONNECTORCARE WELLSENSE NON NSPG PCP SILVER CLARITY CONNECTORCARE [facility] NON NSPG PCP SILVER CLARITY CONNECTORCARE [facility] NON NSPG PCP SILVER CLARITY CONNECTORCARE [place] Care Teams Jv Baseball Coach Relationship Specialty Start Date End Date Symone Bailon MD PCP - General Internal Medicine 08/02/20 Additional Source Comments The information contained in this document represents components of the legal health record. It is not the complete legal health record.[facility]
--- OUTSIDE RECORDS SUMMARY | 2025-05-10 15:43 | XMS_ITS | Clinical Summary ---
Author Organization [email or web address] Address [address] [facility] [place] [address] Care Team Providers Care Assessment Director Name Role Phone No, Pcp DRYWALL STRIPPER HELPER Primary Care Provider Unavailabl e Allergies Active [...] Adults 18 yrs or above (or HM Modifier)([facility]) 1995 Hepatitis C Virus Infection in Adolescents and Adults: Screening (or Modifier) ([facility]) 1995 SDOH Screening Reminder: Gricelda massey for all adults ([facility]) 1995 Tobacco Smoking Cessation: i n Adults excluding Women: Behavioral and Pharmacotherapy Interventions ([facility]) 1995 DTaP/Tdap/Td Vaccines ([facility]) (1 - Tdap) 1996 Cervical Cancer Screenin 1-65 yrs of age (or Modifier) 1998 Cervical Cancer Screening: P ap every 3 yrs pts age 21-65 1998 Cervical Cancer: Pap Screeni ng with Modifier timing ([facility]) 1998 Cervical Cancer: hrHPV alone or with cotesting Pap for Pts 30-65yrs screening every 5yrs ([facility]) 1998 Colorectal Cancer Screening 45 -75 Yrs (or HM Modifier) 2022 Colorectal Cancer: FLEXIBLE SIGMOIDOSCOPY Screening every 5 yrs 2022 Colorectal Cancer: Fecal Immunochemical Test (FIT) Annually [facility] 2022 Colorectal Cancer: High-sens itivity gFOBT Screening Annually [facility] 2022 Colorectal Cancer: Stool Col oguard Screening every 3 yrs 2022 Colorectal Cancer:CT Colonog inga Screening every 5 yrs 2022 COVID-19 Vaccine Screening: Initial Series and Booster Status ([facility]) (2023- season) 2024 Flu Vaccination: Yearly for ages 18mos through 64 years (or Modifier)([facility]) 05/05/2025 Zoster/Shingles Vaccine Seri es Screening: Adults aged 18+ yrs (or HM Modifiers)([facility]) (1 of 2) 2027 Pneumococcal Vaccination Scr eening: Pts 0-19 & 19-49 yrs of age ([facility]) Aged Out No longer eligible based on patient's age to complete this topic Medical Devices Not on file Care Teams Assessment Director Relationship Specialty Start Date End Date No, Pcp, DRYWALL STRIPPER HELPER N/A Do not use PCP - General 03/05/16
== END 2025-05-10 15:14 | disposition home or self-care (01) ==
LOC: HO.MAMMO 15:13
PROVIDERS: PCP Internal Medicine; Visit Provider Internal Medicine
DX: Z12.31 Encounter for screening mammogram for malignant neoplasm of breast (principal)
CPT/HCPCS: 77063; 77067

== ENCOUNTER → 2025-05-10 15:45 | Outpatient (BNV) | payer OTHER, SELFPAY | PROVIDERS: PCP Internal Medicine; Visit Provider Internal Medicine | DX: Z12.31 Encounter for screening mammogram for malignant neoplasm of breast (principal) | CPT/HCPCS: 77063; 77067 ==

== ENCOUNTER 2025-07-11 13:44 | Outpatient (AMB) | payer OTHER, SELFPAY ==
[2025-07-11 14:03] VITALS: BP 128/86; PULSE 84; RESP 14; TEMP 37.1; O2SAT 98; BMI 34.3
--- NOTE | 2025-07-11 14:03 | A.OFFPC_ITS ---
Vital Signs 07/11/25 14:03 Height 5 ft 8.7 in Weight 230 lb 4 oz BMI 34.3 BP 128/86 Blood Pressure Location Rt brachial Position Sitting Respiration 14 Pulse 84 Pulse Source Pulse Oximeter Temp 98.7 F Temp Source Oral Pulse Oximetry (%) 98 Oxygen Delivery Method Room Air Intake Visit Reasons: Acute pain in my right heel Intake Note: Right heel pain. Injured left foot 12 years ago and the right become more dominant, that is when pain started with plantas faciatis ect. Lead Quality Control Technician Required: No Allergies lamotrigine (From LAMICTAL) Allergy (Severe, Verified 07/11/25 14:07) RASH oxycodone (From PERCOCET) Allergy (Mild, Verified 07/11/25 14:07) NAUSEA Medication List - Last Reconciled 07/11/25 by Symone Elam MD amlodipine 5 mg See Protocol PO DAILY aripiprazole (Abilify) 30 mg PO DAILY aspirin (Adult Aspirin Regimen) 81 mg PO DAILY betamethasone, augmented 0.05 % (Diprolene (augmented)) 1 appl topical BID PRN cholecalciferol (vitamin D3) 20 mcg PO DAILY divalproex ER 250 mg PO .am divalproex ER 1,500 mg PO DAILY lithium carbonate 1,200 mg (2 x 600 mg) PO BEDTIME methylphenidate HCl ER (Concerta) 72 mg PO QAM methylphenidate HCl ER (Concerta) 54 mg PO DAILY quetiapine 50 mg PO QID PRN quetiapine 200 mg PO BEDTIME risperidone (Risperdal) 2.5 mg PO DAILY Tobacco use date assessed: 07/11/25 Dental Screening Dental Screen Date: 04/24/25 HPI HPI Comments History of Present Illness Details The patient is a 49 year old female with a past medical history of ADHD, bipolar disorder, seizuer disorder, Moyamoya, substance abuse presenting for heel pain Reports history of right heel pain, plantar spurs. Right heel pain has recurred for the past week. She is using the inserts that podiatry gave her remotely. She is having pain worse on her first steps. No injury CV: on amlodipine 5mg daily. BH: on lithium, seroquel, depakote, adderall, cariprazine. Follows with [facility]var[facility]. Most recently hospitalization March Needs obstetrics gynecology physician-has nexplanon Colon cancer screening & mammo due ROS see HPI PHYSICAL EXAM: GENERAL: Alert and oriented x 3. NAD EYES: EOMI. Anicteric. HENT: Moist mucous membranes. No scleral icterus. No cervical lymphadenopathy. LUNGS: Clear to auscultation bilaterally. CARDIOVASCULAR: Regular rate and rhythm. MSK: Right heel tender to palpation over heel pad and plantar fascia ABDOMEN: Soft, non-tender +bs EXTREMITIES: No edema. Non-tender. SKIN: No rashes or lesions. Warm. NEUROLOGIC: No focal neurological deficits. CN II-XII grossly intact PSYCHIATRIC: Cooperative. Appropriate mood and affect [facility] Medical History Polysubstance use disorder Bipolar disorder Surgical History H/O anal fistulotomy Hx of cholecystectomy Family History Mother HTN (hypertension) Diabetes Breast cancer Father HTN (hypertension) Bladder cancer Social History Household Members: Family Household Members Other:: Mother and father Housing: House Do you presently have visiting nurse or other home services: No Patient Tobacco Use Status: Former Tobacco user (quit in 2019) Tobacco use type: Cigarette Cigarette Packs Per Day: 1 Cigarettes Per Day: 20.0 Years Smoked: 9 e-Cigarette/Vaping Use: Never Used Second Hand Smoke Exposure: No Substance Use Type: Marijuana service: No Current occupational status: unemployed and disabled Sexual orientation: Straight/Heterosexual Cognitive needs: No Hearing needs: No Vision needs: Yes (glasses) Questionnaire Thrive Questionnaire Date Thrive assessed: 04/17/25 I am a: Patient What is your living situation today?: I have a steady place to live Within the past 12 months, did the food you bought not last and you didn't have the money to get more?: Never true Within the past 12 months, did you worry whether your food would run out before you got money to buy more?: Sometimes True Do you have trouble paying for medicines?: No Do you have trouble getting transportation to medical appointments?: No Do you have trouble paying your heating and electricity bill?: No Do you have trouble taking care of your child, family member or friend?: No Do you have trouble with day-to-day activities such as bathing, preparing meals, shopping, managing finances, etc.?: I choose not to answer this question Are you currently unemployed and looking for a job?: No Are you interested in more education?: No Please select the resources that you would like help with: None Currently or been in a relationship where the following occur: No concerns reported THRIVE Score: 1 AUDIT C Alcohol Use Questionnaire (AUDIT-C) 1. How often do you have a drink containing alcohol?: Never 3. How often do you have six or more drinks on one occasion?: Never Total Score: 0 CAIO-7 AMB Questionnaire CAIO-7 Date CAIO - 7 assessed: 04/24/25 Source: Developed by Drs. Salty Tate, Mili Todd, Albert Salmon and colleagues, with an educational madelyn from [employer]. Physical exam (Primary Care) Tobacco/Smoking Status: Tobacco use Status Tobacco use date assessed 04/24/25 04/24/25 10:52 Patient Tobacco Use Status Former Tobacco user 04/24/25 10:52 Tobacco use type Cigarette 04/24/25 10:52 e-Cigarette/Vaping Use Never Used 04/24/25 10:52 Thrive Assessment: Date of Thrive Assessment Date Thrive assessed 04/17/25 04/24/25 10:52 Currently or been in a relationship where the following occur: No concerns reported Coding Level of Care Code Est Pt Level 4 (46770) Diagnoses Plantar fasciitis of right foot M72.2 Assessment & Plan Assessment & Plan (1) Plantar fasciitis of right foot: Code(s): M72.2 - Plantar fascial fibromatosis Category: Medical Plan Plantar fasciitis Reviewed exercises, supportive footwear, inserts. Prednisone x 5 days. EMLA prn. Tramadol for severe pain Orders: Referrals Podiatry Referral Symone Elam MD M72.2 - Plantar fascial fibromatosis Medications: New tramadol 50 mg PO Q8H 20 tabs 0RF Symone Elam MD prednisone 40 mg (2 x 20 mg) PO DAILY 10 tabs 0RF Symone Elam MD lidocaine-prilocaine 2.5-2.5 % 1 appl topical BID PRN 30 grams 0RF foot pain Symone Elam MD Changed From quetiapine 50 mg PO QID PRN 120 tabs 0RF severe anxiety To quetiapine 50 mg PO QID PRN Yi Flynn NP From divalproex ER 250 mg PO BID 60 tabs 0RF To divalproex ER 250 mg PO .am Yi Flynn NP From divalproex ER 500 mg PO BID 60 tabs 0RF To divalproex ER one in the morning, two at night 1,500 mg PO DAILY Yi Flynn NP
--- OUTSIDE RECORDS SUMMARY | 2025-07-11 16:55 | XMS_ITS | Clinical Summary ---
Author Organization [facility] Address [address] [place] [address] Phone Care Team Providers Care Putty Mixer And Applier Name Role Phone Symone Bailon MD Primary [...] FOBT 2022 SIGMOIDOSCOPY 2022 VIRTUAL COLONOSCOPY 2022 INFLUENZA VACCINE (#1) 2025 7, 07/04/2015 COVID-19 VACCINE (3 - 2024-2 6 season) 2025 01/14/2021, 12/16/2020 Adult Td,Tdap Booster 08/02/2030 08/02/2020 [...] topic Medical Devices Not on file Insurance [employer] NON NSPG PCP YULY GABRIEL CONNE[employer]CARE [employer] NON NSPG PCP SILVER CLARITY CONNE[employer]CARE [employer] NON NSPG PCP SILVER CLARITY CONNECTORCARE [employer] NON NSPG PCP SILVER CLARITY CONNECTORCARE [employer] NON NSPG PCP SILVER CLARITY CONNECTORCARE [employer] NON NSPG PCP SILVER CLARITY CONNECTORCARE [place] NON NSPG PCP SILVER CLARITY CONNECTORCARE [facility] PCP [facility] CONNE[facility]CARE [facility] PCP [facility]ARE [facility] [address] [place] [phone] Care Teams Putty Mixer And Applier Relationship Specialty Start Date End Date Symone Bailon MD PCP - General Internal Medicine 08/02/20 Additional Source Comments The information contained in this document represents components of the legal health record. It is not the complete legal health record.[facility]
--- OUTSIDE RECORDS SUMMARY | 2025-07-11 16:55 | XMS_ITS | Clinical Summary ---
Author Organization Patient Business Ser [facility] Address [address] [place] [address] Care Team Providers Care Computer Tester Name Role Phone Clarissa Matias MD Primary Care Provider [phone] Allergies Active Allergy Reactions Criticality Noted Date [...] infection 11/08/2020 Overview (09/20/2024): +11/07/20 Bipolar disorder ([facility] V24, [facility] V28) 09/04 Seizure ([facility] V24, [facility] V28) 09/17/2015 Overview (09/20/2024): Last seizure 2014 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 Immunizations Immunization Administration Dates Next Due COVID-19 (Moderna/Spikevax) 14yo [...] History Surgery Date Site/Laterality Comments CHOLECYSTECTOMY PROCEDURE: OR CHOLECYSTECTOMY OTHER SURGICAL HISTORY PROCEDURE: HISTORY OTHER; COMMENT: fistulotoma colorectal Medical History Medical History Date Comments Bipolar disorder ([facility] V2 4, [facility] V28) DX:Bipolar disorder ([facility]) Marijuana abuse DX:Marijuana abu se Seizure ([facility] V24, [facility] V28) 09/17/2015 DX:Seizure ([facility]) COVID-19 virus infection 11/08/2020 DX:COVI D-19 virus [...] Maintenance Due Date Last Done Comments Colorectal Cancer Screening: Colonoscopy 1977 Hepatitis B Vaccines (1 of 3 - 19+ 3-dose series) 1996 Social Influencers of Health Screening 04/15/2021 Cervical Cancer Screening: Pap Smear 04/04/2022 04/04/2019, 04/04/2019, 04/04/2019 Depression Screening 10/05/2024 01/18/2024 Breast Cancer Screening 01/22/2025 01/23/20 23, 12/30/2022, 08/11/2021, Additional history exists COVID-19 Vaccine ( season) 2025 09/02/2023, 06/20/2022, 08/16/2021, Additional history exists Influenza Vaccine (#1) 2025 3, 12/30/2022, 11/11/2021, Additional history exists Cholesterol Screening (Lipid Panel) 12/31/2027 12/30/2022 DTaP,Tdap,and Td Vaccines (5 - Td or Tdap) 05/24/2034 05/24/2024, 08/02/2020, 07/24/2020, Additional history exists RSV Immunization Adult Patients (1 - 1-dose 75+ series) 2052 Varicella Vaccines Aged Out 06/05/2012, 05/03/2012 No [...] mammography. BI-RADS Category 1, negative. Ina Walden [facility] IMG BI PROCEDURES Final Result * Lipid panel (12/30/2022) [facility] LDL/HDL Ratio 3 0 - 4 Triglycerides 117 0 - 150 mg/dL Cholesterol 168 0 - 200 mg/dL HDL 53 >=40 mg/dL LDL Cholesterol 92 0 - 100 mg/dL Blood Venous blood specimen / Unknown Historical Provider LAB BLOOD ORDERABLES Fe l Result * HIV Screening (06/20/2022) [facility] HIV Screening abstracted [facility] Provider HEALTH MAINTENANCE Final Result * Hepatitis C Screening (06/20/2022) [facility] Hepatitis C Screening abstracted [facility] Provider HEALTH MAINTENANCE Final Result * Pap smear (04/04/2019) 04/04/2019 Narrative HISTORICAL TESTING LAB RESULTING AGENCY - 04/08/2019 4:05 PM EDT [id number] THINPREP PAP, IMAGED: NEGATIVE FOR SQUAMOUS INTRAEPITHELIAL [...] PAP HX NEG [Z12.4, Z01.419] Roya Riggs [facility] LAB CYTOLOGY ORDERA VIVIANS Final Result HISTORICAL TESTING LAB RESULTING AGENCY from Last 3 Months or Most Recently Relevant to Health Maintenance Insurance MEDICAID - [place] Care Teams Computer Tester Relationship Specialty Start Date End Date Clarissa Matias MD [address] [place] [address] PCP - General Internal Medicine 11/30/20
--- OUTSIDE RECORDS SUMMARY | 2025-07-11 16:55 | XMS_ITS | Clinical Summary ---
Author Organization [facility] Address [address] [place] [address] Care Team Providers Care Budget Officer Name Role Phone Clarissa Matias Primary Care Provider [phone] Allergies Active Allergy Reactions Criticality Noted Date [...] Solution, Intradermal 04/06/2012 Varicella Virus Vaccine 06/05/2012,05/03/2012 Family History Medical History Relation Name Comments Mshysui-Qonhm-Rbcnz disease Father Other Father Paternal histor y of Hypertension Other Mother Maternal histor y of Diabetes Mellitus Relation Name Status Comments Father Alive Mother Alive Social History Tobacco Use Types Packs/Day Years Used Date Smoking Tobacco: Former Cigarettes 1 28 1 - 2021 Smokeless Tobacco: Never Tobacco Cessation:Counseling [...] Description 08/04/2025 1:30 PM EDT Office Visit [facility] [address] [place] [id number] Hunter Newton MD [address] [place] [address] Health Maintenance Due Date Last Done Comments Cologuard 1977 Colon Cancer Screening 1977 Colonoscopy 1977 FOBT / Fit Test 1977 HIV Screening 1977 Hepatitis C Screening 1977 Sigmoidoscopy 1977 Hepatitis B Vaccines (1 of 3 - 19+ 3-dose series) 1996 HPV and Pap Smear 04/06/2017 04/06/2012, , 11/27/2008 Mammogram 2017 12/26/2011 Cervical Cancer Screening 04/04/2022 Pap Smear 04/04/2022 04/04/2019, 12/2011, 04/06/2012, Additional history exists Alcohol/Substance Use Screening 10/05/2024 Depression Screening and Follow-Up 10/05/2024 Social Drivers of Health Annual Screening 10/05/2024 COVID-19 Vaccine ( season) 2025 09/02/2023, 06/20/2022, 08/16/2021, Additional history exists Influenza Vaccine (#1) 2025 , 12/30/2022, 11/11/2021, Additional history exists DTaP,Tdap,and Td Vaccines (5 - Td or Tdap) 05/24/2034 05/24/2024, 08/02/2020, 07/24/2020, Additional history exists RSV Vaccine (60+ years old and patients) (1 - 1-dose 75+ series) 2052 Pneumococcal Vaccine: Pediatric (0-5 Years) and At-Risk Patients (6-50 Years) Aged Out No longer eligible based on patient's age to complete this topic Medical Devices Implanted Type Area Condenser Tube Tender Device Identifier Shelf Expiration Date Model / Serial / Lot Device Closure Vascular Plug 6fr Angio-Seal Vip - [id number] Implanted:Qty: 1 on 04/22/2024 at [facility] Implant [employer] [id number] / / Procedures * Due to [place] [employer] law, this organization might not be sharing negative HIV tests. Procedure Name Priority Date/Time Associated Diagnosis Comments PAP W/REFLEX HPV, CONVERSION Routine 04/06/2012 4:48 PM EDT HM MAMMOGRAPHY Routine 12/26/2011 3:41 PM EDT from Last 3 Months or Most Recently Relevant to Health Maintenance Results * Due to [place] [employer] law, this organization might not be sharing negative HIV tests. * Pap w/Reflex HPV (04/06/2012 4:48 PM EDT) Path Procedure TPGAS ([id number]) 1 Edited by: [id number] ANIKA [facility] Specimen Labeled As: 1 CERVICAL/ENDOCERVI LESLEY CYTO MATERIAL - Edited by: [id number] FRANCIA [facility] Diagnosis [...] be useful in other clinical applications. See [place] Journal of Obstetrics and Gynecology 197(4):346-355, 2007. This Pap test was examined in accordance with the [facility] Cytopathology Laboratory written policy. This Pap test was examined by the ThinPrep Imaging System, [employer], [place], [place]. Edited by: [id number] [facility] ANATOMIC PATHOLOGY - [facility] THREE Gynecologic Clinical Data Specimen source:, THINPREP (CERVICAL AND ENDOCERVICAL) [facility] Gynecologic Clinical Data First date of LMP:, 03/27/12 [facility] Gynecologic Clinical Data LPS:, 04/17/10 [facility] Pathology Codes Client Order Code:, TPHAS3 [facility] Pathology Codes Bill Type:, CLIENT [facility] Marker 1 Ladi [facility] Marker 2 NILM,NILM [facility] Cc Results To LEONEL RODRIGUEZ REF [id number] [facility] Signature REPORT SIGNED: KIARRA EASLEY 04/15/12 [facility] Sign Out Audit KIARRA EASLEY [id number] [facility] [id number] [facility] Cytology / Unknown 2 4:48 PM EDT 04/08/2012 4:48 PM EDT Jenny De La Torreover LAB HISTORICAL RESULTS Final Re sult [facility] [address] [place] [address], [place] * MAMMOGRAPHY (12/26/2011 3:41 PM EDT) Mammogram [facility] Anatomical Region Laterality Modality Other 12/26/2011 3:41 PM EDT us Historical Conversion Provider HEALTH MAINTENANC E Final Result from Last 3 Months or Most Recently Relevant to Health Maintenance Insurance [facility] MEDICAID Advance Directives * Presumed Full Code (Latest Code Status on File) Date Activated Date Inactivated Comments 04/22/2024 9:05 AM 04/27/2024 2:39 AM Care Teams Budget Officer Relationship Specialty Start Date End Date Clarissa Matias PCP - General Internal Medicine 10/06/23
--- OUTSIDE RECORDS SUMMARY | 2025-07-11 16:56 | XMS_ITS | Patient Health Record ---
Author Organization [facility] Address [address] [place] [id number] Care Team Providers Care Hand Striper Name Role Phone JLUIS JARVIS Unavailable [phone] Allergies Allergen (clinical drug ingredient) Drug/Non Drug Allergy documented on EMR Reaction Allergy Type Onset Date Status lamotrigine LaMICtal Unknown Drug Allergy Activ e Results Component Value Reference Range Flag Notes HBsAg Screen-[id number] Reviewed date:12/29/2024 12:30:25 PM Interpretation:Negative Performing Lab:[facility], [address], [address], [place], Phone - [phone], Director - [facility] Notes/Report: Clinical Information:SRC:urine HBsAg Screen Negative Negative Hepatitis B Surf Ab Quant-[id number] Reviewed date:12/30/2024 02:55:36 PM Interpretation:Not Immune Performing Lab:[facility], [address], [address], [place], Phone - [phone], Director - [facility] Notes/Report: Clinical Information:SRC:urine Hepatitis B Surf Ab Quant <3.5 Immunity>10 mIU/mL L Status of Immunity Anti-HBs Level Inconsistent with Immunity 0.0 - 10.0 Consistent with Immunity >10.0 T pallidum Screening [place] -[id number] Reviewed date:12/29/2024 10:21:01 AM Interpretation:Negative Performing Lab:[facility] [place], [address], [address], [place], Phone - [phone], Director - [facility] Notes/Report: Clinical Information:SRC:urine T pallidum Antibodies Non Reactive Non Reactive HIV Ab/p24 Ag with Reflex-[id number] Reviewed date:12/29/2024 10:22:13 AM Interpretation:Negative Performing Lab:[facility] [place], [address], [address], [place], Phone - [phone], Director - [facility] Notes/Report: Clinical Information:SRC:urine HIV Ab/p24 Ag Screen Non Reactive Non Reactive HIV-1/HIV-2 antibodies and HIV-1 p24 antigen were NOT detected. There is no laboratory evidence of HIV infection. HIV Negative HCV Antibody RFX to [facility] R-[id number] Reviewed date:12/29/2024 12:30:46 PM Interpretation:Negative Performing Lab:[facility] [place], [address], [address], [place], Phone - [phone], Director - [facility] Notes/Report: Clinical Information:SRC:urine Clinical Information:SRC:urine HCV Ab Non Reactive Non Reactive Interpretation: Not infected with HCV unless early or acute infection is suspected (which may be delayed in an immunocompromised individual), or other evidence exists to indicate HCV infection. Ct, Ng, Trich vag by [id number] Reviewed date:12/30/2024 02:55:44 PM Interpretation:Negative Performing Lab:[facility] [place], [address], [address], [place], Phone - [phone], Director - [facility] Notes/Report: Clinical Information:SRC:urine Chlamydia by MISBAH Negative Negative Gonococcus by MISBAH Negative Negative Trich vag by MISBAH Negative Negative Ultrasound : Pelvic Non/OB Reviewed date:01/16/2025 12:48:40 PM Interpretation:Abnormal Performing Lab: Notes/Report: Abnormal Reason For Referral Reason New onset irregular bleeding Diagnosis 1 Irregular menstruati on, unspecified (N92.6) Referral Organization [facility] ry Referring Provider First Name JLUIS Referring Provider Last Name STACEYI Referring Provider Speciality Nurse Prac titioner Referred Provider Specialty Appraisal Technician General Notes 49 year old AFAB clt with new onset irregular and heavy bleeding. Nexplanon inserted with outside provider 2022, had amenorrhea until recently. Would advise further eval with EMB. Pelvic ultrasound ordered, appt pending. Thank you Clinical Notes Judy Austin 2024 03:35:28 PM > referral printed and to be faxed Referral Priority Routine Medications Medication SIG (Take, Route, Frequency, Duration) Notes Start Date End Date Status SEROquel Active Baby Aspirin Active [place] Active Depakote Active Abilify Active Concerta Active Tranexamic Acid 650 MG Tablet as directed Orally twice a day; Duration: 5 days 01/16/2025 Active Nexplanon Active Social History Sex Assigned At : Social History Observation Description Sex Assigned At Female Social History HIV Risk Assessment Social Info Question Answer Notes Additional Questions Is an HIV Risk Assessment being c onducted? Yes Have you been tested for HIV before? Yes Did you have a blood transfusion prior to 1985? No Do you have an unlicensed body piercing or tattoo? Yes Reproductive Life Plan: Social Info Question Answer Notes Reproductive Life Plan: Do you want to h ave children? No, I don't want to have children How sure are you that you will be able to use your control method without any problems? Sure People's plans change. Is it possible you or your partner could ever decide to become ? No Human Trafficking: Social Info Question Answer Notes Human Trafficking Experienced: No PrEP for HIV: Social Info Question Answer Notes PrEP for HIV Is the client intere sted in beginning/continuing PrEP for HIV? No Sexual History: Social Info Question Answer Notes Sexual History: Sexual History Reviewed: Partner s, Practices, Protection/Past STIs, Prevention of Currently sexually active? No When was the last time you were sexually active? 09/01/2024 When you are sexually active, who are your partners? Men, Women Your sexual activities include: oral intercourse, vaginal intercourse Have you had vaginal intercourse with an IDU in the last 12 months? No Have you had vaginal intercourse with a person who is HIV + in the last 12 months? No Have you had vaginal intercourse with a person of unknown HIV status in the last 12 months? No Have you had vaginal intercourse with an MSM in the last 12 months? (FEMALES ONLY) No Reviewed types of EC? No Do you use condoms? Yes Condoms are used: always Date of last unprotected intercourse: 09/01/2024 Number of partners in past 3 months: 1 Number of partners in past year: 6 What is the client's primary method to prevent at the end of their visit? Hormone Implant (Nexplanon) Does your partner(s) currently have any STIs? No Completed Gardasil vaccination series? Yes Counseling Provided: Social Info Question Answer Notes Counseling Provided Please indicate the length of time, in minutes, that counseling was provided. 8 Counseling Was Provided By: jazmin Drugs/Alcohol: Social Info Question Answer Notes Drug/Alcohol Use Do you or have you used drugs? Yes, c urrently By what route are you taking drugs? Please check all that apply: Smoking Which drug(s) do you smoke? Marijuana, Crack/cocaine Do you or have you used alcohol? Yes, in the pas t Food Access: Social Info Question Answer Notes Food Access The Client's current access to food is Secure Food Access Relationships: Social Info Question Answer Notes Relationships Has the client exper ienced any of the following: Client has never experienced harmful relationships Housing Social Info Question Answer Notes Housing The client's current living situation is: stable housing Tobacco Use: Social Info Question Answer Notes Tobacco Use: Do you/have you used tobacco? Yes, in the past When did you quit? 4 yrs ago Tobacco Smoking Status Former smoker Problems Problem Type SNOMED Code ICD Code Onset Dates Problem Status W/U Status Risk Notes Problem Irregular menstruation (42302385) Irregular menstruation, unspecified (N92.6) Active confirmed Vital Signs Blood pressure diastolic 80 mm Hg 12/28/2024 Height 5ft 8in in 12/28/2024 Blood pressure systolic 120 mm Hg 12/28/2024 Weight 219.9 lbs 12/28/2024 BMI 33.43 kg/m2 12/28/2024 Encounters Encounter Location Date Provider Diagnosis [address] [phone] 12/28/2024 JLUIS GABAI Encounter for surveillance of implantable subdermal contraceptive Z30.46 ; Encounter for screening for infections with a predominantly sexual mode of transmission Z11.3 ; Encounter for screening for other viral diseases Z11.59 and HIV Screening Z11.[address] [place] [facility] [phone] 12/28/2024 JLUIS GABAI [place] [facility] [phone] 01/16/2025 JLUIS GABAI Assessments Encounter Date Diagnosis (ICD Code) Assessment [...] Insured Coverage Start Date Coverage End Date CT MEDICAID ATT CLAIMS [address] [place] [id number] Shanique Norton Self - patient is the insured Medical (General) History Medical History History ICD Code bipolar ADHD anxiety Hep B, not immune Subserosal fibroid Hospitalization History Reason Date(Month/Year) 08/28 mental health concerns
--- OUTSIDE RECORDS SUMMARY | 2025-07-11 16:56 | XMS_ITS | Clinical Summary ---
Author Organization [employer] [facility] [employer] Address [address] [place] [address] Care Team Providers Care Frameman Name Role Phone No, Pcp AUTOMATION MACHINE OPERATOR Primary Care Provider Unavailabl e Allergies Active [...] 2 % cream 3 12/07/2015 Active Immunizations Immunization Administration Dates Next Due PPD Test 03/05/2016 [...] Adults 18 yrs or above (or HM Modifier)([facility]) 1995 Hepatitis C Virus Infection in Adolescents and Adults: Screening (or Modifier) ([facility]) 1995 SDOH Screening Reminder: Gricelda massey for all adults ([facility]) 1995 Tobacco Smoking Cessation: i n Adults excluding Women: Behavioral and Pharmacotherapy Interventions ([facility]) 1995 DTaP/Tdap/Td Vaccines ([facility]) (1 - Tdap) 1996 Cervical Cancer Screenin 1-65 yrs of age (or Modifier) 1998 Cervical Cancer Screening: P ap every 3 yrs pts age 21-65 1998 Cervical Cancer: Pap Screeni ng with Modifier timing ([facility]) 1998 Cervical Cancer: hrHPV alone or with cotesting Pap for Pts 30-65yrs screening every 5yrs ([facility]) 1998 Colorectal Cancer Screening 45 -75 Yrs (or HM Modifier) 2022 Colorectal Cancer: FLEXIBLE SIGMOIDOSCOPY Screening every 5 yrs 2022 Colorectal Cancer: Fecal Immunochemical Test (FIT) Annually [facility] 2022 Colorectal Cancer: High-sens itivity gFOBT Screening Annually [facility] 2022 Colorectal Cancer: Stool Col oguard Screening every 3 yrs 2022 Colorectal Cancer:CT Colonog inga Screening every 5 yrs 2022 Flu Vaccination: Yearly for ages 18mos through 64 years (or Modifier)([facility]) 05/05/2025 COVID-19 Vaccine Screening: Initial Series and Booster Status ([facility]) ( - 2023- season) 2025 Zoster/Shingles Vaccine Seri es Screening: Adults aged 18+ yrs (or HM Modifiers)([facility]) (1 of 2) 2027 Pneumococcal Vaccination Scr eening: Pts 0-19 & 19-49 yrs of age ([facility]) Aged Out No longer eligible based on patient's age to complete this topic Medical Devices Not on file Care Teams Frameman Relationship Specialty Start Date End Date No, Pcp, AUTOMATION MACHINE OPERATOR N/A Do not use PCP - General 03/05/16
== END 2025-07-11 14:24 | disposition home or self-care (01) ==
LOC: HO.HMCFM 13:44
PROVIDERS: PCP Internal Medicine; Visit Provider Internal Medicine
DX: M72.2 Plantar fascial fibromatosis (principal)

== ENCOUNTER → 2025-07-11 13:44 | Outpatient (BNVA) | payer OTHER, SELFPAY | PROVIDERS: PCP Internal Medicine; Visit Provider Internal Medicine | DX: M72.2 Plantar fascial fibromatosis (principal); Z87.891 Personal history of nicotine dependence | CPT/HCPCS: 99212 ==

== ENCOUNTER 2025-08-02 10:18 | Outpatient (AMB) | payer OTHER, SELFPAY ==
--- NOTE | 2025-08-02 10:30 | MHC.OFFVIS ---
Vital Signs 08/02/25 10:31 Height 5 ft 8 in Weight 230 lb BMI 35.0 Intake Visit Reasons: right foot pain Intake Note: Shanique is a 49 year old female who presents to the office today as a new patient visit referred by her PCP Dr. Elam for right foot pain. Pt states back in she was diagnosed with plantar fasciitis and bone spurs and she has tried cortisone injections with her previous physical therapy technician and the pain had went away and recently returned for about 2 months. Patient has tried stretching exercises and bas found temporary relief for her symptoms. Allergies lamotrigine (From LAMICTAL) Allergy (Severe, Verified 08/02/25 10:31) RASH oxycodone (From PERCOCET) Allergy (Mild, Verified 08/02/25 10:31) NAUSEA HPI HPI right foot pain: Details: The patient is a 49-year-old female presenting with right foot plantar fasciitis. The condition began following a ligament tear in the left foot around , which led to increased weight-bearing on the opposite foot. She reports receiving multiple cortisone injections over ten years ago, which provided relief at the time. She recently had recurrence this year and has been attempting multiple treatment at home including range of motion and stretching exercises, kjkm-cgk-hlxajym orthotics, supportive shoe wear, and frozen water bottle therapy however she still has persistent pain. Currently, the patient experiences worsening pain in the morning or after periods of inactivity, which improves with movement. Social History: - Employment: Currently unemployed - Exercise: Engages in exercises such as using a frozen water bottle and elastic bands PFSH Medical History Polysubstance use disorder Bipolar disorder Surgical History H/O anal fistulotomy Hx of cholecystectomy Family History Mother HTN (hypertension) Diabetes Breast cancer Father HTN (hypertension) Bladder cancer Social History Household Members: Family Household Members Other:: Mother and father Housing: House Do you presently have visiting nurse or other home services: No Patient Tobacco Use Status: Former Tobacco user (quit in 2020) Tobacco use type: Cigarette Cigarette Packs Per Day: 1 Cigarettes Per Day: 20.0 Years Smoked: 9 e-Cigarette/Vaping Use: Never Used Second Hand Smoke Exposure: No Substance Use Type: Marijuana service: No Current occupational status: unemployed and disabled Sexual orientation: Straight/Heterosexual Cognitive needs: No Hearing needs: No Vision needs: Yes (glasses) Review of Systems Const All systems reviewed & are unremarkable except as noted in HPI and below Physical Exam Vital Signs: BMI result Body Mass Index 35.0 Extrem Other: *Bilateral Lower Extremity Focused Exam Vascular: DP/PT 2/4, CFT<3s to all digits, TG warm to cool, no pedal edema Derm: no clinical signs of infection. hyperkeratotic lesion right medial heel Neuro: Protective sensation grossly intact to bilateral lower extremities MSK: Moderate tenderness on palpation of the plantar medial calcaneal tubercle right foot, no pain to the medial arch or plantar fascial bands. Mild tenderness on insertion of the Achilles tendon. Office Procedures AMB Flexor Tendon/Plantar POD Tendon Injection Details of AMB Procedure: Procedure: Steroid injection Location: Right calcaneus Medication: 1.5cc 0.5% bupivicaine, 1cc dexamethasone, 0.5cc kenalog? Description: The right heel was prepped using alcohol. A steroid injection was administered using sterile technique. The site was dressed using a band-aid. Post-procedure Instructions: The patient was instructed to apply ice to the injection site. The patient was advised to call the office if there are signs or symptoms of worsening pain, infection, or steroid flare. Tendon Injection POD1: - Plantar Fascia Injection All charges added?: Procedure code (CPT) selection complete Office Meds triamcinolone acetonide 40 mg/mL suspension for injection Performing Provider: Chepe Patton DPM Performing Location: [facility] Administered by: Chepe Patton DPM on 08/02/25 11:00 Dose Route Admin Location Dispensed Lot Number Expiration Date [facility] Certified Dialysis Technician 20 mg Tendon Sheath Inj. 1 mL [id number] [employer] Total Dispensed Waste 1 mL 50 % dexamethasone sodium phosphate 4 mg/mL injection solution Performing Provider: Chepe Patton DPM Performing Location: [facility] Administered by: Chepe Patton DPM on 08/02/25 11:00 Dose Route Admin Location Dispensed Lot Number Expiration Date [facility] Certified Dialysis Technician 4 mg Tendon Sheath Inj. 1 mL [id number] [employer] Total Dispensed Waste 1 mL 0 % bupivacaine (PF) 0.5 % (5 mg/mL) injection solution Performing Provider: Chepe Patton DPM Performing Location: [facility] Administered by: Chepe Patton DPM on 08/02/25 11:00 Dose Route Admin Location Dispensed Lot Number Expiration Date [facility] Certified Dialysis Technician 2 mL intra-articular 10 mL [id number] [employer]MA [employer] Total Dispensed Waste 10 mL 80 % Assessment & Plan Assessment & Plan (1) Plantar fasciitis of right foot: Code(s): M72.2 - Plantar fascial fibromatosis Category: Medical Plan: Discussed etiology of the patient's foot pain. Differential diagnosis includes plantar fasciitis, neuritis, tendinitis. Patient educated on the nature and etiology of plantar fasciitis, which involves inflammation and microtearing of the plantar fascia due to repetitive stress and overuse. The patient was counseled on conservative management of plantar fasciitis, including daily stretching exercises targeting the plantar fascia and Achilles tendon, use of supportive and properly fitting footwear, and consideration of custom or prefabricated orthotics to improve foot biomechanics. Administered cortisone injection to the right heel. Instructed the patient on home stretching and range of motion exercises including calf-stretches, frozen water bottle therapy, band-therapy. Continue orthotics Dispensed night splint. Follow up in 3 weeks. May require repeat injection. (2) Cavus deformity of both feet: Code(s): Q66.71 - Congenital pes cavus, right foot; Q66.72 - Congenital pes cavus, left foot Category: Medical Plan: Rx X-ray 3V right foot, calcaneal axial view Educated the patient on her foot type. Explained that her high arch foot type (Cavus feet) can lead to altered weight distribution, resulting in increased pressure on the heel and forefoot. Patients may experience symptoms such as pain, callus formation, tendinitis, instability, lateral ankle sprains, and, in some cases, development of digital deformities (e.g., claw toes or hammertoes). Discussed the importance of shoe type with heel and forefoot padding and support.. Orders: Orders AMB Flexor Tendon / Plantar Fascia Injection Today M72.2 - Plantar fascial fibromatosis XR foot RT min 3V Today M72.2 - Plantar fascial fibromatosis XR calcaneus RT min 2V Today M72.2 - Plantar fascial fibromatosis Coding Level of Care Code New Pt Level 4 (75657) Diagnoses Plantar fasciitis of right foot M72.2 Cavus deformity of both feet Q66.71; Q66.72 CPT Codes Tendon Injection - Tendon Injection POD1: - Plantar Fascia Injection ([id number]) Time Spent (min) 35
[2025-08-02 10:31] VITALS: BMI 35.0
--- OUTSIDE RECORDS SUMMARY | 2025-08-02 12:48 | XMS_ITS | Patient Health Record ---
Author Organization [facility] Address [address] [place] [address] Care Team Providers Care Finish Molder Name Role Phone JLUIS JARVIS Unavailable [phone] Allergies Allergen (clinical drug ingredient) Drug/Non Drug Allergy documented on EMR Reaction Allergy Type Onset Date Status lamotrigine LaMICtal Unknown Drug Allergy Activ e Results Component Value Reference Range Flag Notes Ultrasound : Pelvic Non/OB Reviewed date:01/16/2025 12:48:40 PM Interpretation:Abnormal Performing Lab: Notes/Report: Abnormal HBsAg Screen-[id number] Reviewed date:12/29/2024 12:30:25 PM Interpretation:Negative Performing Lab:Cele [facility]ner [address], [address], [place], Phone - [phone], Director - [facility] Notes/Report: Clinical Information:SRC:urine HBsAg Screen Negative Negative Hepatitis B Surf Ab Quant-00 [id number] Reviewed date:12/30/2024 02:55:36 PM Interpretation:Not Immune Performing Lab:Cele Brun[facility] [address]olie [address]yn, [address], [place], Phone - [phone], Director - [facility] Notes/Report: Clinical Information:SRC:urine Hepatitis B Surf Ab Quant <3.5 Immunity>10 mIU/mL L Status of Immunity Anti-HBs Level Inconsistent with Immunity 0.0 - 10.0 Consistent with Immunity >10.0 HIV Ab/p24 Ag with Reflex-08 [id number] Reviewed date:12/29/2024 10:22:13 AM Interpretation:Negative Performing Lab:Cele Brunner, [address], [place], Phone - [phone], Director - [facility] Notes/Report: Clinical Information:SRC:urine HIV Ab/p24 Ag Screen Non Reactive Non Reactive HIV-1/HIV-2 antibodies and HIV-1 p24 antigen were NOT detected. There is no laboratory evidence of HIV infection. HIV Negative HCV Antibody RFX to Quant PC [id number] Reviewed date:12/29/2024 12:30:46 PM Interpretation:Negative Performing Lab:[facility] [place], [address], [address], [place], Phone - [phone], Director - [facility] Notes/Report: Clinical Information:SRC:urine Clinical Information:SRC:urine HCV Ab Non Reactive Non Reactive Interpretation: Not infected with HCV unless early or acute infection is suspected (which may be delayed in an immunocompromised individual), or other evidence exists to indicate HCV infection. Ct, Ng, Trich vag by MISBAH-[id number] Reviewed date:12/30/2024 02:55:44 PM Interpretation:Negative Performing Lab:[facility] [place], [address], [address], [place], Phone - [phone], Director - [facility] Notes/Report: Clinical Information:SRC:urine Chlamydia by MISBAH Negative Negative Gonococcus by MISBAH Negative Negative Trich vag by MISBAH Negative Negative T pallidum Screening [place] -[id number] Reviewed date:12/29/2024 10:21:01 AM Interpretation:Negative Performing Lab:[facility], [address], [address], [place], Phone - [phone], Director - [facility] Notes/Report: Clinical Information:SRC:urine T pallidum Antibodies Non Reactive Non Reactive Reason For Referral Reason New onset irregular bleeding Diagnosis 1 Irregular menstruati on, unspecified (N92.6) Referral Organization [facility] ry Referring Provider First Name JLUIS Referring Provider Last Name STACEYI Referring Provider Speciality Nurse Prac titioner Referred Provider Specialty Service Engine Repairer General Notes 49 year old AFAB clt [...] Date Status SEROquel Active Baby Aspirin Active [place] Active Depakote Active Abilify Active Concerta Active [...] W/U Status Risk Notes Problem Irregular menstruation (59888058) Irregular menstruation, unspecified (N92.6) Active confirmed Vital Signs Blood pressure diastolic 80 mm Hg 12/28/2024 Height 5ft 8in in 12/28/2024 Blood pressure systolic 120 mm Hg 12/28/2024 Weight 219.9 lbs 12/28/2024 BMI 33.43 kg/m2 12/28/2024 Encounters Encounter Location Date Provider Diagnosis [address] [id number] 12/28/2024 JLUIS GABAI Encounter for surveillance of implantable subdermal contraceptive Z30.46 ; Encounter for screening for infections with a predominantly sexual mode of transmission Z11.3 ; Encounter for screening for other viral diseases Z11.59 and HIV Screening Z11.[address] [facility] [address] [id number] 12/28/2024 JLUIS GABAI [facility] [address] [id number] 01/16/2025 JLUIS GABAI Assessments Encounter Date Diagnosis [...] Insured Coverage Start Date Coverage End Date [place] [address] [place] [id number] Shanique Norton Self - patient is the insured Medical (General) History Medical History History ICD Code bipolar ADHD anxiety Hep B, not immune Subserosal fibroid Hospitalization History Reason Date(Month/Year) 08/28 mental health concerns
--- OUTSIDE RECORDS SUMMARY | 2025-08-02 12:48 | XMS_ITS | Clinical Summary ---
Author Organization [facility] Address [address] [facility] [place] [address] Care Team Providers Care Automation And Controls Manager Name Role Phone No, Pcp SOW MANAGER Primary Care Provider Unavailabl e Allergies Active [...] Adults 18 yrs or above (or HM Modifier)([facility]) 1995 Hepatitis C Virus Infection in Adolescents and Adults: Screening (or Modifier) ([facility]) 1995 SDOH Screening Reminder: Gricelda massey for all adults ([facility]) 1995 Tobacco Smoking Cessation: i n Adults excluding Women: Behavioral and Pharmacotherapy Interventions ([facility]) 1995 DTaP/Tdap/Td Vaccines ([facility]) (1 - Tdap) 1996 Cervical Cancer Screenin 1-65 yrs of age (or Modifier) 1998 Cervical Cancer Screening: P ap every 3 yrs pts age 21-65 1998 Cervical Cancer: Pap Screeni ng with Modifier timing ([facility]) 1998 Cervical Cancer: hrHPV alone or with cotesting Pap for Pts 30-65yrs screening every 5yrs ([facility]) 1998 Colorectal Cancer Screening 45 -75 Yrs (or HM Modifier) 2022 Colorectal Cancer: FLEXIBLE SIGMOIDOSCOPY Screening every 5 yrs 2022 Colorectal Cancer: Fecal Immunochemical Test (FIT) Annually [facility] 2022 Colorectal Cancer: High-sens itivity gFOBT Screening Annually [facility] 2022 Colorectal Cancer: Stool Col oguard Screening every 3 yrs 2022 Colorectal Cancer:CT Colonog inga Screening every 5 yrs 2022 Flu Vaccination: Yearly for ages 18mos through 64 years (or Modifier)([facility]) 05/05/2025 COVID-19 Vaccine Screening: Initial Series and Booster Status ([facility]) ( - 2023- season) 2025 Zoster/Shingles Vaccine Seri es Screening: Adults aged 18+ yrs (or HM Modifiers)([facility]) (1 of 2) 2027 Pneumococcal Vaccination Scr eening: Pts 0-19 & 19-49 yrs of age ([facility]) Aged Out No longer eligible based on patient's age to complete this topic Medical Devices Not on file Care Teams Automation And Controls Manager Relationship Specialty Start Date End Date No, Pcp, SOW MANAGER N/A Do not use PCP - General 03/05/16
--- OUTSIDE RECORDS SUMMARY | 2025-08-02 12:48 | XMS_ITS | Clinical Summary ---
Author Organization [facility] [employer] [facility] Address [address] [place] [address] Care Team Providers Care Physicist Solid State Name Role Phone Clarissa Matias MD Primary Care Provider [phone] Allergies Active Allergy Reactions Criticality Noted Date [...] infection 11/08/2020 Overview (09/20/2024): +11/07/20 Bipolar disorder ([facility] V24, [facility] V28) 09/04 Seizure ([facility] V24, [facility] V28) 09/17/2015 Overview (09/20/2024): Last seizure 2014 [...] History Surgery Date Site/Laterality Comments CHOLECYSTECTOMY PROCEDURE: [place] CHOLECYSTECTOMY OTHER SURGICAL HISTORY PROCEDURE: HISTORY OTHER; COMMENT: fistulotoma colorectal Medical History Medical History Date Comments Bipolar disorder ([facility] V2 4, [facility] V28) DX:Bipolar disorder ([facility]) Marijuana abuse DX:Marijuana abu se Seizure ([facility] V24, [facility] V28) 09/17/2015 DX:Seizure ([facility]) COVID-19 virus infection 11/08/2020 DX:COVI D-19 virus [...] mammography. BI-RADS Category 1, negative. Ina Walden [facility] IMG BI PROCEDURES Final Result * Lipid panel (12/30/2022) [facility] LDL/HDL Ratio 3 0 - 4 Triglycerides 117 0 - 150 mg/dL Cholesterol 168 0 - 200 mg/dL HDL 53 >=40 mg/dL LDL Cholesterol 92 0 - 100 mg/dL Blood Venous blood specimen / Unknown Historical Provider LAB BLOOD ORDERABLES Fe l Result * HIV Screening (06/20/2022) [facility] HIV Screening abstracted [facility] Provider HEALTH MAINTENANCE Final Result * Hepatitis C Screening (06/20/2022) [facility] Hepatitis C Screening abstracted [facility] Provider HEALTH MAINTENANCE Final Result * Pap smear (04/04/2019) 04/04/2019 Narrative HISTORICAL TESTING LAB RESULTING AGENCY - 04/08/2019 4:05 PM EDT [id number] THINPREP PAP, IMAGED: NEGATIVE FOR SQUAMOUS INTRAEPITHELIAL [...] PAP HX NEG [Z12.4, Z01.419] Roya Riggs [facility] LAB CYTOLOGY ORDERA VIVIANS Final Result HISTORICAL TESTING LAB RESULTING AGENCY from Last 3 Months or Most Recently Relevant to Health Maintenance Insurance MEDICAID - [place] Care Teams Physicist Solid State Relationship Specialty Start Date End Date Clarissa Matias MD [address] [place] [address] PCP - General Internal Medicine 11/30/20
--- OUTSIDE RECORDS SUMMARY | 2025-08-02 12:48 | XMS_ITS | Clinical Summary ---
Author Organization [facility] Address [address] [place] [address] Care Team Providers Care Office Executive Name Role Phone Clarissa Matias Primary Care Provider [phone] Allergies Active Allergy Reactions Criticality Noted Date [...] Family History Medical History Relation Name Comments Hqbqgzs-Kruzc-Pcjnj disease Father Other Father Paternal histor y [...] Description 08/04/2025 1:30 PM EDT Office Visit [facility] [address] [place] [id number] Hunter Newton MD [address] [place] [id number] Health Maintenance Due Date Last Done Comments [...] this topic Medical Devices Implanted Type Area Advertising Writer Device Identifier Shelf Expiration Date Model / Serial / Lot Device Closure Vascular Plug 6fr Angio-Seal Vip - [id number] Implanted:Qty: 1 on 04/22/2024 at [facility] Implant [id number] / / Procedures * Due to [place] [employer] law, this organization might not be sharing negative HIV tests. Procedure Name Priority Date/Time Associated Diagnosis Comments PAP W/REFLEX HPV, CONVERSION Routine 04/06/2012 4:48 PM EDT HM MAMMOGRAPHY Routine 12/26/2011 3:41 PM EDT from Last 3 Months or Most Recently Relevant to Health Maintenance Results * Due to [place] [employer] law, this organization might not be sharing negative HIV tests. * Pap w/Reflex HPV (04/06/2012 4:48 PM EDT) Path Procedure TPGAS ([id number]) 1 Edited by: [id number] ANIKA [facility] ANATOMIC [facility]OLOGY - [facility] Specimen Labeled As: 1 CERVICAL/ENDOCERVI LESLEY CYTO MATERIAL - Edited by: [id number] FRANCIA [facility]AT[facility] Diagnosis [...] be useful in other clinical applications. See [place] Journal of Obstetrics and Gynecology 197(4):346-355, 2007. This Pap test was examined in accordance with the [facility] Cytopathology Laboratory written policy. This Pap test was examined by the ThinPrep Imaging System, [employer], [place], [place]. Edited by: [id number] 1012 [facility] ANATOMIC PATHOLOGY - [facility] THREE Gynecologic Clinical Data Specimen source:, THINPREP (CERVICAL AND ENDOCERVICAL) [facility] Gynecologic Clinical Data First date of LMP:, 03/27/12 [facility] Gynecologic Clinical Data LPS:, 04/17/10 [facility] Pathology Codes Client Order Code:, TPHAS3 [facility] Pathology Codes Bill Type:, CLIENT [facility] Marker 1 Ladi BARRIOS [facility]ATOM[facility] PATHOLOGY - [facility] THREE Marker 2 NILM,NILM [facility] Cc Results To LINNETTE JENNIFER REF [id number] [facility] Signature REPORT SIGNED: KIARRA EASLEY 04/15/12 [facility] Sign Out Audit KIARRA EASLEY [id number] [facility] [id number] [facility] Cytology / Unknown 2 4:48 PM EDT 04/08/2012 4:48 PM EDT us Jennifer Castaneda LAB HISTORICAL RESULTS Final Re sult [facility] [address] [place], [place] [address] * MAMMOGRAPHY (12/26/2011 3:41 PM EDT) Mammogram [facility] Anatomical Region Laterality Modality Other 12/26/2011 3:41 PM EDT us Historical Conversion Provider HEALTH MAINTENANC E Final Result from Last 3 Months or Most Recently Relevant to Health Maintenance Insurance [employer]ICA[employer] Advance Directives * Presumed Full Code (Latest Code Status on File) Date Activated Date Inactivated Comments 04/22/2024 9:05 AM 04/27/2024 2:39 AM Care Teams Office Executive Relationship Specialty Start Date End Date Clarissa Matias PCP - General Internal Medicine 10/06/23
--- OUTSIDE RECORDS SUMMARY | 2025-08-02 12:48 | XMS_ITS | Clinical Summary ---
Author Organization [facility] Address [address] [place] [address] Phone Care Team Providers Care Phlebotomy Services Technician Name Role Phone Unavailable Primary Care Provider Unavailabl e Social History Tobacco Use Types Packs/Day Years [...] 1996 Cervical Cancer Screening 1998 Colposcopy 1998 LEEP 1998 PAP SMEAR 1998 Pap + HPV 1998 MAMMOGRAM 2017 Colonoscopy FOBT- Positive 2022 Colonoscopy 2022 Colorectal Cancer Screening 2022 FOBT 2022 Sigmoidoscopy 2022 COVID-19 Vaccine ( season) 2025 09/02/2023, 08/16/2021, 01/14/2021, Additional history exists INFLUENZA [...]
--- OUTSIDE RECORDS SUMMARY | 2025-08-02 12:48 | XMS_ITS | Clinical Summary ---
Author Organization [facility] Address [address] [place] [phone] Phone Care Team Providers Care Slide Developer Name Role Phone Symone Bailon MD Primary [...] [employer]LLSENSE NON NSPG PCP [facility] [address] [place] [phone] Care Teams Slide Developer Relationship Specialty Start Date End Date Symone Bailon MD PCP - General Internal Medicine 08/02/20 Additional Source Comments The information contained in this document represents components of the legal health record. It is not the complete legal health record.[facility]
== END 2025-08-02 10:59 | disposition home or self-care (01) ==
LOC: HO.HPODS 10:19
PROVIDERS: PCP Internal Medicine; Visit Provider Student in an Organized Health Care Education/Training Program
DX: M72.2 Plantar fascial fibromatosis (principal); Q66.71 Congenital pes cavus, right foot; Q66.72 Congenital pes cavus, left foot
CPT/HCPCS: 20550; 99204

== ENCOUNTER → 2025-08-02 10:18 | Outpatient (BNVA) | payer OTHER, SELFPAY | PROVIDERS: PCP Internal Medicine; Visit Provider Student in an Organized Health Care Education/Training Program | DX: M72.2 Plantar fascial fibromatosis (principal); Q66.71 Congenital pes cavus, right foot; Q66.72 Congenital pes cavus, left foot | CPT/HCPCS: 20550; 99202; J0665; J1100; J3301 ==

== ENCOUNTER 2025-08-14 12:56 | Outpatient (REF) | payer OTHER, SELFPAY ==
--- NOTE | ~2025-08-14 | XR_ITS ---
EXAMINATION: XR CALCANEUS, RIGHT CLINICAL INFORMATION: M72.2 - Plantar fascial fibromatosis COMPARISON: None available. TECHNIQUE: Lateral projection with weightbearing and axial projection.. FINDINGS: No acute cortical disruption. 4 mm spur, plantar calcaneus. Exostosis at the Achilles tendon insertion. No lytic or blastic lesions. No joint effusion, anterior tibiotarsal bursa. XR/XR foot RT min 3V IMPRESSION: Small plantar calcaneus spur. Enthesopathy, Achilles tendon insertion. EXAMINATION: XR FOOT, RIGHT CLINICAL INFORMATION: M72.2 - Plantar fascial fibromatosis COMPARISON: None available. TECHNIQUE: AP, lateral, and oblique views of the right foot. Weight-bearing lateral projection. FINDINGS: Small plantar calcaneal spur. Exostosis at the Achilles tendon insertion. No acute cortical disruption. No lytic or blastic lesions. No joint effusion. No subcutaneous emphysema. No metallic or radiopaque foreign body. Normal plantar arch. IMPRESSION: Small plantar calcaneal spur. Enthesopathy, Achilles tendon. Electronically signed by: Leo Montano MD 08/14/2025 02:33 PM EST
--- NOTE | ~2025-08-14 | XR_ITS ---
EXAMINATION: XR CALCANEUS, RIGHT CLINICAL INFORMATION: M72.2 - Plantar fascial fibromatosis COMPARISON: None available. TECHNIQUE: Lateral projection with weightbearing and axial projection.. FINDINGS: No acute cortical disruption. 4 mm spur, plantar calcaneus. Exostosis at the Achilles tendon insertion. No lytic or blastic lesions. No joint effusion, anterior tibiotarsal bursa. XR/XR calcaneus RT min 2V IMPRESSION: Small plantar calcaneus spur. Enthesopathy, Achilles tendon insertion. EXAMINATION: XR FOOT, RIGHT CLINICAL INFORMATION: M72.2 - Plantar fascial fibromatosis COMPARISON: None available. TECHNIQUE: AP, lateral, and oblique views of the right foot. Weight-bearing lateral projection. FINDINGS: Small plantar calcaneal spur. Exostosis at the Achilles tendon insertion. No acute cortical disruption. No lytic or blastic lesions. No joint effusion. No subcutaneous emphysema. No metallic or radiopaque foreign body. Normal plantar arch. IMPRESSION: Small plantar calcaneal spur. Enthesopathy, Achilles tendon. Electronically signed by: Leo Montano MD 08/14/2025 02:33 PM EST
--- OUTSIDE RECORDS SUMMARY | 2025-08-14 15:04 | XMS_ITS | Clinical Summary ---
Author Organization [facility] Address [address] [place] [phone] Phone Care Team Providers Care Kitchen Utility Associate Name Role Phone Symone Bailon MD Primary [...] WELLSENSE NON NSPG [facility]CP [facility] PCP [facility] [address] [place] [phone] Care Teams Kitchen Utility Associate Relationship Specialty Start Date End Date Symone Bailon MD PCP - General Internal Medicine 08/02/20 Additional Source Comments The information contained in this document represents components of the legal health record. It is not the complete legal health record.[facility]
--- OUTSIDE RECORDS SUMMARY | 2025-08-14 15:04 | XMS_ITS | Clinical Summary ---
Author Organization [facility] Address [address] [place] [address] Phone Care Team Providers Care Core Measures Abstractor Name Role Phone Unavailable Primary Care Provider [...]
--- OUTSIDE RECORDS SUMMARY | 2025-08-14 15:04 | XMS_ITS | Clinical Summary ---
Author Organization Patient Business Ser [facility] Address [address] [place] [address] Care Team Providers Care Fashion Photographer Name Role Phone Clarissa Matias MD Primary Care Provider [phone] Allergies Active Allergy Reactions Criticality Noted Date [...] infection 11/08/2020 Overview (09/20/2024): +11/07/20 Bipolar disorder ([facility] V24, [facility] V28) 09/04 Seizure ([facility] V24, [facility] V28) 09/17/2015 Overview (09/20/2024): Last [...] History Surgery Date Site/Laterality Comments CHOLECYSTECTOMY PROCEDURE: [place] CHOLECYSTECTOMY OTHER SURGICAL HISTORY PROCEDURE: HISTORY OTHER; COMMENT: fistulotoma colorectal Medical History Medical History Date Comments Bipolar disorder ([facility] V2 4, [facility] V28) DX:Bipolar disorder ([facility]) Marijuana abuse DX:Marijuana abu se Seizure ([facility] V24, [facility] V28) 09/17/2015 DX:Seizure ([facility]) COVID-19 virus infection 11/08/2020 DX:COVI [...] Years Used Date Smoking Tobacco: Former Cigarettes 0.5 Q uit: 10/17/2021 Smokeless Tobacco: Never Alcohol [...] diagnostic right mammography. BI-RADS Category 1, negative. Result [facility] IM BI PROCEDURES Final Result * Lipid panel (12/30/2022) [facility] LDL/HDL Ratio 3 0 - 4 Triglycerides 117 0 - 150 mg/dL Cholesterol 168 0 - 200 mg/dL HDL 53 >=40 mg/dL LDL Cholesterol 92 0 - 100 mg/dL Blood Venous blood specimen / Unknown Result [facility] Provider LAB BLOOD ORDERABLES Fe l Result * HIV Screening (06/20/2022) [facility] HIV Screening abstracted Result [facility] Provider HEALTH MAINTENANCE Final Result * Hepatitis C Screening (06/20/2022) [facility] Hepatitis C Screening abstracted Result [facility] Provider HEALTH MAINTENANCE Final Result * Pap smear (04/04/2019) 04/04/2019 Narrative HISTORICAL TESTING LAB RESULTING AGENCY - 04/08/2019 4:05 PM EDT [id number] THINPREP PAP, IMAGED: NEGATIVE FOR SQUAMOUS INTRAEPITHELIAL [...] PAP HX NEG [Z12.4, Z01.419] [facility] LAB CYTOLOGY [facility] Final Result HISTORICAL TESTING LAB RESULTING AGENCY from Last 3 Months or Most Recently Relevant to Health Maintenance Insurance MEDICAID - [place] Care Teams Fashion Photographer Relationship Specialty Start Date End Date Clarissa Matias MD [address] [place] [address] PCP - General Internal Medicine 11/30/20
--- OUTSIDE RECORDS SUMMARY | 2025-08-14 15:04 | XMS_ITS | Clinical Summary ---
Author Organization [facility] Address [address] [place] [address] Care Team Providers Care Fitness Teacher Name Role Phone Clarissa Matias Primary Care Provider [phone] Allergies Active Allergy Reactions Criticality Noted Date Comments Lamotrigine Rash Low 03/05/2016 Medications Depakote ER 500 mg tablet Take 500 mg by mouth 2 (two) times a day. Active Depakote ER 250 mg tablet Take 250 mg by mouth 2 times a day. Active acetaminophen (TylenoL) 325 mg tablet Tylenol 325 MG Oral Tablet TAKE 1 TO 2 TABLETS EVERY 6 HOURS NEEDED. Refills: 0 Active Active etonogestreL (Nexplanon) 68 mg implant 68 mg by subdermal route once. 06/29/20 23 Active loperamide (IMODIUM A-D) 2 mg tablet Take 2 mg by mouth as needed. 03/27/20 23 Active aspirin chewable tablet 81 mg 06/10/20 24 Active ketoconazole (NIZORAL) 2% shampoo Apply 1 Film topically to the affected area. prn 01/18/20 24 Active ARIPiprazole (ABILIFY) 20 mg tablet 01/13/20 25 Active ARIPiprazole (ABILIFY) 5 mg tablet 01/10/20 25 Active lithium ER (ESKALITH) 450 mg tablet 2 tablets by mouth once daily. 01/11/20 25 Active QUEtiapine (SEROquel) 50 mg tablet Take 50 mg by mouth 2 times daily. 3 tablets by mouth nightly. Active QUEtiapine (SEROquel) 25 mg tablet Take 25 mg by mouth nightly. 4 tablets by mouth daily as needed. Active Concerta 36 mg tablet 2 tablets by mouth in the morning. 12/28/19 25 Active Concerta 54 mg tablet 1 tablet by mouth every afternoon. 01/10/20 25 Active risperiDONE (RisperDAL) 1 mg tablet Take by mouth. Active lithium ER (LITHOBID) 300 mg tablet 300 mg 2 times a day. Takes an extra 300mg in the am, 900mg total 10/17/19 025 Discontinued SeroqueL 100 mg tablet Take 300 mg by mouth nightly. Per pt take 100 mg at night ,and 25 mg as needed 025 Discontinued amLODIPine (NORVASC) 5 mg tablet 07/05/20 025 Discontinued Abilify 15 mg tablet 08/17/20 025 Discontinued cholecalcifero l (VITAMIN D3) 2,000 unit tablet Take 1 tablet by mouth once a day. 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 Months Immunizations Immunization Administration Dates Next Due Tetanus Toxoid, Reduced Diph theria Toxoid, and Acellular Pertussis Vaccine, Adsorbed 04/06/2012 Tuberculin Skin Test; Purifi ed Protein Derivative Solution, Intradermal 04/06/2012 Varicella Virus Vaccine 06/05/2012,05/03/2012 Family History Medical History Relation Name Comments Jgxupqb-Xbxbx-Rizsj disease Father Other Father Paternal histor y [...] Sign Reading Time Taken Comments Blood Pressure 122/76 08/04/2025 1:18 PM EDT Pulse 54 08/04/2025 1:18 PM EDT Temperature 37.3 C (99.1 F) 08/04/2025 1:18 PM EDT Respiratory Rate 18 08/04/2025 1:18 PM EDT Oxygen Saturation 97% 08/04/2025 1:18 PM EDT Inhaled Oxygen Concentration - - Weight 105.2 kg (232 lb) 08/04/2025 1:18 PM EDT Height 172.7 cm (5' 8 ) 08/04/2025 1:18 PM EDT Body Mass Index 35.28 08/04/2025 1:18 PM EDT Plan of Treatment Upcoming Encounters Date Type Department Care Team (Late st Contact Info) Description 08/17/2026 1:00 PM EST Office Visit [facility] [address] [place] [phone] Hunter Newton MD [address] [place] [address] Health Maintenance Due Date Last Done Comments Cologtricia 1977 Colon Cancer Screening 1977 Colonoscopy 1977 FOBT / Fit Test 1977 HIV Screening 1977 Hepatitis C Screening 1977 Sigmoidoscopy 1977 Hepatitis B Vaccines (1 of 3 - 19+ 3-dose series) 1996 HPV and Pap Smear 04/06/2017 04/06/2012, , 11/27/2008 Mammogram 2017 12/26/2011 Cervical Cancer Screening 04/04/2022 Pap Smear 04/04/2022 04/04/2019, 0712/2011, 04/06/2012, Additional history exists Alcohol/Substance Use Screening 10/05/2024 Depression Screening and Follow-Up 10/05/2024 Social Drivers of Health Annual Screening 10/05/2024 COVID-19 Vaccine ( season) 2025 09/02/2023, 06/20/2022, 08/16/2021, Additional history exists Influenza Vaccine (#1) 2025 , 12/30/2022, 11/11/2021, Additional history exists Diabetes Screening 04/14/2027 04/14/2024 DTaP,Tdap,and Td Vaccines (5 - Td or Tdap) 05/24/2034 05/24/2024, 08/02/2020, 07/24/2020, Additional history exists Pneumococcal Vaccine: Pediatric (0-5 Years) and At-Risk Patients (6-50 Years) Aged Out No longer eligible based on patient's age to complete this topic Medical Devices Implanted Type Area Maintenance Service Technician Device Identifier Shelf Expiration Date Model / Serial / Lot Device Closure Vascular Plug 6fr Angio-Seal Vip - [id number] Implanted:Qty: 1 on 04/22/2024 at [facility] Implant [employer] [id number] / / Procedures * Due to [place] state law, this organization might not be sharing negative HIV tests. Procedure Name Priority Date/Time Associated Diagnosis Comments BASIC METABOLIC PANEL, OUTSIDE LAB Routine 04/14/2024 7:51 AM EDT PAP W/REFLEX HPV, CONVERSION Routine 04/06/2012 4:48 PM EDT HM MAMMOGRAPHY Routine 12/26/2011 3:41 PM EDT from Last 3 Months or Most Recently Relevant to Health Maintenance Results * Due to [place] state law, this organization might not be sharing negative HIV tests. * Basic Metabolic Panel, Outside Lab (04/14/2024 7:51 AM EDT) Blood Structure of peripheral vein / Unknown Eugene Lockwood MD PhD LAB BLOOD ORDERABLES Fin al Result * Pap w/Reflex HPV (04/06/2012 4:48 PM EDT) Path Procedure TPGAS ([id number]) 1 Edited by: [id number] ANIKA [facility] ANATOMIC PATHOLOGY - BIOTECH THREE Specimen Labeled As: 1 CERVICAL/ENDOCERVI LESLEY CYTO MATERIAL - Edited by: [id number] FRANCIA [facility] ANATOMIC PATHOLOGY - BIOTECH THREE Diagnosis ThinPrep [...] be useful in other clinical applications. See [place] Journal of Obstetrics and Gynecology 197(4):346-355, 2007. This Pap test was examined in accordance with the [facility] Cytopathology Laboratory written policy. This Pap test was examined by the ThinPrep Imaging System, [employer], [place], [place]. Edited by: [id number] [facility] - [facility] THREE Gynecologic Clinical Data Specimen source:, THINPREP (CERVICAL AND ENDOCERVICAL) [facility] ANATOMIC PATHOLOGY - BIOTECH THREE Gynecologic Clinical Data First date of LMP:, 03/27/12 [facility] ANATOMIC PATHOLOGY - BIOTECH THREE Gynecologic Clinical Data LPS:, 04/17/10 [facility] ANATOMIC PATHOLOGY - BIOTECH THREE Pathology Codes Client Order Code:, [email or web address] [facility] ANATOMIC PATHOLOGY - [facility] THREE Pathology Codes Bill Type:, CLIENT [facility] ANATOMIC PATHOLOGY - [facility] THREE Marker 1 [facility] ANATOMIC PATHOLOGY - BIOTECH THREE Marker 2 NILM,NILM [facility] ANATOMIC PATHOLOGY - BIOTECH THREE Cc Results To LEONEL RODRIGUEZ REF [id number] [facility] ANATOMIC PATHOLOGY - BIOTECH THREE Signature REPORT SIGNED: KIARRA EASLEY 04/15/12 [facility] ANATOMIC PATHOLOGY - BIOTECH THREE Sign Out Audit KIARRA EASLEY [id number] [facility] [id number] [facility] ANATOMIC PATHOLOGY - BIOTECH THREE Cytology / Unknown 2 4:48 PM EDT 04/08/2012 4:48 PM EDT Jenny De La Torreover LAB HISTORICAL RESULTS Final Re sult [facility] ANATOMIC PATHOLOGY - BIOTECH THREE [address] [place] [address], * MAMMOGRAPHY (12/26/2011 3:41 PM EDT) HM Mammogram [facility] LAB Anatomical Region Laterality Modality Other 12/26/2011 3:41 PM EDT us Historical Conversion Provider HEALTH MAINTENANC E Final Result from Last 3 Months or Most Recently Relevant to Health Maintenance Insurance [facility] MEDICAID Advance Directives * Presumed Full Code (Latest Code Status on File) Date Activated Date Inactivated Comments 04/22/2024 9:05 AM 04/27/2024 2:39 AM Care Teams Fitness Teacher Relationship Specialty Start Date End Date Clarissa Matias PCP - General Internal Medicine 10/06/23
== END 2025-08-14 12:57 | disposition home or self-care (01) ==
LOC: HO.XRAY 12:56
PROVIDERS: PCP Internal Medicine; Visit Provider Student in an Organized Health Care Education/Training Program
DX: M72.2 Plantar fascial fibromatosis (principal)
CPT/HCPCS: 73630; 73650

== ENCOUNTER → 2025-08-14 13:02 | Outpatient (BNV) | payer OTHER, SELFPAY | PROVIDERS: PCP Internal Medicine; Visit Provider Radiology Diagnostic Radiology | DX: M77.31 Calcaneal spur, right foot (principal); M77.51 Other enthesopathy of right foot and ankle | CPT/HCPCS: 73630; 73650 ==

== ENCOUNTER 2025-09-04 14:06 | Outpatient (AMB) | payer OTHER, SELFPAY ==
--- NOTE | 2025-09-04 14:23 | A.OFFVIS_ITS ---
Vital Signs 09/04/25 14:24 Height 5 ft 8 in Weight 230 lb BMI 35.0 Intake Visit Reasons: plantar fasciitis Intake Note: Shanique is a 49 year old female who presents today for a follow up on her plantar fasciitis. At her last visit she was advised on performing stretching exercises, use of supportive and properly fitting foot wear. An injection was administered to the patients right heel and night splints were dispensed. Patient reports the pain has returned about 2 weeks ago and the night splints are uncomfortable to sleep in However she notes her pain is not as strong as it was initially. Allergies lamotrigine (From LAMICTAL) Allergy (Severe, Verified 09/04/25 14:27) RASH oxycodone (From PERCOCET) Allergy (Mild, Verified 09/04/25 14:27) NAUSEA HPI HPI plantar fasciitis: Details: The patient is a 49-year-old female returns for follow up of right foot plantar fasciitis s/p right heel injection. She notes her pain decreased to a 5-6/10. She is able to ambulate with less pain. She is performing stretching exercises at home. Continues her orthotics and lou shoes. History: The condition began following a ligament tear in the left foot around 1312-4368, which led to increased weight-bearing on the opposite foot. She repo rts receiving multiple cortisone injections over ten years ago, which provided relief at the time. She recently had recurrence this year and has been attempting multiple treatment at home including range of motion and stretching exercises, [id number]-[id number] orthotics, supportive shoe wear, and frozen water bottle therapy. Currently, the patient experiences worsening pain in the morning or after pe riods of inactivity, which improves with movement. Social History: - Employment: Currently unemployed - Exercise: Engages in exercises such as using a frozen water bottle and elastic bands PFSH Medical History Polysubstance use disorder Bipolar disorder Surgical History H/O anal fistulotomy Hx of cholecystectomy Family History Mother HTN (hypertension) Diabetes Breast cancer Father HTN (hypertension) Bladder cancer Social History Household Members: Family Household Members Other:: Mother and father Housing: House Do you presently have visiting nurse or other home services: No Patient Tobacco Use Status: Former Tobacco user (quit in 2020) Tobacco use type: Cigarette Cigarette Packs Per Day: 1 Cigarettes Per Day: 20.0 Years Smoked: 9 e-Cigarette/Vaping Use: Never Used Second Hand Smoke Exposure: No Substance Use Type: Marijuana service: No Current occupational status: unemployed and disabled Sexual orientation: Straight/Heterosexual Cognitive needs: No Hearing needs: No Vision needs: Yes (glasses) Review of Systems Const All systems reviewed & are unremarkable except as noted in HPI and below Physical Exam Vital Signs: BMI result Body Mass Index 35.0 Extrem Other: *Bilateral Lower Extremity Focused Exam Vascular: DP/PT 2/4, CFT<3s to all digits, TG warm to cool, no pedal edema Derm: no clinical signs of infection. hyperkeratotic lesion right medial heel Neuro: Protective sensation grossly intact to bilateral lower extremities MSK: Mild tenderness on palpation of the plantar medial calcaneal tubercle right foot, no pain to the medial arch or plantar fascial bands. No tenderness on insertion of the Achilles tendon. Results Reviewed Results Reviewed: X-ray Read: 08/02/2025 X-ray right calc 2 views (Axial, Lateral) reviewed which shows varus calcaneal alignment. Subtalar joint within normal limits. No signs of osseous coalition. I personally reviewed the imaging and my findings are listed above. Assessment & Plan Assessment & Plan (1) Plantar fasciitis of right foot: Code(s): M72.2 - Plantar fascial fibromatosis Category: Medical Plan: * Discussed etiology of the patient's foot pain. Differential diagnosis includes plantar fasciitis, neuritis, tendinitis. * Patient educated on the nature and etiology of plantar fasciitis, which involves inflammation and microtearing of the plantar fascia due to repetitive stress and overuse. * The patient was counseled on conservative management of plantar fasciitis, including daily stretching exercises targeting the plantar fascia and Achilles tendon, use of supportive and properly fitting footwear, and consideration of custom or prefabricated orthotics to improve foot biomechanics. * Previously administered cortisone injection to the right heel. * Continue at home stretching and range of motion exercises including calf- stretches, frozen water bottle therapy, band-therapy. * Continue orthotics. May require rearfoot valgus posting in the future. * Continue night splint. * Referred to physical therapy * Follow up in 3 weeks. May require repeat injection. 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 Explained that her high arch foot type (Cavus feet) can lead to altered weight distribution, resulting in increased pressure on the heel and forefoot. Patients may experience symptoms such as pain, callus formation, tendinitis, instability, lateral ankle sprains, and, in some cases, development of digital deformities (e.g., claw toes or hammertoes). Discussed the importance of shoe type with heel and forefoot padding and support.. Orders: Orders PT Evaluation and Treatment Today M72.2 - Plantar fascial fibromatosis, Q66.71 - Congenital pes cavus, right foot, Q66.72 - Congenital pes cavus, left foot Coding Level of Care Code Est Pt Level 3 (49606) Diagnoses Plantar fasciitis of right foot M72.2 Cavus deformity of both feet Q66.71; Q66.72 Time Spent (min) 20
[2025-09-04 14:24] VITALS: BMI 35.0
--- OUTSIDE RECORDS SUMMARY | 2025-09-04 17:31 | XMS_ITS | Clinical Summary ---
Author Organization [facility] Address [address] [place] [address] Care Team Providers Care Chiropractic Neurologist Name Role Phone Clarissa Matias Primary Care Provider [phone] Allergies Active Allergy Reactions Criticality Noted Date [...] mg by mouth as needed. 3 Active aspirin chewable tablet 81 mg 4 Active ketoconazole (NIZORAL) 2% shampoo Apply 1 Film topically to the affected area. prn 4 Active ARIPiprazole (ABILIFY) 20 mg tablet [...] tablet by mouth every afternoon. 5 Active risperiDONE (RisperDAL) 1 mg tablet Take by mouth. Activ e Active Problems Problem Noted Date Diagnosed Date [...] Description 08/04/2025 1:30 PM EDT Office Visit [facility] [address] [place] [address] Hunter Newton MD Cervical radiculopathy (Primary Dx); Moyamoya disease from Last 3 Months Immunizations Immunization Administration Dates Next Due Tetanus Toxoid, Reduced Diph theria Toxoid, and Acellular Pertussis Vaccine, Adsorbed 04/06/2012 Tuberculin Skin Test; Purifi ed Protein Derivative Solution, Intradermal 04/06/2012 Varicella Virus Vaccine 06/05/2012,05/03/2012 Family History Medical History Relation Name Comments Xroibha-Eyfrp-Lpixc disease Father Other Father Paternal histor y [...] Description 08/17/2026 1:00 PM EST Office Visit [facility] [address] [place] [address] [id number] Hunter Newton MD [address] [place] [id number] Health Maintenance Due Date Last Done Comments Cologuard 1977 Colon Cancer Screening 1977 Colonoscopy 1977 FOBT / Fit Test 1977 HIV Screening 1977 Hepatitis C Screening 1977 Sigmoidoscopy 1977 Hepatitis B Vaccines (1 of 3 - 19+ 3-dose series) 1996 Pneumococcal Vaccine: Pediat elidia (0-5 Years) and At-Risk Patients (6-50 Years) (1 of 2 - PCV) 1996 HPV and Pap Smear 04/06/2017 04/06/2012, , 11/27/2008 Mammogram 2017 12/26/2011 Cervical Cancer Screening 04/04/2022 Pap Smear 04/04/2022 04/04/2019, 0712/2011, 04/06/2012, Additional history exists Alcohol/Substance Use Screening 10/05/2024 Depression Screening and Follow-Up 10/05/2024 Social Drivers of Health Gricelda ual Screening 10/05/2024 Influenza Vaccine (#1) 2025 , 12/30/2022, 11/11/2021, Additional history exists COVID-19 Vaccine (2024-2 6 season) 2025 09/02/2023, 06/20/2022, 08/16/2021, Additional history exists Diabetes Screening 04/14/2027 04/14/2024 DTaP,Tdap,and Td Vaccines (5 - Td or Tdap) 05/24/2034 05/24/2024, 08/02/2020, 07/24/2020, Additional history exists Medical Devices Implanted Type Area Division Human Resources Manager Device Identifier Shelf Expiration Date Model / Serial / Lot Device Closure Vascular Plug 6fr Angio-Seal Vip - [id number] Implanted:Qty: 1 on 04/22/2024 at [facility] Implant [id number] / / Procedures * Due to [place] [employer] law, this organization might not be sharing negative HIV tests. Procedure Name Priority Date/Time Associated Diagnosis Comments BASIC METABOLIC PANEL, OUTSIDE LAB Routine 04/14/2024 7:51 AM EDT PAP W/REFLEX HPV, CONVERSION Routine 04/06/2012 4:48 PM EDT HM MAMMOGRAPHY Routine 12/26/2011 3:41 PM EDT from Last 3 Months or Most Recently Relevant to Health Maintenance Results * Due to [place] [employer] law, this organization might not be sharing negative HIV tests. * Basic Metabolic Panel, Outside Lab (04/14/2024 7:51 AM EDT) Blood Structure of peripheral vein / Unknown us Eugene Lockwood MD PhD LAB BLOOD ORDERABLES Fin al Result * Pap w/Reflex HPV (04/06/2012 4:48 PM EDT) Path Procedure TPGAS ([id number]) 1 Edited by: [id number] TULIOVEYClinton [facility] Specimen Labeled As: 1 CERVICAL/ENDOCERVI LESLEY CYTO MATERIAL - Edited by: [id number] GARVED [facility] Diagnosis [...] be useful in other clinical applications. See [place] Journal of Obstetrics and Gynecology 197(4):346-355, 2007. This Pap test was examined in accordance with the [facility] Cytopathology Laboratory written policy. This Pap test was examined by the [employer] System, [employer], [place], [place]. Edited by: [id number] 1012 [facility] Gynecologic Clinical Data Specimen source:, THINPREP (CERVICAL AND ENDOCERVICAL) [facility] Gynecologic Clinical Data First date of LMP:, 03/27/12 [facility] Gynecologic Clinical Data LPS:, 04/17/10 [facility] Pathology Codes Client Order Code:, [email or web address] [facility] Pathology Codes Bill Type:, CLIENT [facility] Marker 1 Ladi BARRIOS [facility] Marker 2 NILM,NILM [facility] Cc Results To [facility] REF [id number] [facility] Signature REPORT SIGNED: KIARRA EASLEY 04/15/12 [facility] Sign Out Audit KIARRA EASLEY [id number] FINAL [facility] [id number] [facility] Cytology / Unknown 2 4:48 PM EDT 04/08/2012 4:48 PM EDT us Jenny BhagatLeonel LAB HISTORICAL RESULTS Final Re sult [facility] [address] [place] [address], * HM MAMMOGRAPHY (12/26/2011 3:41 PM EDT) HM Mammogram [facility] Anatomical Region Laterality Modality Other 12/26/2011 3:41 PM EDT us Historical Conversion Provider HEALTH MAINTENANC E Final Result from Last 3 Months or Most Recently Relevant to Health Maintenance Insurance [employer] Advance Directives * Presumed Full Code (Latest Code Status on File) Date Activated Date Inactivated Comments 04/22/2024 9:05 AM 04/27/2024 2:39 AM Care Teams Chiropractic Neurologist Relationship Specialty Start Date End Date Clarissa Matias PCP - General Internal Medicine 10/06/23
--- OUTSIDE RECORDS SUMMARY | 2025-09-04 17:31 | XMS_ITS | Clinical Summary ---
Author Organization [facility] Address [address] [place] [address] Phone Care Team Providers Care Portable Machine Cutter Name Role Phone Unavailable Primary Care Provider [...]
--- OUTSIDE RECORDS SUMMARY | 2025-09-04 17:31 | XMS_ITS | Clinical Summary ---
Author Organization [facility] Address [address] [place] [phone] Phone Care Team Providers Care Metal Cut Off Saw Operator Name Role Phone Symone Bailon MD Primary [...] topic Medical Devices Not on file Insurance [employer] NON NSPG PCP SILVER CLARITY CONNECTORCARE [employer] NON NSPG PCP SILVER CLARITY CONNECTORCARE [employer] NON NSPG PCP SILVER CLARITY CONNECTORCARE [employer] NON NSPG PCP SILVER CLARITY CONNECTORCARE [employer] NON NSPG PCP SILVER CLARITY CONNECTORCARE [employer] NON NSPG PCP SILVER CLARITY CONNECTORCARE [employer] NON NSPG PCP SILVER CLARITY CONNECTORCARE [facility] NON NSPG PCP SILVER CLARITY CONNECTORCARE [facility] NON NSPG PCP SILVER CLARITY CONNECTORCARE MIIA Care Teams Metal Cut Off Saw Operator Relationship Specialty Start Date End Date Symone Bailon MD PCP - General Internal Medicine 08/02/20 Additional Source Comments The information contained in this document represents components of the legal health record. It is not the complete legal health record.[facility]
--- OUTSIDE RECORDS SUMMARY | 2025-09-04 17:31 | XMS_ITS | Clinical Summary ---
Author Organization [address] & [facility] Address [address] [facility] [place] [address] Care Team Providers Care Horse Exerciser Name Role Phone No, Pcp POURED PIPE MAKER Primary Care Provider Unavailabl e Allergies Active [...] Mass Index - - Plan of Treatment Not on file Medical Devices Not on file Care Teams Horse Exerciser Relationship Specialty Start Date End Date No, Pcp, POURED PIPE MAKER N/A Do not use PCP - General 03/05/16
== END 2025-09-04 14:39 | disposition home or self-care (01) ==
LOC: HO.HPODS 14:07
PROVIDERS: PCP Internal Medicine; Visit Provider Student in an Organized Health Care Education/Training Program
DX: M72.2 Plantar fascial fibromatosis (principal); Q66.71 Congenital pes cavus, right foot; Q66.72 Congenital pes cavus, left foot
CPT/HCPCS: 99213

== ENCOUNTER → 2025-09-04 14:06 | Outpatient (BNVA) | payer OTHER, SELFPAY | PROVIDERS: PCP Internal Medicine; Visit Provider Student in an Organized Health Care Education/Training Program | DX: M72.2 Plantar fascial fibromatosis (principal); Q66.71 Congenital pes cavus, right foot; Q66.72 Congenital pes cavus, left foot | CPT/HCPCS: 99212 ==

== ENCOUNTER 2025-09-11 14:29 | Inpatient (IN) | payer OTHER, SELFPAY ==
[2025-09-11 14:38] VITALS: BP 170/96; PULSE 99; RESP 18; TEMP 36.8; O2SAT 99; BMI 35.3
--- NOTE | 2025-09-11 15:43 | ED_ITS ---
HPI - Psych General Chief Complaint: Psychiatric Symptoms Stated Complaint: patricia wilder Time Seen by Provider: 09/11/25 15:06 Source: patient, RN notes reviewed and old records reviewed Mode of arrival: ambulatory Limitations: no limitations History of Present Illness ED Provider: AUGUSTUS Vo HPI Narrative: 49-year-old female with medical history of bipolar disorder, cocaine use disorder, presents to the ED due to increased depression, cycling between manic and hypomanic episodes. Patient states her bipolar disorder is affected with seasonal changes and has felt increased depression with manic and hypomanic episodes for the last 3 weeks. Patient reports some recent triggers have been the relationship with her adult child as she feels that her child is pushing her away and no longer needs her, and has been difficult for her to deal with this feeling. Patient reports increased suicidal ideation with thoughts of driving off the road and into something, tying a plastic bag around her head with duct tape, or overdosing on her medications. Patient states she is in the start program through [facility] and goes 4 days a week for group, has a therapist and psychiatrist in the community that she finds helpful, and has been taking her medications. Patient has history of self-injurious behavior by cutting, patient reports increased urges to self-harm, but has been able to manage these without acting out. Patient reports she uses marijuana and cocaine by snorting, denies IVDU. Patient states she is looking for help as she does not feel safe with herself at this time. Denies HI, AH, VH, chest pain, shortness of breath, difficulty breathing, headaches, visual changes, abdominal pain, nausea, vomiting, diarrhea, black/tarry stool, urinary symptoms Related Data Home Medications ?Medication ?Instructions ?Recorded ?Confirmed aripiprazole 30 mg tablet (Abilify) 30 mg PO DAILY 09/12/25 cholecalciferol (vitamin D3) 10 20 mcg PO DAILY 09/11/25 mcg (400 unit) tablet divalproex 250 mg tablet,extended 250 mg PO QAM 09/12/25 release 24 hr divalproex 500 mg tablet,extended 1,000 mg PO BEDTIME 07/11/25 09/11/25 release 24 hr methylphenidate HCl 36 mg 72 mg PO QAM 07/11/25 tablet,extended release 24 hr (Concerta) methylphenidate HCl 54 mg 54 mg PO 1400 07/11/2509/12 tablet,extended release 24 hr (Concerta) quetiapine 200 mg tablet 200 mg PO BEDTIME 07/11/25 1 11/12/24 risperidone 1 mg tablet (Risperdal) 1 mg PO BID 09/12/25 risperidone 0.5 mg tablet 0.5 mg PO DAILY@1400 5 09/12/25 (Risperdal) divalproex 500 mg tablet,extended 500 mg PO DAILY 06/2909/12/25 release 24 hr Previous Rx's ?Medication ?Instructions ?Recorded lithium carbonate 600 mg capsule 1,200 mg (2 x 600 mg) PO BEDTIME 06/10/24 #30 caps Allergies Allergy/AdvReac Type Severity Reaction Status Date / Time lamotrigine (From LAMICTAL) Allergy Severe RASH Verified 09/11/25 14:38 oxycodone (From PERCOCET) Allergy Mild NAUSEA Verified 09/11/25 14:38 Review of Systems 2 Review of Systems: Yes all other systems are reviewed and are negative [facility] Past Medical History Attestation statement: The following information was validated with the patient. Source: old records reviewed and nursing notes reviewed Medical History Polysubstance use disorder Bipolar disorder Surgical History H/O anal fistulotomy Hx of cholecystectomy Family History Family History Mother HTN (hypertension) Diabetes Breast cancer Father HTN (hypertension) Bladder cancer Social History Social History Household Members: None Household Members Other:: Mother and father Housing: Apartment Do you presently have visiting nurse or other home services: No Patient Tobacco Use Status: Former Tobacco user Tobacco use type: Cigarette Cigarette Packs Per Day: 1 Cigarettes Per Day: 20.0 Years Smoked: 9 Smoked in Last 30 Days: No e-Cigarette/Vaping Use: Never Used Second Hand Smoke Exposure: No Use of substances other than those prescribed or required for medical reasons: Yes Substance Use Type: Crack/Cocaine and Marijuana Currently Displaying Signs/Symptoms of Drug Intoxication Withdrawal: No Have you been hit, kicked, punched, or otherwise hurt by someone within the past year? If so, by whom?: No Do you feel safe in your current relationship?: No Current Relationship Is there a partner from a previous relationship who is making you feel unsafe now?: No Are you made to feel afraid or neglected: No Advance Directives: No Advance Directives Information Provided: No Do you have thoughts of harming others: None Do you have a plan to hurt others: No Plan Recently lost weight without trying: Yes How much weight loss: 2-13 pounds Eating poorly because of decreased appetite: Yes Nutrition screen score: 4 Nutrition Risks: No Nutritional Risk Patient : No : No Poor oral hygiene: No service: No Current occupational status: unemployed and disabled Sexual orientation: Straight/Heterosexual Cognitive needs: No Hearing needs: No Vision needs: Yes (glasses) Physical Exam 2 Vital Signs: Vital Signs: Last Vital Signs Temp 97.2 F 09/12/25 20:00 Pulse 93 09/12/25 20:00 Resp 16 09/12/25 20:00 BP 124/74 09/12/25 20:00 Pulse Ox 100 09/12/25 20:00 O2 Del Method Room Air 09/12/25 20:00 BMI result Body Mass Index 35.3 GENERAL APPEARANCE: ?AxOx4, nontoxic appearing, no acute distress. HEENT: ?NC, AT. MMM. EOMI, clear conjunctiva, oropharynx clear. NECK: ?Supple without lymphadenopathy.? No stiffness or restricted ROM. HEART:? Normal rate and regular rhythm, normal S1/S2, no m/r/g LUNGS:? CTAB, moving air well. No crackles or wheezes are heard. ABDOMEN: ?Soft, nontender, nondistended BACK: No CVAT, no obvious deformity. EXTREMITIES: ?Without cyanosis, clubbing or edema. NEUROLOGICAL: ?Grossly nonfocal. Alert and oriented, moving all 4 extremities. Observed to ambulate with normal gait. Skin: ?Warm and dry without any rash. PSYCH: Patient with appropriate eye contact, is conversive and pleasant. Patient is tearful while talking. Patient with good insight to her psychiatric conditions as she is able to recognize her manic/hypomanic episodes and is requesting help. Course Course Course Narrative: Time: 05:32 Date: 09/12/25 Provider: Scott Wellington MD Patient in physician observation for psychiatric evaluation.? No acute events reported overnight. No current complaints. VS stable . The patient was evaluated by the CARE team evaluation and patient meets IPLOC criteria. Will continue to monitor. Time: 16:19 Date: 09/12/25 Provider: Scott Wellington MD Physician observation ended at 16:19 hours. The patient is admitted to [facility] for further treatment. Medications Administered Generic Name Dose Route Start Last Admin Trade Name Freq PRN Reason Stop Dose Admin Amphetamine/Dextroamphetamine 15 mg 09/12/25 15:30 09/12/25 15:43 Dextroamphetamine/Amphetamine Xr 5 Mg Cap.Er.24h PO 15 mg DAILY@1400 EDY Administration Aripiprazole 30 mg 09/12/25 11:15 09/12/25 11:17 Aripiprazole 30 Mg Tablet PO 30 mg DAILY EDY Administration Divalproex Sodium 250 mg 09/12/25 11:15 09/12/25 11:17 Divalproex Sodium Er 250 Mg Tab.Er.24h PO 250 mg DAILY@0900 EDY Administration Divalproex Sodium 1,000 mg 09/12/25 21:00 09/12/25 20:22 Divalproex Sodium Er 500 Mg Tab.Er.24h PO 1,000 mg BEDTIME EDY Administration Divalproex Sodium 500 mg 09/12/25 11:45 09/12/25 11:46 Divalproex Sodium Er 500 Mg Tab.Er.24h PO 500 mg DAILY EDY Administration Hydroxyzine HCl 25 mg 09/12/25 15:26 09/12/25 15:43 Hydroxyzine Hcl 25 Mg Tablet PO 25 mg Q6H PRN Administration mild anxiety [place] Carbonate 1,200 mg 09/12/25 21:00 09/12/25 20:22 [place] Carbonate 300 Mg Capsule PO 1,200 mg BEDTIME EDY Administration Quetiapine Fumarate 200 mg 09/12/25 21:00 09/12/25 20:22 Quetiapine Fumarate 200 Mg Tablet PO 200 mg BEDTIME EDY Administration Risperidone 0.5 mg 09/12/25 14:00 09/12/25 15:43 Risperidone 0.5 Mg Tablet PO 0.5 mg DAILY@1400 EDY Administration Risperidone 1 mg 09/12/25 11:15 09/12/25 20:22 Risperidone 1 Mg Tablet PO 1 mg BID EDY Administration Trazodone HCl 50 mg 09/12/25 15:26 09/13/25 00:06 Trazodone Hcl 50 Mg Tablet PO 50 mg BEDTIME MRX1 PRN Administration Insomnia Vitamin D 20 mcg 09/12/25 11:15 09/12/25 11:17 Cholecalciferol (Vitamin D3) 10 Mcg Tablet PO 20 mcg DAILY EDY Administration Discontinued Medications Generic Name Dose Route Start Last Admin Trade Name Willis PRN Reason Stop Dose Admin Lorazepam 1 mg 09/11/25 16:05 09/11/25 17:14 Lorazepam 1 Mg Tablet PO 09/11/25 16:06 1 mg ONCE ONE Administration Lorazepam 1 mg 09/11/25 20:49 09/11/25 21:02 Lorazepam 1 Mg Tablet PO 09/11/25 20:50 1 mg ONCE ONE Administration Lorazepam 1 mg 09/12/25 00:16 09/12/25 00:20 Lorazepam 1 Mg Tablet PO 09/12/25 00:17 1 mg ONCE ONE Administration Medical Decision Making Medical Decision Making MDM Narrative: 49-year-old female with medical history of bipolar disorder, cocaine use disorder, presents to the ED due to increased depression, cycling between manic and hypomanic episodes that has been triggered by seasonal changes, and feeling as if her adult child is pulling away from her. Patient uses marijuana and snorts cocaine. Has history of self-injurious behavior through cutting. Patient currently participating in the start program through [facility] where she goes 4 times a week for group sessions. Patient has psychiatrist and therapist in the community and is consistently taking her medications. Patient with increased suicidal ideation prompting her to seek care. Patient reporting increased anxiety and is requesting medication for relief. Plan: Labs, IBANEZ, EKG, care team consult - Patient being medicated with 1mg po Ativan for anxiety Labs without leukocytosis/leukopenia, normocytic anemia with a stable hemoglobin of 11.9, hematocrit of 36.3, elevated chloride of 110, mild transaminitis with an AST of 34, ALT of 47 Course Currently awaiting IBANEZ, EKG Patient was evaluated by care team behavioral health specialist Niels Pilecki. Patient is section 12 and is entering phys obs at 18:18 as she is an adult bedsearch for IPL. Differential Diagnosis Differential Diagnoses: The differential diagnosis associated with the presentation includes Bipolar disorder Increased depression Increased anxiety Psychosis Suicidal ideation Admission/Observation Consideration of admission/observation: Escalation of care including admission/observation considered Lab Data [facility] Lab Attestation statement: I reviewed the patient's lab results. 09/11/25 19:10 09/11/25 19:10 Labs: Lab Results 09/11/25 09/11/25 Range/Units 19:10 22:59 WBC 7.5 (4.8-10.8) X10*3/uL RBC 4.55 (4.20-5.50) X10*6/uL Hgb 13.1 (12.0-16.0) g/dl Hct 40.3 (37.0-47.0) % MCV 88.6 (80.0-98.0) fL MCH 28.8 (27.0-33.0) pg MCHC 32.5 (31.0-35.0) g/dl RDW 11.9 (11.0-16.0) % Plt Count 282 (160-400) X10*3/uL MPV 10.2 (9.4-12.3) fL Immature Gran % (Auto) 0.5 H (0.0-0.4) % Neut % (Auto) 64.3 (45-73) % Lymph % (Auto) 24.4 (20-40) % Shannon % (Auto) 8.0 (2-11) % Eos % (Auto) 2.3 (0-4) % Baso % (Auto) 0.5 (0-2) % Lymph # (Auto) 1.8 (1.2-4.9) X10*3/uL Shannon # (Auto) 0.6 (0.1-1.2) X10*3/uL Eos # (Auto) 0.2 (0.0-0.4) X10*3/uL Baso # (Auto) 0.0 (0.0-0.2) X10*3/uL Abs Immat Gran (auto) 0.04 H (0.00-0.03) X10*3/uL Absolute Neuts (auto) 4.9 (2.0-8.3) x10*3/uL Absolute Nucleated RBC 0.000 (0.0-0.012) X10*3/uL Nucleated RBC % (auto) 0.0 (0.0-0.2) /100WBC Sodium 146 H (135-145) mmol/L Potassium 3.7 (3.3-5.1) mmol/L Chloride 111 H (96-108) mmol/L Carbon Dioxide 23 (22-29) mmol/L Anion Gap 16 (12-20) BUN 7 L (9-16) mg/dL Creatinine 0.81 (0.5-1.4) mg/dL Estim Creat Clear Calc 109.1 Estimated GFR > 60 Random Glucose 104 (60-115) mg/dL Calcium 10.6 H (8.4-10.2) mg/dL Magnesium 2.4 (1.6-2.6) mg/dL Total Bilirubin 0.2 (0.0-1.0) mg/dL AST 37 H (5-31) U/L ALT 55 H (0-31) U/L Alkaline Phosphatase 57 (39-117) U/L Total Protein 9.2 H (6.5-8.0) g/dL Albumin 5.5 H (3.5-5.0) g/dL Urine Color Yellow Urine Appearance Clear Urine pH 7.0 (5.0-9.0) Ur Specific Chadwick <= 1.005 (1.005-1.025) Urine Protein Negative (Neg-Trace) mg/dL Urine Glucose (UA) Negative (Negative) mg/dL Urine Ketones Negative (Negative) mg/dL Urine Blood Negative (Negative) Urine Nitrite Negative (Negative) Ur Leukocyte Esterase Small (1+) H (Negative) Urine RBC 0-2 (0-2) /HPF Urine WBC 0-5 (0-5) /HPF Ur Squamous Epith Cells 3-5 (0-2) /HPF Urine Bacteria Trace (None Seen) Hyaline Casts 0-2 (0-2) /LPF Urine Opiates Screen Not Detected (Not Detect) Ur Buprenorphine Scrn Not Detected (Not Detect) ng/mL Ur Oxycodone Screen Not Detected (Not Detect) ng/mL Urine Methadone Screen Not Detected (Not Detect) ng/mL Urine Fentanyl Screen Not Detected (Not Detect) Ur Barbiturates Screen Not Detected (Not Detect) Ur Phencyclidine Scrn Not Detected (Not Detect) Ur Amphetamines Screen Not Detected (Not Detect) U Benzodiazepines Scrn Not Detected (Not Detect) Urine Cocaine Screen Not Detected (Not Detect) U Marijuana (THC) Screen POSITIVE H (Not Detect) Ethyl Alcohol 16 mg/dL Independent Interpretation I performed an independent interpretation of an: EKG Interpretation: I personally interpreted the EKG Discharge Plan Discharge Clinical Impression: Depression, Cocaine use disorder, Suicidal ideation Bipolar disorder Qualifiers: Active/Remission status: remission status unspecified Qualified Code(s): F31.9 - Bipolar disorder, unspecified Patient Disposition: Admitted As Inpatient Interventions: Admission Worksheet (ED) Last Done: 09/12/25 16:19 Discharge Date/Time: 09/12/25 16:26
--- NOTE | 2025-09-11 16:02 | ECG_ITS ---
Test Reason : check qt Blood Pressure : */* mmHG Vent. Rate : 80 BPM Atrial Rate : 80 BPM P-R Int : 186 ms QRS Dur : 96 ms QT Int : 416 ms P-R-T Axes : 31 30 49 degrees QTcB Int : 479 ms Poor data quality Normal sinus rhythm Prolonged QT Abnormal ECG When compared with ECG of 25-May-2024 11:17, Poor data quality in current ECG precludes serial comparison Referred By: Evita Vo Electronically Signed By: MAURO RASHID MD
[2025-09-11 19:14] VITALS: BP 168/106; PULSE 92; RESP 16; O2SAT 100
[2025-09-11 19:17] LABS: MANUAL DIFF FLAG NO
[2025-09-11 19:29] LABS: Hematocrit 40.3 % (37.0-47.0); Hemoglobin 13.1 g/dl (12.0-16.0); Imm Gran Abs Auto 0.04 X10*3/uL (0.00-0.03); Imm Gran Pct Auto 0.5 % (0.0-0.4); Lymphocytes Absolute Auto 1.8 X10*3/uL (1.2-4.9); Mean Corpuscular HGB Conc 32.5 g/dl (31.0-35.0); Mean Corpuscular Hemoglobin 28.8 pg (27.0-33.0); Mean Corpuscular Volume 88.6 fL (80.0-98.0); NRBC Abs Auto 0.000 X10*3/uL (0.0-0.012); NRBC Pct Auto 0.0 /100WBC (0.0-0.2); Platelet Count 282 X10*3/uL (160-400); Red Blood Count 4.55 X10*6/uL (4.20-5.50); White Blood Count 7.5 X10*3/uL (4.8-10.8)
[2025-09-11 19:32] LABS: Alanine Aminotransferase 55 U/L (0-31); Albumin Level 5.5 g/dL (3.5-5.0); Alkaline Phosphatase 57 U/L (39-117); Anion Gap 16 (12-20); Aspartate Amino Transferase 37 U/L (5-31); Blood Urea Nitrogen 7 mg/dL (9-16); Calcium 10.6 mg/dL (8.4-10.2); Carbon Dioxide 23 mmol/L (22-29); Chloride 111 mmol/L (96-108); Creatinine Clr Calc Pharmacy 109.1; Estimated Glomerular Filt Rate > 60; Magnesium 2.4 mg/dL (1.6-2.6); Potassium 3.7 mmol/L (3.3-5.1); Sodium 146 mmol/L (135-145); Total Protein 9.2 g/dL (6.5-8.0)
--- NOTE | 2025-09-11 21:58 | PC.NURSE ---
Report received from Shawnee Waddell RN. Patient moved from ED 22 [address] to ED 15, ambulated with steady gait. Remains in crisis hospital attire. Sitter present. Patient aware that urine specimen is pending. Patient voided recently but forgot to urinate in a specimen cup. Encouraged to provide urine specimen at earliest convenience for placement/CARE team. Given oral fluids (ice water & apple juice). SI with 'thoughts' of putting a plastic bag over her head. Hx depression & bipolar disorder. Calm/cooperative at this time. Watching TV. Care assumed by this RN at this time.
[2025-09-11 22:14] VITALS: BP 150/92; PULSE 83; RESP 16; TEMP 36.3; O2SAT 98
[2025-09-11 23:07] LABS: Appearance Urine Clear; Glucose Urine UA Negative (Negative); PH 7.0 (5.0-9.0); Specific Gravity - Urine <= 1.005 (1.005-1.025); UMIC TRIGGER UACC YES
[2025-09-11 23:15] LABS: Cannabinoid Screen Urine POSITIVE (Not Detect)
[2025-09-11 23:19] LABS: UACC Culture Trigger YES
--- NOTE | 2025-09-12 00:05 | PC.NURSE ---
Took over from RN Dulce, pt tearful, warm blanket given, pt on 1:1 for safety.
[2025-09-12 00:11] VITALS: BP 119/69; PULSE 76; RESP 16; TEMP 36.7; O2SAT 99
--- NOTE | 2025-09-12 00:26 | PC.NURSE ---
medicated per mar.
--- NOTE | 2025-09-12 01:12 | PC.NURSE ---
pt assisted to the rest room.
--- OUTSIDE RECORDS SUMMARY | 2025-09-12 01:44 | XMS_ITS | Clinical Summary ---
Author Organization [facility] Address [address] [place] [address] Care Team Providers Care Corrections Nurse Name Role Phone Clarissa Matias Primary Care Provider [phone] Allergies Active Allergy Reactions Criticality Noted Date [...] Description 08/04/2025 1:30 PM EDT Office Visit [facility] [address] [place] [address] Hunter Newton MD Cervical radiculopathy (Primary Dx); Moyamoya disease from Last 3 Months Immunizations Immunization Administration Dates Next Due Tetanus Toxoid, Reduced Diph theria Toxoid, and Acellular Pertussis Vaccine, Adsorbed 04/06/2012 Tuberculin Skin Test; Purifi ed Protein Derivative Solution, Intradermal 04/06/2012 Varicella Virus Vaccine 06/05/2012,05/03/2012 Family History Medical History Relation Name Comments Adiymhf-Tynlo-Xiojd disease Father Other Father Paternal histor y [...] Description 08/17/2026 1:00 PM EST Office Visit [facility] [address] [place] [address] [phone] Hunter Newton MD [address] [place] [phone] Health Maintenance Due Date Last Done Comments Cologuard 1977 Colon Cancer Screening 1977 Colonoscopy 1977 FOBT / Fit Test 1977 HIV Screening 1977 Hepatitis C Screening 1977 Sigmoidoscopy 1977 Hepatitis B Vaccines (1 of 3 - 19+ 3-dose series) 1996 HPV and Pap Smear 04/06/2017 04/06/2012, , 11/27/2008 Mammogram 2017 12/26/2011 Cervical Cancer Screening 04/04/2022 Pap Smear 04/04/2022 04/04/2019, 07/0 12/2011, 04/06/2012, Additional history exists Alcohol/Substance Use Screening 10/05/2024 Depression Screening and Follow-Up 10/05/2024 Social Drivers of Health Annual Screening 10/05/2024 Influenza Vaccine (#1) 2025 , 12/30/2022, 11/11/2021, Additional history exists COVID-19 Vaccine ( season) 2025 09/02/2023, 06/20/2022, 08/16/2021, Additional history exists Diabetes Screening 04/14/2027 04/14/2024 DTaP,Tdap,and Td Vaccines (5 - Td or Tdap) 05/24/2034 05/24/2024, 08/02/2020, 07/24/2020, Additional history exists Pneumococcal Vaccine: Pediatric (0-5 Years) and At-Risk Patients (6-50 Years) Aged Out No longer eligible based on patient's age to complete this topic Medical Devices Implanted Type Area [employer] Representative Device Identifier Shelf Expiration Date Model / Serial / Lot Device Closure Vascular Plug 6fr Angio-Seal Vip - [id number] Implanted:Qty: 1 on 04/22/2024 at [facility] Implant [id number] / / Procedures * Due to [place] [employer] law, this organization might not be sharing negative HIV tests. Procedure Name Priority Date/Time Associated Diagnosis Comments BASIC METABOLIC PANEL, OUTSIDE LAB Routine 04/14/2024 7:51 AM EDT PAP W/REFLEX HPV, CONVERSION Routine 04/06/2012 4:48 PM EDT HM MAMMOGRAPHY Routine 12/26/2011 3:41 PM EDT from Last 3 Months or Most Recently Relevant to Health Maintenance Results * Due to [place] [employer] law, this organization might not be sharing negative HIV tests. * Basic Metabolic Panel, Outside Lab (04/14/2024 7:51 AM EDT) Blood Structure of peripheral vein / Unknown us Eugene Lockwood MD PhD LAB BLOOD ORDERABLES Fin al Result * Pap w/Reflex HPV (04/06/2012 4:48 PM EDT) Path Procedure TPGAS ([id number]) 1 Edited by: [id number] TULIOVEYD [facility]AT[facility] - [facility] Specimen Labeled As: 1 CERVICAL/ENDOCERVI LESLEY CYTO MATERIAL - Edited by: [id number] GARVED [facility]AT[facility] - [facility] Diagnosis [...] test was examined in accordance with the [facility] Cytopathology Laboratory written policy. This Pap test was examined by the [facility] Imaging System, [place], [place], [place]. Edited by: [id number] - [id number] [facility]ATOMIC PATHOLOGY - [facility] Gynecologic Clinical Data Specimen source:, THINPREP (CERVICAL AND ENDOCERVICAL) [facility] - [facility] Gynecologic Clinical Data First date of LMP:, 03/27/12 [facility] - [facility] Gynecologic Clinical Data LPS:, 04/17/10 [facility] Pathology Codes Client Order Code:, [id number] [facility] Pathology Codes Bill Type:, CLIENT [facility] Marker 1 Ladi BARRIOS [facility] ANATOMIC PATHOLOGY - [facility] Marker 2 NILM,NILM [facility]ATOM[facility]OLOG[facility] - [facility] Cc Results To [facility] REF [id number] [facility] - [facility] Signature REPORT SIGNED: KIARRA EASLEY 04/15/12 [facility] Sign Out Audit KIARRA EASLEY [id number] [facility] [id number] [facility] - [facility] Cytology / Unknown 2 4:48 PM EDT 04/08/2012 4:48 PM EDT us Jenny Leonel LAB HISTORICAL RESULTS Final Re sult [facility] [address] [place] [address], * HM MAMMOGRAPHY (12/26/2011 3:41 PM EDT) HM Mammogram [facility] Anatomical Region Laterality Modality Other 12/26/2011 3:41 PM EDT us Historical Conversion Provider HEALTH MAINTENANC E Final Result from Last 3 Months or Most Recently Relevant to Health Maintenance Insurance [employer] Advance Directives * Presumed Full Code (Latest Code Status on File) Date Activated Date Inactivated Comments 04/22/2024 9:05 AM 04/27/2024 2:39 AM Care Teams Corrections Nurse Relationship Specialty Start Date End Date Clarissa Matias PCP - General Internal Medicine 10/06/23
--- OUTSIDE RECORDS SUMMARY | 2025-09-12 01:44 | XMS_ITS | Clinical Summary ---
Author Organization [facility] Address [address] [place] [phone] Phone Care Team Providers Care Emergency Care Attendant Name Role Phone Symone Bailon MD Primary Care Provider [phone] Allergies Active Allergy Reactions Criticality Noted Date [...] [employer] NON NSPG PCP [facility] PCP [facility] [address] [place] [phone] Care Teams Emergency Care Attendant Relationship Specialty Start Date End Date Symone Bailon MD PCP - General Internal Medicine 08/02/20 Additional Source Comments The information contained in this document represents components of the legal health record. It is not the complete legal health record.[facility]
--- OUTSIDE RECORDS SUMMARY | 2025-09-12 01:44 | XMS_ITS | Clinical Summary ---
Author Organization [facility] Address [address] [place] [address] Phone Care Team Providers Care Vp Patient Name Role Phone Unavailable Primary Care Provider [...]
--- NOTE | 2025-09-12 02:42 | PC.NURSE ---
pt sleeping at this time. pt remain on a 1:1
[2025-09-12 04:01] VITALS: BP 116/71; PULSE 68; RESP 16; TEMP 37.1; O2SAT 96
[2025-09-12 08:49] VITALS: BP 138/79; PULSE 75; RESP 16; TEMP 36.9; O2SAT 97
--- NOTE | 2025-09-12 10:36 | PHA.MEDREC ---
Addendum entered by Magen Seay RPh 09/12/25 11:28: Depakote should have been 750mg daily, this was edited and provider was made aware. Original Note: Pharmacy Consult ? Medication Reconciliation Pharmacy has reviewed the medication reconciliation completed by nursing.
[2025-09-12] MEDS: Cholecalciferol (Vitamin D3) 10 MCG TABLET 20 MCG PO (11:17)
[2025-09-12] MEDS: ARIPiprazole 30 MG TABLET PO (11:17)
[2025-09-12] MEDS: Divalproex Sodium ER 250 MG TAB.ER.24H PO (11:17)
[2025-09-12] MEDS: Dextroamphetamine/Amphetamine XR 5 MG CAP.ER.24H 15 MG PO (15:43)
[2025-09-12 16:45] VITALS: BP 144/97; PULSE 83; RESP 16; TEMP 36.5; O2SAT 99
--- NOTE | 2025-09-12 17:27 | PC.ADMIT ---
Shanique is a 49-year-old female admitted from [facility] to M[facility] on a CV 09/12/25 1630 for treatment of bipolar d/o and PTSD. 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 EKG showed prolonged QT, QT/QTC 416/479. Tox screen positive for THC. 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 Pt self-presented to ED secondary to reporting SI with plan to put a plastic bag over her head due to worsening depression. She reported she is cycling through manic and hypo-manic episodes and is coming off a 2-3 week cocaine binge which included using an 8 ball of cocaine every 3-4 days, last use was 2 weeks ago. Upon arrival to , pt was A&O x4, pleasant and cooperative. Skin check revealed healed scars on bilateral arms d/t hx of self-injurious behavior. Mood is depressed with congruent affect. Thought process linear and organized, pt was tearful during assessment. She reports increased depression and difficulty falling/staying asleep. She reports decreased appetite and 6 lb weight loss in 2 weeks. Pt's goals for admission are to become more safe with myself. Pt endorses vague SI, says it's always in the back of my mind but denies a plan and will reach out to staff if thoughts occur. She denies HI/AH/VH and reports feeling safe on the unit. Pt placed on 15 minute safety checks.
[2025-09-12 17:57] VITALS: BMI 34.2
[2025-09-12 20:00] VITALS: BP 124/74; PULSE 93; RESP 16; TEMP 36.2; O2SAT 100
[2025-09-13 08:00] VITALS: BP 147/78; PULSE 75; RESP 20; TEMP 36.7; O2SAT 97
[2025-09-13] MEDS: Cholecalciferol (Vitamin D3) 10 MCG TABLET 20 MCG PO (08:29)
[2025-09-13] MEDS: Dextroamphetamine/Amphetamine XR 10 MG CAP.ER.24H 20 MG PO (08:30)
[2025-09-13] MEDS: ARIPiprazole 30 MG TABLET PO (08:30)
[2025-09-13] MEDS: Divalproex Sodium ER 250 MG TAB.ER.24H PO (08:31)
[2025-09-13 08:34] LABS: Cholesterol 160 mg/dL (<200); HDL Cholesterol 48 mg/dL (>40); Triglycerides 132 mg/dL (<150)
[2025-09-13] MEDS: Flu Vacc TS2025-26(6mo up)/PF 0.5 ML SYRINGE IM (08:36)
--- NOTE | 2025-09-13 08:50 | PC.NURSE ---
Pt received flu vaccine 09/13/25 0836.
--- NOTE | 2025-09-13 09:48 | HO.PSYADMNOT ---
HPI Date of Service: 09/13/25 Chief Complaint: SI Sources of Information: patient interviewed, chart reviewed and crisis/core team assessment reviewed HPI Subjective Notes: Conditional Voluntary Narrative: Ms. 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 She reported cycling through manic and hypomanic episodes after coming off a binge of an 8 ball of cocaine q 3-4 days. Tox screen in the ED was only positive for MJ. She was transferred to [facility] M3 for sfaety and stabilization after undergoing medical clearance in the ED. Pt reports my bipolar disorder was going cecil nuts. It happens this time of year . She has experienced some SI and she decided to seek help before she decompensates further. She's been thinking of cutting for the past week, which is the first warning sign of a severe mood episode. She reports recent thoughts of driving her car into something, putting a plastic bag over her head w/ duct tape or overdosing on pils, which she's done in the past. She reports that she was manic for 3 wks and the impaired judgment/impulse control in the setting of christ led to her cocaine binges. She attends the [facility] program for stimulant use d/o, which she reports is helpful when she's not manic. She reports that manic episodes are associated with abnormally elevated moods, racing thoughts, pressured speech, feelings that I can do anything, be anything , excessive spending and sleeping around. She endorses a lot of anxiety, associated w /physical tension, feeling scared, worrying a lot about her kid, herself and ending up like her aunt who is estranged from the family. Endorses flashbacks and nightmares related to previous stressful events, including moving at age 12 and having no friends; having a child at age 19. Denies h/o psychosis Denies violent ideation. Reports having a lot of rage . Screamed fk you to neighbor who plays loud music in his room, on the other side of a shared wall. Poor sleep- up and down every hour Appetite has been poor with depression, has to force herself to eat. Past Psychiatric History: Hx of multiple inpatient psychiatric hospitalizations. Most recently at [facility] in March ( horrible ), [facility] around 09/27 ('horrible'). Most recent [facility] admission- 05/25-06/10/24. Dx'd with mood d/o at 18 y/o at [facility] Myrna Pruitt-Saira for therapy. Hx of PHP and respite. h/o suicide attempt by overdosing on pills Hx of SIB (cutting). Medical Evaluation Reviewed: Yes [facility] Medical History Polysubstance use disorder Bipolar disorder Surgical History H/O anal fistulotomy Hx of cholecystectomy Family History: unknown Social History: Lives alone. Has 30 yo child. Single. Unemployed- receives social security and food stamps. 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 Substance History: Cocaine- recent use of an 8 ball every 3-4 days in setting of christ. Binges till she runs out of money MJ Psilocybin- 2 grams 2 wks ago at a concert. reports it was fun . Consumes ~ once q 2 months Quit drinking ETOH in 2023 Quit cigarettes in 2018 Trauma History: endorses stressful life events as noted above. Diagnostics Vital Signs (24Hr): Vital Signs - 24 hr 09/12/25 16:45 09/12/25 20:00 09/13/25 08:00 Temperature 97.7 F 97.2 F 98.1 F Pulse Rate 83 93 75 Respiratory Rate 16 16 20 Blood Pressure 144/97 H 124/74 147/78 H Pulse Oximetry 99 100 97 Oxygen Delivery Method Room Air Room Air Room Air BMI result Body Mass Index 34.2 Labs 09/11/25 19:10 09/13/25 16:01 Labs: Laboratory Results - last 48 hr 09/11/25 09/11/25 09/13/25 19:10 22:59 08:02 WBC 7.5 RBC 4.55 Hgb 13.1 Hct 40.3 MCV 88.6 MCH 28.8 MCHC 32.5 RDW 11.9 Plt Count 282 MPV 10.2 Immature Gran % (Auto) 0.5 H Neut % (Auto) 64.3 Lymph % (Auto) 24.4 Cochran % (Auto) 8.0 Eos % (Auto) 2.3 Baso % (Auto) 0.5 Lymph # (Auto) 1.8 Cochran # (Auto) 0.6 Eos # (Auto) 0.2 Baso # (Auto) 0.0 Abs Immat Gran (auto) 0.04 H Absolute Neuts (auto) 4.9 Absolute Nucleated RBC 0.000 Nucleated RBC % (auto) 0.0 Sodium 146 H Potassium 3.7 Chloride 111 H Carbon Dioxide 23 Anion Gap 16 BUN 7 L Creatinine 0.81 Estim Creat Clear Calc 109.1 Estimated GFR > 60 Random Glucose 104 Estimat Average Glucose 105 Hemoglobin A1c % 5.3 Calcium 10.6 H Magnesium 2.4 Total Bilirubin 0.2 AST 37 H ALT 55 H Alkaline Phosphatase 57 Total Protein 9.2 H Albumin 5.5 H Triglycerides 132 Cholesterol 160 LDL Cholesterol, Calc 86 HDL Cholesterol 48 Urine Color Yellow Urine Appearance Clear Urine pH 7.0 Ur Specific [place] <= 1.005 Urine Protein Negative Urine Glucose (UA) Negative Urine Ketones Negative Urine Blood Negative Urine Nitrite Negative Ur Leukocyte Esterase Small (1+) H Urine RBC 0-2 Urine WBC 0-5 Ur Squamous Epith Cells 3-5 Urine Bacteria Trace Hyaline Casts 0-2 Urine Opiates Screen Not Detected Ur Buprenorphine Scrn Not Detected Ur Oxycodone Screen Not Detected Urine Methadone Screen Not Detected Urine Fentanyl Screen Not Detected Ur Barbiturates Screen Not Detected Ur Phencyclidine Scrn Not Detected Ur Amphetamines Screen Not Detected U Benzodiazepines Scrn Not Detected Urine Cocaine Screen Not Detected U Marijuana (THC) Screen POSITIVE H Ethyl Alcohol 16 Meds/Allergies Meds Home Medications ?Medication ?Instructions ?Recorded ?Confirmed ?Type aripiprazole 30 mg tablet (Abilify) 30 mg PO DAILY 04/24/25 09/12/25 History cholecalciferol (vitamin D3) 10 20 mcg PO DAILY 07/11/25 09/11/25 History mcg (400 unit) tablet divalproex 250 mg tablet,extended 250 mg PO QAM 07/11/25 09/12/25 History release 24 hr divalproex 500 mg tablet,extended 1,000 mg PO BEDTIME 07/11/25 09/11/25 History release 24 hr methylphenidate HCl 36 mg 72 mg PO QAM 07/11/25 09/12/25 History tablet,extended release 24 hr (Concerta) methylphenidate HCl 54 mg 54 mg PO 1400 07/11/25 09/12/25 History tablet,extended release 24 hr (Concerta) quetiapine 200 mg tablet 200 mg PO BEDTIME 07/11/25 09/11/25 History risperidone 1 mg tablet (Risperdal) 1 mg PO BID 07/11/25 09/12/25 History risperidone 0.5 mg tablet 0.5 mg PO DAILY@1400 08/02/25 09/12/25 History (Risperdal) divalproex 500 mg tablet,extended 500 mg PO DAILY 09/12/25 09/12/25 History release 24 hr Allergies Allergies Allergy/AdvReac Type Severity Reaction Status Date / Time lamotrigine (From LAMICTAL) Allergy Severe RASH Verified 09/11/25 14:38 oxycodone (From PERCOCET) Allergy Mild NAUSEA Verified 09/11/25 14:38 Mental Status Exam Mental Status Exam Narrative: Appearance: Casually dressed. Grooming/hygiene wnl. Good eye contact Attitude:Cooperative Speech: Fluent and wnl in regard to volume, tone, prosody Motor activity: Calm and without any tics, tremors or dyskinesias. Steady gait Mood: depressed and anxious Affect: appropriate, reactive, tearful at times Thought process: goal directed and without evidence of formal thought disorder Thought content: Endorses SI without current plan/intent. Denies violent ideation. Anxious ruminations. Perception: Denies AH/VH and does not appear to respond to internal stimuli Alert/oriented in all spheres Cognition grossly intact Insight: intact Judgment: intact Assessment & Plan Assessment & Plan (1) Bipolar disorder: Status: Acute Qualifiers: Active/Remission status: remission status unspecified Qualified Code(s): F31.9 - Bipolar disorder, unspecified Code(s): F31.9 - Bipolar disorder, unspecified (2) PTSD (post-traumatic stress disorder): Status: Acute Code(s): F43.10 - Post-traumatic stress disorder, unspecified (3) Cocaine use disorder: Status: Acute Code(s): F14.10 - Cocaine abuse, uncomplicated Plan Ms. 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 She reported cycling through manic and hypomanic episodes after coming off a binge of an 8 ball of cocaine q 3-4 days. Tox screen in the ED was only positive for MJ. She was transferred to [facility] M3 for sfaety and stabilization after undergoing medical clearance in the ED. Plan: Admitted to for safety and stabilization Legal status: CV 15 min safety checks Continue current home med regimen except- Concerta is not available on our formulary. Received Adderall today. Nursing staff received call from pt's psychiatrist's office, who recommended Focalin or MPH since pt doesn't do well on Adderall. Given that pt is not currently manic, will start her on methylphenidate 70 mg qam and 50 mg qd at 12:30 pm (roughly equivalent to Concerta 72 mg qam and 54 mg qd in afternoon). Ordered lorazepam 1 mg qd prn for severe anxiety/panic attacks *Will communicate w/ pt's outpatient psychiatric provider to discuss tx plan and determine whether her med regimen can be simplified to reduce risk of med interactions/SE. Patient educated on: diagnosis, medication risk/benefits and substance abuse Informed Consent: understands Reason for continued inpatient stay Substantial Risk for: harm to self and med/psych decompensation Statement Statement: I have reviewed the history and physical and performed a pertinent examination on my patient. No changes have occurred unless specified. If the History and Physical was not performed prior to admission, the Hospitalist's service will be consulted for completing the admission physical. Time Spent With Patient Time: Total time managing care of this patient today ____ minutes.
--- NOTE | 2025-09-13 12:15 | HO.PM.IMCN ---
History of Present Illness Data of Consult Service Date: 09/13/25 Primary Care Provider: Symone Elam MD [facility] Reason for consult: Medical consult 49-year-old female with past medical history of bipolar disorder, cocaine use disorder, polysubstance use disorder, presented to the ED increased depression, manic and hypomanic episodes for the past 3 weeks. Patient reports increasing suicidal ideation, she also has a history of self-harm. Her workup revealed no leukocytosis, a normocytic anemia with a stable H&H of 36.3 and 11.9, mild transaminitis. Urine without evidence of infection. U tox positive for marijuana. EKG with normal sinus rhythm with a prolonged QTC of 479. On exam she has no medical concerns. Review of Systems Review of Systems: Denies chest pain, shortness of breath, difficulty breathing, headaches, visual changes, abdominal pain, nausea, vomiting, diarrhea, black/tarry stool, urinary symptoms PMFSH Medical History Polysubstance use disorder Bipolar disorder Family History Mother HTN (hypertension) Diabetes Breast cancer Father HTN (hypertension) Bladder cancer Surgical History H/O anal fistulotomy Hx of cholecystectomy Social History Household Members: None Household Members Other:: Mother and father Housing: Apartment Do you presently have visiting nurse or other home services: No Patient Tobacco Use Status: Former Tobacco user Tobacco use type: Cigarette Cigarette Packs Per Day: 1 Cigarettes Per Day: 20.0 Years Smoked: 9 Smoked in Last 30 Days: No e-Cigarette/Vaping Use: Never Used Second Hand Smoke Exposure: No Use of substances other than those prescribed or required for medical reasons: Yes Substance Use Type: Crack/Cocaine and Marijuana Currently Displaying Signs/Symptoms of Drug Intoxication Withdrawal: No Have you been hit, kicked, punched, or otherwise hurt by someone within the past year? If so, by whom?: No Do you feel safe in your current relationship?: No Current Relationship Is there a partner from a previous relationship who is making you feel unsafe now?: No Are you made to feel afraid or neglected: No Advance Directives: No Advance Directives Information Provided: No Do you have thoughts of harming others: None Do you have a plan to hurt others: No Plan Recently lost weight without trying: Yes How much weight loss: 2-13 pounds Eating poorly because of decreased appetite: Yes Nutrition screen score: 4 Nutrition Risks: No Nutritional Risk Patient : No : No Poor oral hygiene: No service: No Current occupational status: unemployed and disabled Sexual orientation: Don't Know Cognitive needs: No Hearing needs: No Vision needs: Yes (glasses) Meds Allergies Allergy/AdvReac Type Severity Reaction Status Date / Time lamotrigine (From LAMICTAL) Allergy Severe RASH Verified 09/11/25 14:38 oxycodone (From PERCOCET) Allergy Mild NAUSEA Verified 09/11/25 14:38 Active Medications: Current Medications Acetaminophen (Acetaminophen 325 Mg Tablet) 650 mg PO Q6H PRN PRN Reason: Headache/Pain, Scale 1-10 Al Hydroxide/Mg Hydroxide (Magnesium Hydrox/Alum Hydrox 30 Ml Oral.Susp) 30 ml PO Q6H PRN PRN Reason: Heartburn/Nausea Amphetamine/Dextroamphetamine (Dextroamphetamine/Amphetamine Xr 5 Mg Cap.Er.24h) 15 mg PO DAILY@1400 [facility] Last Admin: 09/12/25 15:43 Dose: 15 mg Amphetamine/Dextroamphetamine (Dextroamphetamine/Amphetamine Xr 10 Mg Cap.Er.24h) 20 mg PO DAILY@0900 [facility] Last Admin: 09/13/25 08:30 Dose: 20 mg Aripiprazole (Aripiprazole 30 Mg Tablet) 30 mg PO DAILY [facility] Last Admin: 09/13/25 08:30 Dose: 30 mg Divalproex Sodium (Divalproex Sodium Er 250 Mg Tab.Er.24h) 250 mg PO DAILY@0900 [facility] Last Admin: 09/13/25 08:31 Dose: 250 mg Divalproex Sodium (Divalproex Sodium Er 500 Mg Tab.Er.24h) 1,000 mg PO BEDTIME [facility] Last Admin: 09/12/25 20:22 Dose: 1,000 mg Divalproex Sodium (Divalproex Sodium Er 500 Mg Tab.Er.24h) 500 mg PO DAILY [facility] Last Admin: 09/13/25 08:31 Dose: 500 mg Hydroxyzine HCl (Hydroxyzine Hcl 25 Mg Tablet) 25 mg PO Q6H PRN PRN Reason: mild anxiety Last Admin: 09/12/25 15:43 Dose: 25 mg [place] Carbonate ([place] Carbonate 300 Mg Capsule) 1,200 mg PO BEDTIME [facility] Last Admin: 09/12/25 20:22 Dose: 1,200 mg Magnesium Hydroxide (Milk Of Magnesia 30 Ml Oral.Susp) 30 ml PO DAILY PRN PRN Reason: Constipation Nicotine (Nicotine 21 Mg Patch.Td24) 21 mg TRANSDERMA DAILY PRN PRN Reason: Nicotine Cravings Nicotine Polacrilex (Nicotine Polacrilex 2 Mg Gum) 4 mg BUCCAL Q2H PRN PRN Reason: Nicotine Cravings Quetiapine Fumarate (Quetiapine Fumarate 200 Mg Tablet) 200 mg PO BEDTIME [facility] Last Admin: 09/12/25 20:22 Dose: 200 mg Risperidone (Risperidone 0.5 Mg Tablet) 0.5 mg PO DAILY@1400 [facility] Last Admin: 09/12/25 15:43 Dose: 0.5 mg Risperidone (Risperidone 1 Mg Tablet) 1 mg PO BID [facility] Last Admin: 09/13/25 08:30 Dose: 1 mg Risperidone (Risperidone 0.5 Mg Tablet) 0.5 mg PO TID PRN PRN Reason: agitation Trazodone HCl (Trazodone Hcl 50 Mg Tablet) 50 mg PO BEDTIME MRX1 PRN PRN Reason: Insomnia Last Admin: 09/13/25 00:06 Dose: 50 mg Vitamin D (Cholecalciferol (Vitamin D3) 10 Mcg Tablet) 20 mcg PO DAILY [facility] Last Admin: 09/13/25 08:29 Dose: 20 mcg Home Medications ?Medication ?Instructions ?Recorded ?Confirmed ?Last Taken ?Type aripiprazole 30 mg tablet (Abilify) 30 mg PO DAILY 04/24/25 09/12/25 09/11/25 History cholecalciferol (vitamin D3) 10 20 mcg PO DAILY 07/11/25 09/11/25 09/11/25 History mcg (400 unit) tablet divalproex 250 mg tablet,extended 250 mg PO QAM 07/11/25 09/12/25 09/11/25 History release 24 hr divalproex 500 mg tablet,extended 1,000 mg PO BEDTIME 07/11/25 09/11/25 Unknown History release 24 hr methylphenidate HCl 36 mg 72 mg PO QAM 07/11/25 09/12/25 09/11/25 History tablet,extended release 24 hr (Concerta) methylphenidate HCl 54 mg 54 mg PO 1400 07/11/25 09/12/25 09/11/25 History tablet,extended release 24 hr (Concerta) quetiapine 200 mg tablet 200 mg PO BEDTIME 07/11/25 09/11/25 Unknown History risperidone 1 mg tablet (Risperdal) 1 mg PO BID 07/11/25 09/12/25 09/11/25 History risperidone 0.5 mg tablet 0.5 mg PO DAILY@1400 08/02/25 09/12/25 09/11/25 History (Risperdal) divalproex 500 mg tablet,extended 500 mg PO DAILY 09/12/25 09/12/25 Unknown History release 24 hr Physical Exam Vital Signs and Narrative: Vital Signs: Last Vital Signs Temp 98.1 F 09/13/25 08:00 Pulse 75 09/13/25 08:00 Resp 20 09/13/25 08:00 BP 147/78 H 09/13/25 08:00 Pulse Ox 97 09/13/25 08:00 O2 Del Method Room Air 09/13/25 08:00 BMI result Body Mass Index 34.2 Alert and oriented X3, calm and cooperative. Answers questions. Neuro: CN II-X11 intact, no focal neurological deficits EYES: PERRLA, EOM intact ENT: Hearing intact, MMM Cardiac: S1 S2 RRR, No ectopy Pulmonary: lungs clear to auscultation, No increased WOB. Abdominal: BS active in all 4 quadrants, no guarding or tenderness MSK: Strength 5/5 upper and lower extremities : Deferred Extremities: No edema in lower extremities Psych: Mood stable, Quiet and cooperative. Skin: Warm and dry, Intact Results Labs 09/11/25 19:10 09/11/25 19:10 Labs: Laboratory Results - last 24 hr 09/13/25 08:02 Estimat Average Glucose 105 Hemoglobin A1c % 5.3 Triglycerides 132 Cholesterol 160 LDL Cholesterol, Calc 86 HDL Cholesterol 48 Assessment and Plan (1) Transaminitis: Status: Acute Plan 49-year-old female with a past medical history as listed below presented to the ED with increased depression with christ and hypomania and suicidal ideation for the past 3 weeks. Admitted for psychiatric stabilization Bipolar disorder/polysubstance use disorder/depression Treatment per psychiatric team Transaminitis AST 37/ALT 55 Consistent with levels in April We will check hepatitis panel, repeat LFTs Patient we will need GI follow up as an outpatient. Thank you for allowing me to participate in the care of this patient. Will follow with you, please notify medical provider with any changes in condition or concerns.
[2025-09-13] MEDS: Dextroamphetamine/Amphetamine XR 5 MG CAP.ER.24H 15 MG PO (13:43)
[2025-09-13 16:42] LABS: Alanine Aminotransferase 36 U/L (0-31); Albumin Level 5.0 g/dL (3.5-5.0); Alkaline Phosphatase 53 U/L (39-117); Anion Gap 12 (12-20); Aspartate Amino Transferase 24 U/L (5-31); Blood Urea Nitrogen 8 mg/dL (9-16); Calcium 10.4 mg/dL (8.4-10.2); Carbon Dioxide 29 mmol/L (22-29); Chloride 106 mmol/L (96-108); Creatinine Clr Calc Pharmacy 114.2; Estimated Glomerular Filt Rate > 60; Potassium 4.2 mmol/L (3.3-5.1); Sodium 143 mmol/L (135-145); Total Protein 7.6 g/dL (6.5-8.0)
--- NOTE | 2025-09-13 16:48 | MHC.CLN ---
CONSULT REPORTED 6# WEIGHT LOSS X 2 WEEKS DUE TO DECREASED APPETITE. REVIEW OF WEIGHT HX SHOWS OVERALL 4% WEIGHT LOSS X 15 MONTHS. VARIANCE BETWEEN WEIGHTS 09/11 AND 09/12 UNLIKELY (105 KG AND 102 KG). BMI=34.2. NO ADDITIONAL NUTRITION INTERVENTIONS AT THIS TIME. PLEASE CONSULT RD IF POOR PO DURING ADM.
[2025-09-13 20:00] VITALS: BP 125/61; PULSE 79; RESP 17; TEMP 36.7; O2SAT 97
[2025-09-13] MEDS: Magnesium Hydrox/Alum Hydrox 30 ML ORAL.SUSP PO (22:43)
[2025-09-14 04:50] LABS: HBS Num1 140.12 mIU/mL (0-7.99); HBc Num1 0.07 S/CO (0.00-0.79); HBsAGNum1 0.41 S/CO (0.00-0.99); Hepatitis A Antibody IgM 0.20 Index (0-0.79); Hepatitis B Surface Antigen Negative (Negative); ~HepC Num1 0.10 S/CO (0.00-0.79); ~Hepatitis A Antibody IgM Nonreactive (Nonreactive); ~Hepatitis B Surface Antibody REACTIVE (Nonreactive); ~Hepatitis C Antibody Nonreactive (Nonreactive)
[2025-09-14 07:00] VITALS: BMI 34.9
[2025-09-14 07:45] VITALS: BP 157/104; PULSE 80; RESP 16; TEMP 36.2
[2025-09-14] MEDS: Cholecalciferol (Vitamin D3) 10 MCG TABLET 20 MCG PO (09:25)
[2025-09-14] MEDS: Divalproex Sodium ER 250 MG TAB.ER.24H PO (09:25)
[2025-09-14] MEDS: ARIPiprazole 30 MG TABLET PO (09:26)
[2025-09-14] MEDS: Magnesium Hydrox/Alum Hydrox 30 ML ORAL.SUSP PO (18:15)
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
[2025-09-14 20:00] VITALS: BP 143/78; PULSE 80; RESP 16; TEMP 36.6; O2SAT 99
[2025-09-15 08:26] VITALS: BP 149/83; PULSE 81; RESP 16; TEMP 36.8; O2SAT 96
[2025-09-15] MEDS: Cholecalciferol (Vitamin D3) 10 MCG TABLET 20 MCG PO (08:38)
[2025-09-15] MEDS: Divalproex Sodium ER 250 MG TAB.ER.24H PO (08:38)
[2025-09-15 18:00] VITALS: BP 164/84; PULSE 101; RESP 18; TEMP 37.1; O2SAT 98
--- NOTE | 2025-09-15 21:18 | PM.EVENT ---
Event Note Date of Service: 09/15/25 Event Note: pt c/o headaches; at home on very high doses of concerta however this is not on formulary here. Switching Concerta (long acting-which delivers drug over 24hour period) to IR ritalin (which lasts a few hours) is not 1:1. For now, will change pt to ritalin Ir in divided doses of 15mg qid. Time Spent With Patient Time: Total time managing care of this patient today ____ minutes.
--- NOTE | 2025-09-16 08:18 | P.PNPSI_ITS ---
Subjective Subjective Date of Service: 09/15/25 Reason For Visit: SI Subjective Notes: Conditional Voluntary Interim History: Chart reviewed. Case discussed with team Pt denies any issues w/ the Abilify taper from 30 mg to 25 mg last night. She asks to taper again today and we agreed on plan to taper to 20 mg. She slept better last night, was up 1x. Had increased anxiety last night a/w upset stomach, also had heart burn. SI has decreased, denies active SI but wishes she weren't here. Still has urges to cut. She has been clenching her fists to feel her fingernails dig into her skin but denies breaking her skin. She reports that the physical pain from cutting distracts her from her emotional pain. T/W discussed other strategies that are less harmful than cutting s/a putting a rubberband on her wrist and flicking it or applying ice on her skin. She hasn't tried those and thinks they could be helpful. She denies any SE from the Ritalin (switched from Concerta that is not on formulary). She's been attending groups. Mental Status Exam Mental Status Exam Narrative: Appearance: Casually dressed. Grooming fair. Good eye contact Attitude:Cooperative Speech: Fluent and wnl in regard to volume, tone, prosody Motor activity: Calm and without any tics, tremors or dyskinesias. Steady gait Mood: Anxious, depressed but better overall Affect: appropriate, reactive, brightens up appropriately Thought process: goal directed and without evidence of formal thought disorder Thought content: as noted above. Perception: does not appear to respond to internal stimuli Alert/oriented in all spheres Cognition grossly intact Insight: intact Judgment: intact Diagnostics Vital Signs (24Hr): Vital Signs - 24 hr 09/15/25 08:26 09/15/25 18:00 Temperature 98.2 F 98.8 F Pulse Rate 81 101 H Respiratory Rate 16 18 Blood Pressure 149/83 H 164/84 H Pulse Oximetry 96 98 Oxygen Delivery Method Room Air Room Air BMI result Body Mass Index 34.9 Labs 09/11/25 19:10 09/13/25 16:01 Medications Medications Current Medications Acetaminophen (Acetaminophen 325 Mg Tablet) 650 mg PO Q6H PRN PRN Reason: Headache/Pain, Scale 1-10 Last Admin: 09/15/25 19:45 Dose: 650 mg Al Hydroxide/Mg Hydroxide (Magnesium Hydrox/Alum Hydrox 30 Ml Oral.Susp) 30 ml PO Q6H PRN PRN Reason: Heartburn/Nausea Last Admin: 09/14/25 18:15 Dose: 30 ml Aripiprazole (Aripiprazole 20 Mg Tablet) 20 mg PO DAILY [facility] Divalproex Sodium (Divalproex Sodium Er 250 Mg Tab.Er.24h) 250 mg PO DAILY@0900 [facility] Last Admin: 09/15/25 08:38 Dose: 250 mg Divalproex Sodium (Divalproex Sodium Er 500 Mg Tab.Er.24h) 1,000 mg PO BEDTIME [facility] Last Admin: 09/15/25 20:54 Dose: 1,000 mg Divalproex Sodium (Divalproex Sodium Er 500 Mg Tab.Er.24h) 500 mg PO DAILY [facility] Last Admin: 09/15/25 08:37 Dose: 500 mg Hydroxyzine HCl (Hydroxyzine Hcl 25 Mg Tablet) 25 mg PO Q6H PRN PRN Reason: mild anxiety Last Admin: 09/15/25 20:54 Dose: 25 mg [place] Carbonate ([place] Carbonate 300 Mg Capsule) 1,200 mg PO BEDTIME [facility] Last Admin: 09/15/25 20:53 Dose: 1,200 mg Lorazepam (Lorazepam 1 Mg Tablet) 1 mg PO DAILY PRN PRN Reason: severe anxiety/panic attack Last Admin: 09/15/25 14:13 Dose: 1 mg Magnesium Hydroxide (Milk Of Magnesia 30 Ml Oral.Susp) 30 ml PO DAILY PRN PRN Reason: Constipation Methylphenidate HCl (Methylphenidate Hcl 5 Mg Tablet) 15 mg PO QID [facility] Nicotine (Nicotine 21 Mg Patch.Td24) 21 mg TRANSDERMA DAILY PRN PRN Reason: Nicotine Cravings Nicotine Polacrilex (Nicotine Polacrilex 2 Mg Gum) 4 mg BUCCAL Q2H PRN PRN Reason: Nicotine Cravings Quetiapine Fumarate (Quetiapine Fumarate 200 Mg Tablet) 200 mg PO BEDTIME [facility] Last Admin: 09/15/25 20:54 Dose: 200 mg Risperidone (Risperidone 0.5 Mg Tablet) 0.5 mg PO DAILY@1400 [facility] Last Admin: 09/15/25 14:12 Dose: 0.5 mg Risperidone (Risperidone 1 Mg Tablet) 1 mg PO BID [facility] Last Admin: 09/15/25 20:54 Dose: 1 mg Risperidone (Risperidone 0.5 Mg Tablet) 0.5 mg PO TID PRN PRN Reason: agitation Trazodone HCl (Trazodone Hcl 50 Mg Tablet) 50 mg PO BEDTIME MRX1 PRN PRN Reason: Insomnia Last Admin: 09/15/25 20:54 Dose: 50 mg Vitamin D (Cholecalciferol (Vitamin D3) 10 Mcg Tablet) 20 mcg PO DAILY [facility] Last Admin: 09/15/25 08:38 Dose: 20 mcg Allergies Allergies Allergy/AdvReac Type Severity Reaction Status Date / Time lamotrigine (From LAMICTAL) Allergy Severe RASH Verified 09/11/25 14:38 oxycodone (From PERCOCET) Allergy Mild NAUSEA Verified 09/11/25 14:38 Assessment & Plan Assessment & Plan (1) Bipolar disorder: Qualifiers: Active/Remission status: remission status unspecified Qualified Code(s): F31.9 - Bipolar disorder, unspecified Status: Acute Code(s): F31.9 - Bipolar disorder, unspecified (2) PTSD (post-traumatic stress disorder): Status: Acute Code(s): F43.10 - Post-traumatic stress disorder, unspecified (3) Cocaine use disorder: Status: Acute Code(s): F14.10 - Cocaine abuse, uncomplicated Plan Plan: Admitted to for safety and stabilization Legal status: CV 15 min safety checks Continue current home med regimen except- Concerta is not available on our formulary. Received Adderall today. Nursing staff received call from pt's psychiatrist's office, who recommended Focalin or [facility]PH since pt doesn't do well on Adderall. Given that pt is not currently manic, will start her on methylphenidate 70 mg qam and 50 mg qd at 12:30 pm (roughly equivalent to Concerta 72 mg qam and 54 mg qd in afternoon). Ordered lorazepam 1 mg qd prn for severe anxiety/panic attacks *Will communicate w/ pt's outpatient psychiatric provider to discuss tx plan and determine whether her med regimen can be simplified to reduce risk of med interactions/SE. 09/14: Pt has had periods of high anxiety today but is feeling better overall. Responded well to 1 mg lorazepam prn. Understands that I will not increase beyond 1 mg/day since she developed a tolerance w/ higher doses previously. Pt was agreeable w/ my recs to taper the Abilify w/ goal of tapering off completely in the future to simplify her med regimen. Will titrate risperidone as needed. -Lower Abilify to 25 mg 09/15: Pt tolerated the Abilify taper from 30 mg to 25 mg yesterday and requested to taper again today. Will lower from 25 mg to 20 mg tonight. Otherwise continue current tx plan Patient educated on: medication risk/benefits and therapeutic strategies Informed Consent: understands Reason for continued inpatient stay Substantial Risk for: med/psych decompensation Time Spent With Patient Time: Total time managing care of this patient today ____ minutes.
[2025-09-16] MEDS: Cholecalciferol (Vitamin D3) 10 MCG TABLET 20 MCG PO (08:33)
[2025-09-16] MEDS: Divalproex Sodium ER 250 MG TAB.ER.24H PO (08:34)
[2025-09-16 08:52] VITALS: BP 140/79; PULSE 82; RESP 16; TEMP 36.5; O2SAT 98
[2025-09-16 13:00] VITALS: BP 136/61; PULSE 91; RESP 16; TEMP 37.3; O2SAT 97
--- NOTE | 2025-09-16 16:21 | P.PNPSI_ITS ---
Subjective Subjective Date of Service: 09/16/25 Reason For Visit: SI Subjective Notes: Conditional Voluntary Healthcare Proxy: No Guardianship: No Medical Problems Affecting Mental Status: No Interim History: Seen in the hallway, she was constricted and tearful in affect. States that the Ritalin is causing her jaw to tighten and headaches. She is aware that Adderall is not an option for her, per her psychiatrist. She asked about tapering the dosage of the medication. Medication Compliance: Yes Side effects from medications: Yes Attending Groups: Intermittent Review of Systems Acute medical concerns: No Medical Review of Systems: unchanged Review of Systems Review of Systems Yes all other systems are reviewed and are negative Mental Status Exam Mental Status Exam Narrative: Patient Appearance: Well Groomed, adequate hygiene Patient Behavior: Appropriate Level of Consciousness: Awake, alert Patient Orientation: Person, Place and Time, situational context Memory: grossly intact to recent events Psychomotor: no agitation or slowing Speech: normal rate, tone, volume Mood: ?ehh, so-so? Affect: tearful, labile Thought Process: Goal Oriented Thought Content: denies SI/HI; focused on treatment questions Hallucinations: Denies; does not appear preoccupied Delusions: None evinced Insight: mild impairment Judgment: mild impairment Impulsivity: low Diagnostics Vital Signs (24Hr): Vital Signs - 24 hr 09/15/25 18:00 09/16/25 08:52 09/16/25 13:00 Temperature 98.8 F 97.7 F 99.1 F Pulse Rate 101 H 82 91 Respiratory Rate 18 16 16 Blood Pressure 164/84 H 140/79 H 136/61 Pulse Oximetry 98 98 97 Oxygen Delivery Method Room Air Room Air Room Air BMI result Body Mass Index 34.9 Labs 09/11/25 19:10 09/13/25 16:01 Medications Medications Current Medications Acetaminophen (Acetaminophen 325 Mg Tablet) 650 mg PO Q6H PRN PRN Reason: Headache/Pain, Scale 1-10 Last Admin: 09/16/25 14:08 Dose: 650 mg Al Hydroxide/Mg Hydroxide (Magnesium Hydrox/Alum Hydrox 30 Ml Oral.Susp) 30 ml PO Q6H PRN PRN Reason: Heartburn/Nausea Last Admin: 09/14/25 18:15 Dose: 30 ml Aripiprazole (Aripiprazole 20 Mg Tablet) 20 mg PO DAILY [facility] Last Admin: 09/16/25 08:33 Dose: 20 mg Divalproex Sodium (Divalproex Sodium Er 250 Mg Tab.Er.24h) 250 mg PO DAILY@0900 [facility] Last Admin: 09/16/25 08:34 Dose: 250 mg Divalproex Sodium (Divalproex Sodium Er 500 Mg Tab.Er.24h) 1,000 mg PO BEDTIME [facility] Last Admin: 09/15/25 20:54 Dose: 1,000 mg Divalproex Sodium (Divalproex Sodium Er 500 Mg Tab.Er.24h) 500 mg PO DAILY [facility] Last Admin: 09/16/25 08:34 Dose: 500 mg Hydroxyzine HCl (Hydroxyzine Hcl 25 Mg Tablet) 25 mg PO Q6H PRN PRN Reason: mild anxiety Last Admin: 09/15/25 20:54 Dose: 25 mg [place] Carbonate ([place] Carbonate 300 Mg Capsule) 1,200 mg PO BEDTIME [facility] Last Admin: 09/15/25 20:53 Dose: 1,200 mg Loperamide HCl (Loperamide Hcl 2 Mg Capsule) 2 mg PO Q4H PRN PRN Reason: Diarrhea Last Admin: 09/16/25 10:12 Dose: 2 mg Lorazepam (Lorazepam 1 Mg Tablet) 1 mg PO DAILY PRN PRN Reason: severe anxiety/panic attack Last Admin: 09/16/25 12:37 Dose: 1 mg Magn[place] Hydroxide (Milk Of Magnesia 30 Ml Oral.Susp) 30 ml PO DAILY PRN PRN Reason: Constipation Methylphenidate HCl (Methylphenidate Hcl 5 Mg Tablet) 15 mg PO QID [facility] Last Admin: 09/16/25 12:37 Dose: 15 mg Nicotine (Nicotine 21 Mg Patch.Td24) 21 mg TRANSDERMA DAILY PRN PRN Reason: Nicotine Cravings Nicotine Polacrilex (Nicotine Polacrilex 2 Mg Gum) 4 mg BUCCAL Q2H PRN PRN Reason: Nicotine Cravings Quetiapine Fumarate (Quetiapine Fumarate 200 Mg Tablet) 200 mg PO BEDTIME [facility] Last Admin: 09/15/25 20:54 Dose: 200 mg Risperidone (Risperidone 0.5 Mg Tablet) 0.5 mg PO DAILY@1400 [facility] Last Admin: 09/16/25 14:08 Dose: 0.5 mg Risperidone (Risperidone 1 Mg Tablet) 1 mg PO BID [facility] Last Admin: 09/16/25 08:33 Dose: 1 mg Risperidone (Risperidone 0.5 Mg Tablet) 0.5 mg PO TID PRN PRN Reason: agitation Trazodone HCl (Trazodone Hcl 50 Mg Tablet) 50 mg PO BEDTIME MRX1 PRN PRN Reason: Insomnia Last Admin: 09/15/25 20:54 Dose: 50 mg Vitamin D (Cholecalciferol (Vitamin D3) 10 Mcg Tablet) 20 mcg PO DAILY [facility] Last Admin: 09/16/25 08:33 Dose: 20 mcg Allergies Allergies Allergy/AdvReac Type Severity Reaction Status Date / Time lamotrigine (From LAMICTAL) Allergy Severe RASH Verified 09/11/25 14:38 oxycodone (From PERCOCET) Allergy Mild NAUSEA Verified 09/11/25 14:38 Assessment & Plan Assessment & Plan (1) Bipolar disorder: Qualifiers: Active/Remission status: remission status unspecified Qualified Code(s): F31.9 - Bipolar disorder, unspecified Status: Acute Code(s): F31.9 - Bipolar disorder, unspecified (2) PTSD (post-traumatic stress disorder): Status: Acute Code(s): F43.10 - Post-traumatic stress disorder, unspecified (3) Cocaine use disorder: Status: Acute Code(s): F14.10 - Cocaine abuse, uncomplicated Plan Plan: Admitted to for safety and stabilization Legal status: CV 15 min safety checks Continue current home med regimen except- Concerta is not available on our formulary. Received Adderall today. Nursing staff received call from pt's psychiatrist's office, who recommended Focalin or MPH since pt doesn't do well on Adderall. Given that pt is not currently manic, will start her on methylphenidate 70 mg qam and 50 mg qd at 12:30 pm (roughly equivalent to Concerta 72 mg qam and 54 mg qd in afternoon). Ordered lorazepam 1 mg qd prn for severe anxiety/panic attacks *Will communicate w/ pt's outpatient psychiatric provider to discuss tx plan and determine whether her med regimen can be simplified to reduce risk of med interactions/SE. 09/14: Pt has had periods of high anxiety today but is feeling better overall. Responded well to 1 mg lorazepam prn. Understands that I will not increase beyond 1 mg/day since she developed a tolerance w/ higher doses previously. Pt was agreeable w/ my recs to taper the Abilify w/ goal of tapering off completely in the future to simplify her med regimen. Will titrate risperidone as needed. -Lower Abilify to 25 mg 09/15: Pt tolerated the Abilify taper from 30 mg to 25 mg yesterday and requested to taper again today. Will lower from 25 mg to 20 mg tonight. Otherwise continue current tx plan 09/16: taper Ritalin to 10 mg QAM (holding remainder of doses today), continue to monitor Patient educated on: diagnosis and medication risk/benefits Informed Consent: understands Reason for continued inpatient stay Substantial Risk for: harm to self and rapid decompensation Time Spent With Patient Time: Total time managing care of this patient today __25__ minutes.
[2025-09-16 20:35] VITALS: BP 141/92; PULSE 80; RESP 16; TEMP 36.6; O2SAT 100
[2025-09-17 08:12] VITALS: BP 113/65; PULSE 70; RESP 16; TEMP 36.8; O2SAT 97
[2025-09-17] MEDS: Divalproex Sodium ER 250 MG TAB.ER.24H PO (08:17)
[2025-09-17] MEDS: Cholecalciferol (Vitamin D3) 10 MCG TABLET 20 MCG PO (08:19)
--- NOTE | 2025-09-17 10:13 | HO.PSYCHPN ---
Subjective Subjective Date of Service: 09/17/25 Reason For Visit: SI Subjective Notes: Conditional Voluntary Healthcare Proxy: No Guardianship: No Medical Problems Affecting Mental Status: No Interim History: She presents calm this morning. Weepy last night. She mentioned interest in a PHP - was referred to her primary team to discuss options. her family are going to drop off her Concerta bottle - there are two different dosages, 72 mg Q0800 and 54 mg Q1400 No SI today - she has a rubber band on her wrist for grounding. Medication Compliance: Yes Side effects from medications: Yes Attending Groups: Intermittent Review of Systems Acute medical concerns: No Medical Review of Systems: unchanged Review of Systems Review of Systems Yes all other systems are reviewed and are negative Mental Status Exam Mental Status Exam Narrative: Patient Appearance: Well Groomed, adequate hygiene Patient Behavior: Appropriate Level of Consciousness: Awake, alert Patient Orientation: Person, Place and Time, situational context Memory: grossly intact to recent events Psychomotor: no agitation or slowing Speech: normal rate, tone, volume Mood: ?tired? Affect: constricted Thought Process: Goal Oriented Thought Content: denies SI/HI; focused on treatment questions Hallucinations: Denies; does not appear preoccupied Delusions: None evinced Insight: mild impairment Judgment: mild impairment Impulsivity: low Diagnostics Vital Signs (24Hr): Vital Signs - 24 hr 09/16/25 13:00 09/16/25 20:35 09/17/25 08:12 Temperature 99.1 F 98 F 98.2 F Pulse Rate 91 80 70 Respiratory Rate 16 16 16 Blood Pressure 136/61 141/92 H 113/65 Pulse Oximetry 97 100 97 Oxygen Delivery Method Room Air Room Air Room Air BMI result Body Mass Index 34.9 Labs 09/11/25 19:10 09/13/25 16:01 Medications Medications Current Medications Acetaminophen (Acetaminophen 325 Mg Tablet) 650 mg PO Q6H PRN PRN Reason: Headache/Pain, Scale 1-10 Last Admin: 09/17/25 08:16 Dose: 650 mg [place] Hydroxide/Mg Hydroxide (Magnesium Hydrox/Alum Hydrox 30 Ml Oral.Susp) 30 ml PO Q6H PRN PRN Reason: Heartburn/Nausea Last Admin: 09/14/25 18:15 Dose: 30 ml Aripiprazole (Aripiprazole 20 Mg Tablet) 20 mg PO DAILY [facility] Last Admin: 09/17/25 08:17 Dose: 20 mg Clonidine HCl (Clonidine Hcl 0.1 Mg Tablet) 0.1 mg PO Q4H PRN; Protocol PRN Reason: moderate anxiety Divalproex Sodium (Divalproex Sodium Er 250 Mg Tab.Er.24h) 250 mg PO DAILY@0900 [facility] Last Admin: 09/17/25 08:17 Dose: 250 mg Divalproex Sodium (Divalproex Sodium Er 500 Mg Tab.Er.24h) 1,000 mg PO BEDTIME [facility] Last Admin: 09/16/25 21:37 Dose: 1,000 mg Divalproex Sodium (Divalproex Sodium Er 500 Mg Tab.Er.24h) 500 mg PO DAILY [facility] Last Admin: 09/17/25 08:17 Dose: 500 mg Hydroxyzine HCl (Hydroxyzine Hcl 25 Mg Tablet) 25 mg PO Q6H PRN PRN Reason: mild anxiety Last Admin: 09/16/25 21:08 Dose: 25 mg [place] Carbonate ([place] Carbonate 300 Mg Capsule) 1,200 mg PO BEDTIME [facility] Last Admin: 09/16/25 21:37 Dose: 1,200 mg Loperamide HCl (Loperamide Hcl 2 Mg Capsule) 2 mg PO Q4H PRN PRN Reason: Diarrhea Last Admin: 09/16/25 10:12 Dose: 2 mg Lorazepam (Lorazepam 1 Mg Tablet) 1 mg PO DAILY PRN PRN Reason: severe anxiety/panic attack Last Admin: 09/16/25 12:37 Dose: 1 mg [place] Hydroxide (Milk Of Magnesia 30 Ml Oral.Susp) 30 ml PO DAILY PRN PRN Reason: Constipation Methylphenidate HCl (Methylphenidate Hcl 10 Mg Tablet) 10 mg PO DAILY [facility] Last Admin: 09/17/25 08:18 Dose: 10 mg Nicotine (Nicotine 21 Mg Patch.Td24) 21 mg TRANSDERMA DAILY PRN PRN Reason: Nicotine Cravings Nicotine Polacrilex (Nicotine Polacrilex 2 Mg Gum) 4 mg [place] Q2H PRN PRN Reason: Nicotine Cravings Quetiapine Fumarate (Quetiapine Fumarate 200 Mg Tablet) 200 mg PO BEDTIME [facility] Last Admin: 09/16/25 21:37 Dose: 200 mg Risperidone (Risperidone 0.5 Mg Tablet) 0.5 mg PO DAILY@1400 [facility] Last Admin: 09/16/25 14:08 Dose: 0.5 mg Risperidone (Risperidone 1 Mg Tablet) 1 mg PO BID [facility] Last Admin: 09/17/25 08:19 Dose: 1 mg Risperidone (Risperidone 0.5 Mg Tablet) 0.5 mg PO TID PRN PRN Reason: agitation Last Admin: 09/16/25 22:40 Dose: 0.5 mg Trazodone HCl (Trazodone Hcl 50 Mg Tablet) 50 mg PO BEDTIME MRX1 PRN PRN Reason: Insomnia Last Admin: 09/16/25 22:40 Dose: 50 mg Vitamin D (Cholecalciferol (Vitamin D3) 10 Mcg Tablet) 20 mcg PO DAILY [facility] Last Admin: 09/17/25 08:19 Dose: 20 mcg Allergies Allergies Allergy/AdvReac Type Severity Reaction Status Date / Time lamotrigine (From LAMICTAL) Allergy Severe RASH Verified 09/11/25 14:38 oxycodone (From PERCOCET) Allergy Mild NAUSEA Verified 09/11/25 14:38 Assessment & Plan Assessment & Plan (1) Bipolar disorder: Qualifiers: Active/Remission status: remission status unspecified Qualified Code(s): F31.9 - Bipolar disorder, unspecified Status: Acute Code(s): F31.9 - Bipolar disorder, unspecified (2) PTSD (post-traumatic stress disorder): Status: Acute Code(s): F43.10 - Post-traumatic stress disorder, unspecified (3) Cocaine use disorder: Status: Acute Code(s): F14.10 - Cocaine abuse, uncomplicated Plan Plan: Admitted to for safety and stabilization Legal status: CV 15 min safety checks Continue current home med regimen except- Concerta is not available on our formulary. Received Adderall today. Nursing staff received call from pt's psychiatrist's office, who recommended Focalin or [facility]PH since pt doesn't do well on Adderall. Given that pt is not currently manic, will start her on methylphenidate 70 mg qam and 50 mg qd at 12:30 pm (roughly equivalent to Concerta 72 mg qam and 54 mg qd in afternoon). Ordered lorazepam 1 mg qd prn for severe anxiety/panic attacks *Will communicate w/ pt's outpatient psychiatric provider to discuss tx plan and determine whether her med regimen can be simplified to reduce risk of med interactions/SE. 09/14: Pt has had periods of high anxiety today but is feeling better overall. Responded well to 1 mg lorazepam prn. Understands that I will not increase beyond 1 mg/day since she developed a tolerance w/ higher doses previously. Pt was agreeable w/ my recs to taper the Abilify w/ goal of tapering off completely in the future to simplify her med regimen. Will titrate risperidone as needed. -Lower Abilify to 25 mg 09/15: Pt tolerated the Abilify taper from 30 mg to 25 mg yesterday and requested to taper again today. Will lower from 25 mg to 20 mg tonight. Otherwise continue current tx plan 09/16: taper Ritalin to 10 mg QAM (holding remainder of doses today), continue to monitor 09/17: family will bring in long acting stimulant Patient educated on: diagnosis and medication risk/benefits Informed Consent: understands Reason for continued inpatient stay Substantial Risk for: rapid decompensation Time Spent With Patient Time: Total time managing care of this patient today __20__ minutes.
[2025-09-17 19:40] VITALS: BP 132/82; PULSE 84; RESP 17; TEMP 36.4; O2SAT 97
[2025-09-18 07:57] VITALS: BP 131/69; PULSE 78; RESP 14; TEMP 37.1; O2SAT 98
[2025-09-18] MEDS: Cholecalciferol (Vitamin D3) 10 MCG TABLET 20 MCG PO (08:13)
[2025-09-18] MEDS: Divalproex Sodium ER 250 MG TAB.ER.24H PO (08:14)
--- NOTE | 2025-09-18 11:50 | HO.PSYCHPN ---
Subjective Subjective Date of Service: 09/18/25 Reason For Visit: SI Subjective Notes: Conditional Voluntary Interim History: Chart reviewed. Case discussed w/ team Per nursing report and weekend notes- labile, had outburst over weekend due to having to keep door open during visit. Trouble sleeping. slept 5 hrs last night. Pt has a rubberband on her wrist that has been helpful for grounding. Pt's family brought in her Concerta. She reports she's been much more focused, reading like crazy (improvement). She's feeling much better emotionally overall. She's been easily weepy today but attributes that at least partially to poor sleep last night. She denies having SI in the past couple days. She feels stable to d/c and we agreed on a plan for her to d/c tomorrow. Medication Compliance: Yes Attending Groups: Yes Mental Status Exam Mental Status Exam Narrative: Appearance: Casually dressed. grooming/hygiene adequate. Good eye contact Attitude:Cooperative Speech: Fluent and wnl in regard to volume, tone, prosody Motor activity: Calm and without any tics, tremors or dyskinesias. Steady gait Mood: cecil depressed but much better overall, feels ready to be d/c'd Affect: appropriate, reactive, brightens up appropriately Thought process: goal directed and without evidence of formal thought disorder Thought content: Denies SI. No violent ideation reported. Future oriented Perception: does not appear to respond to internal stimuli Alert/oriented in all spheres Cognition grossly intact Insight: intact Judgment: intact Diagnostics Vital Signs (24Hr): Vital Signs - 24 hr 09/17/25 19:40 09/18/25 07:57 Temperature 97.5 F 98.8 F Pulse Rate 84 78 Respiratory Rate 17 14 Blood Pressure 132/82 131/69 Pulse Oximetry 97 98 Oxygen Delivery Method Room Air Room Air BMI result Body Mass Index 34.9 Labs 09/11/25 19:10 09/13/25 16:01 Medications Medications Current Medications Acetaminophen (Acetaminophen 325 Mg Tablet) 650 mg PO Q6H PRN PRN Reason: Headache/Pain, Scale 1-10 Last Admin: 09/17/25 08:16 Dose: 650 mg Al Hydroxide/Mg Hydroxide (Magnesium Hydrox/Alum Hydrox 30 Ml Oral.Susp) 30 ml PO Q6H PRN PRN Reason: Heartburn/Nausea Last Admin: 09/14/25 18:15 Dose: 30 ml Aripiprazole (Aripiprazole 20 Mg Tablet) 20 mg PO DAILY [facility] Last Admin: 09/18/25 08:13 Dose: 20 mg Clonidine HCl (Clonidine Hcl 0.1 Mg Tablet) 0.1 mg PO Q4H PRN; Protocol PRN Reason: moderate anxiety Divalproex Sodium (Divalproex Sodium Er 250 Mg Tab.Er.24h) 250 mg PO DAILY@0900 [facility] Last Admin: 09/18/25 08:14 Dose: 250 mg Divalproex Sodium (Divalproex Sodium Er 500 Mg Tab.Er.24h) 1,000 mg PO BEDTIME [facility] Last Admin: 09/17/25 20:05 Dose: 1,000 mg Divalproex Sodium (Divalproex Sodium Er 500 Mg Tab.Er.24h) 500 mg PO DAILY [facility] Last Admin: 09/18/25 08:13 Dose: 500 mg Hydroxyzine HCl (Hydroxyzine Hcl 25 Mg Tablet) 25 mg PO Q6H PRN PRN Reason: mild anxiety Last Admin: 09/17/25 20:05 Dose: 25 mg Jette Carbonate (Jette Carbonate 300 Mg Capsule) 1,200 mg PO BEDTIME [facility] Last Admin: 09/17/25 20:05 Dose: 1,200 mg Loperamide HCl (Loperamide Hcl 2 Mg Capsule) 2 mg PO Q4H PRN PRN Reason: Diarrhea Last Admin: 09/16/25 10:12 Dose: 2 mg Lorazepam (Lorazepam 1 Mg Tablet) 1 mg PO DAILY PRN PRN Reason: severe anxiety/panic attack Last Admin: 09/17/25 10:39 Dose: 1 mg Magnesium Hydroxide (Milk Of Magnesia 30 Ml Oral.Susp) 30 ml PO DAILY PRN PRN Reason: Constipation Nicotine (Nicotine 21 Mg Patch.Td24) 21 mg TRANSDERMA DAILY PRN PRN Reason: Nicotine Cravings Nicotine Polacrilex (Nicotine Polacrilex 2 Mg Gum) 4 mg BUCCAL Q2H PRN PRN Reason: Nicotine Cravings Non-Formulary Medication (Methylphenidate Hcl [Concerta]) 72 mg PO DAILY [facility] Last Admin: 09/18/25 08:14 Dose: 72 mg Non-Formulary Medication (Methylphenidate Hcl [Concerta]) 54 mg PO DAILY@1400 [facility] Last Admin: 09/17/25 15:43 Dose: 54 mg Quetiapine Fumarate (Quetiapine Fumarate 200 Mg Tablet) 200 mg PO BEDTIME [facility] Last Admin: 09/17/25 20:05 Dose: 200 mg Quetiapine Fumarate (Quetiapine Fumarate 50 Mg Tablet) 50 mg PO BEDTIME PRN PRN Reason: insomnia Last Admin: 09/17/25 23:50 Dose: 50 mg Risperidone (Risperidone 0.5 Mg Tablet) 0.5 mg PO DAILY@1400 [facility] Last Admin: 09/17/25 13:20 Dose: 0.5 mg Risperidone (Risperidone 1 Mg Tablet) 1 mg PO BID [facility] Last Admin: 09/18/25 08:14 Dose: 1 mg Risperidone (Risperidone 0.5 Mg Tablet) 0.5 mg PO TID PRN PRN Reason: agitation Last Admin: 09/16/25 22:40 Dose: 0.5 mg Trazodone HCl (Trazodone Hcl 50 Mg Tablet) 50 mg PO BEDTIME MRX1 PRN PRN Reason: Insomnia Last Admin: 09/17/25 22:28 Dose: 50 mg Vitamin D (Cholecalciferol (Vitamin D3) 10 Mcg Tablet) 20 mcg PO DAILY [facility] Last Admin: 09/18/25 08:13 Dose: 20 mcg Allergies Allergies Allergy/AdvReac Type Severity Reaction Status Date / Time lamotrigine (From LAMICTAL) Allergy Severe RASH Verified 09/11/25 14:38 oxycodone (From PERCOCET) Allergy Mild NAUSEA Verified 09/11/25 14:38 Assessment & Plan Assessment & Plan (1) Bipolar disorder: Qualifiers: Active/Remission status: remission status unspecified Qualified Code(s): F31.9 - Bipolar disorder, unspecified Status: Acute Code(s): F31.9 - Bipolar disorder, unspecified (2) PTSD (post-traumatic stress disorder): Status: Acute Code(s): F43.10 - Post-traumatic stress disorder, unspecified (3) Cocaine use disorder: Status: Acute Code(s): F14.10 - Cocaine abuse, uncomplicated Plan Ms. 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 She reported cycling through manic and hypomanic episodes after coming off a binge of an 8 ball of cocaine q 3-4 days. Tox screen in the ED was only positive for MJ. She was transferred to [facility] for sfaety and stabilization after undergoing medical clearance in the ED. Plan: Admitted to for safety and stabilization Legal status: CV 15 min safety checks Continue current home med regimen except- Concerta is not available on our formulary. Received Adderall today. Nursing staff received call from pt's psychiatrist's office, who recommended Focalin or MPH since pt doesn't do well on Adderall. Given that pt is not currently manic, will start her on methylphenidate 70 mg qam and 50 mg qd at 12:30 pm (roughly equivalent to Concerta 72 mg qam and 54 mg qd in afternoon). Ordered lorazepam 1 mg qd prn for severe anxiety/panic attacks 09/14: Pt has had periods of high anxiety today but is feeling better overall. Responded well to 1 mg lorazepam prn. Understands that I will not increase beyond 1 mg/day since she developed a tolerance w/ higher doses previously. Pt was agreeable w/ my recs to taper the Abilify w/ goal of tapering off completely in the future to simplify her med regimen. Will titrate risperidone as needed. -Lower Abilify to 25 mg 09/15: Pt tolerated the Abilify taper from 30 mg to 25 mg yesterday and requested to taper again today. Will lower from 25 mg to 20 mg tonight. Otherwise continue current tx plan 09/16: taper Ritalin to 10 mg QAM (holding remainder of doses today), continue to monitor 09/17: family will bring in long acting stimulant 09/18: Pt started back on Concerta 72 mg qam and 54 mg qd in afternoon, brought in by her family. Tolerated Abilify taper to 20 mg made on 09/15. Feels safe, much more stable. Agreed on plan to d/c home tomorrow. She's interested in PHP. Wlil check VPA and lithium level since the previous orders appear to have been cancelled. Patient educated on: diagnosis and medication risk/benefits Informed Consent: understands Reason for continued inpatient stay Substantial Risk for: med/psych decompensation Time Spent With Patient Time: Total time managing care of this patient today ____ minutes.
[2025-09-18 13:00] VITALS: BP 141/84; PULSE 88; RESP 14; TEMP 36.8; O2SAT 98
--- NOTE | 2025-09-18 17:02 | PM.PSYDC ---
DS: Providers Provider Date of admission: 09/12/25 15:26 Date of discharge: 09/19/25 Primary care physician: Symone Elam MD Attending physician on admission: Jory Bentley Attending physician on discharge: Jory Bentley DS: Diagnosis Discharge Diagnosis (1) Bipolar disorder: Status: Acute (2) PTSD (post-traumatic stress disorder): Status: Acute (3) Cocaine use disorder: Status: Acute DS: Medications Discharge Medications Home Medications: Home Medications ?Medication ?Instructions ?Recorded ?Confirmed aripiprazole 30 mg tablet (Abilify) 30 mg PO DAILY 04/24/25 09/12/25 cholecalciferol (vitamin D3) 10 20 mcg PO DAILY 07/11/25 09/11/25 mcg (400 unit) tablet divalproex 250 mg tablet,extended 250 mg PO QAM 07/11/25 09/12/25 release 24 hr divalproex 500 mg tablet,extended 1,000 mg PO BEDTIME 07/11/25 09/11/25 release 24 hr methylphenidate HCl 36 mg 72 mg PO QAM 07/11/25 09/12/25 tablet,extended release 24 hr (Concerta) methylphenidate HCl 54 mg 54 mg PO 1400 07/11/25 09/12/25 tablet,extended release 24 hr (Concerta) quetiapine 200 mg tablet 200 mg PO BEDTIME 07/11/25 09/11/25 risperidone 1 mg tablet (Risperdal) 1 mg PO BID 07/11/25 09/12/25 risperidone 0.5 mg tablet 0.5 mg PO DAILY@1400 08/02/25 09/12/25 (Risperdal) divalproex 500 mg tablet,extended 500 mg PO DAILY 09/12/25 09/12/25 release 24 hr Previous Rx's ?Medication ?Instructions ?Recorded lithium carbonate 600 mg capsule 1,200 mg (2 x 600 mg) PO BEDTIME 06/10/24 #30 caps Data Data Completed and Pending Completed studies during hospitalization [Text1]: 09/11/25 09/11/25 09/13/25 19:10 22:59 08:02 WBC 7.5 RBC 4.55 Hgb 13.1 Hct 40.3 MCV 88.6 MCH 28.8 MCHC 32.5 RDW 11.9 Plt Count 282 MPV 10.2 Immature Gran % (Auto) 0.5 H Neut % (Auto) 64.3 Lymph % (Auto) 24.4 [place] % (Auto) 8.0 Eos % (Auto) 2.3 Baso % (Auto) 0.5 Lymph # (Auto) 1.8 [place] # (Auto) 0.6 Eos # (Auto) 0.2 Baso # (Auto) 0.0 Abs Immat Gran (auto) 0.04 H Absolute Neuts (auto) 4.9 Absolute Nucleated RBC 0.000 Nucleated RBC % (auto) 0.0 Sodium 146 H Potassium 3.7 Chloride 111 H Carbon Dioxide 23 Anion Gap 16 BUN 7 L Creatinine 0.81 Estim Creat Clear Calc 109.1 Estimated GFR > 60 Random Glucose 104 Estimat Average Glucose 105 Hemoglobin A1c % 5.3 Calcium 10.6 H Magnesium 2.4 Total Bilirubin 0.2 AST 37 H ALT 55 H Alkaline Phosphatase 57 Total Protein 9.2 H Albumin 5.5 H Triglycerides 132 Cholesterol 160 LDL Cholesterol, Calc 86 HDL Cholesterol 48 Urine Color Yellow Urine Appearance Clear Urine pH 7.0 Ur Specific [place] <= 1.005 Urine Protein Negative Urine Glucose (UA) Negative Urine Ketones Negative Urine Blood Negative Urine Nitrite Negative Ur Leukocyte Esterase Small (1+) H Urine RBC 0-2 Urine WBC 0-5 Ur Squamous Epith Cells 3-5 Urine Bacteria Trace Hyaline Casts 0-2 Urine Opiates Screen Not Detected Ur Buprenorphine Scrn Not Detected Ur Oxycodone Screen Not Detected Urine Methadone Screen Not Detected Urine Fentanyl Screen Not Detected Ur Barbiturates Screen Not Detected Ur Phencyclidine Scrn Not Detected Ur Amphetamines Screen Not Detected U Benzodiazepines Scrn Not Detected Urine Cocaine Screen Not Detected U Marijuana (THC) Screen POSITIVE H Ethyl Alcohol 16 Hepatitis A IgM Ab Hep Bs Antigen Hep Bs Antibody Hep B Core Total Ab Hepatitis C Ab (EIA) 09/13/25 16:01 WBC RBC Hgb Hct MCV MCH MCHC RDW Plt Count MPV Immature Gran % (Auto) Neut % (Auto) Lymph % (Auto) [place] % (Auto) Eos % (Auto) Baso % (Auto) Lymph # (Auto) [place] # (Auto) Eos # (Auto) Baso # (Auto) Abs Immat Gran (auto) Absolute Neuts (auto) Absolute Nucleated RBC Nucleated RBC % (auto) Sodium 143 Potassium 4.2 Chloride 106 Carbon Dioxide 29 Anion Gap 12 BUN 8 L Creatinine 0.76 Estim Creat Clear Calc 114.2 Estimated GFR > 60 Random Glucose 99 Estimat Average Glucose Hemoglobin A1c % Calcium 10.4 H Magnesium Total Bilirubin 0.3 AST 24 ALT 36 H Alkaline Phosphatase 53 Total Protein 7.6 Albumin 5.0 Triglycerides Cholesterol LDL Cholesterol, Calc HDL Cholesterol Urine Color Urine Appearance Urine pH Ur Specific [place] Urine Protein Urine Glucose (UA) Urine Ketones Urine Blood Urine Nitrite Ur Leukocyte Esterase Urine RBC Urine WBC Ur Squamous Epith Cells Urine Bacteria Hyaline Casts Urine Opiates Screen Ur Buprenorphine Scrn Ur Oxycodone Screen Urine Methadone Screen Urine Fentanyl Screen Ur Barbiturates Screen Ur Phencyclidine Scrn Ur Amphetamines Screen U Benzodiazepines Scrn Urine Cocaine Screen U Marijuana (THC) Screen Ethyl Alcohol Hepatitis A IgM Ab Nonreactive Hep Bs Antigen Negative Hep Bs Antibody REACTIVE Hep B Core Total Ab Nonreactive Hepatitis C Ab (EIA) Nonreactive 09/11/25 Unknown Urine clean catch - Clean Catch Midstream Urine Culture - Final No growth. DS: Summary Hospital Course Hospital Course: Ms. 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 She reported cycling through manic and hypomanic episodes after coming off a binge of an 8 ball of cocaine q 3-4 days. Tox screen in the ED was only positive for MJ. She was transferred to [facility] for sfaety and stabilization after undergoing medical clearance in the ED. Pt reports my bipolar disorder was going cecil nuts. It happens this time of year . She has experienced some SI and she decided to seek help before she decompensates further. She's been thinking of cutting for the past week, which is the first warning sign of a severe mood episode. She reports recent thoughts of driving her car into something, putting a plastic bag over her head w/ duct tape or overdosing on pils, which she's done in the past. She reports that she was manic for 3 wks and the impaired judgment/impulse control in the setting of christ led to her cocaine binges. She attends the [facility] program for stimulant use d/o, which she reports is helpful when she's not manic. She reports that manic episodes are associated with abnormally elevated moods, racing thoughts, pressured speech, feelings that I can do anything, be anything , excessive spending and sleeping around. She endorses a lot of anxiety, associated w /physical tension, feeling scared, worrying a lot about her kid, herself and ending up like her aunt who is estranged from the family. Endorses flashbacks and nightmares related to previous stressful events, including moving at age 12 and having no friends; having a child at age 19. Denies h/o psychosis Denies violent ideation. Reports having a lot of rage . Screamed fk you to neighbor who plays loud music in his room, on the other side of a shared wall. Poor sleep- up and down every hour Appetite has been poor with depression, has to force herself to eat. Past Psychiatric History: Hx of multiple inpatient psychiatric hospitalizations. Most recently at [facility] in March ( horrible ), [place] around 09/27 ('horrible'). Most recent [facility] admission- 05/25-06/10/24. Dx'd with mood d/o at 18 y/o at [facility] Myrna Galo for therapy. Hx of PHP and respite. h/o suicide attempt by overdosing on pills Hx of SIB (cutting). Medical Evaluation Reviewed: Yes Time Spent with Patient Time attestation: Total time managing care of this patient today ____ minutes. Discharge Plan Discharge Anticipated Discharge Date/Time: 09/19/25 11:30 Patient Disposition: Home, Self-Care Discharge Diagnosis: Bipolar disorder, unspecified PTSD Cocaine use disorder Referrals: Therapy & Psychiatry [Other] - 1 Week Referral Note: *[facility] central registration department has been notified of your discharge. Please reach out to them in order to obtain your aftercare follow up appointments. Symone Elam MD [Primary Care Provider, Endocrinology] - 1 Week Referral Note: 09-19-25 your primary care provider has been made aware of your discharge and will be reaching out to you with the date and time of your follow up appt. Discharge Medications: New acetaminophen 325 mg Tablet 650 mg PO Q6H PRN (Reason: Headache/Pain, Scale 1-10) Qty: 0 0RF aripiprazole [Abilify] 20 mg Tablet 20 mg PO DAILY 30 Days Qty: 30 0RF divalproex 250 mg Tablet Extended Release 24 Hr 250 mg PO DAILY@0900 30 Days Qty: 30 0RF divalproex 500 mg Tablet Extended Release 24 Hr See Rx Instructions .ROUTE .COMPLEX 30 Days Qty: 90 0RF Rx Instructions: Take 1 tab po qam and 2 tabs po qhs. hydroxyzine HCl 25 mg Tablet 25 mg PO BID PRN (Reason: mild anxiety) 30 Days Qty: 60 0RF lithium carbonate 300 mg Capsule 1,200 mg PO BEDTIME 30 Days Qty: 120 0RF lorazepam 1 mg Tablet 1 mg PO DAILY PRN (Reason: severe anxiety/panic attack) 14 Days Qty: 14 0RF methylphenidate HCl 36 mg Tablet Extended Release 24hr 72 mg PO DAILY 30 Days Qty: 60 0RF Rx Instructions: Partial Fill upon patient request. [employer]ER reviewed. for ADHD quetiapine 200 mg Tablet 200 mg PO BEDTIME 30 Days Qty: 30 0RF risperidone 0.5 mg Tablet See Rx Instructions .ROUTE .COMPLEX 30 Days Qty: 60 0RF Rx Instructions: Take 1 tab po qd at 2 pm. May take additional 1 tab po qd prn for severe anxiety and/or agitation risperidone 1 mg Tablet 1 mg PO BID 30 Days Qty: 60 0RF loperamide 2 mg Capsule 2 mg PO Q4H PRN (Reason: Diarrhea) Qty: 0 0RF MAG-AL 200-200 mg/5 mL Suspension 30 ml PO Q6H PRN (Reason: Heartburn/Nausea) Qty: 0 0RF Continued cholecalciferol (vitamin D3) 10 mcg (400 unit) tablet 20 mcg PO DAILY methylphenidate HCl [Concerta] 54 mg tablet extended release 24hr 54 mg PO 1400 Rx Instructions: in the afternoon Discontinued lithium carbonate 600 mg capsule 1,200 mg PO BEDTIME Qty: 30 0RF divalproex 500 mg tablet extended release 24 hr 500 mg PO DAILY aripiprazole [Abilify] 30 mg tablet 30 mg PO DAILY methylphenidate HCl [Concerta] 36 mg tablet extended release 24hr 72 mg PO QAM risperidone [Risperdal] 1 mg tablet 1 mg PO BID Rx Instructions: 1mg in the morning, 1mg at night divalproex 250 mg tablet extended release 24 hr 250 mg PO QAM divalproex 500 mg tablet extended release 24 hr 1,000 mg PO BEDTIME Rx Instructions: one in the morning, two at night quetiapine 200 mg tablet 200 mg PO BEDTIME risperidone [Risperdal] 0.5 mg tablet 0.5 mg PO DAILY@1400 Discharge Orders: Discharge Order (Routine); Ordered 09/19/25 Ordered By: Jory Bentley Diet: Regular diet Activity on Discharge: No Restrictions Stand Alone Forms: Patient Portal Discharge page, Community Support Print Language: Paraguayan Care Plan Goals: Maintain safe behaviors Practice coping skills Take medications as prescribed Continue to pursue sobriety Maintain regular follow-ups with your outpatient providers Health Concerns: Cocaine use Transaminitis AST 37/ALT 55 Consistent with levels in April Heptatitis panel on 09/13/25- negative. LFTs normalized aside from ALT (went down from 55 on 09/11 to 36 on 09/13/25). Hospitalist recommended GI follow up as an outpatient. Plan of Treatment: Follow up with your psychiatric provider, PCP and other outpatient providers Take your medication as prescribed Assessment: Risk assessment at the time of discharge: Patient was interviewed on the day of discharge and found to be fully oriented, without any SI or violent ideation. Pt has improved insight and judgment and plans to continue treatment Pt is not at imminent risk of harm to self or others and has a safety plan that includes presenting to the closest ER or calling 911 if feeling unsafe. Pt has been observed closely by unit staff and has not engaged in any behaviors that suggest dangerous to self or others and has demonstrated appropriate behaviors and impulse control.
[2025-09-18 19:44] VITALS: BP 149/86; PULSE 94; RESP 16; TEMP 37.1; O2SAT 98
[2025-09-19 07:56] VITALS: BP 138/87; PULSE 84; RESP 16; TEMP 36.9; O2SAT 97
[2025-09-19] MEDS: Divalproex Sodium ER 250 MG TAB.ER.24H PO (08:34)
[2025-09-19] MEDS: Cholecalciferol (Vitamin D3) 10 MCG TABLET 20 MCG PO (08:35)
[2025-09-19 08:38] LABS: Lithium 0.77 mmol/L (0.60-1.20)
== END 2025-09-19 11:20 | disposition home or self-care (01) | DRG 753 ==
LOC: HO.ED 09-12 10:50 → HO.PADLT16 09-12 15:51
PROVIDERS: Nurse Practitioner Family; Admitting Provider Psychiatry & Neurology Psychiatry; Emergency Provider Student in an Organized Health Care Education/Training Program; PCP Internal Medicine; Visit Provider Psychiatry & Neurology Psychiatry
DX: F31.9 Bipolar disorder, unspecified (principal); R45.851 Suicidal ideations; F43.10 Post-traumatic stress disorder, unspecified; F19.90 Other psychoactive substance use, unspecified, uncomplicated; F14.10 Cocaine abuse, uncomplicated; G44.40 Drug-induced headache, not elsewhere classified, not intractable; Z23 Encounter for immunization; Z91.52 Personal history of nonsuicidal self-harm; Z87.891 Personal history of nicotine dependence; Z79.899 Other long term (current) drug therapy; T43.635A Adverse effect of methylphenidate, initial encounter
CPT/HCPCS: 36415; 80053; 80061; 80164; 80178; 80307; 81001; 83036; 83735; 85025; 86704; 86706; 86709; 86803; 87086; 87340; 90656; 93005; 99285; S9485

== ENCOUNTER → 2025-09-11 16:02 | Outpatient (BNV) | payer OTHER, SELFPAY | PROVIDERS: Emergency Provider Student in an Organized Health Care Education/Training Program; PCP Internal Medicine; Visit Provider Internal Medicine Cardiovascular Disease | DX: R94.31 Abnormal electrocardiogram [ECG] [EKG] (principal); Z13.6 Encounter for screening for cardiovascular disorders | CPT/HCPCS: 93010 ==

== ENCOUNTER → 2025-09-12 15:26 | Outpatient (BNV) | payer OTHER, SELFPAY | PROVIDERS: Admitting Provider Psychiatry & Neurology Psychiatry; Emergency Provider Student in an Organized Health Care Education/Training Program; PCP Internal Medicine; Visit Provider Nurse Practitioner Family | DX: R74.01 Elevation of levels of liver transaminase levels (principal) | CPT/HCPCS: 99221 ==

== ENCOUNTER → 2025-09-12 15:26 | Outpatient (BNV) | payer OTHER, SELFPAY | PROVIDERS: Admitting Provider Psychiatry & Neurology Psychiatry; Emergency Provider Student in an Organized Health Care Education/Training Program; PCP Internal Medicine; Visit Provider Psychiatry & Neurology Psychiatry | DX: F31.9 Bipolar disorder, unspecified (principal) | CPT/HCPCS: 99499 ==

== ENCOUNTER → 2025-10-03 15:26 | Outpatient (BNV) | payer OTHER, SELFPAY | PROVIDERS: Admitting Provider Psychiatry & Neurology Psychiatry; Emergency Provider Emergency Medicine; PCP Internal Medicine; Visit Provider Internal Medicine | DX: Z13.6 Encounter for screening for cardiovascular disorders (principal) | CPT/HCPCS: 93010 ==

== ENCOUNTER → 2025-10-04 12:01 | Outpatient (BNV) | payer OTHER, SELFPAY | PROVIDERS: Admitting Provider Psychiatry & Neurology Psychiatry; Emergency Provider Emergency Medicine; PCP Internal Medicine; Visit Provider Psychiatry & Neurology Psychiatry | DX: F31.4 Bipolar disorder, current episode depressed, severe, without psychotic features (principal); F14.10 Cocaine abuse, uncomplicated; F43.11 Post-traumatic stress disorder, acute; F90.9 Attention-deficit hyperactivity disorder, unspecified type | CPT/HCPCS: 90792 ==

== ENCOUNTER → 2025-10-04 12:01 | Outpatient (BNV) | payer OTHER, SELFPAY | PROVIDERS: Admitting Provider Psychiatry & Neurology Psychiatry; Emergency Provider Emergency Medicine; PCP Internal Medicine; Visit Provider Nurse Practitioner Family | DX: R45.851 Suicidal ideations (principal) | CPT/HCPCS: 99221 ==